=== PATIENT | female | born 1945 | race Caucasian/White ===

== ENCOUNTER 2024-09-30 09:40 | Inpatient (IN) | payer OTHER ==
--- OUTSIDE RECORDS SUMMARY | 2024-09-30 09:44 | XMS REPORT | Continuity of Care Document ---
Author Name Unknown Address [address] [place] [address] [facility] Address [address] [place] [address] Care Team Providers Care Auto Body Mechanic Name Role Phone NICOLLE PINTO Primary Care Physicia n Unavailable Castano, Na L Attending Clinician Unavailable Francis Harvey Attending Clinician Unavailable MICHAEL MENSAH Attending Clinician UnavailMICHAEL Edwards Attending Clinician Unavailnaeem centeno Doctor Unassigned, [place] Attending Clinician U Michael Ulrich MD Attending Clinician [phone] Felicity Marin Attending Clinician [phone] Unknown, Attending Attending Clinician UnavailFELICITY Payne Attending Clinician Unavailnaeem Bernal RN, Charmaine Griffin Attending Clinician [phone] WINSOME BOURGEOIS Attending Clinician Unavailable Hans SANTANA, Daniel Attending Clinician [phone] Winsome Bourgeois DO Attending Clinician [phone] AGAPITO MORALES Attending Clinician Unavailable Agapito Morales MD Attending Clinician [phone] Doctor Unassigned, [place] Attending Clinician U edward Ambar Noguera RD Attending Clinician [phone] Karla Quijano Attending Clinician [phone] JONAS HARDEN Attending Clinician Unavailable FREDI RICARDO Attending Clinician Unavail able Fredi Ricardo DO Attending Clinician [phone] Raju_P Attending Clinician Unavailable WINSOME BOURGEOIS Admitting Clinician Unavailable Winsome Bourgeois DO Admitting Clinician [phone] Raju_Lupe Admitting Clinician Unavailable Payers Payer Name Policy Type Policy Number Effective Date Expirati on Date Source [facility] AAR MCR Advantage (HMO-POS) [id number] 2021 00:00:00 [facility] HUMANA O [id number] 2019 00:00:00 Problems Condition Name Condition Details Condition Category Status Onset Date Resolution Date Last Treatment Date Treating Clinician Comments Source GALVEZ (dyspnea on exertion) GALVEZ (dyspnea on exertion) Disease Active 08-18 00:00: 00 [facility] Essential hypertensi on Essential hypertensi on Disease Active 08-18 00:00: 00 [facility] Type 2 diabetes mellitus without complicati on Type 2 diabetes mellitus without complicati on Disease Active 08-18 00:00: 00 [facility] Dyslipidem ia Dyslipidem ia Disease Active 08-18 00:00: 00 [facility] Bilateral carotid artery disease Bilateral carotid artery disease Disease Active 08-18 00:00: 00 [facility] Stage 4 chronic kidney disease Stage 4 chronic kidney disease Disease Active 08-18 00:00: 00 [facility] Chest pain, unspecifie d type Chest pain, unspecifie d type Disease Active 08-17 00:00: 00 [facility] Morbid obesity with body mass index of 50 or higher Morbid obesity with body mass index of 50 or higher Disease Active 02-04 00:00: 00 [facility] 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 Disease Active 02-04 00:00: 00 [facility] Morbid obesity with body mass index of 40.0-49.9 Morbid obesity with body mass index of 40.0-49.9 Disease Active 02-04 00:00: 00 [facility] [id number] Anemia in chronic illness Problem Active [facility] [id number] Acquired hypothyroi dism Problem Active [facility] [id number] Unsteady gait when walking Problem Active [facility] Chronic anemia Anemia in other chronic diseases classified elsewhere Problem Active [facility] Osteoarthr itis of knee Bilateral primary osteoarthr itis of knee Problem Active [facility] [id number] Primary osteoarthr itis of right knee Problem [facility] Chronic kidney disease stage 3B (disorder) Stage 3b chronic kidney disease Problem [facility] [id number] +5th digit eff 05/12/20*Ch ronic kidney disease, stage III (moderate) Problem Active [facility] [id number] Abnormal thyroid blood test Problem Active [facility] [id number] Dry eyes Problem Active [facility] 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 H/O stroke without residual deficits Problem Active [facility] Memory loss Memory loss Problem Active [facility] [id number] CPAP (continuou s positive airway pressure) dependence Problem Active [facility] Diabetic peripheral neuropathy associated with type 2 diabetes mellitus Type 2 diabetes mellitus with diabetic neuropathy , without long-term current use of insulin Problem Active [facility] [id number] Obstructiv e sleep apnea (adult) (pediatric ) Problem Active [facility] [id number] Diabetic retinopath y associated with controlled type 2 diabetes mellitus Problem Active [facility] Hyperlipid emia Hyperlipid emia Problem Active [facility] Bilateral arthritis of knees Osteoarthr itis of both knees Problem Active [facility] [id number] Presence of other vascular implants and grafts Problem Active [facility] [id number] Mixed stress and urge urinary incontinen ce Problem Active [facility] Allergies, Adverse Reactions, Alerts Allergy Name Allergy Type Status Severity Reaction(s) Onset Date Inactive Date Treating Clinician Comments Source NO KNOWN ALLERGIE S Drug Class Active [facility] Social History Social Habit Start Date Stop Date Quantity Comments Source History of Tobacco Use [facility] Sex Assigned At [facility] Social function 2024-09-24 00:00:00 2024-09-24 00:00:00 [facility] Alcoholic beverage intake 2024-09-24 00:00:00 2024-09-24 00:00:00 0 /d [facility] Tobacco use and exposure 2024-02-07 00:00:00 2024-02-07 00:00:00 Smokeless tobacco non-user [facility] Exposure to SARS-CoV-2 (event) 2022-07-14 00:00:00 2022-07-24 09:28:00 Not sure [facility] Alcohol intake 2021-05-31 00:00:00 2021-05-31 00:00:00 0 /d [facility] Smoking Status Start Date Stop Date Source Never smoked tobacco [facility] Medications Ordered Medication Name Filled Medication Name Start Date Stop Date Current Medication? Ordering Clinician Indication Dosage Frequency Signature (SIG) Comments Components Source furosemide 40 mg tablet 02-06 09:44: 38 Yes 40mg Take 1 tablet by mouth in the morning. [facility] fluticasone propionate 50 mcg/actuati on nasal spray 02-06 00:00: 00 Yes [id number] 1{spray } Use 1 Slinger in each nostril in the morning. [facility] methylPREDN ISolone (MEDROL, REYNA,) 4 mg tablets 02-06 00:00: 00 Yes [id number] Take by mouth SEE-INSTRU CTIONS. follow package directions [facility] fenofibrate 48 mg tablet 12-11 00:00: 00 Yes 48mg Take 1 tablet by mouth. [facility] carvediloL 6.25 mg tablet 10-02 00:00: 00 10-02 05:59 :00 No 6.25mg Take 1 tablet by mouth. [facility] pravastatin (PRAVACHOL) tablet 40 mg 08-19 03:00: 00 Yes 40mg 40 mg, Oral, QHS, First dose on 08/18/23 at 2100, Until Discontinu ed, Routine [facility] sulfur hexafluorid e microsphr (LUMASON) injection 5 mL 08-18 15:45: 00 08-18 15:45 :00 No [id number] 5mL 5 mL, Intravenou s, ONCE, 1 dose, On 08/18/23 at 0945, Routine
sociology faculty member approving Restricted medication : ETTA MCCARTNEY [facility] aspirin (ASPIRIN LOW DOSE) 81 mg EC tablet 08-18 15:32: 59 Yes 81mg Take 1 tablet by mouth in the morning. [facility] benazepril 20 mg tablet 08-18 15:32: 59 Yes 20mg Take 1 tablet by mouth in the morning. [facility] furosemide 40 mg tablet 08-18 15:32: 59 Yes 40mg Take 1 tablet by mouth in the morning. [facility] levothyroxi ne 25 mcg tablet 08-18 15:32: 59 Yes 25ug Take 1 tablet by mouth every morning. [facility] INSULIN REGULAR, HUMAN (NOVOLIN R INJECTION) 08-18 15:32: 59 Yes Inject as directed. [facility] metFORMIN 500 mg tablet 08-18 15:32: 59 Yes 500mg Take 1 tablet by mouth in the morning and 1 tablet in the evening. Take with meals. [facility] NIFEdipine XL (NIFEDICAL XL) 60 mg 24 hr tablet 08-18 15:32: 59 Yes 60mg Take 1 tablet by mouth in the morning. [facility] clopidogrel (PLAVIX) 75 mg tablet 08-18 15:32: 59 Yes 75mg Take 1 tablet by mouth in the morning. [facility] pravastatin 40 mg tablet 08-18 15:32: 59 Yes 40mg Take 1 tablet by mouth at bedtime. [facility] colesevelam (WELCHOL) 625 mg tablet 08-18 15:32: 59 Yes 3750mg Take 3,750 mg by mouth 2 (two) times daily with meals. [facility] SPIRONOLACT ONE ORAL 08-18 15:32: 59 Yes Take by mouth. [facility] clopidogrel (PLAVIX) 75 mg tablet 08-18 15:32: 59 Yes 75mg Take 1 tablet by mouth in the morning. [facility] pravastatin 40 mg tablet 08-18 15:32: 59 Yes 40mg Take 1 tablet by mouth at bedtime. [facility] NIFEdipine ER tablet 90 mg 08-18 15:00: 00 Yes 90mg 90 mg, Oral, DAILY, First dose on 08/18/23 at 0900, Until Discontinu ed
Facu lty member approving Non-formul erna medication : STERLING NORRIS
Reas on for non-formul erna use: SPECIFIC INDICATION FOR NONFORMULA RY PRODUCT [facility] clopidogreL (PLAVIX) 75 mg tablet 75 mg 08-18 15:00: 00 Yes 75mg 75 mg, Oral, DAILY, First dose on 08/18/23 at 0900, Until Discontinu ed, Routine [facility] aspirin EC tablet 81 mg 08-18 15:00: 00 Yes 81mg 81 mg, Oral, DAILY, First dose on 08/18/23 at 0900, Until Discontinu ed, Routine [facility] levothyroxi ne (SYNTHROID) tablet 25 mcg 08-18 12:00: 00 Yes 25ug 25 mcg, Oral, QAM-0600, First dose on 08/18/23 at 0600, Until Discontinu ed, Routine [facility] NaCl 0.9% (NS) IV infusion 250 mL 08-18 04:45: 00 Yes 250mL at 50 mL/hr, IV Infusion, CONTINUOUS , Starting on 08/17/23 at 2245, Until Discontinu ed, Routine [facility] benzonatate (TESSALON PERLES) capsule 100 mg 08-18 03:34: 49 Yes 100mg 100 mg, Oral, TIDPRN, Starting on 08/17/23 at 2134, Until Discontinu ed, Routine, Cough [facility] acetaminoph en-codeine (TYLENOL #3) 300-30 mg tablet 1 tablet 08-18 03:34: 43 Yes 1{tbl} 1 tablet, Oral, Q4HPRN, Starting on 08/17/23 at 2134, Until Discontinu ed, Routine, Pain (scale 4-6), Pain (scale 7-10) [facility] Sliding Scale Insulin - Lispro (HumaLOG) 08-17 23:00: 00 Yes Subcutaneo us, TID MEALS+HS, First dose on 08/17/23 at 1700, Until Discontinu ed, Routine [facility] heparin (porcine) injection 5,000 Units 08-17 20:00: 00 Yes 5000U 5,000 Units, Subcutaneo us, Q8H, First dose on 08/17/23 at 1400, Until Discontinu ed, Routine [facility] sodium zirconium cyclosilica te (LOKELMA) 10 gram packet 10 g 08-17 20:00: 00 08-19 19:59 :00 No 10g 10 g, Oral, TID, 6 doses, First dose on 08/17/23 at 1400, Last dose on Sat08/19/23 at 0800, FRANCISCO J [facility] insulin regular human (HUMULIN R) injection 10 Units 08-17 20:00: 00 08-17 20:06 :00 No 10U 10 Units, IV Push, ONCE, 1 dose, On 08/17/23 at 1400, Routine
Indicatio n for insulin: Hyperkalem ia- Please use the Insulin Protocol for Hyperkalem ia order set [facility] hydralAZINE (APRESOLINE ) injection 10 mg 08-17 19:45: 00 08-17 20:03 :00 No 10mg 10 mg, Slow IV Push, ONCE, 1 dose, On 08/17/23 at 1345, FRANCISCO J [facility] dextrose 50 % in water (D50W) injection 50 mL 08-17 19:30: 00 08-17 19:58 :00 No 50mL 50 mL, Intravenou s, ONCE, 1 dose, On 08/17/23 at 1330, STAT [facility] glucagon (GLUCAGEN DIAGNOSTIC KIT) injection 1 mg 08-17 19:29: 10 Yes 1mg 1 mg, Intramuscu lar, PRN, Starting on 08/17/23 at 1329, Until Discontinu ed, FRANCISCO J, Blood Glucose < or = 70 mg/dL and patient is NPO, unable to swallow or has mental changes. [facility] dextrose 50 % in water (D50W) injection 25 mL 08-17 19:29: 10 Yes 25mL 25 mL, Slow IV Push, PRN, Starting on 08/17/23 at 1329, Until Discontinu ed, FRANCISCO J, Blood Glucose < or = 70 mg/dL and patient is NPO, unable to swallow or has mental status changes. [facility] acetaminoph en (TYLENOL) tablet 650 mg 08-17 19:22: 05 Yes 650mg 650 mg, Oral, Q6HPRN, Starting on 08/17/23 at 1322, Until Discontinu ed, Routine, Pain (scale 1-3) [facility] albuterol (PROVENTIL) 2.5 mg /3 mL (0.083 %) nebulizer solution 10 mg 08-17 19:00: 00 08-17 19:33 :00 No 10mg 10 mg, Inhalation , ONCE, 1 dose, On 08/17/23 at 1300, STAT [facility] aspirin tablet 325 mg 08-17 15:15: 00 08-17 15:10 :00 No 325mg 325 mg, Oral, ONCE, 1 dose, On 08/17/23 at 0915, STAT [facility] aspirin (ASPIRIN LOW DOSE) 81 mg EC tablet 08-15 08:40: 01 Yes 81mg Take 1 tablet by mouth in the morning. [facility] benazepril 20 mg tablet 08-15 08:40: 01 Yes 20mg Take 1 tablet by mouth in the morning. [facility] furosemide 40 mg tablet 08-15 08:40: 01 Yes 40mg Take 1 tablet by mouth in the morning. [facility] levothyroxi ne 25 mcg tablet 08-15 08:40: 01 Yes 25ug Take 1 tablet by mouth every morning. [facility] INSULIN REGULAR, HUMAN (NOVOLIN R INJECTION) 08-15 08:40: 01 Yes Inject as directed. [facility] metFORMIN 500 mg tablet 08-15 08:40: 01 Yes 500mg Take 1 tablet by mouth in the morning and 1 tablet in the evening. Take with meals. [facility] NIFEdipine XL (NIFEDICAL XL) 60 mg 24 hr tablet 08-15 08:40: 01 Yes 60mg Take 1 tablet by mouth in the morning. [facility] clopidogrel (PLAVIX) 75 mg tablet 08-15 08:40: 01 Yes 75mg Take 1 tablet by mouth in the morning. [facility] pravastatin 40 mg tablet 08-15 08:40: 01 Yes 40mg Take 1 tablet by mouth at bedtime. [facility] Levothyroxi ne Sodium 88 MCG Levothyroxi ne Sodium 88 MCG 2-14 00:00: 00 No QD Levothyrox ine Sodium 88 MCG pravastatin 40 mg tablet 2020-08 11:16: 08 Yes 40mg Take 40 mg by mouth at bedtime. [facility] colesevelam (WELCHOL) 625 mg tablet 2020-08 11:16: 08 Yes 3750mg Take 3,750 mg by mouth 2 (two) times daily with meals. [facility] aspirin (ASPIRIN LOW DOSE) 81 mg EC tablet 2020-08 11:16: 08 Yes 81mg Take 81 mg by mouth daily. [facility] benazepril 20 mg tablet 2020-08 11:16: 08 Yes 20mg Take 20 mg by mouth daily. [facility] furosemide 40 mg tablet 2020-08 11:16: 08 Yes 40mg Take 40 mg by mouth daily. [facility] levothyroxi ne 25 mcg tablet 2020-08 11:16: 08 Yes 25ug Take 25 mcg by mouth every morning. [facility] INSULIN REGULAR, HUMAN (NOVOLIN R INJECTION) 2020-08 11:16: 08 Yes Inject as directed. [facility] metFORMIN 500 mg tablet 2020-08 11:16: 08 Yes 500mg Take 500 mg by mouth 2 (two) times daily with meals. [facility] NIFEdipine XL (NIFEDICAL XL) 60 mg 24 hr tablet 2020-08 11:16: 08 Yes 60mg Take 60 mg by mouth daily. [facility] clopidogrel (PLAVIX) 75 mg tablet 2020-08 11:16: 08 Yes 75mg Take 75 mg by mouth daily. [facility] benzonatate (TESSALON PERLES) 100 mg capsule 2020-08 00:00: 00 Yes [id number] 100mg Take 1 capsule by mouth 3 (three) times daily as needed for Cough. [facility] amoxicillin -clavulanat e (AUGMENTIN) 875-125 mg per tablet 2020-08 00:00: 00 06-11 04:59 :00 No [id number] 1{tbl} Take 1 tablet by mouth 2 (two) times daily for 10 days. [facility] Mupirocin 2 % Mupirocin 2 % 2020-08 00:00: 00 06-02 00:00 :00 No 1{appli cation_ to_affe cted_ar ea} TID Mupirocin 2 % valACYclovi r HCl 1 GM valACYclovi r HCl 1 GM 2020-08 0 00:00: 00 06-02 00:00 :00 No 1{table t} BID valACYclov ir HCl 1 GM Mupirocin 2 % Mupirocin 2 % 2020-08 015 00:00: 00 06-02 00:00 :00 No 1{appli cation_ to_affe cted_ar ea} TID Mupirocin 2 % valACYclovi r HCl 1 GM valACYclovi r HCl 1 GM 2020-08 0 00:00: 00 06-02 00:00 :00 No 1{table t} BID valACYclov ir HCl 1 GM aspirin (ASPIRIN LOW DOSE) 81 mg EC tablet 09-26 16:42: 53 Yes 81mg Take 81 mg by mouth daily. [facility] benazepril 20 mg tablet 09-26 16:42: 53 Yes 20mg Take 20 mg by mouth daily. [facility] furosemide 40 mg tablet 09-26 16:42: 53 Yes 40mg Take 40 mg by mouth daily. [facility] levothyroxi ne 25 mcg tablet 09-26 16:42: 53 Yes 25ug Take 25 mcg by mouth every morning. [facility] INSULIN REGULAR, HUMAN (NOVOLIN R INJECTION) 09-26 16:42: 53 Yes Inject as directed. [facility] metFORMIN 500 mg tablet 09-26 16:42: 53 Yes 500mg Take 500 mg by mouth 2 (two) times daily with meals. [facility] NIFEdipine XL (NIFEDICAL XL) 60 mg 24 hr tablet 09-26 16:42: 53 Yes 60mg Take 60 mg by mouth daily. [facility] clopidogrel (PLAVIX) 75 mg tablet 09-26 16:42: 53 Yes 75mg Take 75 mg by mouth daily. [facility] pravastatin 40 mg tablet 09-26 16:42: 53 Yes 40mg Take 40 mg by mouth at bedtime. [facility] colesevelam (WELCHOL) 625 mg tablet 2-15 16:42: 53 Yes 3750mg Take 3,750 mg by mouth 2 (two) times daily with meals. [facility] acetaminoph en-codeine (TYLENOL-CO DEINE #3) 300-30 mg tablet 02-06 00:00: 00 Yes 1{tbl} Take 1 tablet by mouth every 4 (four) hours as needed for Pain (scale 4-6) or Pain (scale 7-10). [facility] Myrbetriq Myrbetriq Yes Na Castano 1 tablet [facility] Levothyroxi ne Sodium Levothyroxi ne Sodium Yes Na Castano [facility] Pl[facility] Plavix Yes Na Castano 1 tablet [facility] Coreg Coreg Yes Na Castano 1 tablet with food [facility] MetFORMIN HCl ER MetFORMIN HCl ER Yes Na Castano 1 tablet with meal [facility] OneTouch Ultra 2 OneTouch Ultra 2 Yes Na Castano USE DIRECTED [facility] Nifedical XL Nifedical XL Yes Na Castano TAKE 1 TABLET BY MOUTH ONCE A DAY [facility] Lasix Lasix Yes Na Castano 1 tablet C [facility] OneTouch Ultra Test OneTouch Ultra Test Yes Na Castano 1 strip Commo [facility] Ditropan XL Ditropan XL Yes Na Castano 1 tablet [facility] Pravastatin Sodium Pravastatin Sodium Yes Na Castano TAKE 1 TABLET BY MOUTH ONCE A DAY [facility] NovoLIN 70/30 ReliOn NovoLIN 70/30 ReliOn Yes Na Castano 55 units AM, 30 units noon, 55 units PM [facility] Bydureon Bydureon Yes Na Castano not defined [facility] Restasis Restasis Yes Na Castano not defined [facility] Coreg 25 MG Coreg 25 MG No Co reg 25 MG Lasix 40 MG Lasix 40 MG No La six 40 MG Ditropan XL 10 MG Ditropan XL 10 MG No 1{table t} QD Ditropan XL 10 MG Restasis Restasis No Restasis Lotensin 20 MG Lotensin 20 MG No Lotensin 20 MG Nifedical XL 60 MG Nifedical XL 60 MG No Nifedical XL 60 MG metFORMIN HCl ER 750 MG metFORMIN HCl ER 750 MG No metFORMIN HCl ER 750 MG Myrbetriq 25 MG Myrbetriq 25 MG No 1{table t} QD Myrbetriq 25 MG NovoLIN 70/30 ReliOn (70-30) 100 UNIT/ML NovoLIN 70/30 ReliOn (70-30) 100 UNIT/ML No QD NovoLIN 70/30 ReliOn (70-30) 100 UNIT/ML OneTouch Ultra 2 w/Device OneTouch Ultra 2 w/Device No BID OneTouch Ultra 2 w/Device Levothyroxi ne Sodium 75 MCG Levothyroxi ne Sodium 75 MCG No Levothyrox ine Sodium 75 MCG Plavix 75 MG Plavix 75 MG No Plavix 75 MG Coreg 12.5 MG Coreg 12.5 MG No 1{table t_with_ food} BID Coreg 12.5 MG Levothyroxi ne Sodium 75 MCG Levothyroxi ne Sodium 75 MCG No Levothyrox ine Sodium 75 MCG metFORMIN HCl ER 750 MG metFORMIN HCl ER 750 MG No metFORMIN HCl ER 750 MG Coreg 25 MG Coreg 25 MG No Co reg 25 MG Nifedical XL 60 MG Nifedical XL 60 MG No Nifedical XL 60 MG NovoLIN 70/30 ReliOn (70-30) 100 UNIT/ML NovoLIN 70/30 ReliOn (70-30) 100 UNIT/ML No QD NovoLIN 70/30 ReliOn (70-30) 100 UNIT/ML Myrbetriq 25 MG Myrbetriq 25 MG No 1{table t} QD Myrbetriq 25 MG Restasis Restasis No Restasis Lasix 40 MG Lasix 40 MG No 1{table t} QD Lasix 40 MG Ditropan XL 10 MG Ditropan XL 10 MG No 1{table t} QD Ditropan XL 10 MG OneTouch Ultra 2 w/Device OneTouch Ultra 2 w/Device No BID OneTouch Ultra 2 w/Device Coreg 12.5 MG Coreg 12.5 MG No 1{table t_with_ food} BID Coreg 12.5 MG Plavix 75 MG Plavix 75 MG No 1{table t} QD Plavix 75 MG Lotensin 20 MG Lotensin 20 MG No Lotensin 20 MG Carvedilol 12.5 MG Carvedilol 12.5 MG No Carvedilol 12.5 MG OneTouch Ultra - OneTouch Ultra - No OneTouch Ultra - Restasis Restasis No Restasis Carvedilol 12.5 MG Carvedilol 12.5 MG No Carvedilol 12.5 MG NovoLIN 70/30 ReliOn (70-30) 100 UNIT/ML NovoLIN 70/30 ReliOn (70-30) 100 UNIT/ML No QD NovoLIN 70/30 ReliOn (70-30) 100 UNIT/ML OneTouch Ultra 2 w/Device OneTouch Ultra 2 w/Device No BID OneTouch Ultra 2 w/Device Spironolact one 25 MG Spironolact one 25 MG No Spironolac tone 25 MG OneTouch Ultra - OneTouch Ultra - No OneTouch Ultra - Coreg 12.5 MG Coreg 12.5 MG No 1{table t_with_ food} BID Coreg 12.5 MG Nifedical XL 60 MG Nifedical XL 60 MG No Nifedical XL 60 MG metFORMIN HCl ER 750 MG metFORMIN HCl ER 750 MG No metFORMIN HCl ER 750 MG Plavix 75 MG Plavix 75 MG No 1{table t} QD Plavix 75 MG Levothyroxi ne Sodium 88 MCG Levothyroxi ne Sodium 88 MCG No Levothyrox ine Sodium 88 MCG Coreg 25 MG Coreg 25 MG No Co reg 25 MG Lotensin 20 MG Lotensin 20 MG No Lotensin 20 MG Myrbetriq 25 MG Myrbetriq 25 MG No 1{table t} QD Myrbetriq 25 MG Benazepril HCl 10 MG Benazepril HCl 10 MG No Benazepril HCl 10 MG Immunizations Ordered Immunization Name Filled Immunization Name Date Status Comments Source SARS-COV-2 COVID-19 MODERNA 12+ YRS VACCINE 2020-10-14 00:00:00 Completed [facility] SARS-COV-2 COVID-19 MODERNA 12+ YRS VACCINE 2020-10-14 00:00:00 Completed [facility] SARS-COV-2 COVID-19 MODERNA 12+ YRS VACCINE 2020-10-14 00:00:00 Completed [facility] SARS-COV-2 COVID-19 MODERNA 12+ YRS VACCINE 2020-10-14 00:00:00 Completed [facility] SARS-COV-2 COVID-19 MODERNA 12+ YRS VACCINE 2020-10-14 00:00:00 Completed [facility] SARS-COV-2 COVID-19 MODERNA VACCINE 2020-10-14 00:00:00 Completed [facility] SARS-COV-2 COVID-19 MODERNA 12+ YRS VACCINE 2020-09-16 00:00:00 Completed [facility] SARS-COV-2 COVID-19 MODERNA 12+ YRS VACCINE 2020-09-16 00:00:00 Completed [facility] SARS-COV-2 COVID-19 MODERNA 12+ YRS VACCINE 2020-09-16 00:00:00 Completed [facility] SARS-COV-2 COVID-19 MODERNA 12+ YRS VACCINE 2020-09-16 00:00:00 Completed [facility] SARS-COV-2 COVID-19 MODERNA 12+ YRS VACCINE 2020-09-16 00:00:00 Completed [facility] SARS-COV-2 COVID-19 MODERNA VACCINE 2020-09-16 00:00:00 Completed [facility] SARS-COV-2 COVID-19 MODERNA 12+ YRS VACCINE Unknown Completed [facility] SARS-COV-2 COVID-19 MODERNA 12+ YRS VACCINE Unknown Completed [facility] SARS-COV-2 COVID-19 MODERNA 12+ YRS VACCINE Unknown Completed [facility] SARS-COV-2 COVID-19 MODERNA 12+ YRS VACCINE Unknown Completed [facility] SARS-COV-2 COVID-19 MODERNA 12+ YRS VACCINE Unknown Completed [facility] SARS-COV-2 COVID-19 MODERNA 12+ YRS VACCINE Unknown Completed [facility] Vital Signs Vital Name Observation Time Observation Value Comments S ource Systolic blood pressure 2024-09-24 15:12:00 117 mm[Hg] [facility] Diastolic blood pressure 2024-09-24 15:12:00 69 mm[Hg] [facility] Heart rate 2024-09-24 15:12:00 84 /min Unive [facility] Respiratory rate 2024-09-24 15:12:00 18 /min [facility] Body height 2024-09-24 15:12:00 165.1 cm [facility] Body weight 2024-09-24 15:12:00 107.502 kg [facility] BMI 2024-09-24 15:12:00 39.44 kg/m2 [facility] Oxygen saturation in Arterial blood by Pulse oximetry 2024-09-24 15:12:00 94 /min [facility] Systolic blood pressure 2024-02-07 14:46:00 139 mm[Hg] [facility] Diastolic blood pressure 2024-02-07 14:46:00 67 mm[Hg] [facility] Heart rate 2024-02-07 14:46:00 77 /min [facility] Body temperature 2024-02-07 14:46:00 36.67 Carissa [facility] Respiratory rate 2024-02-07 14:46:00 18 /min [facility] Body weight 2024-02-07 14:46:00 117.935 kg [facility] BMI 2024-02-07 14:46:00 43.27 kg/m2 [facility] Oxygen saturation in Arterial blood by Pulse oximetry 2024-02-07 14:46:00 95 /min [facility] Systolic blood pressure 2023-08-18 17:02:00 141 mm[Hg] [facility] Diastolic blood pressure 2023-08-18 17:02:00 59 mm[Hg] [facility] Heart rate 2023-08-18 17:02:00 74 /min [facility] Body temperature 2023-08-18 17:02:00 35.94 Carissa [facility] Respiratory rate 2023-08-18 17:02:00 17 /min [facility] Oxygen saturation in Arterial blood by Pulse oximetry 2023-08-18 17:02:00 94 /min [facility] Body weight 2023-08-18 09:01:00 114.488 kg [facility] BMI 2023-08-18 09:01:00 42.00 kg/m2 [facility] Body height 2023-08-17 21:10:00 165.1 cm [facility] Systolic blood pressure 2023-08-15 14:40:00 144 mm[Hg] [facility] Diastolic blood pressure 2023-08-15 14:40:00 58 mm[Hg] [facility] Heart rate 2023-08-15 14:40:00 85 /[facility] 2023-08-15 14:40:00 36.72 Carissa [facility] Respiratory rate 2023-08-15 14:40:00 18 /min [facility] Body height 2023-08-15 14:40:00 165.1 cm [facility] Body weight 2023-08-15 14:40:00 115.214 kg [facility] BMI 2023-08-15 14:40:00 42.27 kg/m2 [facility] Oxygen saturation in Arterial blood by Pulse oximetry 2023-08-15 14:40:00 97 /min [facility] height 2022-12-17 14:00:00 65 [in_i] Commo n [facility] weight 2022-12-17 14:00:00 251.9 [lb_av] Co mmon [facility] bmi 2022-12-17 14:00:00 41.91 kg/m2 Comm on [facility] blood pressure systolic 2022-12-17 14:00:00 129 mm[Hg] [facility] blood pressure diastolic 2022-12-17 14:00:00 78 mm[Hg] [facility] Body height 2022-07-24 21:10:00 165.1 cm [facility] Body weight 2022-07-24 21:10:00 110.224 kg [facility] BMI 2022-07-24 21:10:00 40.44 kg/m2 [facility] height 2021-09-25 08:40:00 65 [in_i] Commo n [facility] weight 2021-09-25 08:40:00 255.6 [lb_av] Co mmon [facility] temperature 2021-09-25 08:40:00 96.3 [degF] Com [facility] bmi 2021-09-25 08:40:00 42.53 kg/m2 Comm on [facility] oximetry 2021-09-25 08:40:00 99 % Commo n [facility] respiratory rate 2021-09-25 08:40:00 16 /min Common [facility] blood pressure systolic 2021-09-25 08:40:00 139 mm[Hg] [facility] blood pressure diastolic 2021-09-25 08:40:00 66 mm[Hg] [facility] height 2021-06-22 11:00:00 65 [in_i] Commo n [facility] weight 2021-06-22 11:00:00 255.0 [lb_av] Co mmon [facility] temperature 2021-06-22 11:00:00 97.3 [degF] Com [facility] bmi 2021-06-22 11:00:00 42.43 kg/m2 Comm on [facility] oximetry 2021-06-22 11:00:00 93 % Commo n [facility] respiratory rate 2021-06-22 11:00:00 16 /min [facility] blood pressure systolic 2021-06-22 11:00:00 150 mm[Hg] [facility] blood pressure diastolic 2021-06-22 11:00:00 72 mm[Hg] [facility] Systolic blood pressure 2021-05-31 16:19:00 182 mm[Hg] [facility] Diastolic blood pressure 2021-05-31 16:19:00 81 mm[Hg] [facility] Heart rate 2021-05-31 16:16:00 72 /min [facility] Body temperature 2021-05-31 16:16:00 36.11 Carissa [facility] Respiratory rate 2021-05-31 16:16:00 18 /min [facility] Body height 2021-05-31 16:16:00 165.1 cm [facility] Body weight 2021-05-31 16:16:00 113.399 kg [facility] BMI 2021-05-31 16:16:00 41.60 kg/m2 [facility] Oxygen saturation in Arterial blood by Pulse oximetry 2021-05-31 16:16:00 96 /min [place] [facility] height 2021-03-20 09:00:00 65 [in_i] Commo n [facility] weight 2021-03-20 09:00:00 255 [lb_av] Comm on [facility] temperature 2021-03-20 09:00:00 97.0 [degF] Com [facility] bmi 2021-03-20 09:00:00 42.43 kg/m2 Comm on [facility] oximetry 2021-03-20 09:00:00 97 % Commo n [facility] blood pressure systolic 2021-03-20 09:00:00 134 mm[Hg] [facility] blood pressure diastolic 2021-03-20 09:00:00 66 mm[Hg] [facility] height 2021-03-20 08:00:00 65 [in_i] Commo n [facility] weight 2021-03-20 08:00:00 255 [lb_av] Comm on [facility] temperature 2021-03-20 08:00:00 97.0 [degF] Com [facility] bmi 2021-03-20 08:00:00 42.43 kg/m2 Comm on [facility] oximetry 2021-03-20 08:00:00 97 % Commo n [facility] respiratory rate 2021-03-20 08:00:00 16 /min [facility] blood pressure systolic 2021-03-20 08:00:00 134 mm[Hg] [facility] blood pressure diastolic 2021-03-20 08:00:00 66 mm[Hg] [facility] Procedures Procedure Date / Time Performed Performing Clinician Source XR ANKLE 3+ VW LEFT 2024-09-24 15:26:36 Shruthi Mensah [facility] POCT GLUCOSE (AUTOMATED) 2023-08-18 17:47:00 Shahnaz Bourgeois [facility] TRANSTHORACIC ECHO (TTE) COMPLETE W/ CONTRAST 2023-08-18 14:57:00 Winsome Bourgeois [facility] POCT GLUCOSE (AUTOMATED) 2023-08-18 13:30:00 Shahnaz Bourgeois [facility] TROPONIN I 2023-08-18 10:40:00 Sterling Norris [facility] BASIC METABOLIC PANEL (NA, K, CL, CO2, GLUCOSE, BUN, CREATININE, CA) 2023-08-18 10:40:00 Sterling Norris [facility] LIPID PANEL (28963)(TOTAL CHOLESTEROL, TRIGLYCERIDES, HDL) 2023-08-18 10:40:00 Sterling Norris [facility] POCT GLUCOSE (AUTOMATED) 2023-08-18 05:58:00 Shahnaz Bourgeois [facility] TROPONIN I 2023-08-18 03:08:00 Winsome Bourgeois [facility] POCT GLUCOSE (AUTOMATED) 2023-08-18 02:44:00 Shahnaz Bourgeois [facility] POCT GLUCOSE (AUTOMATED) 2023-08-17 23:17:00 Shahnaz Bourgeois [facility] TROPONIN I 2023-08-17 21:29:00 Winsome Bourgeois [facility] POCT GLUCOSE(AGE >30DAYS) 2023-08-17 20:39:00 Winsome Bourgeois [facility] POCT GLUCOSE (AUTOMATED) 2023-08-17 20:38:00 Shahnaz Bourgeois [facility] POCT GLUCOSE (AUTOMATED) 2023-08-17 19:56:00 Shahnaz Bourgeois [facility] D-DIMER 2023-08-17 16:37:00 Daniel Maxwell [facility] XR CHEST 1 VW 2023-08-17 15:24:56 Daniel Maxwell [facility] TROPONIN I 2023-08-17 15:19:00 Daniel Maxwell [facility] COMP. METABOLIC PANEL (53217) 2023-08-17 15:19:00 Daniel Maxwell [facility] CBC WITH DIFF 2023-08-17 15:19:00 Daniel Maxwell [facility] GLYCOSYLATED HEMOGLOBIN (A1C) 2023-08-17 15:19:00 Winsome Bourgeois [facility] N-TERMINAL PRO-BNP 2023-08-17 15:19:00 Aarti Maxwell [facility] HB ECG ROUTINE & RHYTHM STRIP 2023-08-17 15:06:17 Daniel Maxwell [facility] CONSENT/REFUSAL FOR DIAGNOSIS AND TREATMENT 2023-08-17 14:56:10 Doctor Unassigned, [place] [facility] REFERRAL- REQUEST/RESPONSE 2023-07-31 06:01:00 Doctor Unassigned, [place] [facility] AUTHORIZATION FOR RELEASE OF PHI 2022-12-18 05:01:00 Doctor Unassigned, [place] [facility] ASSIGNMENT OF BENEFITS 2022-07-24 15:36:31 Docto r Unassigned, [place] [facility] REFERRAL- REQUEST/RESPONSE 2022-07-17 06:01:00 Doctor Unassigned, [place] [facility] KNEE, 2 VIEWS 2017-02-04 16:57:00 Michael Mensah Un [facility] HOSPITAL ADMISSION 2017-02-04 05:01:00 Doctor Un assigned, [place] [facility] Encounters Start Date/Time End Date/Time Encounter Type Admission Type Attending Clinicians Care Facility Care Department Encounter ID Source 2022-09-26 14:12:00 [facility] [id number] [facility] 2022-07-11 10:25:01 Outpatient Castano, Na STLMLC STLML[facility] [id number] [facility] 2021-09-25 08:40:01 Outpatient Castano, Na STLMLC STLMLC [id number] [facility] 2021-09-21 14:22:02 Outpatient Castano, Na STLMLC STLMLC [id number] [facility] 2021-09-06 14:10:54 Outpatient Castano, Na STLMLC STLMLC [id number] [facility] 2021-09-06 13:25:43 Outpatient Castano, Na STLMLC STLMLC [id number] [facility] 2021-09-06 12:44:40 Outpatient Castano, Na STLMLC STLMLC [id number] [facility] 2021-09-06 12:42:59 Outpatient Castano, Na STLMLC STLMLC [id number] [facility] 2021-09-06 12:35:56 Outpatient Castano, Na STLMLC STLMLC [id number] [facility] 2021-09-06 12:25:49 Outpatient Castano, Na STLMLC STLMLC [id number] [facility] 2021-09-06 12:16:38 Outpatient Castano, Na STLMLC STLMLC [id number] [facility] 2021-09-06 12:16:18 Outpatient Castano, Na STLMLC STLMLC [id number] [facility] 2021-09-06 11:55:50 Outpatient Castano, Na STLMLC STLMLC [id number] [facility] 2021-09-06 11:54:40 Outpatient Castano, Na STLMLC STLMLC [id number] [facility] 2021-09-06 11:52:40 Outpatient CastanoMarva perry STLMLC STLMLC [id number] [facility] 2021-09-06 11:50:23 Outpatient CastanoMarva perry STLMLC STLMLC [id number] [facility] 2021-09-06 11:49:35 Outpatient Castano, Marva STLMLC STLMLC [id number] [facility] 2021-09-06 11:49:06 Outpatient CastanoMarva perry STLMLC STLMLC [id number] [facility] 2021-09-06 11:33:51 Outpatient CastanoMarva perry STLMLC STLMLC [id number] [facility] 2021-09-06 11:24:20 Outpatient CastanoMarva perry STLMLC STLMLC [id number] [facility] 2021-09-06 11:21:08 Outpatient CastanoMarva perry STLMLC STLMLC [id number] [facility] 2021-09-06 11:12:25 Outpatient Marva Castano STLMLC STLMLC [id number] [facility] 2021-09-06 11:10:36 Outpatient Delia Harveyh STLMLC STLC [id number] [facility] 2017-02-04 00:00:00 2024-09-26 03:45:23 Orders Only Doctor Unassigned, [place] Doctor Unassigned, [place] [facility] 1.2.840.114 350.1.13.10 4.2.7.2.686 [id number] [facility] 2017-02-20 00:00:00 2024-09-26 03:44:03 Orders Only Doctor Unassigned, [place] Doctor Unassigned, [place] [facility] 1..114 350.1.13.10 4.2.7.2.686 [id number] [facility] 2017-09-26 00:00:00 2024-09-26 03:26:15 Orders Only Doctor Unassigned, [place] Doctor Unassigned, [place] [facility] 1.114 350.1.13.10 4.2.7.2.686 [id number] [facility] 2024-09-24 09:17:22 2024-09-24 23:59:00 Hospital Encounter Michael Mensah [facility] 1.114 350.1.13.10 4.2.7.2.686 [id number] [facility] 2024-09-24 09:00:00 2024-09-24 11:57:43 Outpatient R MICHAEL MENSAH CRAIG [facility] [id number] [facility] 2024-09-24 09:00:00 2024-09-24 11:57:43 Office Visit Michael Mensah [facility] 1.114 350.1.13.10 4.2.7.2.686 [id number] [facility] 2024-09-15 09:15:00 2024-09-15 09:15:00 Outpatient R MICHAEL MENSAH CRAIG [facility] [id number] [facility] 2024-02-07 09:40:00 2024-02-07 10:00:00 Urgent Care Elmai, Felicity Unknown, Attending [facility] 1.84.114 350.1.13.10 4.2.7.2.686 [id number] [facility] 2024-02-07 09:40:00 2024-02-07 09:40:00 Outpatient R FELICITY GUILLEN [facility] [id number] [facility] 2023-08-20 00:00:00 2023-08-20 00:00:00 Transition of Care BernalCharmaine 1..114 350.1.13.10 4.2.7.2.686 [id number] [facility] 2023-08-17 09:03:00 2023-08-18 15:32:00 Outpatient X WINSOME BOURGEOIS [facility] MELANIA [id number] [facility] 2023-08-17 09:03:00 2023-08-18 15:32:00 Hospital Encounter Daniel Maxwell [facility] 1..114 350.1.13.10 4.2.7.2.686 [id number] [facility] 2023-08-15 08:45:00 2023-08-15 08:57:37 Outpatient R AGAPITO MORALES [facility] [id number] [facility] 2023-08-15 08:45:00 2023-08-15 08:57:37 Office [facility] 1.114 350.1.13.10 4.2.7.2.686 [id number] [facility] 2023-08-07 00:00:00 2023-08-07 00:00:00 Patient Secure Msg Doctor Unassigned, [place] [facility] .114 350.1.13.10 4.2.7.2.686 [id number] [facility] 2023-07-31 00:00:00 2023-07-31 00:00:00 Orders Only Doctor Unassigned, [place] [facility] 1..114 350.1.13.10 4.2.7.2.686 [id number] [facility] 2022-12-18 00:00:00 2022-12-18 00:00:00 Orders Only Doctor Unassigned, [place] [facility] 1.2.840.114 350.1.13.10 4.2.7.2.686 [id number] [facility] 2022-12-17 00:00:00 2022-12-17 00:00:00 OFFICE VISIT NEW PT LEVEL 4 STLMLC STLMLC [id number] [facility] 2022-07-24 10:00:00 2022-07-24 12:22:49 Supplemental Nurse Visit Ambar Noguera [facility] 1.2840.114 350.1.13.10 4.2.7.2.686 [id number] [facility] 2022-07-24 10:00:00 2022-07-24 12:22:49 Outpatient R AMBAR NOGUERA [facility] [id number] [facility] 2022-07-24 00:00:00 2022-07-24 00:00:00 Orders Only Doctor Unassigned, [place] [facility] 1.2.840.114 350.1.13.10 4.2.7.2.686 [id number] [facility] 2022-07-17 00:00:00 2022-07-17 00:00:00 Orders Only Doctor Unassigned, [place] [facility] 1.2840.114 350.1.13.10 4.2.7.2.686 [id number] [facility] 2021-12-20 00:00:00 2021-12-20 00:00:00 (TEL) STLMLC STLMLC [id number] [facility] 2021-09-28 00:00:00 2021-09-28 00:00:00 (TEL) STLMLC STLMLC [id number] [facility] 2021-09-25 00:00:00 2021-09-25 00:00:00 OFFICE VISIT ESTAB PT LEVEL 4 STLMLC STLMLC [id number] [facility] 2021-08-01 00:00:00 2021-08-01 00:00:00 (TEL) STLMLC STLMLC [id number] [facility] 2021-06-22 00:00:00 2021-06-22 00:00:00 OFFICE VISIT ESTAB PT LEVEL 4 STLMLC STLMLC [id number] [facility] 2021-05-31 11:08:58 2021-05-31 11:34:07 Urgent Care [facility] Medical Office Building 1.2.840.114 350.1.13.10 4.2.7.2.686 [id number] [facility] 2021-05-31 11:20:00 2021-05-31 11:20:00 Outpatient R [facility] [id number] [facility] 2021-05-31 11:20:00 2021-05-31 11:20:00 Outpatient R [facility] [id number] [facility] 2021-05-26 00:00:00 2021-05-26 00:00:00 (TEL) STLMLC STLMLC [id number] [facility] 2021-05-25 00:00:00 2021-05-25 00:00:00 (TEL) STLMLC STLMLC [id number] [facility] 2021-03-20 00:00:00 2021-03-20 00:00:00 SUB ANNUAL [facility] VISIT STLMLC STLMLC [id number] [facility] 2021-03-20 00:00:00 2021-03-20 00:00:00 OFFICE VISIT EST PT LEVEL 3 STLMLC STLMLC [id number] [facility] 2021-01-13 00:00:00 2021-01-13 00:00:00 (TEL) STLMLC STLMLC [id number] [facility] 2021-01-13 00:00:00 2021-01-13 00:00:00 (TEL) STLMLC STLMLC [id number] [facility] 2021-01-13 00:00:00 2021-01-13 00:00:00 (TEL) STLMLC STLMLC [id number] [facility] 2020-11-08 00:00:00 2020-11-08 00:00:00 Outpatient STLMLC STLMLC [id number] [facility] 2020-10-14 16:00:00 2020-10-14 16:00:00 Outpatient JONAS VALDEZ [facility] [id number] [facility] 2020-10-14 16:00:00 2020-10-14 16:00:00 Outpatient JONAS VALDEZ [facility] [id number] [facility] 2020-09-16 09:00:00 2020-09-16 09:00:00 Outpatient FREDI RICARDO [facility] [id number] [facility] 2020-09-16 09:00:00 2020-09-16 09:00:00 Outpatient FREDI SCHNEIDER [facility] [id number] [facility] 2020-09-12 14:30:00 2020-09-12 14:30:00 Outpatient FREDI RICARDO [facility] [id number] [facility] 2020-09-12 14:30:00 2020-09-12 14:30:00 Outpatient FREDI SCHNEIDER [facility] [id number] [facility] 2020-09-09 00:00:00 2020-09-09 00:00:00 Outpatient STLMLC STLMLC [id number] [facility] 2020-09-04 00:00:00 2020-09-04 00:00:00 Patient Outreach Fredi Ricardo [facility] 1.2.840.114 350.1.13.10 4.2.7.2.686 [id number] [facility] 2020-08-03 00:00:00 2020-08-03 00:00:00 Outpatient STLMLC STLMLC [id number] [facility] 2020-08-02 00:00:00 2020-08-02 00:00:00 Outpatient STLMLC STLMLC [id number] [facility] 2020-06-20 00:00:00 2020-06-20 00:00:00 Outpatient STLMLC STLMLC [id number] [facility] 2020-05-26 00:00:00 2020-05-26 00:00:00 Outpatient STLMLC STLMLC [id number] [facility] 2020-05-16 00:00:00 2020-05-16 00:00:00 Outpatient STLMLC STLMLC [id number] [facility] 2020-05-10 00:00:00 2020-05-10 00:00:00 Outpatient STLMLC STLMLC [id number] [facility] 2020-03-31 08:00:00 2020-03-31 08:00:00 [facility] [id number] [facility] 2020-02-18 20:29:00 2020-02-18 20:29:00 Outpatient [facility] [id number] [facility] [place] [place] [facility] 2020-02-18 12:57:00 2020-02-18 12:57:00 [facility] Family [facility] [id number] [facility] 2020-02-10 16:26:00 2020-02-10 16:26:00 Out[facility] [id number] [facility] 2020-02-08 08:40:00 2020-02-08 08:40:00 [facility] [id number] [facility] [place] [place] [facility] 2020-02-05 10:47:00 2020-02-05 10:47:00 [facility] [id number] [facility] 2020-01-18 14:57:00 2020-01-18 14:57:00 [facility] [id number] [facility] 2020-01-11 09:15:00 2020-01-11 09:15:00 [facility] [id number] [facility] 2020-01-06 08:40:00 2020-01-06 08:40:00 [facility] [id number] [facility] 2019-12-30 15:35:00 2019-12-30 15:35:00 [facility] [id number] [facility] 2019-11-18 05:21:00 2019-11-18 05:21:00 Outpatient Raju_P [id number] [facility] 2019-10-28 09:08:00 2019-10-28 09:08:[address] [facility] [facility] [id number] [facility] 2019-10-13 15:35:00 2019-10-13 15:35:[address] [facility] [id number] [facility] 2019-10-12 10:03:00 2019-10-12 10:03:00 [facility] [id number] [facility] 2019-10-12 09:58:00 2019-10-12 09:58:00 [facility] [id number] [facility] 2019-10-06 14:00:00 2019-10-06 14:00:00 [facility] [id number] [facility] Results Test Description Test Time Test Comments Results Resul t Comments Source XR Ankle 3+ vw left 2024-09-12 3 15:31:17 EXAM: XR ANKLE 3+ VW LEFT HISTORY: fx RM 4 COMPARISON: None available FINDINGS: Imaging of the ankle demonstrates a sagittal oblique fracture extendingthrough the distal fibula with one cortex width lateral distraction of thedistal fragment. Surrounding fiberglass splint material is in placelimiting evaluation. The ankle mortise is anatomic. Anterior posteriortibial marginal osteophytes are partially profiled. [facility]23-[facility]18 17:48:58* Test Item Value Reference Range Interpretation Comme nts POCT GLU (test code = 0686648634) 309 mg/dL 70-110 H Lab Interpretation (test cod e = 31519-8) [facility] 13:32:41* Test Item Value Reference Range Interpretation Comme nts POCT GLU (test code = 8614315443) 192 mg/dL 70-110 H Lab Interpretation (test cod e = 15414-0) [facility]normal [facility]2023-08[facility]18 05:59:28* Test Item Value Reference Range Interpretation Comme nts POCT GLU (test code = 7557405269) 293 mg/dL 70-110 H Lab Interpretation (test cod e = 36193-3) [facility]2023-08-18 02:46:02* Test Item Value Reference Range Interpretation Comme nts POCT GLU (test code = 9694839225) 329 mg/dL 70-110 H Lab Interpretation (test cod e = 56735-5) [facility]23-08-17 23:17:54* Test Item Value Reference Range Interpretation Comme nts POCT GLU (test code = 0241739263) 164 mg/dL 70-110 H Lab Interpretation (test cod e = 74095-1) [facility]normal [facility]2023-08-17 20:40:29* Test Item Value Reference Range Interpretation Comme nts POCT GLU (test code = 3142301512) 231 mg/dL 70-110 H Notified Provide r Lab Interpretation (test code = 33097-3) Abnormal [facility] Glucose (Age >30 Days)2023-08-17 20:39:00 * Test Item Value Reference Range Interpretation Comme nts POCT Glu (age>30days) (test code = 3342) 231 mg/dL 70-110 A Lab Interpretation (test cod e = 48452-3) [facility]normal [facility] GLUCOSE (AUTOMATED)2023-08-17 19:58:29* Test Item Value Reference Range Interpretation Comme nts POCT GLU (test code = 9984122887) 154 mg/dL 70-110 H Lab Interpretation (test cod e = 36573-2) Abnormal [facility][id number] 17:16:22* Test Item Value Reference Range Interpretation Comments D-DIMER (test code = 7659544615) 0.56 See_Comment H [Automated message] The system which generated this result transmitted reference range: <0.41 ?g/mL (FEU). The reference range was not used to interpret this result as normal/abnormal. CRYSTAL (test code = CRYSTAL) This test may be used in conjunction with a clinical pretest probability (PTP) assessment model to exclude venous thromboembolism (VTE) in patients suspected of deep venous thrombosis (DVT) and pulmonary embolism (PE) A D-Dimer value less than 0.50 ?g/ml (FEU) has a negative predicative value of 96 to 100% (95% CI)and 97 to 100% (95% CI) as an aid in the diagnosis of deep vein thrombosis (DVT) and pulmonary embolism when there is low or moderate pretest probability of PE or DVT. D-Dimer values are expressed in initial fibrinogen equivalent units (FEU)" The assay results should be used with other information, including the clinical context, in forming a diagnosis. Lab Interpretation (test code = 31141-6) Abnormal [facility] CHEST 1 [id number] 16:50:42History: chest pain . Exam: XR CHEST 1 VW Date: 08/17/2023 9:15 AM Ordering provider: JUBRIL ADERIBIGBE Technical quality: Adequate Comparison: None available. Findings: Frontal view of the chest is obtained. The cardiac silhouette is mildly enlarged. Tubing material overlies theleft chest and right chest. Discontinuity of the right sided tubing isdifficult to exclude although this is not definitive . No evidence ofinfiltrate, pleural effusion, CHF, or pneumothorax.[facility]aleKN, 2 [id number] 17:09:00 *.*.*.*.*.*.*.*.*.*.*.*.*.*FINAL*.*.*.*.*.*.*.*.*.*.*.*.*.*.*HISTORY: Total left knee replacement. FINDINGS: ?AP and crosstable lateral views of left knee were obtained withportable technique at 11:57 p.m. Postoperative changes of total knee replacementnoted. The hardware is in good position. I do not see any acute intraoperativefracture. Soft tissue swelling along with air in the soft tissue from surgicaldissection noted. Skin sean and drainage catheter are in place. CONCLUSION: ?Postoperative changes of total left knee replacement. ?Personally interpreted by: EVER JIMENEZ MD /Signed/ EVER JIMENEZ MD [facility] History and Physical Notes Date/Time Note Provider Source 2023-08-17 23:17:57 [facility] Hospitalist Admission H&P Date of Service: 08/17/2023 CHIEF COMPLAINT: Patient presents with chest pain and shortness of breath HISTORY OF PRESENT ILLNESS Kandi Saleem is a 78 year old female who presents with chest pain and shortness of breath. Patient is morbidly obese with a BMI greater than 40. Patient has been feeling very poorly for the last couple days and she states she has been having worsening chest pain and developed significant shortness of breath which got her worried and he brought her into the emergency room. Patient denies any other complaints. Patient states that she has been following up with her director craft center. She has been told she has a GFR of. 16 or 17. Her GFR on arrival was 19. It appears patient with chronic kidney disease stage V. Patient with a history of hypertension and diabetes. Her A1c is slightly elevated at 7.7. Her blood pressure was significantly elevated at 200/60. Patient's troponins have been negative. Patient will be admitted to the hospital for further evaluation. PAST MEDICAL HISTORY Past Medical History: Diagnosis Date Diabetes mellitus Hypertension Thyroid disease PAST SURGICAL HISTORY Past Surgical History: Procedure Laterality Date APPENDECTOMY HYSTERECTOMY OTHER Brain tumor removed STENT PLACEMENT (SHX) Bilateral 2006, 2008 Carotid artery stents TOTAL KNEE ARTHROPLASTY Left 02/04/2017 Surgeon: Michael Mensah MD; Location: [facility] [place] ALLERGIES No Known Allergies MEDICATIONS Current home medication list reviewed: Current Discharge Medication List STOP taking these medications benzonatate (TESSALON PERLES) 100 mg capsule Comments: Reason for Stopping: acetaminophen-codeine (TYLENOL-CODEINE #3) 300-30 mg tablet Comments: Reason for Stopping: aspirin (ASPIRIN LOW DOSE) 81 mg EC tablet Comments: Reason for Stopping: benazepril 20 mg tablet Comments: Reason for Stopping: clopidogrel (PLAVIX) 75 mg tablet Comments: Reason for Stopping: colesevelam (WELCHOL) 625 mg tablet Comments: Reason for Stopping: furosemide 40 mg tablet Comments: Reason for Stopping: INSULIN REGULAR, HUMAN (NOVOLIN R INJECTION) Comments: Reason for Stopping: levothyroxine 25 mcg tablet Comments: Reason for Stopping: metFORMIN 500 mg tablet Comments: Reason for Stopping: NIFEdipine XL (NIFEDICAL XL) 60 mg 24 hr tablet Comments: Reason for Stopping: pravastatin 40 mg tablet Comments: Reason for Stopping: FAMILY HISTORY Family History Problem Relation Age of Onset Cancer Mother Hypertension Father Diabetes Father SOCIAL HISTORY Social History Socioeconomic History Marital status: Number of children: 3 Tobacco Use Smoking status: Never Smokeless tobacco: Never Substance and Sexual Activity Alcohol use: No Alcohol/week: 0.0 standard drinks of alcohol Drug use: No REVIEW OF SYSTEMS 10 systems negative except per HPI PHYSICAL EXAMINATION BP 132/65 | Pulse 82 | Temp 36.5 ?C (97.7 ?F) | Resp 18 | Ht 1.651 m (5' 5") | Wt 115 kg (253 lb 8 oz) | SpO2 96% | BMI 42.18 kg/m? General: No acute distress HEENT: Normal oral mucosa, anicteric sclerae, NCAT Cardiovascular: RRR Lungs: Symmetric expansion, clear bilaterally Abdomen: Soft, NTND Musculoskeletal: No synovitis, normal muscle mass; reproducible chest pain Genitourinary: Normal Skin: No rash, no skin lesions Extremities: No clubbing, no cyanosis, no lower extremity edema Neuro: AAOx3, no focal deficits Psych: Normal affect LABS - reviewed pertinent labs as below: CBC BMP PT/INR WBC (10*3/?L) Date Value 08/17/2023 9.97 NA (mmol/L) Date Value 08/17/2023 139 No results found for: "PT" RBC (10*6/?L) Date Value 08/17/2023 3.37 (L) K (mmol/L) Date Value 08/17/2023 5.8 (H) INR (no units) Date Value 01/30/2017 1.0 PLT (10*3/?L) Date Value 08/17/2023 317 CALCIUM (mg/dL) Date Value 08/17/2023 8.7 HGB (g/dL) Date Value 08/17/2023 10.0 (L) CL (mmol/L) Date Value 08/17/2023 105 aPTT HCT (%) Date Value 08/17/2023 31.5 (L) BUN (mg/dL) Date Value 08/17/2023 64 (H) APTT Patient (Seconds) Date Value 01/30/2017 29 CREATININE (mg/dL) Date Value 08/17/2023 2.51 (H) IMAGING - reviewed, pertinent results as below: Hospital Encounter on 08/17/23 XR CHEST 1 VW Narrative History: chest pain . Exam: XR CHEST 1 VW Date: 08/17/2023 9:15 AM Ordering provider: DANIEL MAXWELL Technical quality: Adequate Comparison: None available. Findings: Frontal view of the chest is obtained. The cardiac silhouette is mildly enlarged. Tubing material overlies the left chest and right chest. Discontinuity of the right sided tubing is difficult to exclude although this is not definitive. No evidence of infiltrate, pleural effusion, CHF, or pneumothorax. Impression Impression: Discontinuity of the right sided tubing is difficult to exclude although this is not definitive. If needed, this could be evaluated with PA and lateral views in the department. RL: [id number] AFC: [id number] SSMENT: 1. Chest pain rule out acute coronary syndrome 2. Shortness of breath 3. Morbid obesity 4. Obesity hypoventilation syndrome 5. History of diabetes 6. History of hypertension 7. Possibly acute on chronic kidney disease stage V with hyperkalemia 8. Hypothyroidism PLAN: 1. Chest pain rule out acute coronary syndrome;Plan to do serial troponins and EKG. Patient's chest pain may be related to coronary artery disease. Patient with numerous risk factors. Will get cardiology consultation. Continue with antiplatelet therapy and statin therapy. Strict blood pressure and blood sugar control at this time. Patient's hemoglobin A1c is 7.7. Will continue with home medications. Patient's blood pressure is elevated and will get better control of this as well. Also get echocardiogram. 2. Hyperkalemia in a patient with possibly acute on chronic kidney failure; patient states her baseline GFR is already low. We will have any records of this. The last few GFRs we have was in the 60s. Will get a renal ultrasound. Will discontinue DEYANIRA inhibitor and hold Lasix at this time. 3. History of hypertension and diabetes; strict blood pressure and blood sugar control 4. Hypothyroidism; continue with thyroid medications 5. Patient with obesity hypoventilation syndrome; continue with CPAP 6. GI DVT prophylaxis DVT prophylaxis: enoxaparin Stress ulcer prophylaxis: pantoprazole Code status: FULL Advanced Care Planning (Z71.89) Above assessment and plan discussed at length with patient, patient expressed full understanding. Questions and concerned addressed. Surrogate decision maker: NO Level of care expected after discharge: HOME Time spent: 3 minutes discussing the advanced care plan Smoking Cessation: (Z71.6) Tobacco user?: NO Patient will require inpatient stay of 2 midnights or more given high risk of morbidity and mortality. [place] [employer] was verified during stay Sterling Norris MD ARCH ATTORNEY IM-INTERNAL MEDICINE STAFF [facility] - Health Notes Date/Time Note Provider Source 2023-08-20 15:28:53 TRANSITIONAL CARE MANAGEMENT ASSESSMENT 08/20/2023 Kandi Kenyon Saleem [id number] Kandi Saleem is a 78 year old /White female was admitted on 08/17/23 to [facility], [facility] MED SURG. She was discharged on 08/18/23 with discharge disposition of HR- Routine Discharge. Admitting Physician: Winsome Bourgeois Discharge Diagnosis: Chest Pain Linked Episodes Type: Episode: Status: Noted: Resolved: Last update: Updated by: TRANSITION OF CARE TCM Active 08/18/2023 08/20/2023 10:21 AM Charmaine Bernal RN Comments:08/18/2023 TCM [id number] outreach documentation: Discharge Assessment Chart Assessed: 08/20/23 TCM Outreach Completed: 08/20/23 Do you have a few minutes to speak with me about how you are doing at home?: Yes (Patient stated she is doing well) Discharge Instructions Do you understand your at-home instructions?: Yes Medications Have you filled your prescriptions and do you have them in your home? : N/A (no new medications with this discharge) Supplies Did you receive applicable home medical supplies/equipment?: N/A Follow Up Appointment Has a follow up appointment been scheduled?: Yes Do you have any questions about your follow up appointments?: No Are you able to get to your appointment? Who will be taking you?: Yes () Home Health Assistance Has the home health nurse contacted you since you've been home?: N/A Survey - Recognition Do you have any other questions or concerns at this time?: No Future Appointments: [facility] Charmaine Bernal RN [facility] 2023-08-20 10:23:11 Care Transition CM made f/u call to pt post-discharge. No response and call went to voicemail. CM left a discreet message with purpose of call and CM's call back information. Charmaine Bernal RN, BSN Copy Preparer-JI TEAM [phone] [facility] 2023-08-18 14:40:47 Problem: Discharge Planning Goal: Adequate for discharge Outcome: Adequate for discharge Goal: Adequate to move to next level of care Outcome: Adequate for discharge Goal: Knowledge of medication management Outcome: Adequate for discharge Problem: Cardiac Output - Decreased Goal: Absence of signs and symptoms of decreased cardiac output Outcome: Adequate for discharge Problem: Falls, Risk of Goal: Absence of falls Outcome: Adequate for discharge Problem: Pain Goal: Control of pain at or below patient's documented comfort goal Outcome: Adequate for discharge Goal: Reduction in pain sensation Outcome: Adequate for discharge Problem: Skin integrity Impaired (Risk or Actual) Goal: Prevention of new skin breakdown Outcome: Adequate for discharge Problem: Tissue Perfusion, Cardiopulmonary - Altered Goal: Circulatory function within specified parameters Outcome: Adequate for discharge Problem: Venous Thromboembolism, (actual or risk of) Goal: Absence of venous thromboembolism (Risk) Outcome: Adequate for discharge Problem: Glucose control Goal: Glucose level within specified parameters Outcome: Adequate for discharge Problem: Bleeding, Risk of Goal: Absence of impaired coagulation signs and symptoms Outcome: Adequate for discharge Goal: Absence of active bleeding Outcome: Adequate for discharge Phelps RN [facility] 2023-08-17 23:39:18 Problem: Discharge Planning Goal: Adequate for discharge Outcome: Progressing as expected Goal: Adequate to move to next level of care Outcome: Progressing as expected Goal: Knowledge of medication management Outcome: Progressing as expected Problem: Cardiac Output - Decreased Goal: Absence of signs and symptoms of decreased cardiac output Outcome: Progressing as expected Problem: Falls, Risk of Goal: Absence of falls Outcome: Progressing as expected Problem: Pain Goal: Control of pain at or below patient's documented comfort goal Outcome: Progressing as expected Goal: Reduction in pain sensation Outcome: Progressing as expected Problem: Skin integrity Impaired (Risk or Actual) Goal: Prevention of new skin breakdown Outcome: Progressing as expected Problem: Tissue Perfusion, Cardiopulmonary - Altered Goal: Circulatory function within specified parameters Outcome: Progressing as expected Problem: Venous Thromboembolism, (actual or risk of) Goal: Absence of venous thromboembolism (Risk) Outcome: Progressing as expected Problem: Glucose control Goal: Glucose level within specified parameters Outcome: Progressing as expected Problem: Bleeding, Risk of Goal: Absence of impaired coagulation signs and symptoms Outcome: Progressing as expected Goal: Absence of active bleeding Outcome: Progressing as expected Zhang RN [facility] 2023-08-17 16:00:30 Problem: Discharge Planning Goal: Adequate for discharge Outcome: Progressing as expected Goal: Adequate to move to next level of care Outcome: Progressing as expected Goal: Knowledge of medication management Outcome: Progressing as expected Problem: Cardiac Output - Decreased Goal: Absence of signs and symptoms of decreased cardiac output Outcome: Progressing as expected Problem: Falls, Risk of Goal: Absence of falls Outcome: Progressing as expected Problem: Pain Goal: Control of pain at or below patient's documented comfort goal Outcome: Progressing as expected Goal: Reduction in pain sensation Outcome: Progressing as expected Problem: Skin integrity Impaired (Risk or Actual) Goal: Prevention of new skin breakdown Outcome: Progressing as expected Problem: Tissue Perfusion, Cardiopulmonary - Altered Goal: Circulatory function within specified parameters Outcome: Progressing as expected Problem: Venous Thromboembolism, (actual or risk of) Goal: Absence of venous thromboembolism (Risk) Outcome: Progressing as expected Problem: Glucose control Goal: Glucose level within specified parameters Outcome: Progressing as expected Problem: Bleeding, Risk of Goal: Absence of impaired coagulation signs and symptoms Outcome: Progressing as expected Goal: Absence of active bleeding Outcome: Progressing as expected ARCH ATTORNEY [facility] 2023-08-17 14:45:40 Patient admitted to Med Surg 2220 for diagnosis of chest pain, shortness of breath, acute renal failure, hyperkalemia. Patient agrees to admission, discussed plan of care with patient and family. Patient is awake, A&Ox4, RR even and unlabored on room air. Color appropriate for race. PIV intact x2. No adverse reaction to medications administered while in ED. Belongings with patient to unit. Landon RN [facility] 2023-08-17 14:43:59 Nurse Report Report given to ROYAL Olivo. Chief complaint, assessment findings, infusion verify and orders reviewed. Plan of care discussed care with both nurses. Patient/family members verbalized understanding. Oanh Landon RN ARCH ATTORNEY [facility] 2023-08-17 12:50:00 Report handed over to ROYAL Mccormack Richter RN [facility] 2023-08-17 09:00:00 Kandi Saleem is a 78 year old female c/o chest heaviness since 199 while laying down, ate sausage links for dinner, states has been having episodes off and on for several weeks, has not gone to PCP, states pain or heaviness gets better with moving around Cabrera RN [facility] 2023-08-17 08:55:00 Associated Order(s): EKG-12 Lead ROUTINE ONCE Pre-Procedure Diagnose(s): Chest pain, unspecified type Post-Procedure Diagnose(s): Chest pain, unspecified type [facility] Emergency Department Note Patient Name: Kandi Saleem Date of : 1945 78 year old female Treatment Room: MI3/MI3 Primary Care Physician: Khris Agrawal Patient Escorted by: Family [5] Mode of Arrival: Personal means [1] EMS Treatment Prior to ED Arrival: Travel and Exposure Screening: Symptoms Does patient have any of these symptoms?: (not recorded) Exposure Screening Has patient had contact with someone with a communicable disease in the last month?: (not recorded) Diseases exposed to:: (not recorded) Is Patient ?: (not recorded) Exposure Date: (not recorded) Chief Complaint: Chief Complaint Patient presents with Chest Pain History of Present Illness: Kandi Saleem is a 78 year old female who present to the ED with intermittent chest pain / heaviness with SOB earlier today. Denies any symptoms at this time, but made her come get checked out due to her history. She was found laying on the ED bd in the exam room. She appears chronically ill, but not toxic and does not seem to be in any apparent distress at this time. Patient denies any abdomen, back or neck pains, dizziness, headache, fever, chills, cough, sore throat, dysphagia, dysuria, hematuria, hemoptysis, nausea, vomiting or diarrhea. History provided by: Patient certified court interpreter used: No Past Medical History/Immunizations: Past Medical History: Diagnosis Date Diabetes mellitus Hypertension Thyroid disease Allergies: No Known Allergies Past Social History: Tobacco Use Never smoked or used smokeless tobacco. Alcohol Use No. Drug Use No. Past Surgical History: Past Surgical History: Procedure Laterality Date APPENDECTOMY HYSTERECTOMY OTHER Brain tumor removed STENT PLACEMENT (SHX) Bilateral 2006, 2008 Carotid artery stents TOTAL KNEE ARTHROPLASTY Left 02/04/2017 Surgeon: Michael Mensah MD; [place] [facility] [place] Review of Systems: Review of Systems Constitutional: Negative. HENT: Negative. Eyes: Negative. Respiratory: Positive for shortness of breath. Negative for apnea, cough, choking, chest tightness, wheezing and stridor. Cardiovascular: Positive for chest pain. Negative for palpitations and leg swelling. Gastrointestinal: Negative. Genitourinary: Negative. Musculoskeletal: Negative. Skin: Negative. Neurological: Negative. Psychiatric/Behavioral: Negative. Endocrine: Endocrine negative Physical Exam: ED Triage Vitals [08/17/23 0901] Weight 115.7 kg (255 lb) Actual or estimated Height 1.651 m (5' 5") BP (!) 161/62 Pulse 74 Resp 22 Temp 36.6 ?C (97.9 ?F) Temp source Oral SpO2 97 % Measured on Room air Physical Exam Vitals and nursing note reviewed. Constitutional: General: She is not in acute distress. Appearance: Normal appearance. She is obese. She is ill-appearing (Chronically). She is not toxic-appearing or diaphoretic. HENT: Head: Normocephalic. Right Ear: External ear normal. Left Ear: External ear normal. Nose: Nose normal. Mouth/Throat: Mouth: Mucous membranes are moist. Eyes: General: No scleral icterus. Right eye: No discharge. Left eye: No discharge. Conjunctiva/sclera: Conjunctivae normal. Cardiovascular: Rate and Rhythm: Normal rate. Pulses: Normal pulses. Heart sounds: Normal heart sounds. No murmur heard. No friction rub. No gallop. Pulmonary: Effort: Pulmonary effort is normal. No respiratory distress. Breath sounds: Normal breath sounds. No stridor. No wheezing, rhonchi or rales. Chest: Chest wall: No tenderness. Abdominal: General: Bowel sounds are normal. There is no distension. Palpations: Abdomen is soft. There is no mass. Tenderness: There is no abdominal tenderness. There is no guarding or rebound. Hernia: No hernia is present. Musculoskeletal: General: No swelling, tenderness, deformity or signs of injury. Normal range of motion. Cervical back: Normal range of motion. Right lower le+ Pitting Edema present. Left lower le+ Pitting Edema present. Skin: General: Skin is warm and dry. Capillary Refill: Capillary refill takes less than 2 seconds. Coloration: Skin is not jaundiced or pale. Findings: No bruising, erythema, lesion or rash. Neurological: General: No focal deficit present. Mental Status: She is alert and oriented to person, place, and time. Psychiatric: Mood and Affect: Mood normal. Behavior: Behavior normal. Radiology: No orders to display Lab Results: Lab Results - No data to display EKG: If EKG completed, see Procedure Note. Orders and Treatments: Orders Placed This Encounter Procedures XR CHEST 1 VW CBC WITH DIFF COMP. METABOLIC PANEL (57180) TROPONIN I N-TERMINAL PRO-BNP D-DIMER Orders Placed This Encounter Medications aspirin tablet 325 mg First Provider Eval: ED Events Date/Time Event User Comments 08/17/23 0900 Medical Screening Begins DANIEL MAXWELL NP O -- 08/17/23 0900 First Provider Evaluation DANIEL MAXWELL NP -- ED COURSE Labs, chest x-ray, ECG, Aspirin ED Course as of 08/17/23 1252 Sat Aug 17, 2023 1141 Impression: Discontinuity of the right sided tubing is difficult to exclude although this is not definitive. If needed, this could be evaluated with PA and lateral views in the department. [JA] 1139 K(!): 5.8 [JA] 1139 D DIMER(!): 0.56 [JA] ED Course User Index [JA] Daniel Maxwell NP Diagnosis/Impression as of 08/17/23 1252 Chest pain, unspecified type Shortness of breath Acute renal failure, unspecified acute renal failure type Hyperkalemia Procedures: EKG-12 Lead ROUTINE ONCE Date/Time: 08/17/2023 9:11 AM Performed by: Daniel Maxwell NP Authorized by: Daniel Maxwell NP ECG interpreted by ED Physician in the absence of a biodiesel production technician: yes Previous ECG: Previous ECG: Compared to current Similarity: No change Interpretation: Interpretation: normal Rate: ECG rate: 72 ECG rate assessment: normal Rhythm: Rhythm: sinus rhythm Ectopy: Ectopy: none QRS: QRS axis: Normal QRS intervals: Normal QRS conduction: normal ST segments: ST segments: Normal T waves: T waves: normal Q waves: Abnormal Q-waves: not present MDM: Kandi Saleem is a 78 year old female who present to the ED with intermittent chest pain / heaviness with SOB earlier today. Denies any symptoms at this time, but made her come get checked out due to her history. DDX: ACS CARDIAC ARRHYTHMIA ELECTROLYTE ABNORMALITY PNEUMONIA PE PULMONARY EDEMA PLEURISY COSTOCHONDRITIS Medical Decision Making Kandi Saleem is a 78 year old female who present to the ED with intermittent chest pain / heaviness with SOB earlier today. Denies any symptoms at this time, but made her come get checked out due to her history. Problems Addressed: Acute renal failure, unspecified acute renal failure type: acute illness or injury Chest pain, unspecified type: acute illness or injury Hyperkalemia: acute illness or injury Shortness of breath: acute illness or injury Amount and/or Complexity of Data Reviewed Labs: ordered. Decision-making details documented in ED Course. Radiology: ordered. Decision-making details documented in ED Course. ECG/medicine tests: ordered. Decision-making details documented in ED Course. Risk OTC drugs. Prescription drug management. Decision regarding hospitalization. Risk Details: Patient with hyperkalemia and renal insufficiency. There is a possibility of worsening symptoms or negative outcomes for patient without further care and evaluation beyond ED. Patient is going to benefit from hospital stay, plan discussed with patient and she verbalized understanding and agrees. Flowsheet Documentation: Scoring Tools: No data recorded Disposition/Condition: ED Disposition None Discharge Medications: Patient's Medications START taking these medications No medications on file CONTINUE taking these medications which have NOT CHANGED ACETAMINOPHEN-CODEINE (TYLENOL-CODEINE #3) 300-30 MG TABLET Take 1 tablet by mouth every 4 (four) hours as needed for Pain (scale 4-6) or Pain (scale 7-10). ASPIRIN (ASPIRIN LOW DOSE) 81 MG EC TABLET Take 1 tablet by mouth in the morning. BENAZEPRIL 20 MG TABLET Take 1 tablet by mouth in the morning. BENZONATATE (TESSALON PERLES) 100 MG CAPSULE Take 1 capsule by mouth 3 (three) times daily as needed for Cough. CLOPIDOGREL (PLAVIX) 75 MG TABLET Take 1 tablet by mouth in the morning. COLESEVELAM (WELCHOL) 625 MG TABLET Take 3,750 mg by mouth 2 (two) times daily with meals. FUROSEMIDE 40 MG TABLET Take 1 tablet by mouth in the morning. INSULIN REGULAR, HUMAN (NOVOLIN R INJECTION) Inject as directed. LEVOTHYROXINE 25 MCG TABLET Take 1 tablet by mouth every morning. METFORMIN 500 MG TABLET Take 1 tablet by mouth in the morning and 1 tablet in the evening. Take with meals. NIFEDIPINE XL (NIFEDICAL XL) 60 MG 24 HR TABLET Take 1 tablet by mouth in the morning. PRAVASTATIN 40 MG TABLET Take 1 tablet by mouth at bedtime. START taking Modified Medications as Prescribed No medications on file STOP taking these medications No medications on file Follow-up: Electronically signed by: Daniel Maxwell NP 08/17/231821 ARCH ATTORNEY Associated attestation - Patricia Juarez DO - 08/17/2023 6:34 PM RESEARCH ATTORNEY I was personally available for consultation in the Emergency Department during this encounter and patient evaluation by Daniel Maxwell. [facility] 2023-08-17 08:55:00 AdmissionCare Guideline: Renal Failure (Acute), Observation Based on the indications selected for the patient, the bed status of Admit to Observation was determined to be MET The following indications were selected as present at the time of evaluation of the patient: - Acute kidney injury (eg, rise in serum creatinine, reduction in estimated glomerular filtration rate from baseline) Clinical concern necessitating monitoring or treatment beyond emergency department care, as indicated by 1 or more of the following: - - Cardiac telemetry monitoring needed (eg, significant hyperkalemia) - Electrolyte or metabolic abnormality (eg, acidosis) necessitating treatment and reassessment AdmissionCare documentation entered by: Daniel Maxwell [facility], 27th edition, Copyright ? 2022 [facility] All Rights Reserved. [id number] [facility]
[2024-09-30 10:55] LABS: Absolute Basophils 0.2 K/uL (0-0.5); Absolute Eosinophils 0.1 K/uL (0-0.5); Absolute Lymphocytes (CBC) 1.6 K/uL (0.7-4.9); Absolute Monocytes 2.8 K/uL (0.1-1.3); Absolute Neutrophil 18.9 K/uL (1.8-8.0); Basophils % 0.9 % (0-1.3); Eosinophils % 0.3 % (0-4.4); Hematocrit 26.9 % (36.0-45.0); Hemoglobin 8.6 g/dL (12.0-15.0); Lymphocytes % 6.8 % (15.3-44.8); MCH 28.6 pg (27.0-35.0); MCHC 31.8 g/dL (32.0-36.0); MPV 9.5 fL (7.6-11.3); Nucleated Red Blood Cells % 0.2 % (0-0); Platelets 478 thou/uL (152-406); RBC Red Blood Cell Count 2.99 M/uL (3.86-4.86); Red Cell Distribution Width 16.1 % (12.1-15.2)
[2024-09-30 10:59] LABS: PT Prothrombin Time 14.5 SECONDS (9.4-12.5); PTT, Activated Partial Thromb 26.6 SECONDS (24.3-36.9); Protime INR 1.39
[2024-09-30 11:07] LABS: Albumin 1.8 g/dL (3.4-5.0); Albumin/Globulin Ratio 0.3 (1.1-1.8); Anion Gap 12.9 mEq/L (5.0-15.0); Bilirubin Total 0.6 mg/dL (0.2-1.0); Globulin 5.4 g/dL (2.3-3.5); Potassium 4.9 mEq/L (3.5-5.1); Protein, Total 7.2 g/dL (6.4-8.2)
--- NOTE | 2024-09-30 11:51 | RAD REPORT ---
EXAM: Chest Single View HISTORY: Cough;Dyspnea COMPARISON: None. FINDINGS: LUNGS/PLEURA: The lungs are clear. No pleural effusions or pneumothorax. No pulmonary edema. MEDIASTINUM: The mediastinal silhouette is within normal limits. CARDIAC: Mild cardiomegaly UPPER ABDOMEN: No significant abnormality. BONES: No acute abnormality. LINES/TUBES/OTHER: Shunt tubing noted overlying the right and left hemithorax. IMPRESSION: No evidence of acute cardiopulmonary disease.
--- NOTE | 2024-09-30 11:55 | RAD REPORT ---
Abdomen Exam Limited: 09/30/2024 11:09 AM CLINICAL HISTORY: fever, abnormal lfts STUDY: Limited right upper quadrant ultrasound of abdomen. COMPARISON: None. FINDINGS: Liver: Coarsened liver echotexture. Bile ducts: Common bile duct measures 7 mm which is within normal limits for age. Gallbladder: Gallbladder wall thickening with debris and pericholecystic fluid. Cholelithiasis is pre sent. No sonographic Nieves sign was reported. Gallbladder is distended. At least mild right-sided hydronephrosis is present. IMPRESSION: 1. Distended gallbladder with cholelithiasis and gallbladder wall thickening could represent acute ch olecystitis in the appropriate clinical setting. 2. Common bile duct measures 7 mm which is likely within normal limits for patient's age. 3. Right-sided hydronephrosis. A CT is pending.
[2024-09-30 12:16] LABS: Anisocytosis 1+; Blood Morphology Comment NOTED (NOT SEEN); Platelet Estimate INCR; Platelets, Giant FEW; White Blood Cell Scan OK (OK)
--- NOTE | 2024-09-30 12:18 | RAD REPORT ---
EXAM: CT CHEST, ABDOMEN AND PELVIS WITHOUT CONTRAST CLINICAL INDICATION: Female, 79 years old dyspnea, abnormal lfts, renal failure TECHNIQUE: CT chest, abdomen and pelvis was performed, without IV contrast, as per department protoco l. Axial, sagittal and coronal reconstructions were obtained. One or more of the following dose reduction techniques were used: Automated exposure control, adjustment of the mA and/or kV according to the patient size, and/or iterative reconstruction. Unless otherwise specified, incidental findings do not require dedicated imaging follow-up. [id number]. COMPARISON: Same-day ultrasound FINDINGS: The lack of intravenous contrast limits the sensitivity of this exam for evaluation of solid visceral organs, vascular structures, and retroperitoneum. Chest: LOWER NECK: Visualized thyroid gland and soft tissues are normal. LUNGS AND AIRWAYS: Dependent opacities which may reflect atelectasis, aspiration, or pneumonia.Motion artifact limits evaluation for pulmonary nodule detection. PLEURA: Small right pleural effusion. MEDIASTINUM AND LYMPH NODES: No mediastinal mass or fluid collection. Normal size mediastinal, hilar, and axillary lymph nodes. Mild distal esophageal thickening. THORACIC AORTA: No thoracic aortic aneurysm. Atherosclerotic changes are present. PULMONARY ARTERIES: Caliber is within normal limits. HEART: Mild cardiomegaly. Multivessel coronary artery diseaseNo significant pericardial effusion. Aor tic valve calcifications. Abdomen/Pelvis UPPER GI: No significant abnormality. LIVER: Hepatic steatosis. Heterogeneity at the inferior aspect of right hepatic lobe which may be due to underlying lesion or artifact from the patient's arms. GALLBLADDER/BILE DUCTS: Distended gallbladder with trace pericholecystic edema.? PANCREAS: Atrophy, but otherwise unremarkable. SPLEEN: Unremarkable. ADRENALS: Left adrenal nodules which have Hounsfield units consistent with adrenal adenomas. The larg est measures 17 mm. KIDNEYS AND URETERS: Bilateral hydroureteronephrosis is mild to moderate.Renal cortical thinning is p resent bilaterally. ABDOMINAL AORTA AND OTHER VESSELS: Moderate atherosclerotic changes without aortic aneurysm. PERITONEUM: No abnormal free fluid. No free air. LYMPH NODES: No pathologic lymphadenopathy. ABDOMINAL WALL: Bowel containing umbilical hernia. SMALL BOWEL/COLON: Fat-containing umbilical hernia without bowel obstruction. No appendicitis. No bow el obstruction. URINARY BLADDER: Significantly distended bladder. REPRODUCTIVE ORGANS: Uterus surgically absent. No adnexal abnormality. MUSCULOSKELETAL: Multilevel degenerative changes in the spine. No acute fracture. ADDITIONAL FINDINGS: None. IMPRESSION: 1. Moderate bilateral hydroureteronephrosis with significantly distended bladder may be secondary to urinary retention. 2. Distended gallbladder with trace pericholecystic edema. Correlate with prior ultrasound. Acute cho lecystitis not excluded. 3. Bowel containing umbilical hernia without bowel obstruction or complicating features. 4. Dependent airspace disease likely reflecting atelectasis but mild pneumonia or pneumonitis such as from aspiration not excluded. 5. Heterogeneity of the inferior aspect of the right hepatic lobe which may be artifact from the richa ent's arm. Consider nonemergent hepatic protocol CT or MRI to exclude underlying lesion.
[2024-09-30] MEDS ORDERED: ACETAMINOPHEN 325 MG TABLET ONE ×2 (13:07→16:10)
--- NOTE | 2024-09-30 13:07 | EDPHYS ---
Physician Documentation [facility] Name: Veena Haro Age: 79 yrs Sex: Female : 1945 Arrival Date: 09/30/2024 Time: 09:40 Bed 3 Private MD: ED Physician Dixon Andrew HPI: 09/30 11:45 This 79 yrs old Female presents to ER via EMS with complaints of Shortness Of Breath, rn Cough, Fever. 11:45 The patient has shortness of breath at rest, with light activity. Onset: The rn symptoms/episode began/occurred 1 week(s) ago. The patient's shortness of breath is aggravated by coughing, exertion, light activity. Severity of symptoms: At their worst the symptoms were moderate in the emergency department the symptoms are unchanged. The patient has not experienced similar symptoms in the past. EMS reports patient recently admitted for flu and pneumonia, was taken to senior living for rehabilitation, has been there for few days, reports worsening shortness of breath and persistent cough with generalized weakness.. Historical: - Allergies: 09:47 No Known Allergies; ld1 - PMHx: 09:47 Diabetes mellitus; Hypertensive disorder; CHF; ld1 - Immunization history:: Adult Immunizations up to date. - Infectious Disease History:: Denies. - Social history:: Smoking status: Patient denies any tobacco usage or history of. - Family history:: not pertinent. - Hospitalizations: : Patient was recently seen at. ROS: 11:45 Constitutional: Positive for fever Eyes: Negative for injury, pain, redness, and unit manager rn, Cardiovascular: Negative for chest pain, palpitations, and edema, Respiratory: Positive for cough and shortness of breath Abdomen/GI: Negative for abdominal pain or vomiting, does report anorexia Neuro: Positive for myalgias and generalized malaise Exam: 10:54 ECG was reviewed by the Attending Physician. rn 11:45 Constitutional: Overweight female, mild tachypnea Head/Face: Normocephalic, rn atraumatic. ENT: Dry mucous membranes, no stridor Cardiovascular: Tachycardic, regular Respiratory: Mild tachypnea, diminished at bases, no retractions, on oxygen Abdomen/GI: Soft, nontender Neuro: Awake and alert, GCS 15 Vital Signs: 09:45 BP 136 / 62; Pulse 106; Resp 18; Temp 101.5(O); Pulse Ox 96% on 8 lpm Non-rebreather ld1 mask; Height 5 ft. 2 in. ; Pain 0/10; 10:30 BP 151 / 54; Pulse 94; Resp 18; Pulse Ox 94% on 4 lpm NC; db 10:32 BP 151 / 54; Pulse 90; Resp 28; Pulse Ox 95% on 3 lpm NC; ld1 13:15 BP 148 / 58; Pulse 93; Resp 32; Pulse Ox 95% on 3 lpm NC; ld1 14:00 BP 118 / 42; Pulse 89; Resp 24; Pulse Ox 92% on 3 lpm NC; ld1 15:00 BP 103 / 71; Pulse 90; Resp 18; Pulse Ox 92% on 8 lpm Non-rebreather mask; ld1 09:45 Pain Scale: Adult ld1 MDM: 09:44 Medical Screening Exam initiated rn 13:04 Differential diagnosis: CHF exacerbation, pneumonia, Pneumothorax pulmonary edema, rn Cholecystitis, cholelithiasis, pancreatitis. 13:05 Data reviewed: vital signs, nurses notes, lab test result(s), radiologic studies, CT rn scan, ultrasound, and as a result, I will admit patient. Consideration of Admission/Observation Patient was admitted/placed on observation. Escalation of care including admission/observation considered. Counseling: I had a detailed discussion with the patient and/or guardian regarding the historical points, exam findings, and any diagnostic results supporting the discharge/admit diagnosis, lab results, radiology results, the need for further work-up and treatment in the hospital. ED course: Repeat examination reveals epigastric and right upper quadrant tenderness with guarding. is now in room and does not recall any previous issues with gallbladder nor did they mention gallbladder problems during her recent hospitalization. 15:40 Management of patient was discussed with the following: Veterans Contact Representative: Discussed case with rn Dr. Lion, agrees with plan and medical optimization, IV antibiotics and will consult and see patient in regard to possible cholecystitis. 09/30 09:45 Order name: Blood Culture Adult (2) rn 09/30 09:45 Order name: CBC with Diff; Complete Time: 12:40 rn 09/30 09:45 Order name: CMP; Complete Time: 11:08 rn 09/30 09:45 Order name: Lactate w/ 2H reflex if indic.; Complete Time: 11:08 rn 09/30 09:45 Order name: Protime (+inr); Complete Time: 11:08 rn 09/30 09:45 Order name: Ptt, Activated; Complete Time: 11:08 rn 09/30 09:45 Order name: BNP; Complete Time: 11:08 rn 09/30 12:16 Order name: CBC Smear Scan; Complete Time: 12:40 EDMS 09/30 14:03 Order name: Urinalysis w/ reflexes db 09/30 14:14 Order name: Magnesium EDMS 09/30 14:14 Order name: Phosphorus EDMS 09/30 14:14 Order name: Urinalysis w/ reflexes EDMS 09/30 14:14 Order name: Basic Metabolic Panel EDMS 09/30 14:14 Order name: Basic Metabolic Panel EDMS 09/30 14:14 Order name: CBC with Automated Diff EDMS 09/30 14:14 Order name: CBC with Automated Diff EDMS 09/30 14:14 Order name: Lipid Profile EDMS 09/30 14:14 Order name: Lipid Profile EDDC 09/30 09:45 Order name: Chest Single View XRAY; Complete Time: 12:40 rn 09/30 11:09 Order name: CT Chest Abdomen Pelvis W/O Contrast; Complete Time: 12:40 rn 09/30 11:09 Order name: US Abdomen Limited; Complete Time: 12:40 rn 09/30 09:45 Order name: EKG; Complete Time: 09:45 rn 09/30 09:45 Order name: Accucheck; Complete Time: 11:02 rn 09/30 09:45 Order name: Cardiac monitoring; Complete Time: 11: rn 09/30 09:45 Order name: EKG - Nurse/Tech; Complete Time: 11: rn 09/30 09:45 Order name: IV Saline Lock - Large Bore; Complete Time: 11: rn 09/30 09:45 Order name: Labs collected and sent; Complete Time: 11: rn 09/30 09:45 Order name: O2 Per Protocol; Complete Time: 11: rn 09/30 09:45 Order name: O2 Sat Monitoring; Complete Time: 11: rn 09/30 09:45 Order name: Vital Signs; Complete Time: 11: rn 09/30 13:07 Order name: Tan; Complete Time: 14:02 rn EC:54 Rate is 88 beats/min. Rhythm is regular. QRS [place] is Normal. [place] interval is normal. QRS rn interval is normal. QT interval is normal. No Q waves. T waves are Normal. No ST changes noted. Clinical impression: NSR w/ Non-specific ST/T Changes. Interpreted by me. Reviewed by me. Administered Medications: 13:03 Drug: Acetaminophen PO 650 mg PO once Route: PO; db 19:34 Follow up: Response: No adverse reaction bm8 13:10 Drug: Piperacillin-Tazobactam IVPB 3.375 grams IVPB once over 60 mins; (mix in NS 100 db mL) Route: IVPB; Infused Over: 60 mins; Site: left antecubital; 19:34 Follow up: Response: No adverse reaction; IV Status: Completed infusion; IV Intake: bm8 100ml Disposition Summary: 09/30/24 13:06 Hospitalization Ordered Notes: Hospitalization Status: Inpatient Admission rn Provider: Magan Cristina rn Condition: Stable rn Problem: new rn Symptoms: have improved rn Bed/Room Type: Standard rn Location: Telemetry/MedSurg (Inpatient)(09/30/24 17:22) Room Assignment: [facility](09/30/24 17:22) Diagnosis - Pneumonia, unspecified organism rn - Acute cholecystitis rn - Chronic kidney disease, unspecified rn Forms: - Medication Reconciliation Form rn - SBAR form rn - Leadership Thank You Letter rn Signatures: Dispatcher [employer] EDShelley Orozco Roman, MD MD rn Blanchard, Shelby, RN RN ss Vonnie Ge RN RN ld1 Kimberlee Don RN RN Surya Kelly RN bm8 Corrections: (The following items were deleted from the chart) 15:19 13:06 Telemetry/MedSurg (Inpatient) rn bd 15: 13:06 rn bd 17: 15:19 [facility] ER HOLD bd ss 17: 15:19 ERHOLD- bd ss
--- NOTE | 2024-09-30 13:07 | ER ---
Nurse's Notes [facility] Name: Veena Haro Age: 79 yrs Sex: Female : 1945 Arrival Date: 09/30/2024 Time: 09:40 Bed 3 Private MD: Diagnosis: Pneumonia, unspecified organism;Acute cholecystitis;Chronic kidney disease, unspecified Presentation: 09/30 09:45 Chief complaint: EMS states: toned out to [facility] for low SpO2 88% RA, lethargic, ld1 fever. Pt reports being at [facility] for rehab due to broken left ankle. Pt unable to participate in therapy due to being sick with flu - EMS reports low O2 sat and lethargy. Coronavirus screen: At this time, the client does not indicate any symptoms associated with coronavirus-19. Ebola Screen: No symptoms or risks identified at this time. Initial Sepsis Screen: Does the patient meet any 2 criteria? No. Patient's initial sepsis screen is negative. Does the patient have a suspected source of infection? No. Patient's initial sepsis screen is negative. Risk Assessment: Do you want to hurt yourself or someone else? Patient reports no desire to harm self or others. Onset of symptoms was September 30, 2024 at 09:46. 09:45 Method Of Arrival: EMS: [facility] ld1 09:45 Acuity: SHIRLEY 3 ld1 Triage Assessment: 09:47 General: Appears in no apparent distress. comfortable, Behavior is calm, cooperative, ld1 appropriate for age. Pain: Denies pain. EENT: No signs and/or symptoms were reported regarding the EENT system. Neuro: Level of Consciousness is awake, alert, obeys commands, Oriented to person, place, time, situation, Appropriate for age. Cardiovascular: Capillary refill < 3 seconds Patient's skin is warm and dry. Rhythm is sinus tachycardia. Respiratory: Reports shortness of breath at rest on exertion cough that is non-productive, Airway is patent Respiratory effort is even, unlabored, Onset: The symptoms/episode began/occurred gradually, the patient has moderate shortness of breath. GI: Abdomen is round. : No signs and/or symptoms were reported regarding the genitourinary system. Derm: No signs and/or symptoms reported regarding the dermatologic system. Musculoskeletal: No signs and/or symptoms reported regarding the musculoskeletal system. Historical: - Allergies: 09:47 No Known Allergies; ld1 - PMHx: 09:47 Diabetes mellitus; Hypertensive disorder; CHF; ld1 - Immunization history:: Adult Immunizations up to date. - Infectious Disease History:: Denies. - Social history:: Smoking status: Patient denies any tobacco usage or history of. - Family history:: not pertinent. - Hospitalizations: : Patient was recently seen at. Screenin:03 [facility] ED Fall Risk Assessment (Adult) History of falling in the last 3 months, db including since admission No falls in past 3 months (0 pts) Confusion or Disorientation No (0 pts) Intoxicated or Sedated No (0 pts) Impaired Gait Yes (1 pt) Mobility Assist Device Used Yes (1 pt) Altered Elimination No (0 pt) Score/Fall Risk Level 0 - 2 = Low Risk Oriented to surroundings, Maintained a safe environment. Abuse screen: Denies threats or abuse. Denies injuries from another. Nutritional screening: No deficits noted. Nutritional screening: No deficits noted. Tuberculosis screening: No symptoms or risk factors identified. Assessment: 10:51 Reassessment: Patient appears in no apparent distress at this time. Patient and/or db family updated on plan of care and expected duration. Pain level reassessed. Patient is alert, oriented x 3, equal unlabored respirations, skin warm/dry/pink. General: Appears in no apparent distress. comfortable, Behavior is calm, cooperative. Neuro: Level of Consciousness is awake, alert, obeys commands, Oriented to person, place, time, situation. Respiratory: Airway is patent Respiratory effort is even, unlabored, Respiratory pattern is regular, symmetrical, Breath sounds are coarse. 11:50 Reassessment: Patient appears in no apparent distress at this time. Patient and/or ld1 family updated on plan of care and expected duration. Pain level reassessed. 13:00 Reassessment: Patient and/or family updated on plan of care and expected duration. Pain ld1 level reassessed. Patient states symptoms have not improved. 14:06 Reassessment: Patient appears in no apparent distress at this time. No changes from ld1 previously documented assessment. Patient and/or family updated on plan of care and expected duration. Pain level reassessed. Inserted morgan at this time. Patient states symptoms have not improved. 14:07 Reassessment: Herbert - - [phone]. ld1 14:59 Reassessment: Placed patient on non rebreather due to SpO2 82% while sleeping. Pt mouth ld1 breathing while asleep. Vital Signs: 09:45 BP 136 / 62; Pulse 106; Resp 18; Temp 101.5(O); Pulse Ox 96% on 8 lpm Non-rebreather ld1 mask; Height 5 ft. 2 in. ; Pain 0/10; 10:30 BP 151 / 54; Pulse 94; Resp 18; Pulse Ox 94% on 4 lpm NC; db 10:32 BP 151 / 54; Pulse 90; Resp 28; Pulse Ox 95% on 3 lpm NC; ld1 13:15 BP 148 / 58; Pulse 93; Resp 32; Pulse Ox 95% on 3 lpm NC; ld1 14:00 BP 118 / 42; Pulse 89; Resp 24; Pulse Ox 92% on 3 lpm NC; ld1 15:00 BP 103 / 71; Pulse 90; Resp 18; Pulse Ox 92% on 8 lpm Non-rebreather mask; ld1 09:45 Pain Scale: Adult ld1 ED Course: 09:44 Patient arrived in ED. ld1 09:44 Dixon Andrew MD is Attending Physician. rn 09:47 Triage completed. ld1 09:47 Arm band placed on right wrist. ld1 09:52 Kimberlee Don, RN is Primary Nurse. db 10:34 Initial lab(s) drawn, by ca, sent to lab. Inserted saline lock: 22 gauge in left db forearm, using aseptic technique. 10:51 Patient has correct armband on for positive identification. Bed in low position. Call db light in reach. Side rails up X2. Client placed on continuous cardiac and pulse oximetry monitoring. NIBP monitoring applied. credit card control clerk on. Pulse ox on. NIBP on. Warm blanket given. 11:40 Chest Single View XRAY In Process Unspecified. EDMS 11:43 US Abdomen Limited In Process Unspecified. EDMS 11:52 CT Chest Abdomen Pelvis W/O Contrast In Process Unspecified. EDMS 13:06 Magan Cristina is Hospitalizing Provider. rn 14:00 Morgan cath inserted, using sterile technique, 16 Fr., by ED staff, balloon inflated, to ld1 gravity drainage, urine specimen collected. returned clear yellow urine. Patient tolerated well. 18:14 Primary Nurse role handed off by Kimberlee Don, RN ld1 18:14 Vonnie Ge, RN is Primary Nurse. ld1 19:33 Provided Education on: need for admission. bm8 19:33 No provider procedures requiring assistance completed. Patient admitted, IV remains in bm8 place. Administered Medications: 13:03 Drug: Acetaminophen PO 650 mg PO once Route: PO; db 19:34 Follow up: Response: No adverse reaction bm8 13:10 Drug: Piperacillin-Tazobactam IVPB 3.375 grams IVPB once over 60 mins; (mix in NS 100 db mL) Route: IVPB; Infused Over: 60 mins; Site: left antecubital; 19:34 Follow up: Response: No adverse reaction; IV Status: Completed infusion; IV Intake: bm8 100ml Medication: 11:03 VIS not applicable for this client. db Intake: 19:34 IV: 100ml; Total: 100ml. bm8 Output: 14:09 Urine: 1100ml (Morgan); Total: 1100ml. db Outcome: 13:06 Decision to Hospitalize by Provider. rn 19:33 Admitted to Med/surg accompanied by tech, via wheelchair, room 228, with chart, bm8 19:33 Condition: stable 19:33 Instructed on follow up and referral plans. the need for admit, Demonstrated understanding of instructions, follow-up care, medications, 19:35 Patient left the ED. bm8 Signatures: Dispatcher [employer] EDMS Dixon Andrew MD MD rn Sims, Lauren, RN RN ld1 Kimberlee Don RN RN Surya Kelly RN RN bm8
[2024-09-30] MEDS ORDERED: NA CHLORIDE 0.9% 100 ML ONE ×2 (13:08→16:10)
[2024-09-30] MEDS ORDERED: PIPERACIL/TAZO 3.375 GM VIAL IV ONE ×2 (13:09→16:11)
[2024-09-30 14:25] LABS: Specific Gravity 1.017 (1.005-1.030); Sqamous Epithelial None Seen /HPF (None Seen); Urine Bacteria None Seen /HPF (<20); Urine Bilirubin NEGATIVE (Negative); Urine Blood Negative (Negative); Urine Clarity Extremely Turbid (Clear); Urine Color Yellow (Yellow); Urine Crystals Unidentified Few /HPF (None Seen); Urine Culture Reflex Order NOT NEEDED; Urine Glucose NEGATIVE (Negative); Urine Ketones NEGATIVE (Negative); Urine Microscopic Reflex YN ORDER UMIC; Urine Nitrite NEGATIVE (Negative); Urine Protein 1+ (Negative); Urine RBC <5 /HPF (None Seen); Urine Urobilinogen Normal (Normal); Urine WBC Clump Rare /HPF (None Seen); Urine Yeast (Budding) Moderate /HPF (None Seen)
--- NOTE | 2024-09-30 14:36 | P.HP ---
Certification for Inpatient Patient admitted to: Inpatient With expected LOS: >2 Midnights Patient will require the following post-hospital care: None Practitioner: I am a practitioner with admitting privileges, knowledge of patient current condition, hospital course, and medical plan of care. Services: Services provided to patient in accordance with Admission requirements found in Title 42 Section 412.3 of the Code of Federal Regulations Patient History Date of Service: 09/30/24 Reason for admission: Lethargic, SOB, Weakness History of Present Illness: Patient is a 79-year-old female with a past medical history significant for hypertension, DM2, hyperlipidemia, CKD, gout who presents with complaint of shortness of breath, lethargy and generalized weakness. Patient is alert and oriented x 1 and unable to provide any accurate history. Patient's spouse reported that patient has been lethargic and weak for the past couple of days. Patient reported associated signs and symptoms of fatigue, cough, chest congestion, fever, poor appetite, nausea or vomiting. Patient denies any other signs and symptoms. Symptoms are aggravated or relieved by nothing. Patient was brought to the hospital for medical evaluation. Allergies No Known Drug Allergies Allergy (Verified 08/07/16 08:36) Unknown Home Medications: Benazepril HCl [Lotensin] 20 mg PO 08/07/16 Clopidogrel Bisulfate [Plavix] 75 mg PO DAILY 08/07/16 Colesevelam [Welchol] 625 mg PO TID 08/07/16 Insulin 70/30 NPH/Reg Human [Novolin 70/30*] 55 unit SQ TID 08/07/16 Metformin ER [Glucophage ER] 500 mg PO BID 08/07/16 NIFEdipine [Nifedipine ER] 60 mg PO DAILY 08/07/16 Pravastatin Sodium [Pravachol] 40 mg PO DAILY 08/07/16 allopurinoL [Zyloprim] 100 mg PO DAILY 08/07/16 carvediloL [Coreg*] 1 tab PO BID 08/07/16 - Past Medical/Surgical History -: DM 2 -: HLD -: HTN -: CAD -: Gout Past Surgical History: Reviewed- Non-Contributory - Social History Smoking Status: Never smoker Alcohol use: No CD- Drugs: No Caffeine use: Yes Place of Residence: Home Review of Systems is unable to be obtained Physical Examination - Physical Exam General: Alert, In no apparent distress, Oriented x1 HEENT: Atraumatic, PERRLA, Mucous membr. moist/pink, EOMI, Sclerae nonicteric Neck: Supple, 2+ carotid pulse no bruit, No LAD, Without JVD or thyroid abnormality Respiratory: Normal air movement, Diminished Cardiovascular: No edema, Regular rate/rhythm, Normal S1 S2 Capillary refill: <2 Seconds Gastrointestinal: Normal bowel sounds, Soft and benign, Non-distended, No tenderness Musculoskeletal: No clubbing, No swelling, No tenderness Integumentary: No rashes, No erythema Neurological: Normal speech, Normal tone, Normal affect Lymphatics: No axilla or inguinal lymphadenopathy - Studies Laboratory Data (last 24 hrs) 09/30/24 09/30/24 09/30/24 10:34 10:34 10:34 WBC 23.60 H Hgb 8.6 L Hct 26.9 L Plt Count 478 H PT 14.5 H INR 1.39 APTT 26.6 Sodium 128 L Potassium 4.9 BUN 79 H Creatinine 4.49 H Glucose 159 H Total Bilirubin 0.6 AST 554 H ALT 717 H Alkaline Phosphatase 268 H Assessment and Plan - Plan Pneumonia --CT imaging acute findings concerning for pneumonia. --Continue antibiotics and neb treatment with albuterol\Ativan. Acute cholecystitis Elevated LFTs --CT imaging indicated findings concerning for acute cholecystitis. --Patient placed on antibiotics. --Ultrasound indicates normal CBD --Surgeon consulted. Recommendations appreciated. Sepsis POA Leukocytosis --Blood cultures pending. --Continue antibiotics. Anemia of chronic disease --H&H stable. --Transfuse if hemoglobin less than 7.0 CKD 5. --Nephrology consulted. Recommendations appreciated --Will continue to monitor renal functions. UTI POA Candidiasis --Yeast noted in urine. --Continue antibiotics. --Patient placed on Diflucan. --Urine cultures pending. DM2 -- BS monitoring with sliding scale insulin and NPH insulin Hyperlipidemia. --Continue statin. Hypertension. --Stable. --Continue home medications. Nausea and Vomitting --Antiemetics on board. DVT prophylaxis with heparin subQ Discharge Plan: Home Plan to discharge in: Greater than 2 days - Advance Directives Does patient have a Living Will: Yes Does patient have a Durable POA for Healthcare: No - Code Status/Comfort Care Code Status Assessed: Yes Code Status: Full Code Physician Review: Patient Assessed, Agree with Above Assessment and Plan Critical Care: No
[2024-09-30] MEDS ORDERED: FLUCONAZOLE 100 MG TAB ONE (16:09)
[2024-09-30] MEDS ORDERED: AZITHROMYCIN 500 MG INJ IVPB ONE (16:10)
[2024-09-30] MEDS ORDERED: NA CHLORIDE 0.9% 250 ML ONE (16:10)
[2024-09-30] MEDS: FLUCONAZOLE 100 MG TAB PO SCH (16:17)
[2024-09-30] MEDS: ACETAMINOPHEN 325 MG TABLET PO PRN (16:17)
[2024-09-30] MEDS: PIPER TAZO 3.375 GM in NA CHLORIDE 0.9% 100 ML IV SCH (16:17)
[2024-09-30] MEDS: AZITHROMYCIN IV 500 MG in NA CHLORIDE 0.9% 250 ML IVPB SCH (17:14)
[2024-09-30 18:38] LABS: Magnesium 2.3 mg/dL (1.6-2.4); Phosphorus 4.6 mg/dL (2.5-4.9)
[2024-09-30] MEDS: HEPARIN 5000 UNIT/ML 1 ML VIAL SQ SCH (20:47)
[2024-09-30] MEDS: IPRATROPIUM BROM 0.5MG/2.5ML NEB SCH (21:00)
[2024-09-30] MEDS: ALBUTEROL 2.5 MG/3 ML NEB SOL NEB SCH (21:00)
[2024-09-30] MEDS: HYDROCODONE/APAP 5/325 MG TAB PO PRN (22:56)
[2024-10-01 04:41] LABS: Absolute Eosinophils 0.2 K/uL (0-0.5); Absolute Lymphocytes (CBC) 1.7 K/uL (0.7-4.9); Absolute Monocytes 2.2 K/uL (0.1-1.3); Absolute Neutrophil 15.4 K/uL (1.8-8.0); Basophils % 0.2 % (0-1.3); Hematocrit 26.2 % (36.0-45.0); Hemoglobin 8.5 g/dL (12.0-15.0); Lymphocytes % 8.7 % (15.3-44.8); MCH 29.3 pg (27.0-35.0); MCHC 32.4 g/dL (32.0-36.0); MCV 90.7 fL (80-100); MPV 9.3 fL (7.6-11.3); Monocytes % 11.3 % (3.3-12.3); Neutrophils % 78.8 % (41.7-73.7); Nucleated Red Blood Cells % 0.1 % (0-0); Platelets 413 thou/uL (152-406); RBC Red Blood Cell Count 2.89 M/uL (3.86-4.86); Red Cell Distribution Width 15.6 % (12.1-15.2)
[2024-10-01 04:52] LABS: Anion Gap 11.5 mEq/L (5.0-15.0); Potassium 4.5 mEq/L (3.5-5.1)
[2024-10-01] MEDS ORDERED: D50W 25 GM/50 ML SYRINGE IV PRN (04:55)
[2024-10-01] MEDS ORDERED: GLUCAGON 1 MG/VIAL IM PRN (04:55)
[2024-10-01] MEDS ORDERED: D10W 125 ML IV PRN (04:59)
[2024-10-01 07:25] LABS: Albumin 1.8 g/dL (3.4-5.0); Albumin/Globulin Ratio 0.3 (1.1-1.8); Anion Gap 12.5 mEq/L (5.0-15.0); Bilirubin Total 0.7 mg/dL (0.2-1.0); Globulin 5.2 g/dL (2.3-3.5); Potassium 4.5 mEq/L (3.5-5.1)
[2024-10-01] MEDS: carvediloL 12.5 MG TAB PO SCH (08:53)
[2024-10-01] MEDS: CLOPIDOGREL 75 MG TABLET PO SCH (08:57)
[2024-10-01] MEDS: NIFEDIPINE XL 60 MG TABLET PO SCH (08:58)
[2024-10-01] MEDS: allopurinoL 100 MG TAB PO SCH (09:00)
[2024-10-01] MEDS: COLESEVELAM 625 MG PO SCH (09:00)
--- NOTE | 2024-10-01 12:22 | P.CNS ---
Date of Consult: 10/01/24 Reason for Consult: ROLANDA/ CKD Requesting Physician: jose eduardo cristina Chief Complaint: Lethargic, SOB, Weakness History of Present Illness: Patient is a 79-year-old female with a past medical history significant for hyp ertension, DM2, hyperlipidemia, CKD, gout who presents with complaint of shortness of breath, lethargy and generalized weakness. Patient is alert and oriented x 1 and unable to provide any accurate history. Patient's spouse reported that patient has been lethargic and weak for the past couple of days. Patient reported associated signs and symptoms of fatigue, cough, chest congestion, fever, poor appetite, nausea or vomiting. Patient denies any other signs and symptoms. Symptoms are aggravated or relieved by nothing. Patient was brought to the hospital for medical evaluation. [id number] 11:45 This 79 yrs old Female presents to ER via EMS with complaints of Shortness Of Breath, rn Cough, Fever. 11:45 The patient has shortness of breath at rest, with light activity. Onset: The rn symptoms/episode began/occurred 1 week(s) ago. The patient's shortness of breath is aggravated by coughing, exertion, light activity. Severity of symptoms: At their worst the symptoms were moderate in the emergency department the symptoms are unchanged. The patient has not experienced similar symptoms in the past. EMS reports patient recently admitted for flu and pneumonia, was taken to jail for rehabilitation, has been there for few days, reports worsening shortness of breath and persistent cough with generalized weakness. The patient and her reports that she broke her ankle at the end of August. She then developed influenza and PNA. Allergies No Known Drug Allergies Allergy (Verified 08/07/16 08:36) Unknown Home medications list reviewed: Yes Home Medications: Benazepril HCl [Lotensin] 20 mg PO 08/07/16 Clopidogrel Bisulfate [Plavix] 75 mg PO DAILY 08/07/16 Colesevelam [Welchol] 625 mg PO TID 08/07/16 Insulin 70/30 NPH/Reg Human [Novolin 70/30*] 55 unit SQ TID 08/07/16 Metformin ER [Glucophage ER] 500 mg PO BID 08/07/16 NIFEdipine [Nifedipine ER] 60 mg PO DAILY 08/07/16 Pravastatin Sodium [Pravachol] 40 mg PO DAILY 08/07/16 allopurinoL [Zyloprim] 100 mg PO DAILY 08/07/16 carvediloL [Coreg*] 1 tab PO BID 08/07/16 - Past Medical/Surgical History -: DM 2 -: HLD -: HTN -: CAD -: Gout -: CKD IV (Dr. Jones/ Gopi) -: MARIXA on CPAP - Social History Alcohol use: No CD- Drugs: No Caffeine use: Yes Place of Residence: Home Review of Systems 10-point ROS is otherwise unremarkable General: Weakness, Malaise Respiratory: SOB with Excertion Gastrointestinal: Abdominal Pain Physical Examination Temp Pulse Resp BP Pulse Ox 97.9 F 81 14 140/65 91 10/01/24 12:00 10/01/24 12:00 10/01/24 12:00 10/01/24 12:10/01/24 12:00 General: Oriented x3, Cooperative HEENT: Atraumatic Neck: Supple Respiratory: Normal air movement Cardiovascular: Regular rate/rhythm, Edema (Hip) Gastrointestinal: Soft and benign, Non-distended, Tenderness Musculoskeletal: No clubbing, No contractures Integumentary: No rashes, No cyanosis, Tenderness/swelling (LUE infiltration) Neurological: Normal speech Blood work reviewed in the chart. Imagings Data: EXAM: CT CHEST, ABDOMEN AND PELVIS WITHOUT CONTRAST CLINICAL INDICATION: Female, 79 years old dyspnea, abnormal lfts, renal failure TECHNIQUE: CT chest, abdomen and pelvis was performed, without IV contrast, as per department protocol. Axial, sagittal and coronal reconstructions were obtained. One or more of the following dose reduction techniques were used: Automated exposure control, adjustment of the mA and/or kV according to the patient size, and/or iterative reconstruction. Unless otherwise specified, incidental findings do not require dedicated imaging follow-up. [id number]. COMPARISON: Same-day ultrasound FINDINGS: The lack of intravenous contrast limits the sensitivity of this exam for evaluation of solid visceral organs, vascular structures, and retroperitoneum. Chest: LOWER NECK: Visualized thyroid gland and soft tissues are normal. LUNGS AND AIRWAYS: Dependent opacities which may reflect atelectasis, aspiration, or pneumonia.Motion artifact limits evaluation for pulmonary nodule detection. PLEURA: Small right pleural effusion. MEDIASTINUM AND LYMPH NODES: No mediastinal mass or fluid collection. Normal size mediastinal, hilar, and axillary lymph nodes. Mild distal esophageal thickening. THORACIC AORTA: No thoracic aortic aneurysm. Atherosclerotic changes are present. PULMONARY ARTERIES: Caliber is within normal limits. HEART: Mild cardiomegaly. Multivessel coronary artery disease. No significant pericardial effusion. Aortic valve calcifications. Abdomen/Pelvis UPPER GI: No significant abnormality. LIVER: Hepatic steatosis. Heterogeneity at the inferior aspect of right hepatic lobe which may be due to underlying lesion or artifact from the patient's arms. GALLBLADDER/BILE DUCTS: Distended gallbladder with trace pericholecystic edema.? PANCREAS: Atrophy, but otherwise unremarkable. SPLEEN: Unremarkable. ADRENALS: Left adrenal nodules which have Hounsfield units consistent with adrenal adenomas. The largest measures 17 mm. KIDNEYS AND URETERS: Bilateral hydroureteronephrosis is mild to moderate.Renal cortical thinning is present bilaterally. ABDOMINAL AORTA AND OTHER VESSELS: Moderate atherosclerotic changes without aortic aneurysm. PERITONEUM: No abnormal free fluid. No free air. LYMPH NODES: No pathologic lymphadenopathy. ABDOMINAL WALL: Bowel containing umbilical hernia. SMALL BOWEL/COLON: Fat-containing umbilical hernia without bowel obstruction. No appendicitis. No bowel obstruction. URINARY BLADDER: Significantly distended bladder. REPRODUCTIVE ORGANS: Uterus surgically absent. No adnexal abnormality. MUSCULOSKELETAL: Multilevel degenerative changes in the spine. No acute fracture. ADDITIONAL FINDINGS: None. IMPRESSION: 1. Moderate bilateral hydroureteronephrosis with significantly distended bladder may be secondary to urinary retention. 2. Distended gallbladder with trace pericholecystic edema. Correlate with prior ultrasound. Acute cholecystitis not excluded. 3. Bowel containing umbilical hernia without bowel obstruction or complicating features. 4. Dependent airspace disease likely reflecting atelectasis but mild pneumonia or pneumonitis such as from aspiration not excluded. 5. Heterogeneity of the inferior aspect of the right hepatic lobe which may be artifact from the patient's arm. Consider nonemergent hepatic protocol CT or MRI to exclude underlying lesion. Abdomen Exam Limited: 09/30/2024 11:09 AM CLINICAL HISTORY: fever, abnormal lfts STUDY: Limited right upper quadrant ultrasound of abdomen. COMPARISON: None. FINDINGS: Liver: Coarsened liver echotexture. Bile ducts: Common bile duct measures 7 mm which is within normal limits for age. Gallbladder: Gallbladder wall thickening with debris and pericholecystic fluid. Cholelithiasis is present. No sonographic Nieves sign was reported. Gallbladder is distended. At least mild right-sided hydronephrosis is present. IMPRESSION: 1. Distended gallbladder with cholelithiasis and gallbladder wall thickening could represent acute cholecystitis in the appropriate clinical setting. 2. Common bile duct measures 7 mm which is likely within normal limits for patient's age. 3. Right-sided hydronephrosis. A CT is pending. EXAM: Chest Single View HISTORY: Cough;Dyspnea COMPARISON: None. FINDINGS: LUNGS/PLEURA: The lungs are clear. No pleural effusions or pneumothorax. No pulmonary edema. MEDIASTINUM: The mediastinal silhouette is within normal limits. CARDIAC: Mild cardiomegaly UPPER ABDOMEN: No significant abnormality. BONES: No acute abnormality. LINES/TUBES/OTHER: Shunt tubing noted overlying the right and left hemithorax. IMPRESSION: No evidence of acute cardiopulmonary disease. Conclusions/Impression: Stage I ROLANDA in the setting of urinary obstruction CKD IV with Proteinuria -No NSAIDs -Continue Tan Urinary Retention BL Hydroureteronephrosis -Continue Tan HTN with CKD/ CHF -Continue Nifedipine XL -Continue Coreg MARIXA -CPAP qhs Diastolic CHF, chronic Peripheral Edema -Low sodium diet -Lasix prn DM II with CKD & Polyneuropathy -Continue Insulin 70/30 Hypoalbuminemia -Give Albumin 25g IV X4 Anemia in chronic illness -Monitor H&H -PRBC prn CKD MBD Secondary HyperParathyroidism -Start Ergo Case reviewed with Dr. Cristina and Dr. Lion Thank you kindly for the consultation
--- NOTE | 2024-10-01 18:36 | P.PN ---
Subjective Date of Service: 10/01/24 Chief Complaint: Lethargic, SOB, Weakness Patient was using 100% nonrebreather which was changed to CPAP last night. She is currently tolerating oxygen by nasal cannula this morning. She feels her respiratory symptoms have improved. She reports right upper quadrant pain. Physical Examination - Vital Signs Temperature: 97.9 F Blood Pressure: 148/67 Pulse: 79 Respirations: 14 Pulse Ox (%): 94 - Studies Microbiology Data (last 24 hrs): 09/30/24 10:34 Blood - Blood Anaerobic Blood Culture - Final Assessment And Plan - Plan Physical examination General: Alert and oriented x3, NAD, HEENT: Conjunctiva not pale, anicteric sclera Neck: Supple, no elevated JVD Heart: Heart sounds 1 and 2 normal, regular rhythm, normal rate, no pedal edema Lungs: Clear to auscultation bilaterally, diminished breath sounds bilaterally, no rhonchi or crackles. Abdomen: Soft, nondistended, nontender, normal bowel sounds. Extremities: No tenderness, no deformity Skin: Normal skin turgor, no rash, no nodules or ulcers. Neuro: No focal motor deficit. Normal speech. Psychiatry: Normal mood, no agitation. Assessment and plan Acute cholecystitis Sepsis Elevated LFTs CT imaging indicated findings concerning for acute cholecystitis. Leukocytosis is improving IV Zosyn Ultrasound indicates normal CBD Surgeon Dr. Hu IV evaluating for lap cholecystectomy. However patient may need a day or 2 of IV antibiotics given her unstable respiratory status. Blood cultures shows no growth to date. Anemia of chronic disease Monitor H&H Transfuse if hemoglobin less than 7.0 Acute kidney injury Bilateral hydronephrosis It appears patient was retaining urine, about 1100 ml urine drained with Tan catheter insertion in the ED according to report. Nephrology input appreciated. Patient given IV albumin per nephrology. Maintain Tan catheter Continue to monitor renal function UTI POA Candidiasis Yeast noted in urine. Continue antibiotics. Continue Diflucan. Hyperlipidemia Continue Colesevalem and Pavastatin. DM2 BS monitoring with sliding scale insulin and NPH insulin Hypertension. Continue antihypertensives DVT prophylaxis with heparin subQ Discharge Plan: Home
[2024-10-01] MEDS: ALBUMIN HUMAN 25% 100 ML IV SCH (20:10)
[2024-10-01] MEDS: Mupirocin NASAL 2 APPL/1 GM TUBE NAS SCH (20:10)
[2024-10-01] MEDS: INSULIN 70/30 100 UNITS/ML SQ SCH (22:27)
[2024-10-01] MEDS: ATORVASTATIN 10 MG TAB PO SCH (22:28)
[2024-10-01] MEDS: PIPER TAZO 3.375 GM in NA CHLORIDE 0.9% 100 ML IV SCH (22:29)
[2024-10-02 06:43] LABS: Absolute Eosinophils 0.2 K/uL (0-0.5); Absolute Lymphocytes (CBC) 1.4 K/uL (0.7-4.9); Absolute Monocytes 1.8 K/uL (0.1-1.3); Absolute Neutrophil 11.7 K/uL (1.8-8.0); Basophils % 0.3 % (0-1.3); Eosinophils % 1.4 % (0-4.4); Hematocrit 25.6 % (36.0-45.0); Hemoglobin 8.2 g/dL (12.0-15.0); Lymphocytes % 9.4 % (15.3-44.8); MCH 29.5 pg (27.0-35.0); MCHC 32.1 g/dL (32.0-36.0); MCV 91.9 fL (80-100); MPV 8.7 fL (7.6-11.3); Neutrophils % 76.9 % (41.7-73.7); Nucleated Red Blood Cells % 0.1 % (0-0); Platelets 441 thou/uL (152-406); RBC Red Blood Cell Count 2.78 M/uL (3.86-4.86); Red Cell Distribution Width 15.3 % (12.1-15.2)
[2024-10-02 07:29] LABS: Albumin 1.9 g/dL (3.4-5.0); Albumin/Globulin Ratio 0.4 (1.1-1.8); Anion Gap 7.3 mEq/L (5.0-15.0); Bilirubin Total 0.6 mg/dL (0.2-1.0); Globulin 5.1 g/dL (2.3-3.5); Potassium 4.3 mEq/L (3.5-5.1); Uric Acid 8.8 mg/dL (2.6-6.0)
[2024-10-02 08:14] LABS: Hepatitis B Core Ab, Total Nonreactive (Nonreactive); Hepatitis B surface AG Interp. Nonreactive (Nonreactive); Hepatitis C Virus Ab Nonreactive (Nonreactive)
[2024-10-02 08:17] LABS: Hepatitis B Surface Ab - Quant < 3.10 mIU/mL (<8.0)
[2024-10-02 08:18] LABS: HBsAG Nonreactive Report Report
[2024-10-02] MEDS: ALBUMIN HUMAN 25% 100 ML IV SCH (08:52)
[2024-10-02] MEDS: NA CHLORIDE 0.9% 1,000 ML ONE (09:30)
[2024-10-02] MEDS: LIDOCAINE HCL/EPINEPHRINE 20 ML MDV ONE (10:27)
[2024-10-02] MEDS ORDERED: propofoL 200 MG/20 ML VIAL IV ONE (10:34)
[2024-10-02] MEDS ORDERED: ROCURONIUM 50 MG/5 ML VIAL IV ONE (10:35)
[2024-10-02] MEDS ORDERED: LIDOCAINE 2% MPF 5 ML VIAL ONE (10:35)
[2024-10-02] MEDS ORDERED: FENTANYL CITR 100 MCG/2 ML ONE ×2 (10:35→12:25)
[2024-10-02] MEDS ORDERED: ONDANSETRON 4 MG/2 ML VIAL ONE (10:37)
[2024-10-02] MEDS: Ringers Lactate 1,000 ML IV SCH (11:00)
[2024-10-02] MEDS ORDERED: EPHEDRINE SULF 50 MG/ML VIAL ONE (11:27)
[2024-10-02] MEDS ORDERED: SUCCINYLCHOLINE 20 MG/ML (10 ML) IV ONE (11:52)
--- NOTE | 2024-10-02 12:08 | P.PN ---
Pt OOR when attempted to visit, recurrent ROLANDA on underlying CKD IV, Cr level downward trending with bladder decompression, recorded BP low this AM, ordered IVF, f/u closely post surgery, use holding parameters on any BP meds including CCB
[2024-10-02] MEDS ORDERED: GLYCOPYRROLATE 0.2 MG/ML SYR ONE (12:34)
--- NOTE | 2024-10-02 12:50 | P.OP ---
Preoperative diagnosis: Acute Cholecystitis Postoperative diagnosis: Acute Gangrenous Cholecystitis Primary procedure: Laparoscopic Cholecystectomy with ICG Cholangiography Anesthesia: GETA + Local Estimated blood loss: <20cc Specimen: Gallbladder Findings: Gangrenous GB, bowel adhesions to abd wall, ventral hernia Complications: None Implants: Khalida Hemostatic Powder Transferred to: Recovery Room Condition: Good
[2024-10-02] MEDS: FENTANYL CITR 100 MCG/2 ML ONE (13:56)
[2024-10-02] MEDS: HYDROCODONE/APAP 7.5/325 MG TAB PO PRN (15:26)
--- NOTE | 2024-10-02 16:49 | P.PN ---
Subjective Date of Service: 10/02/24 Chief Complaint: Lethargic, SOB, Weakness Status post laparoscopic cholecystectomy today. She is stable on oxygen by nasal cannula Patient had a fever of 101.5 this morning. Physical Examination - Vital Signs Temperature: 98.6 F Blood Pressure: 139/47 Pulse: 67 Respirations: 16 Pulse Ox (%): 96 - Studies Microbiology Data (last 24 hrs): 09/30/24 10:34 Blood - Blood Anaerobic Blood Culture - Final Assessment And Plan - Plan Physical examination General: Alert and oriented x3, NAD, HEENT: Anicteric sclera Neck: Supple, no elevated JVD Heart: Heart sounds 1 and 2 normal, regular rhythm, normal rate, no pedal edema Lungs: Clear to auscultation bilaterally, diminished breath sounds bilaterally, no rhonchi or crackles. Abdomen: Soft, nondistended, dressed trocar wounds noted, normal bowel sounds. Extremities: No tenderness, no deformity Skin: Normal skin turgor, no rash, no nodules or ulcers. Neuro: No focal motor deficit. Normal speech. Psychiatry: No agitation. Assessment and plan Acute cholecystitis Sepsis Elevated LFTs CT imaging indicated findings concerning for acute cholecystitis. Leukocytosis is improving IV Zosyn Ultrasound indicates normal CBD Surgeon Dr. Hu IV evaluating for lap cholecystectomy. However patient may need a day or 2 of IV antibiotics given her unstable respiratory status. Blood cultures shows no growth to date. Anemia of chronic disease Monitor H&H Transfuse if hemoglobin less than 7.0 Acute kidney injury Bilateral hydronephrosis It appears patient was retaining urine, about 1100 ml urine drained with Tan catheter insertion in the ED according to report. Nephrology input appreciated. Patient given IV albumin per nephrology. Maintain Tan catheter Continue to monitor renal function UTI POA Candidiasis Yeast noted in urine. Continue antibiotics. Continue Diflucan. Hyperlipidemia Continue Colesevalem and Pavastatin. DM2 BS monitoring with sliding scale insulin and NPH insulin Hypertension. Continue antihypertensives 10/02 Status post lap cholecystectomy. Patient found to have gangrenous bladder. Blood cultures shows no growth to date. Continue IV Zosyn Monitor LFT Continue Diflucan for Nina in urine. Maintain Tan catheter for bilateral hydronephrosis. Renal function is improving. Patient is on IV Ringer's lactate and nephrology. Wean oxygen as tolerated. DVT prophylaxis with heparin subQ Discharge Plan: Home
--- NOTE | 2024-10-02 17:43 | P.PN ---
-Nephrology note (S) Pt seen in stable condition post surgery, some expected abd pain, no CP, dyspnea, nausea when seen (O) vitals reviewed in the EMR General: NAD, Cooperative HEENT: Atraumatic, sclera anicteric, LFNC Neck: Supple Respiratory: Normal air movement, non tachypnec, reduced BS at bases Cardiovascular: Regular rate/rhythm mostly, Gastrointestinal: Some distention, obese, abd binder, surgical dressing Musculoskeletal: Lt leg immobilizer Integumentary: No rashes, Neurological: Normal speech, awake, conversive, no tremors Blood work reviewed in the chart. Conclusions/Impression: Stage III ARF episode after recent ROLANDA earlier this mo at [facility] on underlying CKD IV -ARF in the setting of urinary retention, hydro with downward trending levels s/p bladder decompression. Monitor for any polyuria, ordered IVF earlier today x 1L given plans for surgery and lower BP recorded this AM Urinary Retention, unspecified -In the setting of recent pain meds, constipation, other, maintain morgan for now HTN with CKD/ CHF unspecified -Monitor closely, CCB dose lowered, no scheduled diuretics currently Leukocytosis, acute cholecystitis, abnormal results of LFTs -Management per surgery/IM, dose Abx for reduced CrCl
--- NOTE | 2024-10-02 17:58 | OP ---
Date of Procedure: 10/02/2024 Surgeon: Aditya Lion MD, Preoperative Diagnosis: Acute cholecystitis. Postoperative Diagnosis: Acute gangrenous cholecystitis. Procedure Performed: Laparoscopic cholecystectomy with indocyanine green cholangiography. Anesthesia: General endotracheal plus local 1% lidocaine. Estimated Blood Loss: Approximately 20 cc. Specimen: Gallbladder. Findings: 1. Gangrenous gallbladder. 2. Evidence of early cirrhosis with a nodular appearance to the liver. 3. Bowel adhesions to the anterior abdominal wall into the periumbilical region, where a ventral roya ia was appreciated. 4. Severe adhesions to the right upper quadrant with encasement of the gallbladder with omentum as we ll as close proximity of stomach and duodenum as well as right flexure/hepatic flexure to gallbladder . Complications: None immediate. Implant: Khalida hemostatic powder. Disposition: The patient transported to recovery room in good condition. Procedure In Detail: After informed consent was obtained, the patient was brought to the operating r oom, prepped and draped in the usual sterile fashion. After adequate anesthesia was achieved, anesth etized the area in the supraumbilical position away from the proposed insertion site where the hernia was appreciated in the umbilical position. I then placed a 5 mm 0 degree optical trocar and attempt ed to enter the abdomen at this point. However, I appreciated that there was bowel content after ent ering the peritoneal cavity, and as such, I abandoned this portion so as not to cause bowel injury. At this point, I made a right upper quadrant 5 mm incision and placed the optical trocar into the abd omen without incident or complication. Insufflation was obtained to 15 mmHg at this time. There was no injury to vital structure upon entering the abdomen. I inspected the previous attempt and there was no evidence of bowel injury at this area. There were thick adhesions between the small bowel and the anterior abdominal wall at this point with omental attachments as well. There was significant i ncarceration of the umbilical hernia with bowel and omental attachments in this region. At this poin t, I opted to place a paramedian 12 mm incision in the lower abdomen near the level of the umbilicus. This was a 12 mm trocar placed under direct visualization without incident or complication. Two ad ditional trocars were placed, one in the right upper quadrant, one in the right mid abdomen, both of these were similarly anesthetized and sharply incised. 5 mm trocar was placed without incident or co mplication. At this point, I irrigated the attempted supraumbilical incision and closed it with inte rrupted sean. I then placed the patient in head-up position. Right side rotation. Ratcheted gra sper was used to grasp the patient's gallbladder which was friable, distended, and with gangrenous ch anges. The gallbladder ultimately ruptured and required decompression with a suction hot roll laminator at th is point which suctioned out the effluent with minimal spillage of bile. At this point, gallbladder was grasped, elevated, placed towards the patient's right shoulder. Dissection continued on the Petty riggins pouch of the gallbladder removing all anterior adhesive material using combination of blunt diss ection as well as electrocautery from this area. There was encasement of the gallbladder within the omentum. There was oozing from the cut surface in this area, but no obvious arterial injuries were o ccurring. After I dissected out 2 structures, identified both cystic duct, cystic artery, these stru ctures were completely skeletonized. Critical view of safety was obtained. At this point, I perform ed indocyanine green cholangiography and noted that the cystic common duct confluence appeared to be far away from our proposed transection site. At this point, double titanium clips were placed doubly on the proximal side and singly on the distal side of both cystic duct and cystic artery. These str uctures ligated between Endo Stefania without incident or complication. At this point, I removed the g allbladder from the hepatic fossa using electrocautery. There was some oozing from the majority of t he hepatic fossa as the gangrenous gallbladder had a green hue to it throughout on the posterior aspe ct of the gallbladder. This was ultimately placed in EndoCatch bag, removed through the umbilical pa ramedian trocar and sent off for pathologic examination. The area was copiously irrigated. I perfor med extensive fulguration of the hepatic bed and at the end of the procedure, there was no bleeding. I performed indocyanine green cholangiography and saw no bleeding or bile leakage at the end of the procedure. Clips found to be in good anatomic position. I then irrigated once again, suctioned out completely dry. At this point, I sprayed Khalida hemostatic powder into the subhepatic space. I plac ed the patient back in neutral position, sucked out the remaining effluent and I closed the paramedia n 12 mm trocar site using Brad-Luis suture passer with 0 Vicryl in interrupted fashion. Good a pproximation of tissues. The abdomen was then desufflated under direct visualization without inciden t or complication. Remaining trocars removed. All skin incisions were then copiously irrigated, rachell sed with interrupted sean, and a sterile dressing placed over top. The patient tolerated the proc edure without incident or complication and transferred to PACU in good condition. All counts were co rrect at end of case. TK/MODL Voice ID: [id number] Report ID: [id number]
[2024-10-03 05:02] LABS: Absolute Eosinophils 0.1 K/uL (0-0.5); Absolute Lymphocytes (CBC) 0.9 K/uL (0.7-4.9); Absolute Monocytes 1.6 K/uL (0.1-1.3); Absolute Neutrophil 11.1 K/uL (1.8-8.0); Basophils % 0.2 % (0-1.3); Eosinophils % 0.9 % (0-4.4); Hematocrit 23.3 % (36.0-45.0); Hemoglobin 7.6 g/dL (12.0-15.0); Lymphocytes % 6.3 % (15.3-44.8); MCH 29.6 pg (27.0-35.0); MCHC 32.4 g/dL (32.0-36.0); MCV 91.3 fL (80-100); MPV 8.7 fL (7.6-11.3); Monocytes % 11.6 % (3.3-12.3); Nucleated Red Blood Cells % 0.1 % (0-0); Platelets 411 thou/uL (152-406); RBC Red Blood Cell Count 2.55 M/uL (3.86-4.86); Red Cell Distribution Width 15.7 % (12.1-15.2)
[2024-10-03 05:30] LABS: Albumin 2.5 g/dL (3.4-5.0); Albumin/Globulin Ratio 0.5 (1.1-1.8); Anion Gap 9.1 mEq/L (5.0-15.0); Globulin 4.7 g/dL (2.3-3.5); Potassium 4.1 mEq/L (3.5-5.1); Protein, Total 7.2 g/dL (6.4-8.2)
[2024-10-03] MEDS: NIFEDIPINE XL 60 MG TABLET PO SCH (10:12)
--- NOTE | 2024-10-03 12:28 | PN ---
Date of Progress Note: 10/03/2024 Subjective: The patient was seen and examined at bedside. She is sleepy and drowsy post surgery. Physical Examination: Vital Signs: Have been reviewed and are stable. General: She is a morbidly obese female, in no acute distress. HEENT: Atraumatic head. Lungs: Clear to auscultation with diminished breath sounds at the bases. Abdomen: Soft and nontender with sluggish bowel sounds. Extremities: Showed no evidence of edema. Laboratory Data: Showing sodium of 147, potassium of 4.1, chloride of 115, BUN of 55 and creatinine of 2.2. LFTs are elevated; however, overall downward trend from compared to admission. Albumin is a t 1.9. CBC showing hemoglobin of 7.6, hematocrit 23.3, WBC count showing improvement as well. Current Medications: Have been reviewed. Impression: 1. Acute on chronic renal insufficiency secondary to acute tubular necrosis, currently with improving renal function. 2. Mild hyponatremia. The patient will be started on D5 water to improve her hyponatremia. 3. Gangrenous cholecystitis, status post cholecystectomy. 4. Candidiasis. Nina infection noted in the urine. Remains on Diflucan. 5. Anemia secondary to chronic disease with also some blood loss. The patient will probably need tra nsfusion for hemoglobin less than 7. Plan: Overall, the patient is doing better. Continue antibiotics. Follow up closely on labs and tr ansfuse as needed, and we will start the patient on D5 water for improvement in her hyponatremia. VV/MODL Voice ID: [id number] Report ID: [id number]
[2024-10-03] MEDS: D5W 1,000 ML IV SCH (13:11)
--- NOTE | 2024-10-03 13:19 | P.PN ---
Subjective Date of Service: 10/03/24 Chief Complaint: Lethargic, SOB, Weakness Status post laparoscopic cholecystectomy yesterday. Patient states she is doing much better. She is tolerating diet. Patient is tolerating room air. No fever since yesterday Physical Examination - Vital Signs Temperature: 97.4 F Blood Pressure: 133/61 Pulse: 76 Respirations: 14 Pulse Ox (%): 91 Assessment And Plan - Plan Physical examination General: Alert and oriented x3, NAD, HEENT: Anicteric sclera Neck: No elevated JVD Heart: Heart sounds 1 and 2 normal, regular rhythm, normal rate, no pedal edema Lungs: Clear to auscultation bilaterally, diminished breath sounds bilaterally, no rhonchi or crackles. Abdomen: Soft, nondistended, trocar wounds with clean dressing, normal bowel sounds. Extremities: No tenderness, no deformity Skin: Normal skin turgor, no rash, no nodules or ulcers. Neuro: No focal motor deficit. Normal speech. Psychiatry: No agitation. Diagnosis Acute gangrenous cholecystitis Sepsis Elevated LFTs Anemia of chronic disease Acute kidney injury Bilateral hydronephrosis UTI POA Candidiasis Hyperlipidemia DM2 Hypertension. Hypernatremia Assessment and plan Acute cholecystitis Sepsis Elevated LFTs CT imaging indicated findings concerning for acute cholecystitis. Leukocytosis is improving IV Zosyn Ultrasound indicates normal CBD Surgeon Dr. Hu IV evaluating for lap cholecystectomy. However patient may need a day or 2 of IV antibiotics given her unstable respiratory status. Blood cultures shows no growth to date. Anemia of chronic disease Monitor H&H Transfuse if hemoglobin less than 7.0 Acute kidney injury Bilateral hydronephrosis It appears patient was retaining urine, about 1100 ml urine drained with Tan catheter insertion in the ED according to report. Nephrology input appreciated. Patient given IV albumin per nephrology. Maintain Tan catheter Continue to monitor renal function UTI POA Candidiasis Yeast noted in urine. Continue antibiotics. Continue Diflucan. Hyperlipidemia Continue Colesevalem and Pavastatin. DM2 BS monitoring with sliding scale insulin and NPH insulin Hypertension. Continue antihypertensives 10/02 Status post lap cholecystectomy. Patient found to have gangrenous bladder. Blood cultures shows no growth to date. Continue IV Zosyn Monitor LFT Continue Diflucan for Nina in urine. Maintain Tan catheter for bilateral hydronephrosis. Renal function is improving. Patient is on IV Ringer's lactate and nephrology. Wean oxygen as tolerated. 10/03 Patient is doing much better No fever over the past 24 hours. AST and ALT trended up. Total bilirubin is normal. Continue IV Zosyn Continue to monitor LFT General Surgery Dr. Lion service following Diet advancement per Dr. Lion Serum creatinine is improving Maintain Tan catheter. Nephrology is following for ROLANDA and hypernatremia IV fluids changed to D5 water. Monitor renal function. PT consult. DVT prophylaxis: heparin subQ Discharge Plan: SNF
[2024-10-04 05:59] LABS: Albumin 2.1 g/dL (3.4-5.0); Albumin/Globulin Ratio 0.4 (1.1-1.8); Anion Gap 11.3 mEq/L (5.0-15.0); Bilirubin Total 0.6 mg/dL (0.2-1.0); Globulin 4.9 g/dL (2.3-3.5); Potassium 4.3 mEq/L (3.5-5.1)
[2024-10-04 10:25] LABS: Absolute Lymphocytes (CBC) 1.3 K/uL (0.7-4.9); Absolute Monocytes 1.2 K/uL (0.1-1.3); Absolute Neutrophil 15.9 K/uL (1.8-8.0); Basophils % 0.2 % (0-1.3); Eosinophils % 0.2 % (0-4.4); Hematocrit 25.6 % (36.0-45.0); Hemoglobin 8.1 g/dL (12.0-15.0); Lymphocytes % 7.1 % (15.3-44.8); MCHC 31.5 g/dL (32.0-36.0); MCV 92.1 fL (80-100); MPV 8.9 fL (7.6-11.3); Monocytes % 6.5 % (3.3-12.3); Nucleated Red Blood Cells % 0.1 % (0-0); Platelets 449 thou/uL (152-406); RBC Red Blood Cell Count 2.78 M/uL (3.86-4.86); Red Cell Distribution Width 16.1 % (12.1-15.2)
[2024-10-04 10:51] LABS: Blood Gas Oxyhemoglobin 90.1 % (94-97); Blood Gas THB 9.5 g/dl (12-18); Blood O2 Saturation 91.9 % (92-98.5)
--- NOTE | 2024-10-04 10:57 | RAD REPORT ---
Procedure: Chest Single View HISTORY: Cough COMPARISON: September 30, 2024 FINDINGS: Right lower lobe opacity without significant change. Left lower lobe opacity appears mostly resolved. Upper lobes clear. Bilateral shunt tube overlies the chest. No significant pleural effusion noted. The heart is mildly enlarged. IMPRESSION: Right lower lobe opacity without significant change probably pneumonia
[2024-10-04 11:19] LABS: Blood Morphology Comment NOT SEEN (NOT SEEN); Platelet Estimate ADEQ; White Blood Cell Scan OK (OK)
--- NOTE | 2024-10-04 12:11 | P.PN ---
Subjective Date of Service: 10/04/24 Chief Complaint: Lethargic, SOB, Weakness Patient had to be on BiPAP all night for hypoxia. No recorded fever. Patient has poor oral intake, sometimes not taking oral medication. Physical Examination - Vital Signs Temperature: 99.7 F Blood Pressure: 141/63 Pulse: 78 Respirations: 20 Pulse Ox (%): 90 Assessment And Plan - Plan Physical examination General: Alert and oriented x2, NAD, Neck: No elevated JVD Heart: Heart sounds 1 and 2 normal, regular rhythm, normal rate, no pedal edema Lungs: Clear to auscultation bilaterally, diminished breath sounds bilaterally, no rhonchi or crackles. Abdomen: Soft, nondistended, trocar wounds with clean dressing, normal bowel sounds. Extremities: No tenderness, no deformity Skin: Normal skin turgor, no rash. Neuro: No focal motor deficit. Normal speech. Psychiatry: No agitation. Diagnosis Acute gangrenous cholecystitis Sepsis Elevated LFTs Anemia of chronic disease Acute kidney injury Bilateral hydronephrosis UTI POA Candidiasis Hyperlipidemia DM2 Hypertension. Hypernatremia Assessment and plan Acute cholecystitis Sepsis Elevated LFTs CT imaging indicated findings concerning for acute cholecystitis. Leukocytosis is improving IV Zosyn Ultrasound indicates normal CBD Surgeon Dr. Mayte GUTIERREZ evaluating for lap cholecystectomy. However patient may need a day or 2 of IV antibiotics given her unstable respiratory status. Blood cultures shows no growth to date. Anemia of chronic disease Monitor H&H Transfuse if hemoglobin less than 7.0 Acute kidney injury Bilateral hydronephrosis It appears patient was retaining urine, about 1100 ml urine drained with Tan catheter insertion in the ED according to report. Nephrology input appreciated. Patient given IV albumin per nephrology. Maintain Tan catheter Continue to monitor renal function UTI POA Candidiasis Yeast noted in urine. Continue antibiotics. Continue Diflucan. Hyperlipidemia Continue Colesevalem and Pavastatin. DM2 BS monitoring with sliding scale insulin and NPH insulin Hypertension. Continue antihypertensives 10/02 Status post lap cholecystectomy. Patient found to have gangrenous bladder. Blood cultures shows no growth to date. Continue IV Zosyn Monitor LFT Continue Diflucan for Nina in urine. Maintain Tan catheter for bilateral hydronephrosis. Renal function is improving. Patient is on IV Ringer's lactate and nephrology. Wean oxygen as tolerated. 10/03 Patient is doing much better No fever over the past 24 hours. AST and ALT trended up. Total bilirubin is normal. Continue IV Zosyn Continue to monitor LFT General Surgery Dr. Lion service following Diet advancement per Dr. Lion Serum creatinine is improving Maintain Tan catheter. Nephrology is following for ROLANDA and hypernatremia IV fluids changed to D5 water. Monitor renal function. PT consult. 10/04 Patient has hypoxic suspected to be related to obesity hypoventilation. Of note she uses CPAP at home. Arterial blood gas reviewed and noted no significant CO2 retention however patient taking low tidal volumes on the BiPAP. Continue BiPAP Supplemental oxygen. Serum creatinine level precludes CT angiogram to rule out PE. Will start heparin drip and get VQ scan tomorrow to rule out PE. Check venous Doppler of lower extremities for DVT. LFTs trended up. Surgery Dr. Lion reports he noted liver cirrhosis intra-op. Worsening leukocytosis probably secondary hemoconcentration from dehydration from decreased oral intake. Renal function is worse compared to yesterday Nephrology is following and titrating IV fluid. Blood cultures no growth. Continue IV Zosyn DVT prophylaxis: heparin Discharge Plan: SNF
[2024-10-04] MEDS ORDERED: HEPARIN 5000 UNIT/ML 1 ML VIAL IV ONE (12:30)
--- NOTE | 2024-10-04 12:57 | P.PN ---
Subjective Date of Service: 10/04/24 Chief Complaint: Lethargic, SOB, Weakness Subjective: New changes (Patient has no new findings with respect to abdominal findings, however respiratory status is compensated somewhat and now she requires BiPAP therefore she is unable to give me complete sentences. But she communicates nonverbally.) Physical Examination - Vital Signs Temperature: 99.7 F Blood Pressure: 141/63 Pulse: 78 Respirations: 20 Pulse Ox (%): 90 - Physical Exam General: Alert, Cooperative, Mild distress (Respiratory) Respiratory: Diminished Cardiovascular: Regular rate/rhythm Gastrointestinal: Other (Soft mild appropriate tenderness to palpation, no rebound or guarding no focal peritonitis, incisions are clean and dry. Ventral hernias noted without changes.) Assessment And Plan - Plan Patient is a 79-year-old woman status post laparoscopic cholecystectomy for gangrenous cholecystitis, since early cirrhosis noted on intraoperative investigation with nodularity of liver and discoloration. -Continue medical management - Uncertain of what degree liver dysfunction is contributing to her elevation of transaminases at this time. -Respiratory status seems to be significantly worse with bilateral atelectasis/effusions apparent on chest x-ray, no free air noted on chest x-ray. -If concern remains present for worsening infection/decompensation consider CT chest abdomen pelvis. -Serial osmar exams. -Continue trending laboratories. -Continue antibiotic coverage. -Continue IV fluid hydration. Physician Review: Patient Assessed, Agree with Above Assessment and Plan
--- NOTE | 2024-10-04 14:44 | RAD REPORT ---
EXAMINATION: US bilateral LOWER EXTREMITY VENOUS DOPPLER CLINICAL INDICATION: Leg pain TECHNIQUE: Sonographic evaluation of the veins of the lower extremity bilaterally formed.Grayscale, c olor and spectral analysis performed on all vessels COMPARISON: No prior exam. FINDINGS: Echogenic material consistent with acute thrombus is present within the left common femoral vein. The vein is partially compressible. The right common femoral, superficial femoral, greater saphenous, popliteal and posterior tibial vein s bilaterally are compressible and demonstrate augmentation. Doppler demonstrates good flow. IMPRESSION: Acute thrombus left common femoral vein
[2024-10-04 15:55] LABS: Absolute Basophils 0.1 K/uL (0-0.5); Absolute Lymphocytes (CBC) 1.5 K/uL (0.7-4.9); Absolute Monocytes 1.8 K/uL (0.1-1.3); Absolute Neutrophil 18.5 K/uL (1.8-8.0); Basophils % 0.2 % (0-1.3); Eosinophils % 0.2 % (0-4.4); Hematocrit 25.5 % (36.0-45.0); Hemoglobin 8.1 g/dL (12.0-15.0); MCH 29.2 pg (27.0-35.0); MCHC 31.9 g/dL (32.0-36.0); MCV 91.7 fL (80-100); MPV 9.4 fL (7.6-11.3); Monocytes % 8.4 % (3.3-12.3); Neutrophils % 84.2 % (41.7-73.7); Nucleated Red Blood Cells % 0.1 % (0-0); Platelets 461 thou/uL (152-406); RBC Red Blood Cell Count 2.78 M/uL (3.86-4.86); Red Cell Distribution Width 16.3 % (12.1-15.2)
[2024-10-04 16:11] LABS: PT Prothrombin Time 15.8 SECONDS (10.0-13.0); PTT, Activated Partial Thromb 27.3 SECONDS (24.3-36.9); Protime INR 1.41
[2024-10-04] MEDS: HEPARIN 5000 UNIT/ML 1 ML VIAL IV SCH (16:24)
[2024-10-04] MEDS: HEPARIN/D5W 25,000 UNIT/500 ML BAG IV PRN (16:26)
[2024-10-04] MEDS: MORPHINE 2 MG/ML SYR ONE (16:56)
[2024-10-04] MEDS: MORPHINE 2 MG/ML SYR IV ONE (17:07)
[2024-10-04 17:50] LABS: Blood Morphology Comment NOT SEEN (NOT SEEN); Platelet Estimate ADEQ; White Blood Cell Scan OK (OK)
--- NOTE | 2024-10-04 18:53 | RAD REPORT ---
EXAMINATION: CT ABDOMEN AND PELVIS WITHOUT CONTRAST CLINICAL INDICATION: Abdominal pain TECHNIQUE: CT abdomen and pelvis was performed, as per department protocol. IV contrast and oral was not administered.Axial, sagittal and coronal reconstructions were obtained. One or more of the following dose reduction techniques were used: Automated exposure control, adjustment of the mA and/o r kV according to the patient size, and/or iterative reconstruction. Unless otherwise specified, incidental findings do not require dedicated imaging follow-up. [id number]. COMPARISON: September 30, 2019 FINDINGS: The lack of intravenous and oral contrast limits evaluation of solid organs, vessels and bowel. Right middle and right lower lobe opacities. Cholecystectomy. 5 x 3 cm fluid collection within the gallbladder fossa containing increased density. 6.6 cm heterogeneous low density area right lobe liver. Spleen right adrenal and kidneys grossly normal. Small left adrenal nodule. Moderate umbilical hernia contains a portion of transverse colon. Normal appendix. Surgical drain tip in the lower pelvis. Tan catheter within the bladder. No evidence of diverticulitis IMPRESSION: 5 x 3 cm fluid collection with increased density within the gallbladder fossa likely blood. 6.6 cm heterogeneous low density area right lobe of the liver could represent abscess or benign or ma lignant neoplasm. It probably does not represent a hematoma as it likely was present on the prior exam. Right middle and right lower lobe opacities probably representing a combination of atelectasis.
[2024-10-04] MEDS: Meropenem 1,000 MG in NA CHLORIDE 0.9% 100 ML IV SCH (21:16)
[2024-10-04] MEDS: HEPARIN 5000 UNIT/ML 1 ML VIAL IV PRN (22:17)
[2024-10-05] MEDS: HYDRALAZINE HCL 20 MG/ML VIAL IV PRN (01:07)
[2024-10-05 06:11] LABS: MPV 9.4 fL (7.6-11.3); Platelets 416 thou/uL (152-406)
[2024-10-05 06:23] LABS: Albumin 1.8 g/dL (3.4-5.0); Albumin/Globulin Ratio 0.4 (1.1-1.8); Anion Gap 11.7 mEq/L (5.0-15.0); Bilirubin Total 0.6 mg/dL (0.2-1.0); Globulin 4.8 g/dL (2.3-3.5); Potassium 3.7 mEq/L (3.5-5.1); Protein, Total 6.6 g/dL (6.4-8.2)
[2024-10-05] MEDS: KCL 20 MEQ/100 mL IVPB 20 MEQ/100 ML BAG IV SCH (09:24)
[2024-10-05] MEDS: NIFEDIPINE XL 30 MG TABLET PO SCH (09:26)
--- NOTE | 2024-10-05 10:11 | P.PN ---
Date of Service: 10/05/24 Vital Signs Temp Pulse Resp BP Pulse Ox 97 F 73 26 H 162/51 H 99 10/05/24 04:00 10/05/24 09:26 10/05/24 06:00 10/05/24 09:26 10/05/24 06:00 Medications Acetaminophen (Acetaminophen 325 Mg Tablet) 650 mg PO Q6H PRN PRN Reason: TEMP > 100' F Last Admin: 09/30/24 16:17 Dose: 650 mg Hydrocodone Bitart/Acetaminophen (Hydrocodone/Apap 7.5/325 Mg Tab) 2 tab PO Q6H PRN PRN Reason: Pain scale 5-7 (Moderate) Last Admin: 10/03/24 04:09 Dose: 2 tab Albuterol Sulfate (Albuterol 2.5 Mg/3 Ml Neb Julia) 2.5 mg NEB [id number] [facility] Last Admin: 10/05/24 08:25 Dose: 2.5 mg Atorvastatin Calcium (Atorvastatin 10 Mg Tab) 10 mg PO DAILY [facility] Last Admin: 10/05/24 09:26 Dose: 10 mg Carvedilol (Carvedilol 12.5 Mg Tab) 12.5 mg PO BIDWM [facility] Last Admin: 10/05/24 09:26 Dose: 12.5 mg Clopidogrel Bisulfate (Clopidogrel 75 Mg Tablet) 75 mg PO DAILY [facility] Last Admin: 10/05/24 09:26 Dose: 75 mg Fluconazole (Fluconazole 100 Mg Tab) 100 mg PO DAILY [facility]; Protocol Stop: 10/05/24 17:30 Last Admin: 10/05/24 09:26 Dose: 100 mg Glucagon (Glucagon 1 Mg/Vial) 1 mg IM 1X PRN; Protocol PRN Reason: HYPOGLYCEMIA Heparin Sodium (Porcine) (Heparin 5000 Unit/Ml 1 Ml Vial) 0 unit IV PRN PRN PRN Reason: RE-BOLUS PER HEPARIN PROTOCOL Last Admin: 10/04/24 22:17 Dose: 5,000 unit Hydralazine HCl (Hydralazine Hcl 20 Mg/Ml Vial) 10 mg IV 1X PRN PRN Reason: sbp >170 Last Admin: 10/05/24 01:07 Dose: 10 mg Dextrose (Dextrose 10% Water Iv Soln.) 125 mls @ 0 mls/hr IV PRN PRN; Protocol PRN Reason: HYPOGLYCEMIA Dextrose/Water (Dextrose In Water (1-Liter)) 1,000 mls @ 50 mls/hr IV .Q20H [facility] Last Admin: 10/04/24 17:08 Dose: 1,000 mls Heparin Sodium/Dextrose (Heparin Drip 25,000 Units/5oo Ml Premix) 25,000 unit in 500 mls @ 0 mls/hr IV UD PRN; Protocol PRN Reason: Heparin Protocol Last Admin: 10/05/24 09:27 Dose: 500 mls Meropenem 1,000 mg/ Sodium (Chloride) 100 mls @ 200 mls/hr IV Q12HR [facility] Last Admin: 10/05/24 09:24 Dose: 100 mls Dextrose/Sodium Chloride (Dextrose 5% 0.45% Saline) 1,000 mls @ 75 mls/hr IV .[id number] [facility] Insulin Human Isoph/Insulin Regular (Insulin 70/30 100 Units/Ml) 55 unit SQ TIDWM [facility] Last Admin: 10/05/24 09:25 Dose: 55 unit Ipratropium Wilmont (Ipratropium Brom 0.5mg/2.5ml) 0.5 mg NEB [id number] [facility] Last Admin: 10/05/24 08:25 Dose: 0.5 mg Mupirocin (Mupirocin Nasal 2 Appl/1 Gm Tube) 1 appl DOROTEO BID [facility] Stop: 10/06/24 09:01 Last Admin: 10/05/24 09:25 Dose: 1 appl Nifedipine (Nifedipine Xl 30 Mg Tablet) 30 mg PO DAILY [facility] Last Admin: 10/05/24 09:26 Dose: 30 mg Ondansetron HCl (Ondansetron 4 Mg/2 Ml Vial) 4 mg IV Q6HP PRN PRN Reason: NAUSEA / VOMITING Microbiology Results 09/30/24 10:34 Blood - Blood Aerobic Blood Culture - Preliminary No growth in 24 hours. 09/30/24 10:34 Blood - Blood Anaerobic Blood Culture - Final 09/30/24 10:25 Blood - Blood Aerobic Blood Culture - Preliminary No growth in 24 hours. 09/30/24 10:25 Blood - Blood Anaerobic Blood Culture - Preliminary No growth in 24 hours. Assessment/ Plan: Nephrology Progress Note No Dyspnea No Chest Pain Weakness, fatigue and malaise No Acute Events Overnight Vital Signs, Medications, Blood Work, and Imaging reviewed in the chart General: Oriented x3, Cooperative HEENT: Atraumatic Neck: Supple Respiratory: Normal air movement Cardiovascular: Regular rate/rhythm, Edema (Hip) Gastrointestinal: Soft and benign, Non-distended, Tenderness Musculoskeletal: No clubbing, No contractures Integumentary: No rashes, No cyanosis, Neurological: Normal speech Tan Blood work reviewed in the chart. Imagings Data: EXAM: CT CHEST, ABDOMEN AND PELVIS WITHOUT CONTRAST CLINICAL INDICATION: Female, 79 years old dyspnea, abnormal lfts, renal failure TECHNIQUE: CT chest, abdomen and pelvis was performed, without IV contrast, as per department protocol. Axial, sagittal and coronal reconstructions were obtain ed. One or more of the following dose reduction techniques were used: Automated exposure control, adjustment of the mA and/or kV according to the patient size, and/or iterative reconstruction. Unless otherwise specified, incidental findings do not require dedicated imaging follow-up. [id number]. COMPARISON: Same-day ultrasound FINDINGS: The lack of intravenous contrast limits the sensitivity of this exam for evaluation of solid visceral organs, vascular structures, and retroperitoneum. Chest: LOWER NECK: Visualized thyroid gland and soft tissues are normal. LUNGS AND AIRWAYS: Dependent opacities which may reflect atelectasis, aspiration, or pneumonia.Motion artifact limits evaluation for pulmonary nodule detection. PLEURA: Small right pleural effusion. MEDIASTINUM AND LYMPH NODES: No mediastinal mass or fluid collection. Normal size mediastinal, hilar, and axillary lymph nodes. Mild distal esophageal thickening. THORACIC AORTA: No thoracic aortic aneurysm. Atherosclerotic changes are present. PULMONARY ARTERIES: Caliber is within normal limits. HEART: Mild cardiomegaly. Multivessel coronary artery disease. No significant pericardial effusion. Aortic valve calcifications. Abdomen/Pelvis UPPER GI: No significant abnormality. LIVER: Hepatic steatosis. Heterogeneity at the inferior aspect of right hepatic lobe which may be due to underlying lesion or artifact from the patient's arms. GALLBLADDER/BILE DUCTS: Distended gallbladder with trace pericholecystic edema.? PANCREAS: Atrophy, but otherwise unremarkable. SPLEEN: Unremarkable. ADRENALS: Left adrenal nodules which have Hounsfield units consistent with adrenal adenomas. The largest measures 17 mm. KIDNEYS AND URETERS: Bilateral hydroureteronephrosis is mild to moderate.Renal cortical thinning is present bilaterally. ABDOMINAL AORTA AND OTHER VESSELS: Moderate atherosclerotic changes without aortic aneurysm. PERITONEUM: No abnormal free fluid. No free air. LYMPH NODES: No pathologic lymphadenopathy. ABDOMINAL WALL: Bowel containing umbilical hernia. SMALL BOWEL/COLON: Fat-containing umbilical hernia without bowel obstruction. No appendicitis. No bowel obstruction. URINARY BLADDER: Significantly distended bladder. REPRODUCTIVE ORGANS: Uterus surgically absent. No adnexal abnormality. MUSCULOSKELETAL: Multilevel degenerative changes in the spine. No acute fracture. ADDITIONAL FINDINGS: None. IMPRESSION: 1. Moderate bilateral hydroureteronephrosis with significantly distended bladder may be secondary to urinary retention. 2. Distended gallbladder with trace pericholecystic edema. Correlate with prior ultrasound. Acute cholecystitis not excluded. 3. Bowel containing umbilical hernia without bowel obstruction or complicating features. 4. Dependent airspace disease likely reflecting atelectasis but mild pneumonia or pneumonitis such as from aspiration not excluded. 5. Heterogeneity of the inferior aspect of the right hepatic lobe which may be artifact from the patient's arm. Consider nonemergent hepatic protocol CT or MRI to exclude underlying lesion. Abdomen Exam Limited: 09/30/2024 11:09 AM CLINICAL HISTORY: fever, abnormal lfts STUDY: Limited right upper quadrant ultrasound of abdomen. COMPARISON: None. FINDINGS: Liver: Coarsened liver echotexture. Bile ducts: Common bile duct measures 7 mm which is within normal limits for age. Gallbladder: Gallbladder wall thickening with debris and pericholecystic fluid. Cholelithiasis is present. No sonographic Nieves sign was reported. Gallbladder is distended. At least mild right-sided hydronephrosis is present. IMPRESSION: 1. Distended gallbladder with cholelithiasis and gallbladder wall thickening could represent acute cholecystitis in the appropriate clinical setting. 2. Common bile duct measures 7 mm which is likely within normal limits for patient's age. 3. Right-sided hydronephrosis. A CT is pending. EXAM: Chest Single View HISTORY: Cough;Dyspnea COMPARISON: None. FINDINGS: LUNGS/PLEURA: The lungs are clear. No pleural effusions or pneumothorax. No pulmonary edema. MEDIASTINUM: The mediastinal silhouette is within normal limits. CARDIAC: Mild cardiomegaly UPPER ABDOMEN: No significant abnormality. BONES: No acute abnormality. LINES/TUBES/OTHER: Shunt tubing noted overlying the right and left hemithorax. IMPRESSION: No evidence of acute cardiopulmonary disease. Conclusions/Impression: Stage I ROLANDA in the setting of urinary obstruction CKD IV with Proteinuria -No NSAIDs -Continue Tan Urinary Retention BL Hydroureteronephrosis -Continue Tan HTN with CKD/ CHF -Continue Nifedipine XL -Continue Coreg MARIXA -CPAP qhs Diastolic CHF, A/C Peripheral Edema Acute Hypoxic Respiratory Failure -Low sodium diet -Lasix prn -Oxygen prn DM II with CKD & Polyneuropathy -Continue Insulin 70/30 Hypoalbuminemia -Albumin IV X3 today -Protein supplementation as tolerated Anemia in chronic illness -Monitor H&H -PRBC prn CKD MBD Secondary HyperParathyroidism -Renvela prn Acute gangrenous cholecystitis sp cholecystectomy Transaminitis -Continue Abx -Follow up with surgery Hospitalist and Surgery notes reviewed Patient care 35min
--- NOTE | 2024-10-05 11:50 | P.CNS ---
Date of Consult: 10/05/24 Reason for Consult: Respiratory failure patient is on a BiPAP Chief Complaint: Lethargic, SOB, Weakness History of Present Illness: Patient is 79 years of age with a history of metabolic syndrome chronic renal disease presented with shortness of breath weakness and mental status has a history of a stroke currently on BiPAP unresponsive the ICU with renal insufficiency Allergies No Known Drug Allergies Allergy (Verified 08/07/16 08:36) Unknown Home Medications: Clopidogrel Bisulfate [Plavix] 75 mg PO DAILY 08/07/16 Insulin 70/30 NPH/Reg Human [Novolin 70/30*] 55 unit SQ TID 08/07/16 Metformin ER [Glucophage ER] 500 mg PO BID 08/07/16 NIFEdipine [Nifedipine ER] 60 mg PO DAILY 08/07/16 Pravastatin Sodium [Pravachol] 40 mg PO DAILY 08/07/16 carvediloL [Coreg*] 1 tab PO BID 08/07/16 - Past Medical/Surgical History -: DM 2 -: HLD -: HTN -: CAD -: Gout -: CKD IV (Dr. Jones/ Gopi) -: MARIXA on CPAP - Social History Alcohol use: No CD- Drugs: No Caffeine use: Yes Place of Residence: Home Review of Systems is unable to be obtained Physical Examination Temp Pulse Resp BP Pulse Ox 97.3 F 72 27 H 140/38 L 99 10/05/24 07:00 10/05/24 11:33 10/05/24 11:33 10/05/24 11:33 10/05/24 11:33 General: Unresponsive Respiratory: Clear to auscultation bilaterally Cardiovascular: No edema, Normal pulses, Regular rate/rhythm, Normal S1 S2, Other (Patient has lower extremity ulcer) Gastrointestinal: Normal bowel sounds, Soft and benign - Problems (1) Respiratory failure Current Visit: Yes Status: Acute Plan: Patient 79-year-old admitted with altered mental status respiratory failure bilateral pulmonary infiltrate difficult hypoxemia chronic renal failure now has worsening liver function tests patient has significant hypoxemia elevated white count so far blood cultures are negative was started on meropenem patient was on pip-tazo patient is s/p cholecystectomy right now add vancomycin CT of the abdomen 5 x 3 cm fluid collection with increased density within the gallbladder fossa likely blood. 6.6 cm heterogeneous low density area right lobe of the liver could represent abscess or benign or malignant neoplasm. It probably does not represent a hematoma as it likely was present on the change O2 nasal cannula oxygen Elevated liver function test may be side effect of Diflucan which has been stopped Qualifiers: Chronicity: unspecified (2) DVT (deep venous thrombosis) Current Visit: Yes Status: Acute Plan: Patient is on heparin Qualifiers: DVT location: lower extremity Chronicity: acute Laterality: left
[2024-10-05] MEDS ORDERED: VANCOMYCIN 2 GM in NA CHLORIDE 0.9% 500 ML IVPB SCH (12:15)
[2024-10-05 12:22] LABS: Hematocrit 23.2 % (36.0-45.0); Hemoglobin 7.3 g/dL (12.0-15.0)
--- NOTE | 2024-10-05 12:23 | EKG ---
Test Date: 2024-09-30 Test Time: 09:58:55 [employer] Ad[employer] Consultant: BLAKE MEASUREMENT RESULTS: Intervals: Rate: 88 OR: 162 QRSD: 98 QT: 362 QTc: 438 Shade: P: -2 OR: 162 QRS: 9 T: 59 INTERPRETIVE STATEMENTS: Sinus rhythm with marked sinus arrhythmia Otherwise normal ECG No previous ECG available for comparison Electronically Signed On 10-05-24 12:15:56 ASSURANCE SOURCING MANAGER by Faizan Patiño
[2024-10-05] MEDS: D5 0.45 NS 1,000 ML IV SCH (12:31)
[2024-10-05] MEDS: ALBUMIN HUMAN 25% 100 ML IV SCH (12:36)
[2024-10-05] MEDS: VANCOMYCIN 2.25 GM in NA CHLORIDE 0.9% 500 ML IVPB SCH (12:36)
--- NOTE | 2024-10-05 13:41 | P.PN ---
Subjective Date of Service: 10/05/24 Chief Complaint: Lethargic, SOB, Weakness Patient has no new complaints state, states she is feels better currently on nasal cannula. Physical Examination - Vital Signs Temperature: 97.3 F Blood Pressure: 134/61 Pulse: 77 Respirations: 26 Pulse Ox (%): 98 - Physical Exam General: Alert, In no apparent distress, Oriented x3, Cooperative Gastrointestinal: Other (Soft, mild appropriate tenderness to palpation no rebound or guarding no focal peritonitis hernia remained stable, incisions clean and dry without evidence of infection.) - Studies Microbiology Data (last 24 hrs): 09/30/24 10:34 Blood - Blood Aerobic Blood Culture - Final No growth in 5 days. 09/30/24 10:34 Blood - Blood Anaerobic Blood Culture - Final 09/30/24 10:25 Blood - Blood Aerobic Blood Culture - Final No growth in 5 days. 09/30/24 10:25 Blood - Blood Anaerobic Blood Culture - Final No growth in 5 days. Assessment And Plan - Plan Patient is a 79-year-old woman status post laparoscopic cholecystectomy for gangrenous cholecystitis, since early cirrhosis noted on intraoperative investigation with nodularity of liver and discoloration. -Continue medical management - Uncertain of what degree liver dysfunction is contributing to her elevation of transaminases at this time. -Respiratory status seems to be significantly worse with bilateral atelectasis/effusions apparent on chest x-ray, no free air noted on chest x-ray. -CT abdomen shows collection right hepatic space this is likely due to Khalida and fluid accumulation, hemoglobin has remained stable since surgery therefore I do not suspect active bleeding situation, no additional concerning abdominal findings other than the liver findings which are concerning for possible malignancy which can be worked up after she is stabilized. -Serial abdominal exams. -Continue trending laboratories. -Continue antibiotic coverage. -Continue IV fluid hydration. Physician Review: Patient Assessed, Agree with Above Assessment and Plan
--- NOTE | 2024-10-05 14:14 | P.PN ---
Subjective Date of Service: 10/05/24 Chief Complaint: Lethargic, SOB, Weakness Patient wore BiPAP overnight and transition to oxygen by nasal cannula this morning. No recorded fever. WBC trended up, LFT trended up. Patient has poor oral intake. Serum creatinine trended up slightly. Physical Examination - Vital Signs Temperature: 97.3 F Blood Pressure: 134/61 Pulse: 77 Respirations: 26 Pulse Ox (%): 98 - Studies Microbiology Data (last 24 hrs): 09/30/24 10:34 Blood - Blood Aerobic Blood Culture - Final No growth in 5 days. 09/30/24 10:34 Blood - Blood Anaerobic Blood Culture - Final 09/30/24 10:25 Blood - Blood Aerobic Blood Culture - Final No growth in 5 days. 09/30/24 10:25 Blood - Blood Anaerobic Blood Culture - Final No growth in 5 days. Assessment And Plan - Plan Physical examination General: Alert and oriented x2, NAD, Neck: No elevated JVD Heart: Heart sounds 1 and 2 normal, regular rhythm, normal rate, no pedal edema Lungs: Clear to auscultation bilaterally, diminished breath sounds bilaterally, no rhonchi or crackles. Abdomen: Soft, nondistended, trocar wounds with clean dressing, normal bowel sounds. Right upper quadrant tenderness. Extremities: No tenderness, no deformity Skin: Normal skin turgor, no rash. Neuro: No focal motor deficit. Normal speech. Psychiatry: No agitation. Diagnosis Acute gangrenous cholecystitis Sepsis Elevated LFTs Anemia of chronic disease Acute kidney injury Bilateral hydronephrosis UTI POA Candidiasis Hyperlipidemia DM2 Hypertension. Hypernatremia Assessment and plan Acute cholecystitis Sepsis Elevated LFTs CT imaging indicated findings concerning for acute cholecystitis. Leukocytosis is improving IV Zosyn Ultrasound indicates normal CBD Surgeon Dr. Hu IV performed lap cholecystectomy. However patient may need a day or 2 of IV antibiotics given her unstable respiratory status. Blood cultures shows no growth to date. Anemia of chronic disease Monitor H&H Transfuse if hemoglobin less than 7.0 Acute kidney injury Bilateral hydronephrosis It appears patient was retaining urine, about 1100 ml urine drained with Tan catheter insertion in the ED according to report. Nephrology input appreciated. Patient given IV albumin per nephrology. Maintain Tan catheter Continue to monitor renal function UTI POA Candidiasis Yeast noted in urine. Continue antibiotics. Continue Diflucan. Hyperlipidemia Continue Colesevalem and Pavastatin. DM2 BS monitoring with sliding scale insulin and NPH insulin Hypertension. Continue antihypertensives 10/02 Status post lap cholecystectomy. Patient found to have gangrenous bladder. Blood cultures shows no growth to date. Continue IV Zosyn Monitor LFT Continue Diflucan for Nina in urine. Maintain Tan catheter for bilateral hydronephrosis. Renal function is improving. Patient is on IV Ringer's lactate and nephrology. Wean oxygen as tolerated. 10/03 Patient is doing much better No fever over the past 24 hours. AST and ALT trended up. Total bilirubin is normal. Continue IV Zosyn Continue to monitor LFT General Surgery Dr. Lion service following Diet advancement per Dr. Lion Serum creatinine is improving Maintain Tan catheter. Nephrology is following for ROLANDA and hypernatremia IV fluids changed to D5 water. Monitor renal function. PT consult. 10/04 Patient has hypoxic suspected to be related to obesity hypoventilation. Of note she uses CPAP at home. Arterial blood gas reviewed and noted no significant CO2 retention however patient taking low tidal volumes on the BiPAP. Continue BiPAP Supplemental oxygen. Serum creatinine level precludes CT angiogram to rule out PE. Will start heparin drip and get VQ scan tomorrow to rule out PE. Check venous Doppler of lower extremities for DVT. LFTs trended up. Surgery Dr. Lion reports he noted liver cirrhosis intra-op. Worsening leukocytosis probably secondary hemoconcentration from dehydration from decreased oral intake. Renal function is worse compared to yesterday Nephrology is following and titrating IV fluid. Blood cultures no growth. Continue IV Zosyn 10/05 Venous Doppler of lower extremities report acute DVT in the left common femoral vein. Patient started on heparin drip yesterday. Obtain ventilation/perfusion scan to assess for PE Repeat CT abdomen pelvis shows a collection in the gallbladder fossa suggestive of hematoma. Surgery Dr. Hu have suspect this is related to Khalida and fluid collection and recommend to continue heparin. Check H&H every 6 hours. Will stop heparin if hemoglobin drops. Antibiotics changed to IV meropenem given worsening leukocytosis. Blood cultures have yielded no growth. I suspect atelectasis and hypoventilation contributing much today hypoxia. Continue BiPAP. Monitor renal function to follow ROLANDA Hypernatremia corrected. Titrate IV fluid. D5 water changed to D5 half NS. Nephrology is following. Continue to monitor CBC and BMP. DVT prophylaxis: heparin Discharge Plan: SNF
[2024-10-05 19:08] LABS: Hematocrit 22.4 % (36.0-45.0); Hemoglobin 7.1 g/dL (12.0-15.0)
[2024-10-06 06:19] LABS: MPV 9.6 fL (7.6-11.3); Platelets 361 thou/uL (152-406)
[2024-10-06 06:22] LABS: Platelet Estimate ADEQ
[2024-10-06 06:50] LABS: Albumin 2.3 g/dL (3.4-5.0); Albumin/Globulin Ratio 0.6 (1.1-1.8); Anion Gap 12.3 mEq/L (5.0-15.0); Bilirubin Total 0.7 mg/dL (0.2-1.0); Globulin 3.8 g/dL (2.3-3.5); Potassium 3.3 mEq/L (3.5-5.1); Protein, Total 6.1 g/dL (6.4-8.2)
[2024-10-06 07:49] LABS: Hematocrit 22.4 % (36.0-45.0); MCH 27.9 pg (27.0-35.0); MCHC 30.7 g/dL (32.0-36.0); MCV 90.8 fL (80-100); RBC Red Blood Cell Count 2.47 M/uL (3.86-4.86)
--- NOTE | 2024-10-06 08:29 | P.PN ---
Date of Service: 10/06/24 Subjective: overall feeling better today no flatus or BM since surgery abdominal soreness worsened with cough wore BiPAP for few hours overnight more awake/interactive today per family . afebrile ROS: 10 point ROS as noted above, otherwise negative Physical Exam: GEN: Alert, oriented, NAD CV: Regular rate and rhythm, trace b/l pedal edema Pulm: Nonlabored respirations on 6L NC, diminished at bases bilaterally ABD: soft, RUQ tenderness, clean dressing in place Integumentary: erythema, bruising to sacrum Neuro: Normal speech, normal affect Tan placed 09/30 Problem List: Sepsis secondary to Acute gangrenous cholecystitis, s/p lap marzena (10/02) Elevated LFTs Acute hypoxic respiratory failure Acute DVT (left common femoral) Anemia of chronic disease ROLANDA on CKD4 Bilateral hydronephrosis Liver mass; incidental finding Stage 1 sacral decubitus pressure ulcer UTI POA Candidiasis IDDM2 Hypertension Hyperlipidemia Hypernatremia Sepsis secondary to Acute gangrenous cholecystitis, s/p lap marzena (10/02) Elevated LFTs Acute hypoxic respiratory failure CT abdomen (09/30): Distended gallbladder with trace pericholecystic edema. Dependent airspace disease likely reflecting atelectasis but mild pneumonia or pneumonitis. Heterogeneity of the inferior aspect of the right hepatic lobe. abdominal u/s (09/30): Distended gallbladder with cholelithiasis and gallbladder wall thickening. normal CBD Dr. Lion, general surgeon is following s/p lap marzena 10/02; found to have Gangrenous GB, bowel adhesions to abd wall, ventral hernia. LFTs trended up - now improving. Dr. Lion reports he noted liver cirrhosis intra-op. continue IV merrem / vanc (10/04-) abx switched from zosyn given worsening leukocytosis. afebrile, leukocytosis improving Blood cx (09/30): NGTD Patient transferred to ICU 10/04 for hypoxia, requiring continuious BiPAP. CXR (10/04): RLL opacity without signifcant change. Atelectasis vs Pneumonia. Repeat CXR (10/06): similar consolidative airspace disease in RLL Perfusion scan (10/06): no PE. suspect atelectasis and hypoventilation contributing towards hypoxia Dr. Ingram, Pulm consulted BiPAP as tolerable. Naif Acute DVT (left common femoral) Anemia of chronic disease CT abd/pelvis (10/04): collection in the gallbladder fossa suggestive of hematoma. Dr. Lion suspects this is related to Khalida and fluid collection and recommend to continue heparin. venous u/s (10/04): acute thrombus left common femoral vein Started on a heparin drip 10/04 for acute DVT; continue for now Daily labs. trend H&H. On heparin drip, plavix. if hgb remains stable, will discuss with Dr. Lion, on transitioning to oral anticoagulation ROLANDA on CKD4 Bilateral hydronephrosis CT abdomen (09/30): Moderate bilateral hydroureteronephrosis with significantly distended bladder ~1100 ml urine drained with Tan catheter insertion in the ED (09/30) Tan in place 10/04 CT - no comment on hydro Nephrology consulted s/p IV albumin (10/05) continue IV fluids Continue to monitor renal function Liver mass; incidental finding CT abd/pelvis (09/30): Heterogeneity of the inferior aspect of the right hepatic lobe which may be artifact from the patient's arm. repeat CT (10/04): 6.6 cm heterogeneous low density area right lobe of the liver could represent abscess or benign or malignant neoplasm. It probably does not represent a hematoma as it likely was present on the prior exam. Consider further work up once more stable. Stage 1 sacral decubitus pressure ulcer wound photos in EMR 10/04 Pressure offloading. Frequent turning. UTI POA Candidiasis UA with moderate yeast s/p oral diflucan x5 days (09/30-10/05) IDDM2 accu-cheks, SSI continue novolin 70/30 55u TID Hypertension Hyperlipidemia Continue home meds VTE: heparin drip Code: Full continue ICU level of care, downgrade in next 24-48hrs Time Spent Managing Pts Care (In Minutes): 55
--- NOTE | 2024-10-06 08:35 | RAD REPORT ---
EXAM: Chest Single View HISTORY: 79 years Female POST VQ SCAN COMPARISON: 10/04/2024 FINDINGS: LUNGS/PLEURA: Similar right lower lobe consolidative airspace disease. The left lung is clear. CARDIAC/MEDIASTINUM: Stable enlargement. UPPER ABDOMEN: No significant abnormality. BONES: No acute abnormality. LINES/TUBES/OTHER: EHR TRAINER shunt tubing. IMPRESSION: Similar consolidative airspace disease in the right lower lobe.
[2024-10-06] MEDS: POTASSIUM CL SA 10 MEQ TAB PO ONE (08:59)
--- NOTE | 2024-10-06 09:33 | RAD REPORT ---
EXAMINATION: NUCLEAR MEDICINE VENTILATION PERFUSION SCAN [place] CLINICAL INDICATION: Female, 79 years old. Assess for PE TECHNIQUE: Perfusion images were obtained in multiple projections after intravenous injection of Tc-9 9m MAA. [id number]. RADIOPHARMACEUTICALS: 7.1 mCi intravenous Tc-99m MAA. COMPARISON: No prior exams. FINDINGS: PERFUSION: No wedge-shaped peripheral perfusion defects. IMPRESSION: Perfusion only scan. No evidence of pulmonary embolism.
--- NOTE | 2024-10-06 12:09 | P.PN ---
Subjective Date of Service: 10/06/24 Chief Complaint: Sepsis DVT Subjective: Improving (Patient is improving doing better today more alert and responsive) Review of Systems General: Weakness Respiratory: Shortness of Breath Physical Examination - Vital Signs Temperature: 97.6 F Blood Pressure: 143/45 Pulse: 72 Respirations: 27 Pulse Ox (%): 98 - Physical Exam General: Alert, Oriented x3 Respiratory: Clear to auscultation bilaterally Cardiovascular: Regular rate/rhythm, Normal S1 S2, Edema - Studies Microbiology Data (last 24 hrs): 09/30/24 10:34 Blood - Blood Aerobic Blood Culture - Final No growth in 5 days. 09/30/24 10:34 Blood - Blood Anaerobic Blood Culture - Final 09/30/24 10:25 Blood - Blood Aerobic Blood Culture - Final No growth in 5 days. 09/30/24 10:25 Blood - Blood Anaerobic Blood Culture - Final No growth in 5 days. Assessment And Plan - Current Problems (Diagnosis) (1) Respiratory failure Current Visit: Yes Status: Acute Plan: Patient admitted with respiratory failure is doing better today more alert and responsive white count is declined blood cultures have been negative so far patient is on vancomycin and meropenem also anemic liver function test are improving may be side effect of fluconazole vital signs stable oxygenation satisfactory no change in chest x-ray is possible that she has a pleural effusion on the right side stable for transfer to the floor Qualifiers: Chronicity: unspecified (2) DVT (deep venous thrombosis) Current Visit: Yes Status: Acute Plan: Patient is on heparin no change Qualifiers: DVT location: lower extremity Chronicity: acute Laterality: left Physician Review: Patient Assessed, Agree with Above Assessment and Plan
[2024-10-06 13:21] LABS: Absolute Eosinophils 0.1 K/uL (0-0.5); Absolute Lymphocytes (CBC) 1.7 K/uL (0.7-4.9); Absolute Monocytes 1.7 K/uL (0.1-1.3); Absolute Neutrophil 14.9 K/uL (1.8-8.0); Basophils % 0.1 % (0-1.3); Eosinophils % 0.6 % (0-4.4); Hematocrit 21.5 % (36.0-45.0); Hemoglobin 6.9 g/dL (12.0-15.0); Lymphocytes % 9.3 % (15.3-44.8); MCH 29.3 pg (27.0-35.0); MCHC 32.3 g/dL (32.0-36.0); MCV 90.6 fL (80-100); MPV 9.3 fL (7.6-11.3); Nucleated Red Blood Cells % 0.1 % (0-0); Platelets 369 thou/uL (152-406); RBC Red Blood Cell Count 2.37 M/uL (3.86-4.86); Red Cell Distribution Width 15.9 % (12.1-15.2)
--- NOTE | 2024-10-06 19:37 | P.PN ---
Date of Service: 10/06/24 Vital Signs Temp Pulse Resp BP Pulse Ox 98.1 F 73 26 H 148/48 H 96 10/06/24 16:00 10/06/24 19:00 10/06/24 19:00 10/06/24 19:00 10/06/24 19:00 Medications Acetaminophen (Acetaminophen 325 Mg Tablet) 650 mg PO Q6H PRN PRN Reason: TEMP > 100' F Last Admin: 09/30/24 16:17 Dose: 650 mg Hydrocodone Bitart/Acetaminophen (Hydrocodone/Apap 7.5/325 Mg Tab) 2 tab PO Q6H PRN PRN Reason: Pain scale 5-7 (Moderate) Last Admin: 10/03/24 04:09 Dose: 2 tab Albuterol Sulfate (Albuterol 2.5 Mg/3 Ml Neb Julia) 2.5 mg NEB [id number] [facility] Last Admin: 10/06/24 13:30 Dose: 2.5 mg Atorvastatin Calcium (Atorvastatin 10 Mg Tab) 10 mg PO DAILY [facility] Last Admin: 10/06/24 08:59 Dose: 10 mg Carvedilol (Carvedilol 12.5 Mg Tab) 12.5 mg PO BIDWM [facility] Last Admin: 10/06/24 16:23 Dose: 12.5 mg Clopidogrel Bisulfate (Clopidogrel 75 Mg Tablet) 75 mg PO DAILY [facility] Last Admin: 10/06/24 08:59 Dose: 75 mg Glucagon (Glucagon 1 Mg/Vial) 1 mg IM 1X PRN; Protocol PRN Reason: HYPOGLYCEMIA Heparin Sodium (Porcine) (Heparin 1,000 Unit/Ml Vial) 0 unit IV PRN PRN PRN Reason: RE-BOLUS PER HEPARIN PROTOCOL Last Admin: 10/06/24 08:58 Dose: 3,000 unit Hydralazine HCl (Hydralazine Hcl 20 Mg/Ml Vial) 10 mg IV 1X PRN PRN Reason: sbp >170 Last Admin: 10/05/24 01:07 Dose: 10 mg Dextrose (Dextrose 10% Water Iv Soln.) 125 mls @ 0 mls/hr IV PRN PRN; Protocol PRN Reason: HYPOGLYCEMIA Heparin Sodium/Dextrose (Heparin Drip 25,000 Units/5oo Ml Premix) 25,000 unit in 500 mls @ 0 mls/hr IV UD PRN; Protocol PRN Reason: Heparin Protocol Last Admin: 10/06/24 09:47 Dose: 500 mls Meropenem 1,000 mg/ Sodium (Chloride) 100 mls @ 200 mls/hr IV Q12HR [facility] Last Admin: 10/06/24 08:58 Dose: 100 mls Dextrose/Sodium Chloride (Dextrose 5% 0.45% Saline) 1,000 mls @ 75 mls/hr IV .[id number] [facility] Last Admin: 10/06/24 11:44 Dose: 1,000 mls Vancomycin HCl 1 gm/ Sodium (Chloride) 250 mls @ 250 mls/hr IVPB Q48H [facility]; Protocol Insulin Human Isoph/Insulin Regular (Insulin 70/30 100 Units/Ml) 55 unit SQ TIDWM [facility] Last Admin: 10/06/24 16:23 Dose: 55 unit Ipratropium Vivian (Ipratropium Brom 0.5mg/2.5ml) 0.5 mg NEB [id number] [facility] Last Admin: 10/06/24 13:30 Dose: 0.5 mg Nifedipine (Nifedipine Xl 30 Mg Tablet) 30 mg PO DAILY [facility] Last Admin: 10/06/24 08:58 Dose: 30 mg Ondansetron HCl (Ondansetron 4 Mg/2 Ml Vial) 4 mg IV Q6HP PRN PRN Reason: NAUSEA / VOMITING Protein (Ensure Max Protein 330 Ml Liquid) 330 ml PO BID [facility] Microbiology Results 09/30/24 10:34 Blood - Blood Aerobic Blood Culture - Final No growth in 5 days. 09/30/24 10:34 Blood - Blood Anaerobic Blood Culture - Final 09/30/24 10:25 Blood - Blood Aerobic Blood Culture - Final No growth in 5 days. 09/30/24 10:25 Blood - Blood Anaerobic Blood Culture - Final No growth in 5 days. Assessment/ Plan: Nephrology Progress Note No Dyspnea No Chest Pain Weakness, fatigue but feeling better today No Acute Events Overnight Vital Signs, Medications, Blood Work, and Imaging reviewed in the chart General: Oriented x3, Cooperative HEENT: Atraumatic Neck: Supple Respiratory: Normal air movement/ CTA anteriorly Cardiovascular: Regular rate/rhythm, Edema (Hip) Gastrointestinal: Soft and benign, Non-distended, Tenderness Musculoskeletal: No clubbing, No contractures Integumentary: No rashes, No cyanosis, Neurological: Normal speech Tan Blood work reviewed in the chart. Imagings Data: EXAM: CT CHEST, ABDOMEN AND PELVIS WITHOUT CONTRAST CLINICAL INDICATION: Female, 79 years old dyspnea, abnormal lfts, renal failure TECHNIQUE: CT chest, abdomen and pelvis was performed, without IV contrast, as per department protocol. Axial, sagittal and coronal reconstructions were ob tained. One or more of the following dose reduction techniques were used: Automated exposure control, adjustment of the mA and/or kV according to the patient size, and/or iterative reconstruction. Unless otherwise specified, incidental findings do not require dedicated imaging follow-up. [id number]. COMPARISON: Same-day ultrasound FINDINGS: The lack of intravenous contrast limits the sensitivity of this exam for evaluation of solid visceral organs, vascular structures, and retroperitoneum. Chest: LOWER NECK: Visualized thyroid gland and soft tissues are normal. LUNGS AND AIRWAYS: Dependent opacities which may reflect atelectasis, aspiration, or pneumonia.Motion artifact limits evaluation for pulmonary nodule detection. PLEURA: Small right pleural effusion. MEDIASTINUM AND LYMPH NODES: No mediastinal mass or fluid collection. Normal size mediastinal, hilar, and axillary lymph nodes. Mild distal esophageal thickening. THORACIC AORTA: No thoracic aortic aneurysm. Atherosclerotic changes are present. PULMONARY ARTERIES: Caliber is within normal limits. HEART: Mild cardiomegaly. Multivessel coronary artery disease. No significant pericardial effusion. Aortic valve calcifications. Abdomen/Pelvis UPPER GI: No significant abnormality. LIVER: Hepatic steatosis. Heterogeneity at the inferior aspect of right hepatic lobe which may be due to underlying lesion or artifact from the patient's arms. GALLBLADDER/BILE DUCTS: Distended gallbladder with trace pericholecystic edema.? PANCREAS: Atrophy, but otherwise unremarkable. SPLEEN: Unremarkable. ADRENALS: Left adrenal nodules which have Hounsfield units consistent with adrenal adenomas. The largest measures 17 mm. KIDNEYS AND URETERS: Bilateral hydroureteronephrosis is mild to moderate.Renal cortical thinning is present bilaterally. ABDOMINAL AORTA AND OTHER VESSELS: Moderate atherosclerotic changes without aortic aneurysm. PERITONEUM: No abnormal free fluid. No free air. LYMPH NODES: No pathologic lymphadenopathy. ABDOMINAL WALL: Bowel containing umbilical hernia. SMALL BOWEL/COLON: Fat-containing umbilical hernia without bowel obstruction. No appendicitis. No bowel obstruction. URINARY BLADDER: Significantly distended bladder. REPRODUCTIVE ORGANS: Uterus surgically absent. No adnexal abnormality. MUSCULOSKELETAL: Multilevel degenerative changes in the spine. No acute fracture. ADDITIONAL FINDINGS: None. IMPRESSION: 1. Moderate bilateral hydroureteronephrosis with significantly distended bladder may be secondary to urinary retention. 2. Distended gallbladder with trace pericholecystic edema. Correlate with prior ultrasound. Acute cholecystitis not excluded. 3. Bowel containing umbilical hernia without bowel obstruction or complicating features. 4. Dependent airspace disease likely reflecting atelectasis but mild pneumonia or pneumonitis such as from aspiration not excluded. 5. Heterogeneity of the inferior aspect of the right hepatic lobe which may be artifact from the patient's arm. Consider nonemergent hepatic protocol CT or MRI to exclude underlying lesion. Abdomen Exam Limited: 09/30/2024 11:09 AM CLINICAL HISTORY: fever, abnormal lfts STUDY: Limited right upper quadrant ultrasound of abdomen. COMPARISON: None. FINDINGS: Liver: Coarsened liver echotexture. Bile ducts: Common bile duct measures 7 mm which is within normal limits for age. Gallbladder: Gallbladder wall thickening with debris and pericholecystic fluid. Cholelithiasis is present. No sonographic Nieves sign was reported. Gallbladder is distended. At least mild right-sided hydronephrosis is present. IMPRESSION: 1. Distended gallbladder with cholelithiasis and gallbladder wall thickening could represent acute cholecystitis in the appropriate clinical setting. 2. Common bile duct measures 7 mm which is likely within normal limits for patient's age. 3. Right-sided hydronephrosis. A CT is pending. EXAM: Chest Single View HISTORY: Cough;Dyspnea COMPARISON: None. FINDINGS: LUNGS/PLEURA: The lungs are clear. No pleural effusions or pneumothorax. No pulmonary edema. MEDIASTINUM: The mediastinal silhouette is within normal limits. CARDIAC: Mild cardiomegaly UPPER ABDOMEN: No significant abnormality. BONES: No acute abnormality. LINES/TUBES/OTHER: Shunt tubing noted overlying the right and left hemithorax. IMPRESSION: No evidence of acute cardiopulmonary disease. Conclusions/Impression: Stage I ROLANDA in the setting of urinary obstruction CKD IV with Proteinuria -No NSAIDs -Continue Tan Urinary Retention BL Hydroureteronephrosis -Continue Tan Hypokalemia -Replete potassium as ordered HTN with CKD/ CHF -Continue Nifedipine XL -Continue Coreg MARIXA -CPAP qhs Diastolic CHF, A/C Peripheral Edema Acute Hypoxic Respiratory Failure -Low sodium diet -Lasix prn -Oxygen prn DM II with CKD & Polyneuropathy -Continue Insulin 70/30 Hypoalbuminemia -Albumin IV prn -Protein supplementation as tolerated Anemia in chronic illness -Monitor H&H -PRBC prn -Retacrit X1 CKD MBD Secondary HyperParathyroidism -Renvela prn Sepsis Acute gangrenous cholecystitis sp cholecystectomy Transaminitis -Continue Abx -Follow up with surgery Hospitalist and Surgery notes reviewed Patient care 35min
[2024-10-06] MEDS: EPOETIN ALFA-EPBX 10,000 UNIT/ML VIAL SQ ONE (20:11)
[2024-10-06] MEDS: ENSURE MAX PROTEIN 330 ML LIQUID PO SCH (20:13)
[2024-10-07 05:49] LABS: Absolute Basophils 0.1 K/uL (0-0.5); Absolute Eosinophils 0.4 K/uL (0-0.5); Absolute Lymphocytes (CBC) 2.3 K/uL (0.7-4.9); Absolute Monocytes 1.9 K/uL (0.1-1.3); Absolute Neutrophil 12.8 K/uL (1.8-8.0); Basophils % 0.4 % (0-1.3); Eosinophils % 2.1 % (0-4.4); Hematocrit 22.4 % (36.0-45.0); Hemoglobin 7.1 g/dL (12.0-15.0); Lymphocytes % 13.1 % (15.3-44.8); MCHC 31.8 g/dL (32.0-36.0); MCV 91.2 fL (80-100); MPV 9.4 fL (7.6-11.3); Monocytes % 11.1 % (3.3-12.3); Neutrophils % 73.3 % (41.7-73.7); Nucleated Red Blood Cells % 0.1 % (0-0); Platelets 385 thou/uL (152-406); RBC Red Blood Cell Count 2.46 M/uL (3.86-4.86); Red Cell Distribution Width 15.4 % (12.1-15.2)
[2024-10-07 06:01] LABS: Albumin 1.9 g/dL (3.4-5.0); Albumin/Globulin Ratio 0.5 (1.1-1.8); Anion Gap 11.2 mEq/L (5.0-15.0); Bilirubin Total 0.6 mg/dL (0.2-1.0); Globulin 4.1 g/dL (2.3-3.5); Magnesium 1.7 mg/dL (1.6-2.4); Potassium 3.2 mEq/L (3.5-5.1)
[2024-10-07 07:15] LABS: Percent Reticulocyte Count 2.35 % (0.4-2.05); RBC Red Blood Cell Count 2.49 M/uL (3.86-4.86)
[2024-10-07 07:26] LABS: Band Neutrophils 8 % (0-1); Differential Total Cells Count 100; Eosinophils 2 % (0-3); Lymphocytes 17 % (15-42); Monocytes 6 % (0-10); Platelet Estimate INCR; Platelets Clumped NOTED; Segmented Neutrophils 67 % (40-80)
[2024-10-07 07:27] LABS: Anisocytosis 1+; Blood Morphology Comment NOTED (NOT SEEN); Hypochromasia 2+; Polychromasia 2+; Rouleau NOTED
[2024-10-07] MEDS ORDERED: ALBUTEROL 2.5 MG/3 ML NEB SOL NEB PRN (07:37)
[2024-10-07] MEDS: APIXABAN 5 MG TABLET PO SCH (07:58)
--- NOTE | 2024-10-07 08:21 | P.PN ---
Date of Service: 10/07/24 Subjective: Feeling slightly better overall. Tolerated ~4-6L NC throughout the night. remains tachypneic, worsened with light activity/movement. +intermittent cough feeling constipated. no BM in ~1 week but now with flatus afebrile ROS: 10 point ROS as noted above, otherwise negative Physical Exam: GEN: Alert, oriented, NAD CV: Regular rate and rhythm, trace b/l pedal edema Pulm: Nonlabored respirations on 6L NC, diminished at bases bilaterally ABD: mild distention but soft, no peritonitis signs, mild RUQ tenderness, clean dressing in place Neuro: Normal speech, normal affect Tan placed 09/30 Problem List: Sepsis secondary to Acute gangrenous cholecystitis, s/p lap marzena (10/02) Elevated LFTs Acute hypoxic respiratory failure Acute DVT (left common femoral) Iron deficiency anemia ROLANDA on CKD4 Bilateral hydronephrosis Liver mass; incidental finding Stage 1 sacral decubitus pressure ulcer UTI POA Candidiasis IDDM2 Hypertension Hyperlipidemia Hypernatremia Sepsis secondary to Acute gangrenous cholecystitis, s/p lap marzena (10/02) Elevated LFTs Acute hypoxic respiratory failure CT abdomen (09/30): Distended gallbladder with trace pericholecystic edema. Dependent airspace disease likely reflecting atelectasis but mild pneumonia or pneumonitis. Heterogeneity of the inferior aspect of the right hepatic lobe. abdominal u/s (09/30): Distended gallbladder with cholelithiasis and gallbladder wall thickening. normal CBD Dr. Lion, general surgeon is following s/p lap marzena 10/02; found to have Gangrenous GB, bowel adhesions to abd wall, ventral hernia. LFTs trended up - now improving. Dr. Lion reports he noted liver cirrhosis intra-op. IV merrem / vanc (10/04-10/06) deescalated to oral doxy (10/07-) afebrile, leukocytosis improving Blood cx (09/30): NGTD Patient transferred to ICU 10/04 for hypoxia, requiring continuious BiPAP. CXR (10/04): RLL opacity without signifcant change. Atelectasis vs Pneumonia. Repeat CXR (10/06): similar consolidative airspace disease in RLL Perfusion scan (10/06): no PE. suspect atelectasis and hypoventilation contributing towards hypoxia constipation as well Dr. Ingram, Pulm consulted BiPAP as tolerable. Duonebs Acute DVT (left common femoral) Iron deficiency anemia CT abd/pelvis (10/04): collection in the gallbladder fossa suggestive of hematoma. Dr. Lion suspects this is related to Khalida and fluid collection and recommend to continue heparin. venous u/s (10/04): acute thrombus left common femoral vein s/p heparin drip for acute DVT (10/04-10/06) Heparin drip transitioned to oral eliquis 10/07 plavix dc'd 10/07 trend H&H. Hgb relatively stable. iron studies (10/07): iron 14, tsat% 11.8 ROLANDA on CKD4 Bilateral hydronephrosis CT abdomen (09/30): Moderate bilateral hydroureteronephrosis with significantly distended bladder ~1100 ml urine drained with Tan catheter insertion in the ED (09/30) Tan in place 10/04 CT - no comment on hydro Nephrology consulted s/p IV albumin (10/05) dc IVF 10/07 Continue to monitor renal function Liver mass; incidental finding CT abd/pelvis (09/30): Heterogeneity of the inferior aspect of the right hepatic lobe which may be artifact from the patient's arm. repeat CT (10/04): 6.6 cm heterogeneous low density area right lobe of the liver could represent abscess or benign or malignant neoplasm. It probably does not represent a hematoma as it likely was present on the prior exam. Consider further work up once more stable. Stage 1 sacral decubitus pressure ulcer wound photos in EMR 10/04 Pressure offloading. Frequent turning. Constipation reports feeling constipated. Has urge to go. No BM in ~1 week per patient/family but she reports some flatus. start stool softener / miralax may need dul UTI POA Candidiasis UA with moderate yeast s/p oral diflucan x5 days (09/30-10/05) IDDM2 accu-cheks, SSI continue novolin 70/30 55u TID Hypertension Hyperlipidemia Continue home meds VTE: Heparin drip transitioned to oral eliquis today Code: Full Downgrade to the floor today Time Spent Managing Pts Care (In Minutes): 55
--- NOTE | 2024-10-07 08:29 | P.PN ---
Subjective Date of Service: 10/07/24 Chief Complaint: Sepsis DVT Subjective: Improving (Doign much better c/o GERD) Review of Systems General: Weakness Respiratory: Shortness of Breath Physical Examination - Vital Signs Temperature: 97.8 F Blood Pressure: 139/44 Pulse: 70 Respirations: 24 Pulse Ox (%): 98 - Physical Exam General: Alert, In no apparent distress, Oriented x3 Respiratory: Clear to auscultation bilaterally Cardiovascular: Normal S1 S2, Edema Assessment And Plan - Current Problems (Diagnosis) (1) Respiratory failure Current Visit: Yes Status: Acute Plan: Much better / WBC declinining/Anemic/VS stable .LFT improvng Qualifiers: Chronicity: unspecified (2) DVT (deep venous thrombosis) Current Visit: Yes Status: Acute Plan: DC heaprin and change to PO Eliquis and DC Plavix Qualifiers: DVT location: lower extremity Chronicity: acute Laterality: left Physician Review: Patient Assessed, Agree with Above Assessment and Plan
[2024-10-07] MEDS ORDERED: APIXABAN 2.5 MG TABLET PO SCH (09:00)
[2024-10-07] MEDS: DOXYCYCLINE 100 MG CAP PO SCH (09:19)
[2024-10-07] MEDS: DOCUSATE NA 100 MG CAP PO SCH (09:19)
[2024-10-07] MEDS: POLYETHYL GLY 3350 17 GM/DOSE PO PRN (09:19)
[2024-10-07] MEDS: BISACODYL 10 MG RECTAL SUPP PR ONE (10:05)
[2024-10-07] MEDS ORDERED: VANCOMYCIN 1 GM in NA CHLORIDE 0.9% 250 ML IVPB SCH (12:00)
--- NOTE | 2024-10-07 12:37 | RAD REPORT ---
EXAM: XR of the abdomen HISTORY: Abdominal pain eval constipation/ileus/obstruction, +n/v COMPARISON: 10/04/2024 FINDINGS: XR of the abdomen shows a nonspecific, nonobstructive bowel gas pattern. Right upper quadra nt surgical clips. No suspicious calcifications are seen. Left-sided tubing is present. Moderate atelectasis is present in the right lung base. The bones are unremarkable. IMPRESSION: No evidence of significant ileus or obstruction. Moderate atelectasis in the lung bases, greater on the right.
--- NOTE | 2024-10-07 21:33 | P.PN ---
Date of Service: 10/07/24 Vital Signs Temp Pulse Resp BP Pulse Ox 97.8 F 66 33 H 132/49 L 97 10/07/24 20:00 10/07/24 20:00 10/07/24 20:00 10/07/24 20:00 10/07/24 20:00 Medications Acetaminophen (Acetaminophen 325 Mg Tablet) 650 mg PO Q6H PRN PRN Reason: TEMP > 100' F Last Admin: 09/30/24 16:17 Dose: 650 mg Hydrocodone Bitart/Acetaminophen (Hydrocodone/Apap 7.5/325 Mg Tab) 2 tab PO Q6H PRN PRN Reason: Pain scale 5-7 (Moderate) Last Admin: 10/03/24 04:09 Dose: 2 tab Albuterol Sulfate (Albuterol 2.5 Mg/3 Ml Neb Julia) 2.5 mg NEB [id number] PRN PRN Reason: SHORTNESS OF BREATH Apixaban (Apixaban 5 Mg Tablet) 5 mg PO BID [facility] Last Admin: 10/07/24 20:16 Dose: 5 mg Atorvastatin Calcium (Atorvastatin 10 Mg Tab) 10 mg PO DAILY [facility] Last Admin: 10/07/24 07:58 Dose: 10 mg Carvedilol (Carvedilol 12.5 Mg Tab) 12.5 mg PO BIDWM [facility] Last Admin: 10/07/24 17:28 Dose: 12.5 mg Docusate Sodium (Docusate Na 100 Mg Cap) 100 mg PO BID [facility] Last Admin: 10/07/24 20:16 Dose: 100 mg Doxycycline Monohydrate (Doxycycline 100 Mg Cap) 100 mg PO BID [facility]; Protocol Last Admin: 10/07/24 20:17 Dose: 100 mg Glucagon (Glucagon 1 Mg/Vial) 1 mg IM 1X PRN; Protocol PRN Reason: HYPOGLYCEMIA Heparin Sodium (Porcine) (Heparin 1,000 Unit/Ml Vial) 0 unit IV PRN PRN PRN Reason: RE-BOLUS PER HEPARIN PROTOCOL Last Admin: 10/06/24 08:58 Dose: 3,000 unit Hydralazine HCl (Hydralazine Hcl 20 Mg/Ml Vial) 10 mg IV 1X PRN PRN Reason: sbp >170 Last Admin: 10/05/24 01:07 Dose: 10 mg Dextrose (Dextrose 10% Water Iv Soln.) 125 mls @ 0 mls/hr IV PRN PRN; Protocol PRN Reason: HYPOGLYCEMIA Meropenem 1,000 mg/ Sodium (Chloride) 100 mls @ 200 mls/hr IV Q12HR [facility] Last Admin: 10/07/24 20:17 Dose: 100 mls Insulin Human Isoph/Insulin Regular (Insulin 70/30 100 Units/Ml) 55 unit SQ TIDWM [facility] Last Admin: 10/07/24 17:27 Dose: 55 unit Nifedipine (Nifedipine Xl 30 Mg Tablet) 30 mg PO DAILY [facility] Last Admin: 10/07/24 07:58 Dose: 30 mg Ondansetron HCl (Ondansetron 4 Mg/2 Ml Vial) 4 mg IV Q6HP PRN PRN Reason: NAUSEA / VOMITING Polyethylene Glycol (Polyethyl Gly 3350 17 Gm/Dose) 17 gm PO DAILY PRN PRN Reason: CONSTIPATION Last Admin: 10/07/24 09:19 Dose: 17 gm Protein (Ensure Max Protein 330 Ml Liquid) 330 ml PO BID [facility] Last Admin: 10/07/24 20:17 Dose: 330 ml Microbiology Results 09/30/24 10:34 Blood - Blood Aerobic Blood Culture - Final No growth in 5 days. 09/30/24 10:34 Blood - Blood Anaerobic Blood Culture - Final 09/30/24 10:25 Blood - Blood Aerobic Blood Culture - Final No growth in 5 days. 09/30/24 10:25 Blood - Blood Anaerobic Blood Culture - Final No growth in 5 days. Assessment/ Plan: Nephrology Progress Note No Dyspnea No Chest Pain Weakness, fatigue but feeling better today No Acute Events Overnight Vital Signs, Medications, Blood Work, and Imaging reviewed in the chart General: Oriented x3, Cooperative HEENT: Atraumatic Neck: Supple Respiratory: Normal air movement/ CTA anteriorly Cardiovascular: Regular rate/rhythm, Edema (Hip) Gastrointestinal: Soft and benign, Non-distended, Tenderness Musculoskeletal: No clubbing, No contractures Integumentary: No rashes, No cyanosis, Neurological: Normal speech Tan med Blood work reviewed in the chart. Imagings Data: EXAM: CT CHEST, ABDOMEN AND PELVIS WITHOUT CONTRAST CLINICAL INDICATION: Female, 79 years old dyspnea, abnormal lfts, renal failure TECHNIQUE: CT chest, abdomen and pelvis was performed, without IV contrast, as per department protocol. Axial, sagittal and coronal reconstructions were obtained. One or more of the following dose reduction techniques were used: Automated exposure control, adjustment of the mA and/or kV according to the patient size, and/or iterative reconstruction. Unless otherwise specified, incidental findings do not require dedicated imaging follow-up. [id number]. COMPARISON: Same-day ultrasound FINDINGS: The lack of intravenous contrast limits the sensitivity of this exam for evaluation of solid visceral organs, vascular structures, and retroperitoneum. Chest: LOWER NECK: Visualized thyroid gland and soft tissues are normal. LUNGS AND AIRWAYS: Dependent opacities which may reflect atelectasis, aspiration, or pneumonia.Motion artifact limits evaluation for pulmonary nodule detection. PLEURA: Small right pleural effusion. MEDIASTINUM AND LYMPH NODES: No mediastinal mass or fluid collection. Normal size mediastinal, hilar, and axillary lymph nodes. Mild distal esophageal thickening. THORACIC AORTA: No thoracic aortic aneurysm. Atherosclerotic changes are present. PULMONARY ARTERIES: Caliber is within normal limits. HEART: Mild cardiomegaly. Multivessel coronary artery disease. No significant pericardial effusion. Aortic valve calcifications. Abdomen/Pelvis UPPER GI: No significant abnormality. LIVER: Hepatic steatosis. Heterogeneity at the inferior aspect of right hepatic lobe which may be due to underlying lesion or artifact from the patient's arms. GALLBLADDER/BILE DUCTS: Distended gallbladder with trace pericholecystic edema.? PANCREAS: Atrophy, but otherwise unremarkable. SPLEEN: Unremarkable. ADRENALS: Left adrenal nodules which have Hounsfield units consistent with adrenal adenomas. The largest measures 17 mm. KIDNEYS AND URETERS: Bilateral hydroureteronephrosis is mild to moderate.Renal cortical thinning is present bilaterally. ABDOMINAL AORTA AND OTHER VESSELS: Moderate atherosclerotic changes without aortic aneurysm. PERITONEUM: No abnormal free fluid. No free air. LYMPH NODES: No pathologic lymphadenopathy. ABDOMINAL WALL: Bowel containing umbilical hernia. SMALL BOWEL/COLON: Fat-containing umbilical hernia without bowel obstruction. No appendicitis. No bowel obstruction. URINARY BLADDER: Significantly distended bladder. REPRODUCTIVE ORGANS: Uterus surgically absent. No adnexal abnormality. MUSCULOSKELETAL: Multilevel degenerative changes in the spine. No acute fracture. ADDITIONAL FINDINGS: None. IMPRESSION: 1. Moderate bilateral hydroureteronephrosis with significantly distended bladder may be secondary to urinary retention. 2. Distended gallbladder with trace pericholecystic edema. Correlate with prior ultrasound. Acute cholecystitis not excluded. 3. Bowel containing umbilical hernia without bowel obstruction or complicating features. 4. Dependent airspace disease likely reflecting atelectasis but mild pneumonia or pneumonitis such as from aspiration not excluded. 5. Heterogeneity of the inferior aspect of the right hepatic lobe which may be artifact from the patient's arm. Consider nonemergent hepatic protocol CT or MRI to exclude underlying lesion. Abdomen Exam Limited: 09/30/2024 11:09 AM CLINICAL HISTORY: fever, abnormal lfts STUDY: Limited right upper quadrant ultrasound of abdomen. COMPARISON: None. FINDINGS: Liver: Coarsened liver echotexture. Bile ducts: Common bile duct measures 7 mm which is within normal limits for age. Gallbladder: Gallbladder wall thickening with debris and pericholecystic fluid. Cholelithiasis is present. No sonographic Nieves sign was reported. Gallbladder is distended. At least mild right-sided hydronephrosis is present. IMPRESSION: 1. Distended gallbladder with cholelithiasis and gallbladder wall thickening could represent acute cholecystitis in the appropriate clinical setting. 2. Common bile duct measures 7 mm which is likely within normal limits for patient's age. 3. Right-sided hydronephrosis. A CT is pending. EXAM: Chest Single View HISTORY: Cough;Dyspnea COMPARISON: None. FINDINGS: LUNGS/PLEURA: The lungs are clear. No pleural effusions or pneumothorax. No pulmonary edema. MEDIASTINUM: The mediastinal silhouette is within normal limits. CARDIAC: Mild cardiomegaly UPPER ABDOMEN: No significant abnormality. BONES: No acute abnormality. LINES/TUBES/OTHER: Shunt tubing noted overlying the right and left hemithorax. IMPRESSION: No evidence of acute cardiopulmonary disease. Conclusions/Impression: Stage I ROLANDA in the setting of urinary obstruction CKD IV with Proteinuria -No NSAIDs -Continue Tan Urinary Retention BL Hydroureteronephrosis -Continue Tan Hypokalemia -Replete potassium as ordered HTN with CKD/ CHF -Continue Nifedipine XL -Continue Coreg MARIXA -CPAP qhs Diastolic CHF, A/C Peripheral Edema Acute Hypoxic Respiratory Failure -Low sodium diet -Lasix prn -Oxygen prn DM II with CKD & Polyneuropathy -Continue Insulin 70/30 Hypoalbuminemia -Albumin IV prn -Protein supplementation as tolerated Anemia in chronic illness Iron Deficiency 12% -Monitor H&H -PRBC prn -Retacrit prn -Consider IV iron CKD MBD Secondary HyperParathyroidism -Renvela prn Sepsis Acute gangrenous cholecystitis sp cholecystectomy Transaminitis -Continue Abx -Follow up with surgery Acute DVT (left common femoral) -Continue Heparin Hospitalist and Surgery notes reviewed Patient care 35min
[2024-10-08 05:40] LABS: MPV 9.5 fL (7.6-11.3); Platelets 439 thou/uL (152-406)
[2024-10-08] MEDS ORDERED: D50W 25 GM/50 ML SYRINGE IV ONE (06:15)
[2024-10-08] MEDS: D10W 250 ML IV ONE (06:30)
[2024-10-08 06:41] LABS: Absolute Eosinophils 0.3 K/uL (0-0.5); Absolute Lymphocytes (CBC) 1.8 K/uL (0.7-4.9); Absolute Monocytes 2.2 K/uL (0.1-1.3); Absolute Neutrophil 15.5 K/uL (1.8-8.0); Basophils % 0.1 % (0-1.3); Eosinophils % 1.7 % (0-4.4); Hematocrit 23.5 % (36.0-45.0); Hemoglobin 7.5 g/dL (12.0-15.0); Lymphocytes % 9.1 % (15.3-44.8); MCH 28.7 pg (27.0-35.0); MCHC 32.1 g/dL (32.0-36.0); MCV 89.6 fL (80-100); MPV 9.5 fL (7.6-11.3); Monocytes % 11.3 % (3.3-12.3); Neutrophils % 77.8 % (41.7-73.7); Platelets 443 thou/uL (152-406); RBC Red Blood Cell Count 2.62 M/uL (3.86-4.86); Red Cell Distribution Width 15.4 % (12.1-15.2)
[2024-10-08] MEDS: D5 0.45 NS 1,000 ML IV ONE (06:45)
[2024-10-08 06:50] LABS: Blood Morphology Comment NOT SEEN (NOT SEEN); Platelet Estimate INCR; White Blood Cell Scan OK (OK)
[2024-10-08] MEDS: D5 0.45 NS 1,000 ML IV SCH ×2 (06:55→10:28)
[2024-10-08] MEDS: D50W 25 GM/50 ML SYRINGE IV ONE (07:03)
[2024-10-08 07:15] LABS: Albumin 1.9 g/dL (3.4-5.0); Albumin/Globulin Ratio 0.4 (1.1-1.8); Anion Gap 9.4 mEq/L (5.0-15.0); Bilirubin Total 0.5 mg/dL (0.2-1.0); Globulin 4.4 g/dL (2.3-3.5); Magnesium 1.9 mg/dL (1.6-2.4); Phosphorus 3.9 mg/dL (2.5-4.9); Potassium 3.4 mEq/L (3.5-5.1); Protein, Total 6.3 g/dL (6.4-8.2)
[2024-10-08] MEDS ORDERED: D10W 125 ML IV PRN (10:27)
--- NOTE | 2024-10-08 10:29 | P.PN ---
Date of Service: 10/08/24 Vital Signs Temp Pulse Resp BP Pulse Ox 97 F 87 22 H 134/45 L 98 10/08/24 08:00 10/08/24 08:00 10/08/24 08:00 10/08/24 08:00 10/08/24 08:00 Medications Acetaminophen (Acetaminophen 325 Mg Tablet) 650 mg PO Q6H PRN PRN Reason: TEMP > 100' F Last Admin: 09/30/24 16:17 Dose: 650 mg Hydrocodone Bitart/Acetaminophen (Hydrocodone/Apap 7.5/325 Mg Tab) 2 tab PO Q6H PRN PRN Reason: Pain scale 5-7 (Moderate) Last Admin: 10/03/24 04:09 Dose: 2 tab Albuterol Sulfate (Albuterol 2.5 Mg/3 Ml Neb Julia) 2.5 mg NEB [id number] PRN PRN Reason: SHORTNESS OF BREATH Apixaban (Apixaban 5 Mg Tablet) 5 mg PO BID [facility] Last Admin: 10/07/24 20:16 Dose: 5 mg Atorvastatin Calcium (Atorvastatin 10 Mg Tab) 10 mg PO DAILY [facility] Last Admin: 10/07/24 07:58 Dose: 10 mg Carvedilol (Carvedilol 12.5 Mg Tab) 12.5 mg PO BIDWM [facility] Last Admin: 10/08/24 08:00 Dose: Not Given Docusate Sodium (Docusate Na 100 Mg Cap) 100 mg PO BID [facility] Last Admin: 10/07/24 20:16 Dose: 100 mg Doxycycline Monohydrate (Doxycycline 100 Mg Cap) 100 mg PO BID [facility]; Protocol Last Admin: 10/07/24 20:17 Dose: 100 mg Glucagon (Glucagon 1 Mg/Vial) 1 mg IM 1X PRN; Protocol PRN Reason: HYPOGLYCEMIA Heparin Sodium (Porcine) (Heparin 1,000 Unit/Ml Vial) 0 unit IV PRN PRN PRN Reason: RE-BOLUS PER HEPARIN PROTOCOL Last Admin: 10/06/24 08:58 Dose: 3,000 unit Hydralazine HCl (Hydralazine Hcl 20 Mg/Ml Vial) 10 mg IV 1X PRN PRN Reason: sbp >170 Last Admin: 10/05/24 01:07 Dose: 10 mg Dextrose (Dextrose 10% Water Iv Soln.) 125 mls @ 0 mls/hr IV PRN PRN; Protocol PRN Reason: HYPOGLYCEMIA Meropenem 1,000 mg/ Sodium (Chloride) 100 mls @ 200 mls/hr IV Q12HR [facility] Last Admin: 10/08/24 08:22 Dose: 100 mls Dextrose/Sodium Chloride (Dextrose 5% 0.45% Saline) 1,000 mls @ 75 mls/hr IV .[id number] [facility] Last Admin: 10/08/24 06:55 Dose: 1,000 mls Insulin Human Isoph/Insulin Regular (Insulin 70/30 100 Units/Ml) 25 unit SQ TIDWM [facility] Nifedipine (Nifedipine Xl 30 Mg Tablet) 30 mg PO DAILY [facility] Last Admin: 10/07/24 07:58 Dose: 30 mg Ondansetron HCl (Ondansetron 4 Mg/2 Ml Vial) 4 mg IV Q6HP PRN PRN Reason: NAUSEA / VOMITING Polyethylene Glycol (Polyethyl Gly 3350 17 Gm/Dose) 17 gm PO DAILY PRN PRN Reason: CONSTIPATION Last Admin: 10/07/24 09:19 Dose: 17 gm Protein (Ensure Max Protein 330 Ml Liquid) 330 ml PO BID [facility] Last Admin: 10/08/24 09:00 Dose: Not Given Microbiology Results 09/30/24 10:34 Blood - Blood Aerobic Blood Culture - Final No growth in 5 days. 09/30/24 10:34 Blood - Blood Anaerobic Blood Culture - Final 09/30/24 10:25 Blood - Blood Aerobic Blood Culture - Final No growth in 5 days. 09/30/24 10:25 Blood - Blood Anaerobic Blood Culture - Final No growth in 5 days. Assessment/ Plan: Nephrology Progress Note Hypoglycemia overnight with persistent AMS Limited IH/ ROS dueto AMS Vital Signs, Medications, Blood Work, and Imaging reviewed in the chart General: Oriented x3, Cooperative HEENT: Atraumatic Neck: Supple Respiratory: Normal air movement/ CTA anteriorly Cardiovascular: Regular rate/rhythm, Edema (Hip) Gastrointestinal: Soft and benign, Non-distended, Tenderness Musculoskeletal: No clubbing, No contractures Integumentary: No rashes, No cyanosis, Neurological: Normal speech Tan med Blood work reviewed in the chart. Imagings Data: EXAM: CT CHEST, ABDOMEN AND PELVIS WITHOUT CONTRAST CLINICAL INDICATION: Female, 79 years old dyspnea, abnormal lfts, renal failure TECHNIQUE: CT chest, abdomen and pelvis was performed, without IV contrast, as per department protocol. Axial, sagittal and coronal reconstructions were obtained. One or more of the following dose reduction techniques were used: Automated exposure control, adjustment of the mA and/or kV according to the patient size, and/or iterative reconstruction. Unless otherwise specified, incidental findings do not require dedicated imaging follow-up. [id number]. COMPARISON: Same-day ultrasound FINDINGS: The lack of intravenous contrast limits the sensitivity of this exam for evaluation of solid visceral organs, vascular structures, and retroperitoneum. Chest: LOWER NECK: Visualized thyroid gland and soft tissues are normal. LUNGS AND AIRWAYS: Dependent opacities which may reflect atelectasis, aspiration, or pneumonia.Motion artifact limits evaluation for pulmonary nodule detection. PLEURA: Small right pleural effusion. MEDIASTINUM AND LYMPH NODES: No mediastinal mass or fluid collection. Normal size mediastinal, hilar, and axillary lymph nodes. Mild distal esophageal thickening. THORACIC AORTA: No thoracic aortic aneurysm. Atherosclerotic changes are present. PULMONARY ARTERIES: Caliber is within normal limits. HEART: Mild cardiomegaly. Multivessel coronary artery disease. No significant pericardial effusion. Aortic valve calcifications. Abdomen/Pelvis UPPER GI: No significant abnormality. LIVER: Hepatic steatosis. Heterogeneity at the inferior aspect of right hepatic lobe which may be due to underlying lesion or artifact from the patient's arms. GALLBLADDER/BILE DUCTS: Distended gallbladder with trace pericholecystic edema.? PANCREAS: Atrophy, but otherwise unremarkable. SPLEEN: Unremarkable. ADRENALS: Left adrenal nodules which have Hounsfield units consistent with adrenal adenomas. The largest measures 17 mm. KIDNEYS AND URETERS: Bilateral hydroureteronephrosis is mild to moderate.Renal cortical thinning is present bilaterally. ABDOMINAL AORTA AND OTHER VESSELS: Moderate atherosclerotic changes without aortic aneurysm. PERITONEUM: No abnormal free fluid. No free air. LYMPH NODES: No pathologic lymphadenopathy. ABDOMINAL WALL: Bowel containing umbilical hernia. SMALL BOWEL/COLON: Fat-containing umbilical hernia without bowel obstruction. No appendicitis. No bowel obstruction. URINARY BLADDER: Significantly distended bladder. REPRODUCTIVE ORGANS: Uterus surgically absent. No adnexal abnormality. MUSCULOSKELETAL: Multilevel degenerative changes in the spine. No acute fracture. ADDITIONAL FINDINGS: None. IMPRESSION: 1. Moderate bilateral hydroureteronephrosis with significantly distended bladder may be secondary to urinary retention. 2. Distended gallbladder with trace pericholecystic edema. Correlate with prior ultrasound. Acute cholecystitis not excluded. 3. Bowel containing umbilical hernia without bowel obstruction or complicating features. 4. Dependent airspace disease likely reflecting atelectasis but mild pneumonia or pneumonitis such as from aspiration not excluded. 5. Heterogeneity of the inferior aspect of the right hepatic lobe which may be artifact from the patient's arm. Consider nonemergent hepatic protocol CT or MRI to exclude underlying lesion. Abdomen Exam Limited: 09/30/2024 11:09 AM CLINICAL HISTORY: fever, abnormal lfts STUDY: Limited right upper quadrant ultrasound of abdomen. COMPARISON: None. FINDINGS: Liver: Coarsened liver echotexture. Bile ducts: Common bile duct measures 7 mm which is within normal limits for age. Gallbladder: Gallbladder wall thickening with debris and pericholecystic fluid. Cholelithiasis is present. No sonographic Nieves sign was reported. Gallbladder is distended. At least mild right-sided hydronephrosis is present. IMPRESSION: 1. Distended gallbladder with cholelithiasis and gallbladder wall thickening could represent acute cholecystitis in the appropriate clinical setting. 2. Common bile duct measures 7 mm which is likely within normal limits for patient's age. 3. Right-sided hydronephrosis. A CT is pending. EXAM: Chest Single View HISTORY: Cough;Dyspnea COMPARISON: None. FINDINGS: LUNGS/PLEURA: The lungs are clear. No pleural effusions or pneumothorax. No pulmonary edema. MEDIASTINUM: The mediastinal silhouette is within normal limits. CARDIAC: Mild cardiomegaly UPPER ABDOMEN: No significant abnormality. BONES: No acute abnormality. LINES/TUBES/OTHER: Shunt tubing noted overlying the right and left hemithorax. IMPRESSION: No evidence of acute cardiopulmonary disease. Conclusions/Impression: Stage I ROLANDA in the setting of urinary obstruction CKD IV with Proteinuria -No NSAIDs -Continue Tan Urinary Retention BL Hydroureteronephrosis -Continue Tan Hypokalemia -Replete potassium as ordered HTN with CKD/ CHF -Continue Nifedipine XL -Continue Coreg MARIXA -CPAP qhs Diastolic CHF, A/C Peripheral Edema Acute Hypoxic Respiratory Failure -Low sodium diet -Lasix prn -Oxygen prn -Bipap restarted due to AMS DM II with CKD & Polyneuropathy -Reduce Insulin 70/30 -RISS Hypoalbuminemia -Albumin IV prn -Protein supplementation as tolerated Anemia in chronic illness Iron Deficiency 12% -Monitor H&H -PRBC prn -Retacrit prn -Consider IV iron CKD MBD Secondary HyperParathyroidism -Renvela prn Sepsis Acute gangrenous cholecystitis sp cholecystectomy Transaminitis -Continue Abx -Follow up with surgery Acute DVT (left common femoral) -Continue Heparin Toxic Metabolic Encephalopathy in the setting of hypoglycemia -Agree with reducing insulin -IVF started Hospitalist and Surgery notes reviewed Case reviewed with Dr. Andrew Patient care 35min
[2024-10-08] MEDS: INSULIN REGULAR (HUMAN) 100 UNIT/ML SQ SCH (11:20)
[2024-10-08] MEDS ORDERED: INSULIN 70/30 100 UNITS/ML SQ SCH (12:00)
--- NOTE | 2024-10-08 14:27 | P.PN ---
Date of Service: 10/08/24 Subjective: glc low this morning arousable received insulin scheduled, dextrose fluids were dc'd yesterday ROS: unable to be fully obtained Physical Exam: GEN: arousable, somnolent CV: Regular rate and rhythm, trace b/l pedal edema Pulm: Nonlabored respirations on 6L NC, diminished at bases bilaterally ABD: soft, mild tenderness Neuro: somnolent, opens eyes to voice, not following commands Tan placed 09/30 Problem List: Sepsis secondary to Acute gangrenous cholecystitis, s/p lap marzena (10/02) Elevated LFTs Acute hypoxic respiratory failure Acute DVT (left common femoral) Iron deficiency anemia ROLANDA on CKD4 Bilateral hydronephrosis Liver mass; incidental finding Stage 1 sacral decubitus pressure ulcer UTI POA Candidiasis IDDM2 Hypertension Hyperlipidemia Hypernatremia Sepsis secondary to Acute gangrenous cholecystitis, s/p lap marzena (10/02) Elevated LFTs Acute hypoxic respiratory failure CT abdomen (09/30): Distended gallbladder with trace pericholecystic edema. Dependent airspace disease likely reflecting atelectasis but mild pneumonia or pneumonitis. Heterogeneity of the inferior aspect of the right hepatic lobe. abdominal u/s (09/30): Distended gallbladder with cholelithiasis and gallbladder wall thickening. normal CBD Dr. Lion, general surgeon is following s/p lap marzena 10/02; found to have Gangrenous GB, bowel adhesions to abd wall, ventral hernia. LFTs trended up - now improving. Dr. Lion reports he noted liver cirrhosis intra-op. IV merrem / vanc (10/04-10/06) deescalated to oral doxy (10/07-) afebrile, leukocytosis improving Blood cx (09/30): NGTD Patient transferred to ICU 10/04 for hypoxia, requiring continuious BiPAP. CXR (10/04): RLL opacity without signifcant change. Atelectasis vs Pneumonia. Repeat CXR (10/06): similar consolidative airspace disease in RLL Perfusion scan (10/06): no PE. suspect atelectasis and hypoventilation contributing towards hypoxia constipation as well Dr. Ingram, Pulm consulted BiPAP as tolerable. Duonebs Acute DVT (left common femoral) Iron deficiency anemia CT abd/pelvis (10/04): collection in the gallbladder fossa suggestive of hematoma. Dr. Lion suspects this is related to Khalida and fluid collection and recommend to continue heparin. venous u/s (10/04): acute thrombus left common femoral vein s/p heparin drip for acute DVT (10/04-10/06) Heparin drip transitioned to oral eliquis 10/07 ; was continued on home plavix plavix dc'd per Dr. Ingram 10/07 trend H&H. Hgb relatively stable. iron studies (10/07): iron 14, tsat% 11.8 ROLANDA on CKD4 Bilateral hydronephrosis CT abdomen (09/30): Moderate bilateral hydroureteronephrosis with significantly distended bladder ~1100 ml urine drained with Tan catheter insertion in the ED (09/30) Tan in place 10/04 CT - no comment on hydro Nephrology consulted s/p IV albumin (10/05) dc IVF 10/07 Continue to monitor renal function Liver mass; incidental finding CT abd/pelvis (09/30): Heterogeneity of the inferior aspect of the right hepatic lobe which may be artifact from the patient's arm. repeat CT (10/04): 6.6 cm heterogeneous low density area right lobe of the liver could represent abscess or benign or malignant neoplasm. It probably does not represent a hematoma as it likely was present on the prior exam. Consider further work up once more stable. Stage 1 sacral decubitus pressure ulcer wound photos in EMR 10/04 Pressure offloading. Frequent turning. Constipation reports feeling constipated. Has urge to go. No BM in ~1 week per patient/family but she reports some flatus. start stool softener / miralax may need dul UTI POA Candidiasis UA with moderate yeast s/p oral diflucan x5 days (09/30-10/05) IDDM2 hypoglycemia accu-cheks, SSI hypoglycemic 10/08, multifactorial from dextrose containing fluids stopping, having nausea / decreased PO intake, and insulin states 10/08 - she takes ~30-40units insulin BID not the TID listed as home med Hypertension Hyperlipidemia Continue home meds VTE: Heparin drip transitioned to oral eliquis 10/07 Code: Full continue ICU level of care Time Spent Managing Pts Care (In Minutes): 55
[2024-10-08] MEDS: HYDROMORPHONE HCL 1 MG/ML INJ IV ONE (20:56)
--- NOTE | 2024-10-09 08:16 | P.PN ---
Date of Service: 10/09/24 Subjective: had BM overnight, abdomen not as sore feels some slight improvement each day tolerated liquids without issues yesterday afebrile ROS: unable to be fully obtained Physical Exam: GEN: more awake/interactive, oriented CV: Regular rate and rhythm, trace b/l pedal edema Pulm: Nonlabored respirations on 1L NC, diminished at bases bilaterally ABD: soft, mild tenderness Neuro: awake/alert Tan placed 09/30 Problem List: Sepsis secondary to Acute gangrenous cholecystitis, s/p lap marzena (10/02) Elevated LFTs Acute hypoxic respiratory failure Acute DVT (left common femoral) Iron deficiency anemia ROLANDA on CKD4 Bilateral hydronephrosis Liver mass; incidental finding Stage 1 sacral decubitus pressure ulcer UTI POA Candidiasis IDDM2 Hypertension Hyperlipidemia Hypernatremia Sepsis secondary to Acute gangrenous cholecystitis, s/p lap marzena (10/02) Elevated LFTs Acute hypoxic respiratory failure s/p lap marzena 10/[address] Lion; found to have Gangrenous GB, bowel adhesions to abd wall, ventral hernia. LFTs trended up - now improving. Dr. Lion reports he noted liver cirrhosis intra-op. continue IV merrem (10/04-) and oral doxy (10/07-) Blood cx (09/30): NGTD Patient transferred to ICU 10/04 for hypoxia, requiring continuous BiPAP. CXR (10/04): RLL opacity without signifcant change. Atelectasis vs Pneumonia. Repeat CXR (10/06): similar consolidative airspace disease in RLL Perfusion scan (10/06): no PE. suspect atelectasis and hypoventilation contributing towards hypoxia constipation as well Dr. Ingram, Pulm consulted BiPAP as tolerable. Duonebs Acute DVT (left common femoral) Iron deficiency anemia CT abd/pelvis (10/04): collection in the gallbladder fossa suggestive of hematoma. Dr. Lion suspects this is related to Khalida and fluid collection and recommend to continue heparin. venous u/s (10/04): acute thrombus left common femoral vein s/p heparin drip for acute DVT (10/04-10/06) Heparin drip transitioned to oral eliquis 10/07; was continued on home plavix plavix dc'd per Dr. Ingram 10/07 trend H&H. Hgb relatively stable. iron studies (10/07): iron 14, tsat% 11.8 labs pending, will start IV iron if repeat hgb stable today ROLANDA on CKD4 Bilateral hydronephrosis CT abdomen (09/30): Moderate bilateral hydroureteronephrosis with significantly distended bladder ~1100 ml urine drained with Tan catheter insertion in the ED (09/30) Tan in place 10/04 CT - no comment on hydro Nephrology consulted s/p IV albumin (10/05) dc IVF 10/07 Continue to monitor renal function Liver mass; incidental finding CT abd/pelvis (09/30): Heterogeneity of the inferior aspect of the right hepatic lobe which may be artifact from the patient's arm. repeat CT (10/04): 6.6 cm heterogeneous low density area right lobe of the liver could represent abscess or benign or malignant neoplasm. It probably does not represent a hematoma as it likely was present on the prior exam. Consider further work up once more stable. Stage 1 sacral decubitus pressure ulcer wound photos in EMR 10/04 Pressure offloading. Frequent turning. Constipation had BM overnight, feels abdomen isn't as sore PRN glycolax colace BID UTI POA Candidiasis UA with moderate yeast s/p oral diflucan x5 days (09/30-10/05) IDDM2 hypoglycemia accu-cheks, SSI hypoglycemic 10/08, multifactorial from dextrose containing fluids stopping, having nausea / decreased PO intake, and insulin states 10/08 - she takes ~30-40units insulin BID not the TID listed as home med switch novolin 70/30 to 25u BID 10/09 Hypertension Hyperlipidemia Continue home meds VTE: Eliquis; started 10/07 Code: Full Dispo: [facility] - [facility]; anticipate Saturday transfer to floor Time Spent Managing Pts Care (In Minutes): 55
[2024-10-09 08:23] LABS: Absolute Basophils 0.1 K/uL (0-0.5); Absolute Eosinophils 0.3 K/uL (0-0.5); Absolute Lymphocytes (CBC) 2.1 K/uL (0.7-4.9); Absolute Monocytes 1.6 K/uL (0.1-1.3); Absolute Neutrophil 13.8 K/uL (1.8-8.0); Basophils % 0.3 % (0-1.3); Eosinophils % 1.6 % (0-4.4); Hematocrit 23.1 % (36.0-45.0); Hemoglobin 7.3 g/dL (12.0-15.0); Lymphocytes % 11.5 % (15.3-44.8); MCH 28.6 pg (27.0-35.0); MCHC 31.5 g/dL (32.0-36.0); MCV 90.8 fL (80-100); MPV 9.2 fL (7.6-11.3); Neutrophils % 77.6 % (41.7-73.7); Nucleated Red Blood Cells % 0.1 % (0-0); Platelets 468 thou/uL (152-406); RBC Red Blood Cell Count 2.55 M/uL (3.86-4.86); Red Cell Distribution Width 15.4 % (12.1-15.2)
[2024-10-09 08:38] LABS: Albumin 1.9 g/dL (3.4-5.0); Albumin/Globulin Ratio 0.5 (1.1-1.8); Anion Gap 9.6 mEq/L (5.0-15.0); Bilirubin Total 0.4 mg/dL (0.2-1.0); Globulin 4.2 g/dL (2.3-3.5); Magnesium 1.8 mg/dL (1.6-2.4); Phosphorus 3.6 mg/dL (2.5-4.9); Potassium 3.6 mEq/L (3.5-5.1); Protein, Total 6.1 g/dL (6.4-8.2)
[2024-10-09] MEDS: INSULIN 70/30 100 UNITS/ML SQ SCH (09:01)
[2024-10-09] MEDS: MAGNESIUM SULFATE 1 gm IVPB 1 GM/100 ML BAG IV ONE (10:39)
[2024-10-09] MEDS: POTASSIUM CL SA 10 MEQ TAB PO ONE (10:39)
[2024-10-09] MEDS: ONDANSETRON 4 MG/2 ML VIAL IV PRN (12:30)
[2024-10-09] MEDS: SOD FERRIC GLUC COMPLX/SUCROSE 125 MG in NA CHLORIDE 0.9% 100 ML IV SCH (17:37)
--- NOTE | 2024-10-09 21:23 | P.PN ---
Date of Service: 10/09/24 Vital Signs Temp Pulse Resp BP Pulse Ox 97.6 F 76 18 143/49 H 95 10/09/24 16:00 10/09/24 16:56 10/09/24 16:00 10/09/24 16:56 10/09/24 16:00 Medications Acetaminophen (Acetaminophen 325 Mg Tablet) 650 mg PO Q6H PRN PRN Reason: TEMP > 100' F Last Admin: 09/30/24 16:17 Dose: 650 mg Albuterol Sulfate (Albuterol 2.5 Mg/3 Ml Neb Julia) 2.5 mg NEB [id number] PRN PRN Reason: SHORTNESS OF BREATH Apixaban (Apixaban 5 Mg Tablet) 5 mg PO BID [facility] Last Admin: 10/09/24 20:08 Dose: 5 mg Atorvastatin Calcium (Atorvastatin 10 Mg Tab) 10 mg PO DAILY [facility] Last Admin: 10/09/24 09:03 Dose: 10 mg Carvedilol (Carvedilol 12.5 Mg Tab) 12.5 mg PO BIDWM [facility] Last Admin: 10/09/24 16:56 Dose: 12.5 mg Docusate Sodium (Docusate Na 100 Mg Cap) 100 mg PO BID [facility] Last Admin: 10/09/24 20:08 Dose: 100 mg Doxycycline Monohydrate (Doxycycline 100 Mg Cap) 100 mg PO BID [facility]; Protocol Last Admin: 10/09/24 20:08 Dose: 100 mg Glucagon (Glucagon 1 Mg/Vial) 1 mg IM 1X PRN; Protocol PRN Reason: HYPOGLYCEMIA Heparin Sodium (Porcine) (Heparin 1,000 Unit/Ml Vial) 0 unit IV PRN PRN PRN Reason: RE-BOLUS PER HEPARIN PROTOCOL Last Admin: 10/06/24 08:58 Dose: 3,000 unit Hydralazine HCl (Hydralazine Hcl 20 Mg/Ml Vial) 10 mg IV 1X PRN PRN Reason: sbp >170 Last Admin: 10/05/24 01:07 Dose: 10 mg Dextrose (Dextrose 10% Water Iv Soln.) 125 mls @ 0 mls/hr IV PRN PRN; Protocol PRN Reason: HYPOGLYCEMIA Meropenem 1,000 mg/ Sodium (Chloride) 100 mls @ 200 mls/hr IV Q12HR [facility] Last Admin: 10/09/24 20:08 Dose: 100 mls Dextrose/Sodium Chloride (Dextrose 5% 0.45% Saline) 1,000 mls @ 50 mls/hr IV .Q20H SHANA Last Admin: 10/09/24 16:56 Dose: 1,000 mls Ferric Sodium Gluconate Complex 125 mg/ Sodium Chloride 110 mls @ 100 mls/hr IV DAILY [facility] Stop: 10/12/24 10:05 Last Admin: 10/09/24 17:37 Dose: 110 mls Insulin Human Isoph/Insulin Regular (Insulin 70/30 100 Units/Ml) 25 unit SQ BIDAC [facility] Last Admin: 10/09/24 16:56 Dose: 25 units Insulin Human Regular (Insulin Regular (Human) 100 Unit/Ml) 0 unit SQ ACHS [facility]; Protocol Last Admin: 10/09/24 20:08 Dose: 3 unit Nifedipine (Nifedipine Xl 30 Mg Tablet) 30 mg PO DAILY [facility] Last Admin: 10/09/24 09:02 Dose: 30 mg Ondansetron HCl (Ondansetron 4 Mg/2 Ml Vial) 4 mg IV Q6HP PRN PRN Reason: NAUSEA / VOMITING Last Admin: 10/09/24 18:23 Dose: 4 mg Polyethylene Glycol (Polyethyl Gly 3350 17 Gm/Dose) 17 gm PO DAILY PRN PRN Reason: CONSTIPATION Last Admin: 10/07/24 09:19 Dose: 17 gm Protein (Ensure Max Protein 330 Ml Liquid) 330 ml PO BID SHANA Last Admin: 10/09/24 20:11 Dose: 330 ml Microbiology Results 09/30/24 10:34 Blood - Blood Aerobic Blood Culture - Final No growth in 5 days. 09/30/24 10:34 Blood - Blood Anaerobic Blood Culture - Final 09/30/24 10:25 Blood - Blood Aerobic Blood Culture - Final No growth in 5 days. 09/30/24 10:25 Blood - Blood Anaerobic Blood Culture - Final No growth in 5 days. Assessment/ Plan: Nephrology Progress Note Improving dyspnea and mental status No chest pain Weakness and fatigue No acute events overnight Vital Signs, Medications, Blood Work, and Imaging reviewed in the chart General: Oriented x3, Cooperative HEENT: Atraumatic Neck: Supple Respiratory: Normal air movement/ CTA anteriorly Cardiovascular: Regular rate/rhythm, Edema (Hip) Gastrointestinal: Soft and benign, Non-distended, Tenderness Musculoskeletal: No clubbing, No contractures Integumentary: No rashes, No cyanosis, Neurological: Normal speech Tan med Blood work reviewed in the chart. Imagings Data: EXAM: CT CHEST, ABDOMEN AND PELVIS WITHOUT CONTRAST CLINICAL INDICATION: Female, 79 years old dyspnea, abnormal lfts, renal failure TECHNIQUE: CT chest, abdomen and pelvis was performed, without IV contrast, as per department protocol. Axial, sagittal and coronal reconstructions were obtained. One or more of the following dose reduction techniques were used: Automated exposure control, adjustment of the mA and/or kV according to the patient size, and/or iterative reconstruction. Unless otherwise specified, incidental findings do not require dedicated imaging follow-up. [id number]. COMPARISON: Same-day ultrasound FINDINGS: The lack of intravenous contrast limits the sensitivity of this exam for evaluation of solid visceral organs, vascular structures, and retroperitoneum. Chest: LOWER NECK: Visualized thyroid gland and soft tissues are normal. LUNGS AND AIRWAYS: Dependent opacities which may reflect atelectasis, aspirati on, or pneumonia.Motion artifact limits evaluation for pulmonary nodule detection. PLEURA: Small right pleural effusion. MEDIASTINUM AND LYMPH NODES: No mediastinal mass or fluid collection. Normal size mediastinal, hilar, and axillary lymph nodes. Mild distal esophageal thickening. THORACIC AORTA: No thoracic aortic aneurysm. Atherosclerotic changes are present. PULMONARY ARTERIES: Caliber is within normal limits. HEART: Mild cardiomegaly. Multivessel coronary artery disease. No significant pericardial effusion. Aortic valve calcifications. Abdomen/Pelvis UPPER GI: No significant abnormality. LIVER: Hepatic steatosis. Heterogeneity at the inferior aspect of right hepatic lobe which may be due to underlying lesion or artifact from the patient's arms. GALLBLADDER/BILE DUCTS: Distended gallbladder with trace pericholecystic edema.? PANCREAS: Atrophy, but otherwise unremarkable. SPLEEN: Unremarkable. ADRENALS: Left adrenal nodules which have Hounsfield units consistent with adrenal adenomas. The largest measures 17 mm. KIDNEYS AND URETERS: Bilateral hydroureteronephrosis is mild to moderate.Renal cortical thinning is present bilaterally. ABDOMINAL AORTA AND OTHER VESSELS: Moderate atherosclerotic changes without aortic aneurysm. PERITONEUM: No abnormal free fluid. No free air. LYMPH NODES: No pathologic lymphadenopathy. ABDOMINAL WALL: Bowel containing umbilical hernia. SMALL BOWEL/COLON: Fat-containing umbilical hernia without bowel obstruction. No appendicitis. No bowel obstruction. URINARY BLADDER: Significantly distended bladder. REPRODUCTIVE ORGANS: Uterus surgically absent. No adnexal abnormality. MUSCULOSKELETAL: Multilevel degenerative changes in the spine. No acute fracture. ADDITIONAL FINDINGS: None. IMPRESSION: 1. Moderate bilateral hydroureteronephrosis with significantly distended bladder may be secondary to urinary retention. 2. Distended gallbladder with trace pericholecystic edema. Correlate with prior ultrasound. Acute cholecystitis not excluded. 3. Bowel containing umbilical hernia without bowel obstruction or complicating features. 4. Dependent airspace disease likely reflecting atelectasis but mild pneumonia or pneumonitis such as from aspiration not excluded. 5. Heterogeneity of the inferior aspect of the right hepatic lobe which may be artifact from the patient's arm. Consider nonemergent hepatic protocol CT or MRI to exclude underlying lesion. Abdomen Exam Limited: 09/30/2024 11:09 AM CLINICAL HISTORY: fever, abnormal lfts STUDY: Limited right upper quadrant ultrasound of abdomen. COMPARISON: None. FINDINGS: Liver: Coarsened liver echotexture. Bile ducts: Common bile duct measures 7 mm which is within normal limits for age. Gallbladder: Gallbladder wall thickening with debris and pericholecystic fluid. Cholelithiasis is present. No sonographic Nieves sign was reported. Gallbladder is distended. At least mild right-sided hydronephrosis is present. IMPRESSION: 1. Distended gallbladder with cholelithiasis and gallbladder wall thickening could represent acute cholecystitis in the appropriate clinical setting. 2. Common bile duct measures 7 mm which is likely within normal limits for patient's age. 3. Right-sided hydronephrosis. A CT is pending. EXAM: Chest Single View HISTORY: Cough;Dyspnea COMPARISON: None. FINDINGS: LUNGS/PLEURA: The lungs are clear. No pleural effusions or pneumothorax. No pulmonary edema. MEDIASTINUM: The mediastinal silhouette is within normal limits. CARDIAC: Mild cardiomegaly UPPER ABDOMEN: No significant abnormality. BONES: No acute abnormality. LINES/TUBES/OTHER: Shunt tubing noted overlying the right and left hemithorax. IMPRESSION: No evidence of acute cardiopulmonary disease. Conclusions/Impression: Stage I ROLANDA in the setting of urinary obstruction CKD IV with Proteinuria -No NSAIDs -Continue Tan Urinary Retention BL Hydroureteronephrosis -Continue Tan Hypokalemia -Replete potassium as ordered HTN with CKD/ CHF -Continue Nifedipine XL -Continue Coreg MARIXA -CPAP qhs Diastolic CHF, A/C Peripheral Edema Acute Hypoxic Respiratory Failure -Low sodium diet -Lasix prn -Oxygen prn -Bipap prn DM II with CKD & Polyneuropathy -Continue Insulin 70/30 -RISS Hypoalbuminemia -Albumin IV prn -Protein supplementation as tolerated Anemia in chronic illness Iron Deficiency 12% -Monitor H&H -PRBC prn -Retacrit prn -Continue IV iron CKD MBD Secondary HyperParathyroidism -Renvela prn Sepsis Acute gangrenous cholecystitis sp cholecystectomy Transaminitis -Continue Abx -Follow up with surgery Acute DVT (left common femoral) -Continue Heparin Toxic Metabolic Encephalopathy in the setting of hypoglycemia -Continue supportive care Hospitalist and Surgery notes reviewed Case reviewed with Dr. Andrew Patient care 35min
[2024-10-10 05:46] LABS: Absolute Eosinophils 0.3 K/uL (0-0.5); Absolute Lymphocytes (CBC) 2.2 K/uL (0.7-4.9); Absolute Monocytes 1.8 K/uL (0.1-1.3); Absolute Neutrophil 12.8 K/uL (1.8-8.0); Basophils % 0.2 % (0-1.3); Eosinophils % 1.7 % (0-4.4); Hematocrit 22.2 % (36.0-45.0); Hemoglobin 7.1 g/dL (12.0-15.0); Lymphocytes % 13.1 % (15.3-44.8); MCH 28.6 pg (27.0-35.0); MCHC 31.8 g/dL (32.0-36.0); MPV 9.4 fL (7.6-11.3); Monocytes % 10.7 % (3.3-12.3); Neutrophils % 74.3 % (41.7-73.7); Nucleated Red Blood Cells % 0.1 % (0-0); Platelets 477 thou/uL (152-406); RBC Red Blood Cell Count 2.47 M/uL (3.86-4.86); Red Cell Distribution Width 15.5 % (12.1-15.2)
[2024-10-10 05:52] LABS: Albumin 1.7 g/dL (3.4-5.0); Albumin/Globulin Ratio 0.4 (1.1-1.8); Anion Gap 7.7 mEq/L (5.0-15.0); Bilirubin Total 0.4 mg/dL (0.2-1.0); Globulin 4.1 g/dL (2.3-3.5); Potassium 3.7 mEq/L (3.5-5.1); Protein, Total 5.8 g/dL (6.4-8.2)
[2024-10-10] MEDS ORDERED: SODIUM CHLORIDE 0.9% 10ML INJ IV PRN (07:42)
--- NOTE | 2024-10-10 07:55 | P.PN ---
Date of Service: 10/10/24 Subjective: threw up after eating solid foods for lunch and dinner yesterday family updated at bedside off oxygen, breathing okay on room air afebrile feeling better persistent leukocytosis ROS: unable to be fully obtained Physical Exam: GEN: more awake/interactive, tearful at times CV: Regular rate and rhythm, trace b/l pedal edema Pulm: Nonlabored respirations on room air, diminished at bases bilaterally ABD: soft, mild tenderness RUQ Neuro: awake/alert Tan placed 09/30 Problem List: Sepsis secondary to Acute gangrenous cholecystitis, s/p lap marzena (10/02) Elevated LFTs Acute hypoxic respiratory failure Acute DVT (left common femoral) Iron deficiency anemia ROLANDA on CKD4 Bilateral hydronephrosis Liver mass; incidental finding Stage 1 sacral decubitus pressure ulcer Constipation, resolved UTI POA Candidiasis IDDM2 Hypertension Hyperlipidemia Hypernatremia Sepsis secondary to Acute gangrenous cholecystitis, s/p lap marzena (10/02) Elevated LFTs Acute hypoxic respiratory failure s/p lap marzena 10/[address] Lion; found to have Gangrenous GB, bowel adhesions to abd wall, ventral hernia. LFTs improving. Dr. Lion reports he noted liver cirrhosis intra-op. continue IV merrem (10/04-) and oral doxy (10/07-) Blood cx (09/30): No growth Patient transferred to ICU 10/04 for hypoxia, requiring continuous BiPAP. CXR (10/04): RLL opacity without signifcant change. Atelectasis vs Pneumonia. Repeat CXR (10/06): similar consolidative airspace disease in RLL Perfusion scan (10/06): no PE. suspect atelectasis, hypoventilation, constipation contributing towards hypoxia off oxygen since this morning. Family reports using CPAP at night at home. continue CPAP at night. Dr. Ingram, Pulm consulted some nausea/vomiting after lunch/dinner yesterday. downgraded back to full liquid diet 10/10 Start Protonix for GI prophylaxis persistent leukocytosis - will check CT abd/pelvis 10/10 Acute DVT (left common femoral) Iron deficiency anemia CT abd/pelvis (10/04): collection in the gallbladder fossa suggestive of hematoma. Dr. Lion suspects this is related to Khalida and fluid collection and recommend to continue heparin. venous u/s (10/04): acute thrombus left common femoral vein s/p heparin drip for acute DVT (10/04-10/06) Heparin drip transitioned to oral eliquis 10/07; was continued on home plavix plavix dc'd per Dr. Ingram 10/07 iron studies (10/07): iron 14, tsat% 11.8 continue IV iron (125mg); started 10/09 Trend H&H. ROLANDA on CKD4 Bilateral hydronephrosis CT abdomen (09/30): Moderate bilateral hydroureteronephrosis with significantly distended bladder ~1100 ml urine drained with Tan catheter insertion in the ED (09/30) Tan in place 10/04 CT - no comment on hydro Nephrology consulted Continue to monitor renal function. Renal function stable. Liver mass; incidental finding CT abd/pelvis (09/30): Heterogeneity of the inferior aspect of the right hepatic lobe which may be artifact from the patient's arm. repeat CT (10/04): 6.6 cm heterogeneous low density area right lobe of the liver could represent abscess or benign or malignant neoplasm. It probably does not represent a hematoma as it likely was present on the prior exam. Consider further work up once more stable. Stage 1 sacral decubitus pressure ulcer wound photos in EMR 10/04 Pressure offloading. Frequent turning. Constipation, resolved resolved PRN glycolax colace BID UTI POA Candidiasis UA with moderate yeast s/p oral diflucan x5 days (09/30-10/05) IDDM2 hypoglycemia accu-cheks, SSI hypoglycemic 10/08, multifactorial from dextrose containing fluids stopping, having nausea / decreased PO intake, and insulin states 10/08 - she takes ~30-40units insulin BID not the TID listed as home med switch novolin 70/30 to 25u BID 10/09 Hypertension Hyperlipidemia Continue home meds VTE: Eliquis; started 10/07 Code: Full Dispo: [facility] - [facility]; anticipate Sat-Saturday downgraded 10/09 persistent leukocytosis, pending CT Time Spent Managing Pts Care (In Minutes): 55
[2024-10-10] MEDS: POTASSIUM CL SA 10 MEQ TAB PO ONE (08:50)
[2024-10-10] MEDS: PANTOPRAZOLE 40 MG INJ IVP SCH (08:52)
--- NOTE | 2024-10-10 16:40 | RAD REPORT ---
EXAMINATION: CT ABDOMEN AND PELVIS WITH CONTRAST CLINICAL INDICATION: Female, 79 years old.persistent leukocytosis, f/u GB fluid / liver TECHNIQUE: CT abdomen and pelvis was performed, after the administration of IV contrast, as per [facility] protocol. Axial, sagittal and coronal reconstructions were obtained. One or more of the following dose reduction techniques were used: Automated exposure control, adjustment of the mA and/o r kV according to patient size, and/or iterative reconstruction. Unless otherwise specified, incidental findings do not require dedicated imaging follow-up. [id number]. COMPARISON: 10/04/2024, 09/30/2024 FINDINGS: LOWER CHEST: Bilateral pleural effusions and associated atelectasis, possibly pneumonia.No significan t pericardial effusion. Multivessel coronary artery calcifications.Small hiatal hernia with circumferential thickening of the esophagus which could reflect esophagitis. Mild cardiomegaly. Aorti c valve calcifications. UPPER GI: No significant abnormality. LIVER: Heterogeneity in the inferior aspect of right hepatic lobe with areas of intermixed fluid atte nuation present. There is a fluid collection at the gallbladder fossa measuring 4.2 x 8.8 x 4.8 cm. GALLBLADDER/BILE DUCTS: Cholecystomy.?No biliary ductal dilatation. PANCREAS: Atrophy, but otherwise unremarkable. SPLEEN: Unremarkable. ADRENALS: Unchanged left adrenal nodule measuring 16 mm. KIDNEYS AND URETERS: No hydronephrosis.No suspicious renal mass.No renal calculi.Bilateral renal scar ring and atrophy. ABDOMINAL AORTA AND OTHER VESSELS: Moderate atherosclerotic changes without aortic aneurysm. PERITONEUM: [employer] shunts are present. LYMPH NODES: No pathologic lymphadenopathy. ABDOMINAL WALL: Narrow neck bowel containing umbilical hernia which is similar. No bowel obstruction. SMALL BOWEL/COLON: Small bowel has normal course and caliber. No colonic wall thickening or pericolon ic inflammatory changes.Normal appendix. URINARY BLADDER: Decompressed, not well assessed. REPRODUCTIVE ORGANS: Uterus surgically absent. No adnexal abnormality. MUSCULOSKELETAL: Multilevel degenerative changes in the spine. No acute fracture. ADDITIONAL FINDINGS: None. IMPRESSION: Cholecystectomy with postoperative enhancing fluid collection along the lower margin of the right hep atic lobe near the subhepatic recess. In the setting of persistently elevated leukocytosis, this could represent an abscess. A postoperative seroma or biloma is also within the differential. Heterogeneity in the inferior right hepatic lobe, portions of which have fluid attenuation. This coul d reflect either early abscess formation or mass. Follow-up imaging with hepatic protocol MRI could be obtained when the patient's condition improves. Small bilateral pleural effusions with underlying atelectasis versus pneumonia/pneumonitis.
--- NOTE | 2024-10-10 18:42 | P.PN ---
Date of Service: 10/10/24 Vital Signs Temp Pulse Resp BP Pulse Ox 97.2 F 70 28 H 154/63 H 97 10/10/24 16:00 10/10/24 17:01 10/10/24 16:00 10/10/24 17:01 10/10/24 16:00 Medications Acetaminophen (Acetaminophen 325 Mg Tablet) 650 mg PO Q6H PRN PRN Reason: TEMP > 100' F Last Admin: 09/30/24 16:17 Dose: 650 mg Albuterol Sulfate (Albuterol 2.5 Mg/3 Ml Neb Julia) 2.5 mg NEB [id number] PRN PRN Reason: SHORTNESS OF BREATH Apixaban (Apixaban 5 Mg Tablet) 5 mg PO BID [facility] Last Admin: 10/10/24 08:51 Dose: 5 mg Atorvastatin Calcium (Atorvastatin 10 Mg Tab) 10 mg PO DAILY [facility] Last Admin: 10/10/24 08:50 Dose: 10 mg Carvedilol (Carvedilol 12.5 Mg Tab) 12.5 mg PO BIDWM [facility] Last Admin: 10/10/24 17:01 Dose: 12.5 mg Docusate Sodium (Docusate Na 100 Mg Cap) 100 mg PO BID [facility] Last Admin: 10/10/24 08:51 Dose: 100 mg Doxycycline Monohydrate (Doxycycline 100 Mg Cap) 100 mg PO BID [facility]; Protocol Last Admin: 10/10/24 08:51 Dose: 100 mg Glucagon (Glucagon 1 Mg/Vial) 1 mg IM 1X PRN; Protocol PRN Reason: HYPOGLYCEMIA Heparin Sodium (Porcine) (Heparin 1,000 Unit/Ml Vial) 0 unit IV PRN PRN PRN Reason: RE-BOLUS PER HEPARIN PROTOCOL Last Admin: 10/06/24 08:58 Dose: 3,000 unit Dextrose (Dextrose 10% Water Iv Soln.) 125 mls @ 0 mls/hr IV PRN PRN; Protocol PRN Reason: HYPOGLYCEMIA Meropenem 1,000 mg/ Sodium (Chloride) 100 mls @ 200 mls/hr IV Q12HR [facility] Last Admin: 10/10/24 08:51 Dose: 100 mls Dextrose/Sodium Chloride (Dextrose 5% 0.45% Saline) 1,000 mls @ 50 mls/hr IV .Q20H [facility] Last Admin: 10/09/24 16:56 Dose: 1,000 mls Ferric Sodium Gluconate Complex 125 mg/ Sodium Chloride 110 mls @ 100 mls/hr IV DAILY [facility] Stop: 10/12/24 10:05 Last Admin: 10/10/24 09:34 Dose: 110 mls Insulin Human Regular (Insulin Regular (Human) 100 Unit/Ml) 0 unit SQ ACHS [facility]; Protocol Last Admin: 10/10/24 16:30 Dose: Not Given Nifedipine (Nifedipine Xl 30 Mg Tablet) 30 mg PO DAILY [facility] Last Admin: 10/10/24 08:52 Dose: 30 mg Ondansetron HCl (Ondansetron 4 Mg/2 Ml Vial) 4 mg IV Q6HP PRN PRN Reason: NAUSEA / VOMITING Last Admin: 10/09/24 18:23 Dose: 4 mg Pantoprazole Sodium (Pantoprazole 40 Mg Inj) 40 mg IVP Q12HR [facility]; Protocol Last Admin: 10/10/24 08:52 Dose: 40 mg Polyethylene Glycol (Polyethyl Gly 3350 17 Gm/Dose) 17 gm PO DAILY PRN PRN Reason: CONSTIPATION Last Admin: 10/07/24 09:19 Dose: 17 gm Protein (Ensure Max Protein 330 Ml Liquid) 330 ml PO BID [facility] Last Admin: 10/10/24 08:51 Dose: 330 ml Sodium Chloride (Sodium Chloride 0.9% 10ml Inj) 10 ml IV UD PRN PRN Reason: Diluant Microbiology Results 09/30/24 10:34 Blood - Blood Aerobic Blood Culture - Final No growth in 5 days. 09/30/24 10:34 Blood - Blood Anaerobic Blood Culture - Final 09/30/24 10:25 Blood - Blood Aerobic Blood Culture - Final No growth in 5 days. 09/30/24 10:25 Blood - Blood Anaerobic Blood Culture - Final No growth in 5 days. Assessment/ Plan: Nephrology Progress Note Improving dyspnea and mental status No chest pain Weakness and fatigue No acute events overnight Vital Signs, Medications, Blood Work, and Imaging reviewed in the chart General: Oriented x3, Cooperative HEENT: Atraumatic. Obese. Neck: Supple Respiratory: Normal air movement/ CTA anteriorly Cardiovascular: Regular rate/rhythm, Edema (Hip) Gastrointestinal: Soft and benign, Non-distended, Tenderness Musculoskeletal: No clubbing, No contractures Integumentary: No rashes, No cyanosis, Neurological: Normal speech Tan light Blood work reviewed in the chart. Imagings Data: EXAM: CT CHEST, ABDOMEN AND PELVIS WITHOUT CONTRAST CLINICAL INDICATION: Female, 79 years old dyspnea, abnormal lfts, renal failure TECHNIQUE: CT chest, abdomen and pelvis was performed, without IV contrast, as per department protocol. Axial, sagittal and coronal reconstructions were obtained. One or more of the following dose reduction techniques were used: Automated exposure control, adjustment of the mA and/or kV according to the patient size, and/or iterative reconstruction. Unless otherwise specified, incidental findings do not require dedicated imaging follow-up. [id number]. COMPARISON: Same-day ultrasound FINDINGS: The lack of intravenous contrast limits the sensitivity of this exam for evaluation of solid visceral organs, vascular structures, and retroperitoneum. Chest: LOWER NECK: Visualized thyroid gland and soft tissues are normal. LUNGS AND AIRWAYS: Dependent opacities which may reflect atelectasis, aspiration, or pneumonia.Motion artifact limits evaluation for pulmonary nodule detection. PLEURA: Small right pleural effusion. MEDIASTINUM AND LYMPH NODES: No mediastinal mass or fluid collection. Normal size mediastinal, hilar, and axillary lymph nodes. Mild distal esophageal thickening. THORACIC AORTA: No thoracic aortic aneurysm. Atherosclerotic changes are present. PULMONARY ARTERIES: Caliber is within normal limits. HEART: Mild cardiomegaly. Multivessel coronary artery disease. No significant pericardial effusion. Aortic valve calcifications. Abdomen/Pelvis UPPER GI: No significant abnormality. LIVER: Hepatic steatosis. Heterogeneity at the inferior aspect of right hepatic lobe which may be due to underlying lesion or artifact from the patient's arms. GALLBLADDER/BILE DUCTS: Distended gallbladder with trace pericholecystic edema.? PANCREAS: Atrophy, but otherwise unremarkable. SPLEEN: Unremarkable. ADRENALS: Left adrenal nodules which have Hounsfield units consistent with adrenal adenomas. The largest measures 17 mm. KIDNEYS AND URETERS: Bilateral hydroureteronephrosis is mild to moderate.Renal cortical thinning is present bilaterally. ABDOMINAL AORTA AND OTHER VESSELS: Moderate atherosclerotic changes without aortic aneurysm. PERITONEUM: No abnormal free fluid. No free air. LYMPH NODES: No pathologic lymphadenopathy. ABDOMINAL WALL: Bowel containing umbilical hernia. SMALL BOWEL/COLON: Fat-containing umbilical hernia without bowel obstruction. No appendicitis. No bowel obstruction. URINARY BLADDER: Significantly distended bladder. REPRODUCTIVE ORGANS: Uterus surgically absent. No adnexal abnormality. MUSCULOSKELETAL: Multilevel degenerative changes in the spine. No acute fracture. ADDITIONAL FINDINGS: None. IMPRESSION: 1. Moderate bilateral hydroureteronephrosis with significantly distended bladder may be secondary to urinary retention. 2. Distended gallbladder with trace pericholecystic edema. Correlate with prior ultrasound. Acute cholecystitis not excluded. 3. Bowel containing umbilical hernia without bowel obstruction or complicating features. 4. Dependent airspace disease likely reflecting atelectasis but mild pneumonia or pneumonitis such as from aspiration not excluded. 5. Heterogeneity of the inferior aspect of the right hepatic lobe which may be artifact from the patient's arm. Consider nonemergent hepatic protocol CT or MRI to exclude underlying lesion. Abdomen Exam Limited: 09/30/2024 11:09 AM CLINICAL HISTORY: fever, abnormal lfts STUDY: Limited right upper quadrant ultrasound of abdomen. COMPARISON: None. FINDINGS: Liver: Coarsened liver echotexture. Bile ducts: Common bile duct measures 7 mm which is within normal limits for age. Gallbladder: Gallbladder wall thickening with debris and pericholecystic fluid. Cholelithiasis is present. No sonographic Nieves sign was reported. Gallbladder is distended. At least mild right-sided hydronephrosis is present. IMPRESSION: 1. Distended gallbladder with cholelithiasis and gallbladder wall thickening could represent acute cholecystitis in the appropriate clinical setting. 2. Common bile duct measures 7 mm which is likely within normal limits for patient's age. 3. Right-sided hydronephrosis. A CT is pending. EXAM: Chest Single View HISTORY: Cough;Dyspnea COMPARISON: None. FINDINGS: LUNGS/PLEURA: The lungs are clear. No pleural effusions or pneumothorax. No pulmonary edema. MEDIASTINUM: The mediastinal silhouette is within normal limits. CARDIAC: Mild cardiomegaly UPPER ABDOMEN: No significant abnormality. BONES: No acute abnormality. LINES/TUBES/OTHER: Shunt tubing noted overlying the right and left hemithorax. IMPRESSION: No evidence of acute cardiopulmonary disease. Conclusions/Impression: Stage I ROLANDA in the setting of urinary obstruction CKD IV with Proteinuria -No NSAIDs -Continue Tan Urinary Retention BL Hydroureteronephrosis -Continue Tan Hypokalemia -Replete prn HTN with CKD/ CHF -Continue Nifedipine XL -Continue Coreg MARIXA -CPAP qhs Diastolic CHF, A/C Peripheral Edema Acute Hypoxic Respiratory Failure -Low sodium diet -Lasix prn -Oxygen prn -Bipap prn DM II with CKD & Polyneuropathy -Discontinue Insulin 70/30 -RISS Hypoalbuminemia -Albumin IV prn -Protein supplementation as tolerated Anemia in chronic illness Iron Deficiency 12% -Monitor H&H -PRBC prn -Retacrit prn -Continue IV iron CKD MBD Secondary HyperParathyroidism -Renvela prn Sepsis Acute gangrenous cholecystitis sp cholecystectomy Transaminitis -Continue Abx -Follow up with surgery Acute DVT (left common femoral) -Continue Heparin Toxic Metabolic Encephalopathy in the setting of hypoglycemia -Continue supportive care Hospitalist and Surgery notes reviewed Case reviewed with Dr. Andrew Patient care 35min
[2024-10-10] MEDS: ACETAMINOPHEN 325 MG TABLET PO PRN (19:36)
[2024-10-11 05:11] VITALS: BMI 44.9
--- NOTE | 2024-10-11 06:44 | P.PN ---
Date of Service: 10/11/24 Subjective: tolerated liquids without issues yesterday. No nausea/vomiting after eating. family updated at bedside. feels patients is more confused/delirious at night over these last few nights but does better during the day no significant pain afebrile Physical Exam: GEN: tired, alert/oriented x 2 CV: Regular rate and rhythm, trace b/l pedal edema Pulm: Nonlabored respirations on 4L NC, diminished at bases bilaterally ABD: soft, mild tenderness RUQ Neuro: moving all extremities Tan placed 09/30 Problem List: Sepsis secondary to Acute gangrenous cholecystitis, s/p lap marzena (10/02) Elevated LFTs secondary to cholecystitis Acute hypoxic respiratory failure Acute DVT (left common femoral) Iron deficiency anemia ROLANDA on CKD4 Bilateral hydronephrosis, resolved Liver mass; incidental finding Stage 1 sacral decubitus pressure ulcer Constipation, resolved UTI POA Candidiasis IDDM2 Hypertension Hyperlipidemia Hypernatremia Sepsis secondary to Acute gangrenous cholecystitis, s/p lap marzena (10/02) Elevated LFTs Acute hypoxic respiratory failure s/p lap marzena 10/[address] Lion; found to have Gangrenous GB, bowel adhesions to abd wall, ventral hernia. LFTs improving. Dr. Lion reports he noted liver cirrhosis intra-op. continue IV merrem (10/04-) and oral doxy (10/07-) Blood cx (09/30): No growth Patient transferred to ICU 10/04 for hypoxia, requiring continuous BiPAP. suspect atelectasis, hypoventilation, constipation contributing towards hypoxia; improved Dr. Ingram, Pulm is following CT abd/pelvis (10/04): 5x3 cm collection in the gallbladder fossa suggestive of hematoma. Dr. Lion suspects this is related to Khalida and fluid collection CT abd/pelvis (10/10): Postoperative enhancing fluid collection along the lower margin of the right hepatic lobe near the subhepatic recess measuring 4.2 x 8.8 x 4.8 cm. Possible Abscess. A postoperative seroma or biloma is also within the differential. Small bilateral pleural effusions with underlying atelectasis versus pneumonia/pneumonitis Heterogeneity in the inferior right hepatic lobe, portions of which have fluid attenuation. Possible abscess formation or mass. Circumferential thickening of the esophagus downgraded back to full liquid diet 10/10 due to nausea and an episode of emesis continue Protonix; started 10/10 Dr. Lion is following Fluid collection seen on CT 10/10 similar in size compared to prior CT 10/04. hgb down to 6.8 (10/11); 1[facility] ordered for 10/[address] Lion Acute DVT (left common femoral) Iron deficiency anemia venous u/s (10/04): acute thrombus left common femoral vein s/p heparin drip for acute DVT (10/04-10/06) Started on oral eliquis, and plavix dc'd on (10/07) iron studies (10/07): iron 14, tsat% 11.8 continue IV iron (125mg); started (10/09) Trend H&H. hgb down to 6.8 (10/11) 1 uPRBC Ordered Hold eliquis for now will transition to Lovenox in the event she may need a procedure will discuss further with surgery regarding further recs. ROLANDA on CKD4 Bilateral hydronephrosis CT abdomen (09/30): Moderate bilateral hydroureteronephrosis with significantly distended bladder ~1100 ml urine drained with Tan catheter insertion in the ED (09/30) Tan in place 10/04 CT - no comment on hydro Nephrology consulted Continue to monitor renal function. Renal function stable. Liver mass; incidental finding CT abd/pelvis (09/30): Heterogeneity of the inferior aspect of the right hepatic lobe which may be artifact from the patient's arm. repeat CT (10/04): 6.6 cm heterogeneous low density area right lobe of the liver could represent abscess or benign or malignant neoplasm. It probably does not represent a hematoma as it likely was present on the prior exam. Consider further work up once more stable. Stage 1 sacral decubitus pressure ulcer wound photos in EMR 10/04 Pressure offloading. Frequent turning. Constipation, resolved resolved PRN glycolax colace BID UTI POA Candidiasis UA with moderate yeast s/p oral diflucan x5 days (09/30-10/05) IDDM2 hypoglycemia accu-cheks, SSI hypoglycemic 10/08, multifactorial from dextrose containing fluids stopping, having nausea / decreased PO intake, and insulin states 10/08 - she takes ~30-40units insulin BID not the TID listed as home med novolin 70/30 dc'd 3 Hypertension Hyperlipidemia Continue home meds VTE: hold eliquis for now Code: Full Dispo: [facility] - [facility]; likely 3-4 days pending leukocytosis improves, hemoglobin stable, and MRI ordered tomorrow Time Spent Managing Pts Care (In Minutes): 55
[2024-10-11 07:46] LABS: Absolute Eosinophils 0.2 K/uL (0-0.5); Absolute Lymphocytes (CBC) 2.2 K/uL (0.7-4.9); Absolute Monocytes 1.8 K/uL (0.1-1.3); Absolute Neutrophil 11.8 K/uL (1.8-8.0); Basophils % 0.2 % (0-1.3); Eosinophils % 1.2 % (0-4.4); Hematocrit 21.4 % (36.0-45.0); Hemoglobin 6.8 g/dL (12.0-15.0); MCH 28.9 pg (27.0-35.0); MCHC 31.6 g/dL (32.0-36.0); MCV 91.5 fL (80-100); MPV 8.9 fL (7.6-11.3); Monocytes % 11.3 % (3.3-12.3); Neutrophils % 73.3 % (41.7-73.7); Nucleated Red Blood Cells % 0.1 % (0-0); Platelets 537 thou/uL (152-406); RBC Red Blood Cell Count 2.34 M/uL (3.86-4.86); Red Cell Distribution Width 16.2 % (12.1-15.2)
[2024-10-11 08:10] LABS: Albumin 1.9 g/dL (3.4-5.0); Albumin/Globulin Ratio 0.5 (1.1-1.8); Anion Gap 8.9 mEq/L (5.0-15.0); Bilirubin Total 0.5 mg/dL (0.2-1.0); Globulin 4.1 g/dL (2.3-3.5); Magnesium 1.8 mg/dL (1.6-2.4); Phosphorus 3.2 mg/dL (2.5-4.9); Potassium 3.9 mEq/L (3.5-5.1)
[2024-10-11] MEDS: NA CHLORIDE 0.9% 0 ML ONE (08:28)
[2024-10-11] MEDS: POTASSIUM 25 MEQ EFFERV TAB PO ONE (08:52)
[2024-10-11] MEDS: MAGNESIUM SULFATE 1 gm IVPB 1 GM/100 ML BAG IV ONE (08:52)
[2024-10-11] MEDS ORDERED: NA CHLORIDE 0.9% 250 ML IV SCH (09:00)
[2024-10-11 09:27] LABS: Blood Morphology Comment NOT SEEN (NOT SEEN); Platelet Estimate ADEQ; Platelets Clumped FEW; White Blood Cell Scan OK (OK)
[2024-10-11] MEDS: NA CHLORIDE 0.9% 250 ML ONE (10:42)
--- NOTE | 2024-10-11 11:52 | P.PN ---
Subjective Date of Service: 10/11/24 Chief Complaint: Sepsis DVT Patient has no new complaints state, states she is feels better currently off nasal cannula. tolerating small diet, normal bowel function Physical Examination - Vital Signs Temperature: 97.4 F Blood Pressure: 135/60 Pulse: 67 Respirations: 25 Pulse Ox (%): 98 - Physical Exam General: Alert, In no apparent distress, Oriented x3, Cooperative Respiratory: Diminished Cardiovascular: Regular rate/rhythm Gastrointestinal: Other (soft, mild appropriate TTP, ND, no guarding, no rebound, no peritonitis, incisions clean and dry) Neurological: Normal speech Assessment And Plan - Plan Patient is a 79-year-old woman status post laparoscopic cholecystectomy for gangrenous cholecystitis, since early cirrhosis noted on intraoperative investigation with nodularity of liver and discoloration. -Continue medical management - Uncertain of what degree liver dysfunction is contributing to her elevation of transaminases at this time. -Respiratory status seems to be significantly worse with bilateral atelectasis/effusions apparent on chest x-ray, no free air noted on chest x-ray. -CT abdomen shows collection right hepatic space this is likely due to Khalida and fluid accumulation, hemoglobin has remained stable since surgery therefore I do not suspect active bleeding situation, no additional concerning abdominal findings other than the liver findings which are concerning for possible malignancy which can be worked up after she is stabilized. -Patient continues to have some leukocytosis intermittently, repeat CT scan showed similar size fluid collection in the perihepatic/hepatic space therefore I have discussed the case with Dr. John Allison who has recommended MRI liver to better evaluate this area to see if a true collection of concern exists. If so a needle can be placed into this collection for culture and drainage. I have discussed with Dr. Kelly that the patient's previous knee replacement is safe for the MRI. He agrees that it is safe for MRI. -If MRI nondiagnostic, and concern for bile leak exists will consider HIDA scan at that time. -Serial abdominal exams. -Continue trending laboratories. -Continue antibiotic coverage. -Continue IV fluid hydration. Physician Review: Patient Assessed, Agree with Above Assessment and Plan
[2024-10-11] MEDS: Enoxaparin 120 MG/0.8 ML SYR SQ SCH (13:52)
[2024-10-11 16:00] LABS: Hematocrit 23.4 % (36.0-45.0); Hemoglobin 7.6 g/dL (12.0-15.0)
[2024-10-12 06:24] LABS: Absolute Basophils 0.2 K/uL (0-0.5); Absolute Eosinophils 0.2 K/uL (0-0.5); Absolute Lymphocytes (CBC) 2.2 K/uL (0.7-4.9); Absolute Monocytes 1.5 K/uL (0.1-1.3); Absolute Neutrophil 10.7 K/uL (1.8-8.0); Basophils % 1.3 % (0-1.3); Eosinophils % 1.1 % (0-4.4); Hematocrit 24.5 % (36.0-45.0); Hemoglobin 7.9 g/dL (12.0-15.0); MCH 28.8 pg (27.0-35.0); MCHC 32.1 g/dL (32.0-36.0); MCV 89.7 fL (80-100); MPV 8.9 fL (7.6-11.3); Monocytes % 10.4 % (3.3-12.3); Neutrophils % 72.2 % (41.7-73.7); Platelets 523 thou/uL (152-406); RBC Red Blood Cell Count 2.73 M/uL (3.86-4.86); Red Cell Distribution Width 16.8 % (12.1-15.2)
[2024-10-12 06:39] LABS: Albumin/Globulin Ratio 0.5 (1.1-1.8); Anion Gap 9.5 mEq/L (5.0-15.0); Bilirubin Total 0.6 mg/dL (0.2-1.0); Globulin 4.2 g/dL (2.3-3.5); Magnesium 1.9 mg/dL (1.6-2.4); Phosphorus 3.1 mg/dL (2.5-4.9); Potassium 4.5 mEq/L (3.5-5.1); Protein, Total 6.2 g/dL (6.4-8.2)
--- NOTE | 2024-10-12 10:50 | P.PN ---
Date of Service: 10/12/24 Vital Signs Temp Pulse Resp BP Pulse Ox 99.5 F 67 16 164/47 H 91 10/12/24 08:00 10/12/24 09:13 10/12/24 08:00 10/12/24 09:13 10/12/24 08:00 Medications Acetaminophen (Acetaminophen 325 Mg Tablet) 650 mg PO Q6H PRN PRN Reason: TEMP > 100' F Last Admin: 09/30/24 16:17 Dose: 650 mg Acetaminophen (Acetaminophen 325 Mg Tablet) 650 mg PO Q6H PRN PRN Reason: Pain scale 2-4 (Mild) Last Admin: 10/10/24 19:36 Dose: 650 mg Albuterol Sulfate (Albuterol 2.5 Mg/3 Ml Neb Julia) 2.5 mg NEB [id number] PRN PRN Reason: SHORTNESS OF BREATH Atorvastatin Calcium (Atorvastatin 10 Mg Tab) 10 mg PO DAILY [facility] Last Admin: 10/12/24 09:14 Dose: 10 mg Carvedilol (Carvedilol 12.5 Mg Tab) 12.5 mg PO BIDWM [facility] Last Admin: 10/12/24 09:13 Dose: 12.5 mg Docusate Sodium (Docusate Na 100 Mg Cap) 100 mg PO BID [facility] Last Admin: 10/12/24 09:14 Dose: 100 mg Doxycycline Monohydrate (Doxycycline 100 Mg Cap) 100 mg PO BID [facility]; Protocol Last Admin: 10/12/24 09:14 Dose: 100 mg Enoxaparin Sodium (Enoxaparin 120 Mg/0.8 Ml Syr) 110 mg SQ DAILY [facility] Last Admin: 10/12/24 09:14 Dose: 110 mg Glucagon (Glucagon 1 Mg/Vial) 1 mg IM 1X PRN; Protocol PRN Reason: HYPOGLYCEMIA Heparin Sodium (Porcine) (Heparin 1,000 Unit/Ml Vial) 0 unit IV PRN PRN PRN Reason: RE-BOLUS PER HEPARIN PROTOCOL Last Admin: 10/06/24 08:58 Dose: 3,000 unit Dextrose (Dextrose 10% Water Iv Soln.) 125 mls @ 0 mls/hr IV PRN PRN; Protocol PRN Reason: HYPOGLYCEMIA Meropenem 1,000 mg/ Sodium (Chloride) 100 mls @ 200 mls/hr IV Q12HR [facility] Last Admin: 10/12/24 09:14 Dose: 100 mls Sodium Chloride (Sodium Chloride) 250 mls @ 0 mls/hr IV .Q0M [facility] Insulin Human Regular (Insulin Regular (Human) 100 Unit/Ml) 0 unit SQ ACHS [facility]; Protocol Last Admin: 10/12/24 07:30 Dose: Not Given Metoclopramide HCl (Metoclopramide 10 Mg/2ml Inj) 5 mg IV Q6H [facility] Stop: 10/12/24 17:01 Nifedipine (Nifedipine Xl 30 Mg Tablet) 30 mg PO DAILY [facility] Last Admin: 10/12/24 09:13 Dose: 30 mg Ondansetron HCl (Ondansetron 4 Mg/2 Ml Vial) 4 mg IV Q6HP PRN PRN Reason: NAUSEA / VOMITING Last Admin: 10/09/24 18:23 Dose: 4 mg Pantoprazole Sodium (Pantoprazole 40 Mg Inj) 40 mg IVP Q12HR [facility]; Protocol Last Admin: 10/12/24 09:14 Dose: 40 mg Polyethylene Glycol (Polyethyl Gly 3350 17 Gm/Dose) 17 gm PO DAILY PRN PRN Reason: CONSTIPATION Last Admin: 10/07/24 09:19 Dose: 17 gm Protein (Ensure Max Protein 330 Ml Liquid) 330 ml PO BID [facility] Last Admin: 10/12/24 09:00 Dose: 330 ml Sodium Chloride (Sodium Chloride 0.9% 10ml Inj) 10 ml IV UD PRN PRN Reason: Diluant Microbiology Results 09/30/24 10:34 Blood - Blood Aerobic Blood Culture - Final No growth in 5 days. 09/30/24 10:34 Blood - Blood Anaerobic Blood Culture - Final 09/30/24 10:25 Blood - Blood Aerobic Blood Culture - Final No growth in 5 days. 09/30/24 10:25 Blood - Blood Anaerobic Blood Culture - Final No growth in 5 days. Assessment/ Plan: Nephrology Progress Note No dyspnea No chest pain Weakness and fatigue. Poor appetite No acute events overnight Vital Signs, Medications, Blood Work, and Imaging reviewed in the chart General: Oriented x3, Cooperative HEENT: Atraumatic. Obese. Neck: Supple Respiratory: Normal air movement/ CTA anteriorly Cardiovascular: Regular rate/rhythm, Edema (Hip) Gastrointestinal: Soft and benign, Non-distended, Tenderness Musculoskeletal: No clubbing, No contractures Integumentary: No rashes, No cyanosis, Neurological: Normal speech Tan light Blood work reviewed in the chart. Imagings Data: EXAM: CT CHEST, ABDOMEN AND PELVIS WITHOUT CONTRAST CLINICAL INDICATION: Female, 79 years old dyspnea, abnormal lfts, renal failure TECHNIQUE: CT chest, abdomen and pelvis was performed, without IV contrast, as per department protocol. Axial, sagittal and coronal reconstructions were obtained. One or more of the following dose reduction techniques were used: Automated exposure control, adjustment of the mA and/or kV according to the patient size, and/or iterative reconstruction. Unless otherwise specified, incidental findings do not require dedicated imaging follow-up. [id number]. COMPARISON: Same-day ultrasound FINDINGS: The lack of intravenous contrast limits the sensitivity of this exam for evaluation of solid visceral organs, vascular structures, and retroperitoneum. Chest: LOWER NECK: Visualized thyroid gland and soft tissues are normal. LUNGS AND AIRWAYS: Dependent opacities which may reflect atelectasis, aspiration, or pneumonia.Motion artifact limits evaluation for pulmonary nodule detection. PLEURA: Small right pleural effusion. MEDIASTINUM AND LYMPH NODES: No mediastinal mass or fluid collection. Normal size mediastinal, hilar, and axillary lymph nodes. Mild distal esophageal thickening. THORACIC AORTA: No thoracic aortic aneurysm. Atherosclerotic changes are present. PULMONARY ARTERIES: Caliber is within normal limits. HEART: Mild cardiomegaly. Multivessel coronary artery disease. No significant pericardial effusion. Aortic valve calcifications. Abdomen/Pelvis UPPER GI: No significant abnormality. LIVER: Hepatic steatosis. Heterogeneity at the inferior aspect of right hepatic lobe which may be due to underlying lesion or artifact from the patient's arms. GALLBLADDER/BILE DUCTS: Distended gallbladder with trace pericholecystic edema.? PANCREAS: Atrophy, but otherwise unremarkable. SPLEEN: Unremarkable. ADRENALS: Left adrenal nodules which have Hounsfield units consistent with adrenal adenomas. The largest measures 17 mm. KIDNEYS AND URETERS: Bilateral hydroureteronephrosis is mild to moderate.Renal cortical thinning is present bilaterally. ABDOMINAL AORTA AND OTHER VESSELS: Moderate atherosclerotic changes without aortic aneurysm. PERITONEUM: No abnormal free fluid. No free air. LYMPH NODES: No pathologic lymphadenopathy. ABDOMINAL WALL: Bowel containing umbilical hernia. SMALL BOWEL/COLON: Fat-containing umbilical hernia without bowel obstruction. No appendicitis. No bowel obstruction. URINARY BLADDER: Significantly distended bladder. REPRODUCTIVE ORGANS: Uterus surgically absent. No adnexal abnormality. MUSCULOSKELETAL: Multilevel degenerative changes in the spine. No acute fracture. ADDITIONAL FINDINGS: None. IMPRESSION: 1. Moderate bilateral hydroureteronephrosis with significantly distended bladder may be secondary to urinary retention. 2. Distended gallbladder with trace pericholecystic edema. Correlate with prior ultrasound. Acute cholecystitis not excluded. 3. Bowel containing umbilical hernia without bowel obstruction or complicating features. 4. Dependent airspace disease likely reflecting atelectasis but mild pneumonia or pneumonitis such as from aspiration not excluded. 5. Heterogeneity of the inferior aspect of the right hepatic lobe which may be artifact from the patient's arm. Consider nonemergent hepatic protocol CT or MRI to exclude underlying lesion. Abdomen Exam Limited: 09/30/2024 11:09 AM CLINICAL HISTORY: fever, abnormal lfts STUDY: Limited right upper quadrant ultrasound of abdomen. COMPARISON: None. FINDINGS: Liver: Coarsened liver echotexture. Bile ducts: Common bile duct measures 7 mm which is within normal limits for age. Gallbladder: Gallbladder wall thickening with debris and pericholecystic fluid. Cholelithiasis is present. No sonographic Nieves sign was reported. Gallbladder is distended. At least mild right-sided hydronephrosis is present. IMPRESSION: 1. Distended gallbladder with cholelithiasis and gallbladder wall thickening could represent acute cholecystitis in the appropriate clinical setting. 2. Common bile duct measures 7 mm which is likely within normal limits for patient's age. 3. Right-sided hydronephrosis. A CT is pending. EXAM: Chest Single View HISTORY: Cough;Dyspnea COMPARISON: None. FINDINGS: LUNGS/PLEURA: The lungs are clear. No pleural effusions or pneumothorax. No pulmonary edema. MEDIASTINUM: The mediastinal silhouette is within normal limits. CARDIAC: Mild cardiomegaly UPPER ABDOMEN: No significant abnormality. BONES: No acute abnormality. LINES/TUBES/OTHER: Shunt tubing noted overlying the right and left hemithorax. IMPRESSION: No evidence of acute cardiopulmonary disease. Conclusions/Impression: Stage I ROLANDA in the setting of urinary obstruction CKD IV with Proteinuria -No NSAIDs -Continue Tan Urinary Retention BL Hydroureteronephrosis -Continue Tan Hypernatremia -Encourage more water intake Hypokalemia -Replete prn HTN with CKD/ CHF -Continue Nifedipine XL -Continue Coreg MARIXA -CPAP qhs Diastolic CHF, A/C Peripheral Edema Acute Hypoxic Respiratory Failure -Low sodium diet -Lasix prn -Oxygen prn -Bipap prn DM II with CKD & Polyneuropathy -RISS Hypoalbuminemia -Albumin IV prn -Protein supplementation as tolerated Anemia in chronic illness Iron Deficiency 12% -Monitor H&H -PRBC prn -Retacrit prn -Continue IV iron CKD MBD Secondary HyperParathyroidism -Renvela prn Sepsis Acute gangrenous cholecystitis sp cholecystectomy Transaminitis Anorexia -Continue Abx -Follow up with surgery -Reglan X2 Acute DVT (left common femoral) -Continue Heparin Toxic Metabolic Encephalopathy in the setting of hypoglycemia -Continue supportive care Hospitalist and Surgery notes reviewed Case reviewed with Dr. Andrew
--- NOTE | 2024-10-12 11:43 | P.PN ---
Date of Service: 10/12/24 Subjective: doing ok, no significant change moved to floor bed reports continued improvement, slowly tmax 100.5 earlier this morning/overnight pt denies any new/worsening symptoms Physical Exam: GEN: tired, alert/oriented x 2 CV: Regular rate and rhythm, trace b/l pedal edema Pulm: Nonlabored respirations on 3L NC, diminished at bases bilaterally ABD: soft, mild tenderness RUQ Neuro: moving all extremities Tan (placed 09/30) Problem List: Sepsis secondary to Acute gangrenous cholecystitis, s/p lap marzena (10/02) Elevated LFTs secondary to cholecystitis Acute hypoxic respiratory failure Acute DVT (left common femoral) Iron deficiency anemia ROLANDA on CKD4 Bilateral hydronephrosis, resolved Liver mass; incidental finding Stage 1 sacral decubitus pressure ulcer Constipation, resolved UTI POA Candidiasis IDDM2 Hypertension Hyperlipidemia Hypernatremia Sepsis secondary to Acute gangrenous cholecystitis, s/p lap marzena (10/02) Elevated LFTs Acute hypoxic respiratory failure s/p lap marzena 10/[address] Lion; found to have Gangrenous GB, bowel adhesions to abd wall, ventral hernia. LFTs improving. Dr. Lion reports he noted liver cirrhosis intra-op. continue IV merrem (10/04-) and oral doxy (10/07-) Blood cx (09/30): No growth CT abd/pelvis (10/04): 5x3 cm collection in the gallbladder fossa suggestive of hematoma. Dr. Lion suspects this is related to Khalida and fluid collection CT abd/pelvis (10/10): Postoperative enhancing fluid collection along the lower margin of the right hepatic lobe near the subhepatic recess measuring 4.2 x 8.8 x 4.8 cm. Possible Abscess. A postoperative seroma or biloma is also within the differential. Small bilateral pleural effusions with underlying atelectasis versus pneumonia/pneumonitis Heterogeneity in the inferior right hepatic lobe, portions of which have fluid attenuation. Possible abscess formation or mass. Circumferential thickening of the esophagus downgraded back to full liquid diet 10/10 due to nausea and an episode of emesis continue Protonix; started 10/10 for nausea/vomiting, and suspected stress gastritis - seems to be helping Dr. Lion is following Fluid collection seen on CT 10/10 similar in size compared to prior CT 10/04. MRI abdomen ordered (10/12) after discussion with Dr. Lion to further eval / rule out abscess 10/12 - pt unable to hold breath for 25sec for MRI. Discussed with Dr. Lion, will need to discuss with radiology for next best imaging modality to eval abscess or not continue to monitor for fever, H/H Acute DVT (left common femoral) Iron deficiency anemia venous u/s (10/04): acute thrombus left common femoral vein s/p heparin drip for acute DVT (10/04-10/06) Started on oral eliquis, and plavix dc'd on (10/07) iron studies (10/07): iron 14, tsat% 11.8 continue IV iron (125mg); started (10/09) Trend H&H. hgb down to 6.8 (10/11) s/p 1 uPRBC (10/11), repeat hgb up to 7.6 Eliquis transitioned to Lovenox in the event she may need a procedure (10/11) ROLANDA on CKD4 Bilateral hydronephrosis CT abdomen (09/30): Moderate bilateral hydroureteronephrosis with significantly distended bladder ~1100 ml urine drained with Tan catheter insertion in the ED (09/30) Tan in place 10/04 CT - no comment on hydro Nephrology consulted Continue to monitor renal function. Renal function stable. Liver mass; incidental finding CT abd/pelvis (09/30): Heterogeneity of the inferior aspect of the right hepatic lobe which may be artifact from the patient's arm. repeat CT (10/04): 6.6 cm heterogeneous low density area right lobe of the liver could represent abscess or benign or malignant neoplasm. It probably does not represent a hematoma as it likely was present on the prior exam. Stage 1 sacral decubitus pressure ulcer wound photos in EMR 10/04 Pressure offloading. Frequent turning. Constipation, resolved resolved PRN glycolax colace BID UTI POA Candidiasis UA with moderate yeast s/p oral diflucan x5 days (09/30-10/05) IDDM2 hypoglycemia accu-cheks, SSI hypoglycemic 10/08, multifactorial from dextrose containing fluids stopping, having nausea / decreased PO intake, and insulin states 10/08 - she takes ~30-40units insulin BID not the TID listed as home med novolin 70/30 dc'd 10/10 Hypertension Hyperlipidemia Continue home meds VTE: Eliquis transitioned to Lovenox 10/11 Code: Full Dispo: [facility] - [facility]; likely 4 days pending leukocytosis improves, hemoglobin stable, and MRI Time Spent Managing Pts Care (In Minutes): 55
[2024-10-12] MEDS: METOCLOPRAMIDE 10 MG/2mL INJ IV SCH (11:51)
--- NOTE | 2024-10-12 18:49 | RAD REPORT ---
EXAMINATION: MRI ABDOMEN WITHOUT AND WITH CONTRAST CLINICAL INDICATION: Female, 79 years old. Evaluate Hepatic Collection TECHNIQUE: Multiplanar, multi sequence imaging of the abdomen was performed before and after administ ration of gadolinium-based IV contrast. Unless otherwise specified, incidental findings do not require dedicated imaging follow-up. Unless otherwise specified, incidental findings do not require d edicated imaging follow-up. [id number]. COMPARISON: CT 10/10/2024 FINDINGS: Examination significantly limited due to motion. LOWER CHEST: Small bilateral pleural effusions. LIVER: Complex heterogeneous collection in the right hepatic lobe measuring 5.9 x 5.4 cm is concernin g for hepatic abscess. There is a second fluid collection along the inferior margin of the liver at may be subcapsular along the subhepatic space measures 5.4 x 4.8 cm. A third area in the right hepati c lobe at the tip does have some intermixed areas of T2 hyperintensity and may be contiguous with the 5.9 cm collection as noted above. The post contrast sequences are limited by motion but these col lections do have peripheral enhancement. There are smaller areas of peripheral enhancement along the subcapsular surface of the more anterior right hepatic lobe. GALLBLADDER: Surgically absent.. BILE DUCTS: No biliary ductal dilatation. PANCREAS: Normal T1 hyperintense signal. No mass, ductal dilation, or dorothy-pancreatic fluid. SPLEEN: Normal size. No focal lesion. ADRENALS: Normal; no mass. KIDNEYS AND URETERS: Motion limited. There is a renal cortical thinning. No hydronephrosis. VISUALIZED GASTROINTESTINAL TRACT: Normal course and caliber. LYMPH NODES: No lymphadenopathy. ABDOMINAL AORTA AND OTHER VESSELS: Normal caliber aorta. IVC patent. MUSCULOSKELETAL: No marrow signal abnormality. ADDITIONAL FINDINGS: None. IMPRESSION: Limited exam as patient was unable to follow breathing instructions. Nearly all of the sequences have some level of degradation. Several fluid collections identified which are concerning for at least one subcapsular and multiple i ntrahepatic abscesses at the caudal aspect of the right hepatic lobe. The two more dominant collections would be amenable to ultrasound-guided drainage, however would suggest preprocedural live r ultrasound to assess for fluid component for targeting. There are other areas that have more of an appearance of either non drainable phlegmon or are too small for drainage.
[2024-10-13 04:39] LABS: Absolute Basophils 0.1 K/uL (0-0.5); Absolute Eosinophils 0.2 K/uL (0-0.5); Absolute Lymphocytes (CBC) 2.2 K/uL (0.7-4.9); Absolute Monocytes 1.5 K/uL (0.1-1.3); Absolute Neutrophil 9.1 K/uL (1.8-8.0); Basophils % 0.6 % (0-1.3); Eosinophils % 1.4 % (0-4.4); Hematocrit 22.6 % (36.0-45.0); Hemoglobin 7.4 g/dL (12.0-15.0); Lymphocytes % 17.1 % (15.3-44.8); MCH 29.5 pg (27.0-35.0); MCHC 32.7 g/dL (32.0-36.0); MCV 90.1 fL (80-100); MPV 8.6 fL (7.6-11.3); Monocytes % 11.3 % (3.3-12.3); Neutrophils % 69.6 % (41.7-73.7); Nucleated Red Blood Cells % 0.1 % (0-0); Platelets 516 thou/uL (152-406); RBC Red Blood Cell Count 2.51 M/uL (3.86-4.86); Red Cell Distribution Width 16.7 % (12.1-15.2)
[2024-10-13 04:54] LABS: Albumin 1.9 g/dL (3.4-5.0); Albumin/Globulin Ratio 0.5 (1.1-1.8); Bilirubin Total 0.5 mg/dL (0.2-1.0); Globulin 4.2 g/dL (2.3-3.5); Magnesium 1.9 mg/dL (1.6-2.4); Phosphorus 2.9 mg/dL (2.5-4.9); Protein, Total 6.1 g/dL (6.4-8.2)
--- NOTE | 2024-10-13 09:48 | RAD REPORT ---
EXAMINATION: Ultrasound of the liver CLINICAL HISTORY: Gall bladder fossa abscess COMPARISON: None. FINDINGS: Liver: Visualized portions of the liver demonstrate 2 complex fluid collections, largest measuring 6. 2 x 3.2 cm. Somewhat deeper positioned right-sided collection measures 4.8 x 4.4 cm Full assessment is limited by positioning. Bile ducts: No intrahepatic or extrahepatic biliary dilatation. Common bile duct measures mm. Fluid: No ascites. Spleen: Nonvisualized IMPRESSION: Complex appearing hepatic fluid collections may be abscesses.
[2024-10-13] MEDS: HYDRALAZINE HCL 20 MG/ML VIAL IV PRN (12:07)
[2024-10-13 12:29] LABS: PTT, Activated Partial Thromb 39.3 SECONDS (24.3-36.9); Protime INR 1.62
[2024-10-13] MEDS: FLUMAZENIL 0.1 MG/ML (5 mL VIAL) IV ONE (14:05)
[2024-10-13] MEDS: MIDAZOLAM HCL 2 MG/2 ML INJ ONE (14:05)
[2024-10-13] MEDS: NALOXONE HCL 2 MG/2 ML VIAL ONE (14:06)
[2024-10-13] MEDS: FENTANYL CITR 100 MCG/2 ML ONE (14:06)
[2024-10-13] MEDS: NA CHLORIDE 0.9% 500 ML ONE (14:10)
--- NOTE | 2024-10-13 15:12 | P.PN ---
Subjective Date of Service: 10/13/24 Chief Complaint: Sepsis DVT Patient is awake and interactive. She denies any pain. No recorded fever. Physical Examination - Vital Signs Temperature: 97.8 F Blood Pressure: 173/84 Pulse: 65 Respirations: 18 Pulse Ox (%): 93 Assessment And Plan - Plan Physical examination General: Alert and oriented x 2, NAD. Neck: No elevated JVD Heart: Heart sounds 1 and 2 normal, regular rhythm, normal rate. Lungs: Clear to auscultation bilaterally, diminished breath sounds bilaterally, no rhonchi or crackles. Abdomen: Soft, nondistended, clean healing trocar wounds. normal bowel sounds. No tenderness. Extremities: No tenderness, no deformity Skin: Normal skin turgor, no rash. Neuro: No focal motor deficit. Normal speech. Psychiatry: No agitation. Tan catheter. Problem List: Sepsis secondary to Acute gangrenous cholecystitis, s/p lap marzena (10/02) Elevated LFTs secondary to cholecystitis Acute hypoxic respiratory failure Acute DVT (left common femoral) Iron deficiency anemia ROLANDA on CKD4 Bilateral hydronephrosis, resolved Liver mass; incidental finding Stage 1 sacral decubitus pressure ulcer Constipation, resolved UTI POA Candidiasis IDDM2 Hypertension Hyperlipidemia Hypernatremia Sepsis secondary to Acute gangrenous cholecystitis, s/p lap marzena (10/02) Elevated LFTs Acute hypoxic respiratory failure s/p lap marzena 10/[address] Lion; found to have Gangrenous GB, bowel adhesions to abd wall, ventral hernia. LFTs improving. Dr. Lion reports he noted liver cirrhosis intra-op. continue IV merrem (10/04-) and oral doxy (10/07-) Blood cx (09/30): No growth CT abd/pelvis (10/04): 5x3 cm collection in the gallbladder fossa suggestive of hematoma. Dr. Lion suspects this is related to Khalida and fluid collection CT abd/pelvis (10/10): Postoperative enhancing fluid collection along the lower margin of the right hepatic lobe near the subhepatic recess measuring 4.2 x 8.8 x 4.8 cm. Possible Abscess. A postoperative seroma or biloma is also within the differential. Abdominal ultrasound today demonstrated complex fluid collection in the same location suspicious for abscess. US guided IR drainage of fluid collection ordered. Lovenox on hold for aspiration procedure. Continue full liquid diet. continue Protonix. Dr. Loin is following Acute DVT (left common femoral) Iron deficiency anemia venous u/s (10/04): acute thrombus left common femoral vein s/p heparin drip for acute DVT (10/04-10/06) Started on oral eliquis, and plavix dc'd on (10/07) iron studies (10/07): iron 14, tsat% 11.8 continue IV iron (125mg); started (10/09) Status post 1 unit PRBC transfusion for anemia Eliquis transitioned to Lovenox in the event she may need a procedure (10/11). Lovenox held today for IR procedure. ROLANDA on CKD4 Bilateral hydronephrosis Acute urinary retention CT abdomen (09/30): Moderate bilateral hydroureteronephrosis with significantly distended bladder ~1100 ml urine drained with Tan catheter insertion in the ED (09/30) Tan in place Nephrology is following. Serum creatinine is stable Continue to monitor renal function. Follow-up with neurologist as outpatient. Liver mass; incidental finding CT abd/pelvis (09/30): Heterogeneity of the inferior aspect of the right hepatic lobe which may be artifact from the patient's arm. repeat CT (10/04): 6.6 cm heterogeneous low density area right lobe of the liver could represent abscess or benign or malignant neoplasm. It probably does not represent a hematoma as it likely was present on the prior exam. Stage 1 sacral decubitus pressure ulcer wound photos in EMR 10/04 Pressure offloading. Frequent turning. Constipation, resolved resolved PRN glycolax colace BID UTI POA Candidiasis UA with moderate yeast s/p oral diflucan x5 days (09/30-10/05) IDDM2 hypoglycemia accu-cheks, SSI states 10/08 - she takes ~30-40units insulin BID not the TID listed as home med Long-acting insulin is on hold Hypertension Fluctuating BP, high BP over the past 24 hours. Continue current antihypertensives. Hydralazine as needed for BP spikes. Hyperlipidemia Continue home medication. VTE: Lovenox Code: Full Dispo: [facility] [place].
[2024-10-13 19:28] LABS: Appearance VERY TURBID (CLEAR); Body Fluid Source OTHER; Color of fluid Red (COLORLESS); Tube # SINGLE
[2024-10-13 19:29] LABS: Body Fluid Lymphocytes 6 %; Body Fluid WBC 5676 /mm^3; Fluid Total Cells Count 100
--- NOTE | 2024-10-13 19:39 | P.PN ---
Date of Service: 10/13/24 Vital Signs Temp Pulse Resp BP Pulse Ox 99.3 F 72 18 173/55 H 94 10/13/24 16:00 10/13/24 16:24 10/13/24 16:00 10/13/24 16:24 10/13/24 16:00 Medications Acetaminophen (Acetaminophen 325 Mg Tablet) 650 mg PO Q6H PRN PRN Reason: TEMP > 100' F Last Admin: 09/30/24 16:17 Dose: 650 mg Acetaminophen (Acetaminophen 325 Mg Tablet) 650 mg PO Q6H PRN PRN Reason: Pain scale 2-4 (Mild) Last Admin: 10/10/24 19:36 Dose: 650 mg Albuterol Sulfate (Albuterol 2.5 Mg/3 Ml Neb Julia) 2.5 mg NEB [id number] PRN PRN Reason: SHORTNESS OF BREATH Atorvastatin Calcium (Atorvastatin 10 Mg Tab) 10 mg PO DAILY [facility] Last Admin: 10/13/24 09:01 Dose: 10 mg Carvedilol (Carvedilol 12.5 Mg Tab) 12.5 mg PO BIDWM SHANA Last Admin: 10/13/24 16:24 Dose: 12.5 mg Docusate Sodium (Docusate Na 100 Mg Cap) 100 mg PO BID SHANA Last Admin: 10/13/24 09:01 Dose: 100 mg Doxycycline Monohydrate (Doxycycline 100 Mg Cap) 100 mg PO BID SHANA; Protocol Last Admin: 10/13/24 09:01 Dose: 100 mg Enoxaparin Sodium (Enoxaparin 120 Mg/0.8 Ml Syr) 110 mg SQ DAILY [facility] Last Admin: 10/12/24 09:14 Dose: 110 mg Glucagon (Glucagon 1 Mg/Vial) 1 mg IM 1X PRN; Protocol PRN Reason: HYPOGLYCEMIA Hydralazine HCl (Hydralazine Hcl 20 Mg/Ml Vial) 10 mg IV Q6HP PRN PRN Reason: Goal to achieve SBP in comment Last Admin: 10/13/24 12:07 Dose: 10 mg Dextrose (Dextrose 10% Water Iv Soln.) 125 mls @ 0 mls/hr IV PRN PRN; Protocol PRN Reason: HYPOGLYCEMIA Meropenem 1,000 mg/ Sodium (Chloride) 100 mls @ 200 mls/hr IV Q12HR [facility] Last Admin: 10/13/24 09:00 Dose: 100 mls Sodium Chloride (Sodium Chloride) 250 mls @ 0 mls/hr IV .Q0M [facility] Insulin Human Regular (Insulin Regular (Human) 100 Unit/Ml) 0 unit SQ ACHS [facility]; Protocol Last Admin: 10/13/24 16:20 Dose: Not Given Nifedipine (Nifedipine Xl 30 Mg Tablet) 30 mg PO DAILY [facility] Last Admin: 10/13/24 09:00 Dose: 30 mg Ondansetron HCl (Ondansetron 4 Mg/2 Ml Vial) 4 mg IV Q6HP PRN PRN Reason: NAUSEA / VOMITING Last Admin: 10/09/24 18:23 Dose: 4 mg Pantoprazole Sodium (Pantoprazole 40 Mg Inj) 40 mg IVP Q12HR [facility]; Protocol Last Admin: 10/13/24 09:00 Dose: 40 mg Polyethylene Glycol (Polyethyl Gly 3350 17 Gm/Dose) 17 gm PO DAILY PRN PRN Reason: CONSTIPATION Last Admin: 10/07/24 09:19 Dose: 17 gm Protein (Ensure Max Protein 330 Ml Liquid) 330 ml PO BID [facility] Last Admin: 10/13/24 09:00 Dose: 330 ml Sodium Chloride (Sodium Chloride 0.9% 10ml Inj) 10 ml IV UD PRN PRN Reason: Diluant Microbiology Results 09/30/24 10:34 Blood - Blood Aerobic Blood Culture - Final No growth in 5 days. 09/30/24 10:34 Blood - Blood Anaerobic Blood Culture - Final 09/30/24 10:25 Blood - Blood Aerobic Blood Culture - Final No growth in 5 days. 09/30/24 10:25 Blood - Blood Anaerobic Blood Culture - Final No growth in 5 days. Assessment/ Plan: Nephrology Progress Note No dyspnea No chest pain Weakness and fatigue. Slowly improving appetite No acute events overnight Vital Signs, Medications, Blood Work, and Imaging reviewed in the chart General: Oriented x3, Cooperative HEENT: Atraumatic. Obese. Neck: Supple Respiratory: Normal air movement/ CTA anteriorly Cardiovascular: Regular rate/rhythm, Edema (Hip) Gastrointestinal: Soft and benign, Non-distended, Tenderness Musculoskeletal: No clubbing, No contractures Integumentary: No rashes, No cyanosis, Neurological: Normal speech Tan light Blood work reviewed in the chart. Imagings Data: EXAM: CT CHEST, ABDOMEN AND PELVIS WITHOUT CONTRAST CLINICAL INDICATION: Female, 79 years old dyspnea, abnormal lfts, renal failure TECHNIQUE: CT chest, abdomen and pelvis was performed, without IV contrast, as per department protocol. Axial, sagittal and coronal reconstructions were obtained. One or more of the following dose reduction techniques were used: Automated exposure control, adjustment of the mA and/or kV according to the patient size, and/or iterative reconstruction. Unless otherwise specified, incidental findings do not require dedicated imaging follow-up. [id number]. COMPARISON: Same-day ultrasound FINDINGS: The lack of intravenous contrast limits the sensitivity of this exam for evaluation of solid visceral organs, vascular structures, and retroperitoneum. Chest: LOWER NECK: Visualized thyroid gland and soft tissues are normal. LUNGS AND AIRWAYS: Dependent opacities which may reflect atelectasis, aspiration, or pneumonia.Motion artifact limits evaluation for pulmonary nodule detection. PLEURA: Small right pleural effusion. MEDIASTINUM AND LYMPH NODES: No mediastinal mass or fluid collection. Normal size mediastinal, hilar, and axillary lymph nodes. Mild distal esophageal thickening. THORACIC AORTA: No thoracic aortic aneurysm. Atherosclerotic changes are present. PULMONARY ARTERIES: Caliber is within normal limits. HEART: Mild cardiomegaly. Multivessel coronary artery disease. No significant pericardial effusion. Aortic valve calcifications. Abdomen/Pelvis UPPER GI: No significant abnormality. LIVER: Hepatic steatosis. Heterogeneity at the inferior aspect of right hepatic lobe which may be due to underlying lesion or artifact from the patient's arms. GALLBLADDER/BILE DUCTS: Distended gallbladder with trace pericholecystic edema.? PANCREAS: Atrophy, but otherwise unremarkable. SPLEEN: Unremarkable. ADRENALS: Left adrenal nodules which have Hounsfield units consistent with adrenal adenomas. The largest measures 17 mm. KIDNEYS AND URETERS: Bilateral hydroureteronephrosis is mild to moderate.Renal cortical thinning is present bilaterally. ABDOMINAL AORTA AND OTHER VESSELS: Moderate atherosclerotic changes without aortic aneurysm. PERITONEUM: No abnormal free fluid. No free air. LYMPH NODES: No pathologic lymphadenopathy. ABDOMINAL WALL: Bowel containing umbilical hernia. SMALL BOWEL/COLON: Fat-containing umbilical hernia without bowel obstruction. No appendicitis. No bowel obstruction. URINARY BLADDER: Significantly distended bladder. REPRODUCTIVE ORGANS: Uterus surgically absent. No adnexal abnormality. MUSCULOSKELETAL: Multilevel degenerative changes in the spine. No acute fracture. ADDITIONAL FINDINGS: None. IMPRESSION: 1. Moderate bilateral hydroureteronephrosis with significantly distended bladder may be secondary to urinary retention. 2. Distended gallbladder with trace pericholecystic edema. Correlate with prior ultrasound. Acute cholecystitis not excluded. 3. Bowel containing umbilical hernia without bowel obstruction or complicating features. 4. Dependent airspace disease likely reflecting atelectasis but mild pneumonia or pneumonitis such as from aspiration not excluded. 5. Heterogeneity of the inferior aspect of the right hepatic lobe which may be artifact from the patient's arm. Consider nonemergent hepatic protocol CT or MRI to exclude underlying lesion. Abdomen Exam Limited: 09/30/2024 11:09 AM CLINICAL HISTORY: fever, abnormal lfts STUDY: Limited right upper quadrant ultrasound of abdomen. COMPARISON: None. FINDINGS: Liver: Coarsened liver echotexture. Bile ducts: Common bile duct measures 7 mm which is within normal limits for age. Gallbladder: Gallbladder wall thickening with debris and pericholecystic fluid. Cholelithiasis is present. No sonographic Nieves sign was reported. Gallbladder is distended. At least mild right-sided hydronephrosis is present. IMPRESSION: 1. Distended gallbladder with cholelithiasis and gallbladder wall thickening could represent acute cholecystitis in the appropriate clinical setting. 2. Common bile duct measures 7 mm which is likely within normal limits for patient's age. 3. Right-sided hydronephrosis. A CT is pending. EXAM: Chest Single View HISTORY: Cough;Dyspnea COMPARISON: None. FINDINGS: LUNGS/PLEURA: The lungs are clear. No pleural effusions or pneumothorax. No pulmonary edema. MEDIASTINUM: The mediastinal silhouette is within normal limits. CARDIAC: Mild cardiomegaly UPPER ABDOMEN: No significant abnormality. BONES: No acute abnormality. LINES/TUBES/OTHER: Shunt tubing noted overlying the right and left hemithorax. IMPRESSION: No evidence of acute cardiopulmonary disease. Conclusions/Impression: Stage I ROLANDA in the setting of urinary obstruction CKD IV with Proteinuria -No NSAIDs -Continue Tan Urinary Retention BL Hydroureteronephrosis -Continue Tan Hypernatremia -Encourage more water intake Hypokalemia -Replete prn HTN with CKD/ CHF -Continue Nifedipine XL -Continue Coreg MARIXA -CPAP qhs Diastolic CHF, A/C Peripheral Edema Acute Hypoxic Respiratory Failure -Low sodium diet -Lasix prn -Oxygen prn -Bipap prn DM II with CKD & Polyneuropathy -RISS Hypoalbuminemia -Albumin IV prn -Protein supplementation as tolerated Anemia in chronic illness Iron Deficiency 12% -Monitor H&H -PRBC prn -Retacrit prn -Continue IV iron CKD MBD Secondary HyperParathyroidism -Renvela prn Sepsis Acute gangrenous cholecystitis sp cholecystectomy Transaminitis Anorexia -Continue Abx -Follow up with surgery -Reglan X2 Acute DVT (left common femoral) -Continue Heparin Toxic Metabolic Encephalopathy in the setting of hypoglycemia -Continue supportive care Hospitalist and Surgery notes reviewed
[2024-10-14 04:53] LABS: Absolute Basophils 0.1 K/uL (0-0.5); Absolute Eosinophils 0.1 K/uL (0-0.5); Absolute Lymphocytes (CBC) 1.6 K/uL (0.7-4.9); Absolute Monocytes 1.2 K/uL (0.1-1.3); Absolute Neutrophil 7.2 K/uL (1.8-8.0); Basophils % 0.6 % (0-1.3); Eosinophils % 1.4 % (0-4.4); Hematocrit 23.7 % (36.0-45.0); Hemoglobin 7.9 g/dL (12.0-15.0); Lymphocytes % 15.8 % (15.3-44.8); MCH 29.6 pg (27.0-35.0); MCHC 33.2 g/dL (32.0-36.0); Monocytes % 11.5 % (3.3-12.3); Neutrophils % 70.7 % (41.7-73.7); Nucleated Red Blood Cells % 0.1 % (0-0); Platelets 511 thou/uL (152-406); RBC Red Blood Cell Count 2.66 M/uL (3.86-4.86); Red Cell Distribution Width 16.7 % (12.1-15.2)
[2024-10-14 05:12] LABS: Anion Gap 10.9 mEq/L (5.0-15.0); Potassium 3.9 mEq/L (3.5-5.1)
--- NOTE | 2024-10-14 15:30 | CON ---
Date of Consultation: 10/02/2024 Brief Hpi: The patient is a 79-year-old female with past medical history significant for h ypertension, diabetes, hyperlipidemia, CKD, gout, known to me from previous interactions, who complai ns of shortness of breath on her presentation to the emergency room, lethargy and generalized weaknes s. She is alert and oriented, and her accompanies her during my examination. The patient you s been more lethargic over the past several days and has been getting progressively weak and as such, she came to the emergency room with complaints of the above stated issues in addition to fatigue, co ugh, chest congestion, fever, poor appetite, nausea, vomiting. She has not had similar episodes befo re in the past. No sick contacts. No recent travel. No new food exposures. Past Medical History: Significant for diabetes, hyperlipidemia, hypertension, coronary artery diseas e, gout. Home Medications: Include benazepril, Plavix, Welchol, Novolin, Glucophage, nifedipine, Pravachol, a llopurinol, Coreg. Allergies: NO KNOWN DRUG ALLERGIES. Social History: She denies smoking, alcohol, recreational drug use. Review of Systems: 10-point review of systems, she complains of epigastric and right upper quadrant abdominal pain in ad dition, other than that 10 point review of systems negative. Physical Examination: General: She is awake, alert, oriented. Psychiatric: She is appropriate, conversive. HEENT: She is normocephalic. Sclerae anicteric. Mucous membranes are moist. Oropharynx clear. Neck: Supple without JVD. Chest: Normal expansion and excursion. Cardiovascular: Regular rate and rhythm. Pulmonary: Clear to auscultation bilaterally. Abdomen: Soft with positive epigastric and right upper quadrant tenderness to palpation. No guardin g. No focal peritonitis. Negative Nieves sign at this time. Musculoskeletal: No clubbing, cyanosis, edema. She is generally obese. Skin: Warm and dry. Laboratory Exam: White blood cell count of 15.2, hemoglobin is 8.2, hematocrit 25.9, platelet count is 441, neutrophils are 76%. Sodium 141, potassium 4.3, chloride 110, carbon dioxide 28, BUN 63, cre atinine 2.6, glucose is 86. Uric acid 8.8, total bilirubin 0.6, AST 142, ALT 313, alkaline phosphata se 261. Her hepatitis panel was negative. Her LFTs on admission were 282 AST, ALT 499, and her jennifer line phosphatase is 245. She had imaging performed, this included a CT of the abdomen and pelvis whi ch was officially read as moderate bilateral hydroureteronephrosis, with significantly distended blad calli, likely secondary to urinary retention, distended gallbladder with trace pericholecystic edema, c orrelate with prior ultrasound, acute cholecystitis not excluded, bowel containing umbilical hernia w ith bowel obstruction or complete complicating features, dependent airspace disease likely reflecting atelectasis, mild pneumonia, pneumonitis such as from aspiration not excluded, heterogeneity in the inferior aspect of the right hepatic lobe may be artifact from the patient's arm, in addition. The p rodrigo had abdominal ultrasound on 09/30. She read as distended gallbladder with cholelithiasis, gal lbladder wall thickening, could represent acute cholecystitis in the appropriate clinical setting. C ommon bile duct measures 7 mm, which is within normal limits for the patient's age, right-sided hydro nephrosis. A CT scan is pending. Assessment And Plan: This is a 79-year-old woman who comes in with signs and symptoms of sepsis of u ncertain etiology. Possible etiologies include possible cholecystitis, and as such, I have explained the risks, benefits, alternatives to laparoscopic, possible open cholecystectomy with indocyanine gr een cholangiography including but not limited to bleeding, infection, damage to surrounding tissues, need for further operating procedures, injury to bile ducts, intestines, other unforeseen complicatio ns in the perioperative period, including but not limited to blood clots, heart attack, stroke, other unforeseen complications related to anesthesia, non- anesthesia related issues. The patient and her displayed understanding of above-stated plan and agreed to proceed as indicated. ADELFO/AMBERLY Voice ID: [id number] Report ID: [id number]
--- NOTE | 2024-10-14 17:35 | P.PN ---
Subjective Date of Service: 10/14/24 Chief Complaint: Sepsis DVT Patient is awake, and responds appropriately. Oral intake is improving She denies any pain. No recorded fever. Physical Examination - Vital Signs Temperature: 98.6 F Blood Pressure: 194/80 Pulse: 69 Respirations: 17 Pulse Ox (%): 96 Assessment And Plan - Plan Physical examination General: Alert and oriented x 2, NAD. Neck: No elevated JVD Heart: Heart sounds 1 and 2 normal, regular rhythm, normal rate. Lungs: Clear to auscultation bilaterally, diminished breath sounds bilaterally, no rhonchi or crackles. Abdomen: Soft, nondistended, clean healing trocar wounds. normal bowel sounds. No tenderness. Right upper quadrant CATARINO drain with sanguinous fluid Extremities: No tenderness, no deformity Skin: Normal skin turgor, no rash. Neuro: No focal motor deficit. Normal speech. Psychiatry: No agitation. Tan catheter. Problem List: Sepsis secondary to Acute gangrenous cholecystitis, s/p lap marzena (10/02) Elevated LFTs secondary to cholecystitis Acute hypoxic respiratory failure Acute DVT (left common femoral) Iron deficiency anemia ROLANDA on CKD4 Bilateral hydronephrosis, resolved Liver mass; incidental finding Stage 1 sacral decubitus pressure ulcer Constipation, resolved UTI POA Candidiasis IDDM2 Uncontrolled hypertension Hyperlipidemia Hypernatremia Sepsis secondary to Acute gangrenous cholecystitis, s/p lap marzena (10/02) Elevated LFTs Acute hypoxic respiratory failure s/p lap marzena 10/[address] Lion; found to have Gangrenous GB, bowel adhesions to abd wall, ventral hernia. LFTs improving. Dr. Lion reports he noted liver cirrhosis intra-op. continue IV merrem (10/04-) and oral doxy (10/07-) Blood cx (09/30): No growth CT abd/pelvis (10/04): 5x3 cm collection in the gallbladder fossa suggestive of hematoma. Dr. Lion suspects this is related to Khalida and fluid collection CT abd/pelvis (10/10): Postoperative enhancing fluid collection along the lower margin of the right hepatic lobe near the subhepatic recess measuring 4.2 x 8.8 x 4.8 cm. Possible Abscess. A postoperative seroma or biloma is also within the differential. Abdominal ultrasound today demonstrated complex fluid collection in the same location suspicious for abscess. US guided IR drainage of fluid collection ordered. Lovenox on hold for aspiration procedure. Continue full liquid diet. continue Protonix. Dr. Lion is following Acute DVT (left common femoral) Iron deficiency anemia venous u/s (10/04): acute thrombus left common femoral vein s/p heparin drip for acute DVT (10/04-10/06) Started on oral eliquis, and plavix dc'd on (10/07) iron studies (10/07): iron 14, tsat% 11.8 continue IV iron (125mg); started (10/09) Status post 1 unit PRBC transfusion for anemia Eliquis transitioned to Lovenox in the event she may need a procedure (10/11). Lovenox held today for IR procedure. ROLANDA on CKD4 Bilateral hydronephrosis Acute urinary retention CT abdomen (09/30): Moderate bilateral hydroureteronephrosis with significantly distended bladder ~1100 ml urine drained with Tan catheter insertion in the ED (09/30) Tan in place Nephrology is following. Serum creatinine is stable Continue to monitor renal function. Follow-up with neurologist as outpatient. Liver mass; incidental finding CT abd/pelvis (09/30): Heterogeneity of the inferior aspect of the right hepatic lobe which may be artifact from the patient's arm. repeat CT (10/04): 6.6 cm heterogeneous low density area right lobe of the liver could represent abscess or benign or malignant neoplasm. It probably does not represent a hematoma as it likely was present on the prior exam. Stage 1 sacral decubitus pressure ulcer wound photos in EMR 10/04 Pressure offloading. Frequent turning. Constipation, resolved resolved PRN glycolax colace BID UTI POA Candidiasis UA with moderate yeast s/p oral diflucan x5 days (09/30-10/05) IDDM2 hypoglycemia accu-cheks, SSI states 10/08 - she takes ~30-40units insulin BID not the TID listed as home med Long-acting insulin is on hold Hypertension Fluctuating BP, high BP over the past 24 hours. Continue current antihypertensives. Hydralazine as needed for BP spikes. Hyperlipidemia Continue home medication. 12/12 Status post IR aspiration of gallbladder fossa yesterday. Aspirated fluid shows no growth. CATARINO Drain in place, draining sanguinous fluid, no cloudiness. Patient has been afebrile, leukocytosis resolved. General surgery Dr. Lion is following and suspect fluid collection in the gallbladder fossa is not an abscess, and likely related to Khalida. Continue antibiotics for now Awaiting 48-hour fluid culture. Increase feeding as tolerated. Nutritional supplementation Continue PT. Titrate nifedipine for severe hypertension. VTE: Lovenox Code: Full Dispo: [facility].
--- NOTE | 2024-10-14 22:09 | P.PN ---
Date of Service: 10/14/24 Vital Signs Temp Pulse Resp BP Pulse Ox 97.8 F 67 18 140/54 L 97 10/14/24 20:00 10/14/24 20:00 10/14/24 20:00 10/14/24 20:00 10/14/24 20:00 Medications Acetaminophen (Acetaminophen 325 Mg Tablet) 650 mg PO Q6H PRN PRN Reason: TEMP > 100' F Last Admin: 09/30/24 16:17 Dose: 650 mg Acetaminophen (Acetaminophen 325 Mg Tablet) 650 mg PO Q6H PRN PRN Reason: Pain scale 2-4 (Mild) Last Admin: 10/10/24 19:36 Dose: 650 mg Albuterol Sulfate (Albuterol 2.5 Mg/3 Ml Neb Julia) 2.5 mg NEB [id number] PRN PRN Reason: SHORTNESS OF BREATH Atorvastatin Calcium (Atorvastatin 10 Mg Tab) 10 mg PO DAILY [facility] Last Admin: 10/14/24 08:59 Dose: 10 mg Carvedilol (Carvedilol 12.5 Mg Tab) 12.5 mg PO BIDWM [facility] Last Admin: 10/14/24 16:01 Dose: 12.5 mg Docusate Sodium (Docusate Na 100 Mg Cap) 100 mg PO BID [facility] Last Admin: 10/14/24 20:27 Dose: 100 mg Doxycycline Monohydrate (Doxycycline 100 Mg Cap) 100 mg PO BID [facility]; Protocol Last Admin: 10/14/24 20:27 Dose: 100 mg Enoxaparin Sodium (Enoxaparin 120 Mg/0.8 Ml Syr) 110 mg SQ DAILY [facility] Last Admin: 10/12/24 09:14 Dose: 110 mg Glucagon (Glucagon 1 Mg/Vial) 1 mg IM 1X PRN; Protocol PRN Reason: HYPOGLYCEMIA Hydralazine HCl (Hydralazine Hcl 20 Mg/Ml Vial) 10 mg IV Q6HP PRN PRN Reason: FOR SBP>160 OR DBP>100 MMHG Last Admin: 10/13/24 12:07 Dose: 10 mg Dextrose (Dextrose 10% Water Iv Soln.) 125 mls @ 0 mls/hr IV PRN PRN; Protocol PRN Reason: HYPOGLYCEMIA Meropenem 1,000 mg/ Sodium (Chloride) 100 mls @ 200 mls/hr IV Q12HR [facility] Last Admin: 10/14/24 20:27 Dose: 100 mls Sodium Chloride (Sodium Chloride) 250 mls @ 0 mls/hr IV .Q0M SHANA Insulin Human Regular (Insulin Regular (Human) 100 Unit/Ml) 0 unit SQ ACHS [facility]; Protocol Last Admin: 10/14/24 20:30 Dose: Not Given Nifedipine (Nifedipine Xl 60 Mg Tablet) 60 mg PO DAILY [facility] Ondansetron HCl (Ondansetron 4 Mg/2 Ml Vial) 4 mg IV Q6HP PRN PRN Reason: NAUSEA / VOMITING Last Admin: 10/09/24 18:23 Dose: 4 mg Pantoprazole Sodium (Pantoprazole 40 Mg Inj) 40 mg IVP Q12HR [facility]; Protocol Last Admin: 10/14/24 21:02 Dose: 40 mg Polyethylene Glycol (Polyethyl Gly 3350 17 Gm/Dose) 17 gm PO DAILY PRN PRN Reason: CONSTIPATION Last Admin: 10/07/24 09:19 Dose: 17 gm Protein (Ensure Max Protein 330 Ml Liquid) 330 ml PO BID [facility] Last Admin: 10/14/24 20:30 Dose: 330 ml Sodium Chloride (Sodium Chloride 0.9% 10ml Inj) 10 ml IV UD PRN PRN Reason: Diluant Microbiology Results 09/30/24 10:34 Blood - Blood Aerobic Blood Culture - Final No growth in 5 days. 09/30/24 10:34 Blood - Blood Anaerobic Blood Culture - Final 09/30/24 10:25 Blood - Blood Aerobic Blood Culture - Final No growth in 5 days. 09/30/24 10:25 Blood - Blood Anaerobic Blood Culture - Final No growth in 5 days. Assessment/ Plan: Nephrology Progress Note No dyspnea No chest pain Weakness and fatigue No acute events overnight Vital Signs, Medications, Blood Work, and Imaging reviewed in the chart General: Oriented x3, Cooperative HEENT: Atraumatic. Obese. Neck: Supple Respiratory: Normal air movement/ CTA anteriorly Cardiovascular: Regular rate/rhythm, Edema (Hip) Gastrointestinal: Soft and benign, Non-distended, Tenderness Musculoskeletal: No clubbing, No contractures Integumentary: No rashes, No cyanosis, Neurological: Normal speech Tan light Blood work reviewed in the chart. Imagings Data: EXAM: CT CHEST, ABDOMEN AND PELVIS WITHOUT CONTRAST CLINICAL INDICATION: Female, 79 years old dyspnea, abnormal lfts, renal failure TECHNIQUE: CT chest, abdomen and pelvis was performed, without IV contrast, as per department protocol. Axial, sagittal and coronal reconstructions were obtained. One or more of the following dose reduction techniques were used: Automated exposure control, adjustment of the mA and/or kV according to the patient size, and/or iterative reconstruction. Unless otherwise specified, incidental findings do not require dedicated imaging follow-up. [id number]. COMPARISON: Same-day ultrasound FINDINGS: The lack of intravenous contrast limits the sensitivity of this exam for evaluation of solid visceral organs, vascular structures, and retroperitoneum. Chest: LOWER NECK: Visualized thyroid gland and soft tissues are normal. LUNGS AND AIRWAYS: Dependent opacities which may reflect atelectasis, aspiration, or pneumonia.Motion artifact limits evaluation for pulmonary nodule detection. PLEURA: Small right pleural effusion. MEDIASTINUM AND LYMPH NODES: No mediastinal mass or fluid collection. Normal size mediastinal, hilar, and axillary lymph nodes. Mild distal esophageal thickening. THORACIC AORTA: No thoracic aortic aneurysm. Atherosclerotic changes are present. PULMONARY ARTERIES: Caliber is within normal limits. HEART: Mild cardiomegaly. Multivessel coronary artery disease. No significant pericardial effusion. Aortic valve calcifications. Abdomen/Pelvis UPPER GI: No significant abnormality. LIVER: Hepatic steatosis. Heterogeneity at the inferior aspect of right hepatic lobe which may be due to underlying lesion or artifact from the patient's arms. GALLBLADDER/BILE DUCTS: Distended gallbladder with trace pericholecystic edema.? PANCREAS: Atrophy, but otherwise unremarkable. SPLEEN: Unremarkable. ADRENALS: Left adrenal nodules which have Hounsfield units consistent with adrenal adenomas. The largest measures 17 mm. KIDNEYS AND URETERS: Bilateral hydroureteronephrosis is mild to moderate.Renal cortical thinning is present bilaterally. ABDOMINAL AORTA AND OTHER VESSELS: Moderate atherosclerotic changes without aortic aneurysm. PERITONEUM: No abnormal free fluid. No free air. LYMPH NODES: No pathologic lymphadenopathy. ABDOMINAL WALL: Bowel containing umbilical hernia. SMALL BOWEL/COLON: Fat-containing umbilical hernia without bowel obstruction. No appendicitis. No bowel obstruction. URINARY BLADDER: Significantly distended bladder. REPRODUCTIVE ORGANS: Uterus surgically absent. No adnexal abnormality. MUSCULOSKELETAL: Multilevel degenerative changes in the spine. No acute fracture. ADDITIONAL FINDINGS: None. IMPRESSION: 1. Moderate bilateral hydroureteronephrosis with significantly distended bladder may be secondary to urinary retention. 2. Distended gallbladder with trace pericholecystic edema. Correlate with prior ultrasound. Acute cholecystitis not excluded. 3. Bowel containing umbilical hernia without bowel obstruction or complicating features. 4. Dependent airspace disease likely reflecting atelectasis but mild pneumonia or pneumonitis such as from aspiration not excluded. 5. Heterogeneity of the inferior aspect of the right hepatic lobe which may be artifact from the patient's arm. Consider nonemergent hepatic protocol CT or MRI to exclude underlying lesion. Abdomen Exam Limited: 09/30/2024 11:09 AM CLINICAL HISTORY: fever, abnormal lfts STUDY: Limited right upper quadrant ultrasound of abdomen. COMPARISON: None. FINDINGS: Liver: Coarsened liver echotexture. Bile ducts: Common bile duct measures 7 mm which is within normal limits for age. Gallbladder: Gallbladder wall thickening with debris and pericholecystic fluid. Cholelithiasis is present. No sonographic Nieves sign was reported. Gallbladder is distended. At least mild right-sided hydronephrosis is present. IMPRESSION: 1. Distended gallbladder with cholelithiasis and gallbladder wall thickening could represent acute cholecystitis in the appropriate clinical setting. 2. Common bile duct measures 7 mm which is likely within normal limits for patient's age. 3. Right-sided hydronephrosis. A CT is pending. EXAM: Chest Single View HISTORY: Cough;Dyspnea COMPARISON: None. FINDINGS: LUNGS/PLEURA: The lungs are clear. No pleural effusions or pneumothorax. No pulmonary edema. MEDIASTINUM: The mediastinal silhouette is within normal limits. CARDIAC: Mild cardiomegaly UPPER ABDOMEN: No significant abnormality. BONES: No acute abnormality. LINES/TUBES/OTHER: Shunt tubing noted overlying the right and left hemithorax. IMPRESSION: No evidence of acute cardiopulmonary disease. Conclusions/Impression: Stage I ROLANDA in the setting of urinary obstruction CKD IV with Proteinuria -No NSAIDs -Continue Tan Urinary Retention BL Hydroureteronephrosis -Continue Tan Hypernatremia -Encourage more water intake Hypokalemia -Replete prn HTN with CKD/ CHF -Continue Nifedipine XL -Continue Coreg MARIXA -CPAP qhs Diastolic CHF, A/C Peripheral Edema Acute Hypoxic Respiratory Failure -Low sodium diet -Lasix prn -Oxygen prn -Bipap prn DM II with CKD & Polyneuropathy -RISS Hypoalbuminemia -Albumin IV prn -Protein supplementation as tolerated Anemia in chronic illness Iron Deficiency 12% -Monitor H&H -PRBC prn -Retacrit prn -Continue IV iron CKD MBD Secondary HyperParathyroidism -Renvela prn Sepsis Acute gangrenous cholecystitis sp cholecystectomy Transaminitis Anorexia -Continue Abx -Follow up with surgery Acute DVT (left common femoral) Hospitalist and Surgery notes reviewed
[2024-10-15 05:30] LABS: Albumin 1.9 g/dL (3.4-5.0); Albumin/Globulin Ratio 0.5 (1.1-1.8); Anion Gap 9.7 mEq/L (5.0-15.0); Bilirubin Total 0.4 mg/dL (0.2-1.0); Globulin 4.2 g/dL (2.3-3.5); Potassium 3.7 mEq/L (3.5-5.1); Protein, Total 6.1 g/dL (6.4-8.2)
[2024-10-15 06:40] LABS: Absolute Basophils 0.1 K/uL (0-0.5); Absolute Eosinophils 0.2 K/uL (0-0.5); Absolute Lymphocytes (CBC) 1.7 K/uL (0.7-4.9); Absolute Monocytes 1.1 K/uL (0.1-1.3); Absolute Neutrophil 6.9 K/uL (1.8-8.0); Basophils % 0.5 % (0-1.3); Eosinophils % 1.5 % (0-4.4); Hemoglobin 7.8 g/dL (12.0-15.0); Lymphocytes % 17.6 % (15.3-44.8); MCH 29.2 pg (27.0-35.0); MCHC 32.3 g/dL (32.0-36.0); MCV 90.5 fL (80-100); MPV 9.3 fL (7.6-11.3); Monocytes % 10.9 % (3.3-12.3); Neutrophils % 69.5 % (41.7-73.7); Platelets 452 thou/uL (152-406); RBC Red Blood Cell Count 2.65 M/uL (3.86-4.86); Red Cell Distribution Width 16.6 % (12.1-15.2)
[2024-10-15] MEDS: NIFEDIPINE XL 60 MG TABLET PO SCH (09:13)
[2024-10-15] MEDS: PANTOPRAZOLE 40MG TABLET PO SCH (10:00)
--- NOTE | 2024-10-15 16:41 | P.PN ---
Subjective Date of Service: 10/15/24 Chief Complaint: Sepsis DVT Patient is appears to be clinically improving gradually. states patient ate more this morning, she is more communicative. No issues overnight. She denies any pain. Physical Examination - Vital Signs Temperature: 97.8 F Blood Pressure: 180/72 Pulse: 71 Respirations: 20 Pulse Ox (%): 94 Assessment And Plan - Plan Physical examination General: Alert and oriented x 2, NAD. Neck: No elevated JVD Heart: Heart sounds 1 and 2 normal, regular rhythm, normal rate. Lungs: Clear to auscultation bilaterally, diminished breath sounds bilaterally, no rhonchi or crackles. Abdomen: Soft, nondistended, clean healing trocar wounds. normal bowel sounds. No tenderness. Right upper quadrant CATARINO drain with sanguinous fluid Extremities: No tenderness, no deformity Skin: Normal skin turgor, no rash. Neuro: No focal motor deficit. Normal speech. Psychiatry: No agitation. Tan catheter. Problem List: Sepsis secondary to Acute gangrenous cholecystitis, s/p lap marzena (10/02) Elevated LFTs secondary to cholecystitis Acute hypoxic respiratory failure Acute DVT (left common femoral) Iron deficiency anemia ROLANDA on CKD4 Bilateral hydronephrosis, resolved Liver mass; incidental finding Stage 1 sacral decubitus pressure ulcer Constipation, resolved UTI POA Candidiasis IDDM2 Uncontrolled hypertension Hyperlipidemia Hypernatremia Sepsis secondary to Acute gangrenous cholecystitis, s/p lap marzena (10/02) Elevated LFTs Acute hypoxic respiratory failure s/p lap marzena 10/[address] Lion; found to have Gangrenous GB, bowel adhesions to abd wall, ventral hernia. LFTs improving. Dr. Lion reports he noted liver cirrhosis intra-op. continue IV merrem (10/04-) and oral doxy (10/07-) Blood cx (09/30): No growth CT abd/pelvis (10/04): 5x3 cm collection in the gallbladder fossa suggestive of hematoma. Dr. Lion suspects this is related to Khalida and fluid collection CT abd/pelvis (10/10): Postoperative enhancing fluid collection along the lower margin of the right hepatic lobe near the subhepatic recess measuring 4.2 x 8.8 x 4.8 cm. Possible Abscess. A postoperative seroma or biloma is also within the differential. Abdominal ultrasound today demonstrated complex fluid collection in the same location suspicious for abscess. US guided IR drainage of fluid collection ordered. Lovenox on hold for aspiration procedure. Continue full liquid diet. continue Protonix. Dr. Lion is following Acute DVT (left common femoral) Iron deficiency anemia venous u/s (10/04): acute thrombus left common femoral vein s/p heparin drip for acute DVT (10/04-10/06) Started on oral eliquis, and plavix dc'd on (10/07) iron studies (10/07): iron 14, tsat% 11.8 continue IV iron (125mg); started (10/09) Status post 1 unit PRBC transfusion for anemia Eliquis transitioned to Lovenox in the event she may need a procedure (10/11). Lovenox held today for IR procedure. ROLANDA on CKD4 Bilateral hydronephrosis Acute urinary retention CT abdomen (09/30): Moderate bilateral hydroureteronephrosis with significantly distended bladder ~1100 ml urine drained with Tan catheter insertion in the ED (09/30) Tan in place Nephrology is following. Serum creatinine is stable Continue to monitor renal function. Follow-up with neurologist as outpatient. Liver mass; incidental finding CT abd/pelvis (09/30): Heterogeneity of the inferior aspect of the right hepatic lobe which may be artifact from the patient's arm. repeat CT (10/04): 6.6 cm heterogeneous low density area right lobe of the liver could represent abscess or benign or malignant neoplasm. It probably does not represent a hematoma as it likely was present on the prior exam. Stage 2 sacral decubitus pressure ulcer wound photos in EMR 10/04 Pressure offloading. Frequent turning. Constipation, resolved resolved PRN glycolax colace BID UTI POA Candidiasis UA with moderate yeast s/p oral diflucan x5 days (09/30-10/05) IDDM2 hypoglycemia accu-cheks, SSI states 10/08 - she takes ~30-40units insulin BID not the TID listed as home med Long-acting insulin is on hold Hypertension Fluctuating BP, high BP over the past 24 hours. Continue current antihypertensives. Hydralazine as needed for BP spikes. Hyperlipidemia Continue home medication. 10/14 Status post IR aspiration of gallbladder fossa yesterday. Aspirated fluid shows no growth. CATARINO Drain in place, draining sanguinous fluid, no cloudiness. Patient has been afebrile, leukocytosis resolved. General surgery Dr. Lion is following and suspect fluid collection in the gallbladder fossa is not an abscess, and likely related to Khalida. Continue antibiotics for now Awaiting 48-hour fluid culture. Increase feeding as tolerated. Nutritional supplementation Continue PT. Titrate nifedipine for severe hypertension. 10/15 Patient is eating more and more interactive. Leukocytosis resolved and stable. Infectious diseases following and managing antibiotics. Meropenem duration per Dr. Oliveros. Continue PT Continue current antihypertensives. Local wound care-frequent turning and offloading for worsening sacral decubitus ulcer. Nutritional supplementation. Disposition to [facility] pending insurance authorization. VTE: Lovenox Code: Full Dispo: [facility] - [facility].
[2024-10-15] MEDS: APIXABAN 5 MG TABLET PO SCH (20:49)
--- NOTE | 2024-10-15 20:59 | P.PN ---
Date of Service: 10/15/24 Vital Signs Temp Pulse Resp BP Pulse Ox 98.1 F 66 18 147/60 H 93 10/15/24 20:00 10/15/24 20:00 10/15/24 20:00 10/15/24 20:00 10/15/24 20:00 Medications Acetaminophen (Acetaminophen 325 Mg Tablet) 650 mg PO Q6H PRN PRN Reason: TEMP > 100' F Last Admin: 09/30/24 16:17 Dose: 650 mg Acetaminophen (Acetaminophen 325 Mg Tablet) 650 mg PO Q6H PRN PRN Reason: Pain scale 2-4 (Mild) Last Admin: 10/10/24 19:36 Dose: 650 mg Albuterol Sulfate (Albuterol 2.5 Mg/3 Ml Neb Julia) 2.5 mg NEB [id number] PRN PRN Reason: SHORTNESS OF BREATH Apixaban (Apixaban 5 Mg Tablet) 5 mg PO BID [facility] Last Admin: 10/15/24 20:49 Dose: 5 mg Atorvastatin Calcium (Atorvastatin 10 Mg Tab) 10 mg PO DAILY [facility] Last Admin: 10/15/24 09:13 Dose: 10 mg Carvedilol (Carvedilol 12.5 Mg Tab) 12.5 mg PO BIDWM [facility] Last Admin: 10/15/24 16:49 Dose: 12.5 mg Docusate Sodium (Docusate Na 100 Mg Cap) 100 mg PO BID [facility] Last Admin: 10/15/24 20:49 Dose: 100 mg Doxycycline Monohydrate (Doxycycline 100 Mg Cap) 100 mg PO BID [facility]; Protocol Last Admin: 10/15/24 20:49 Dose: 100 mg Glucagon (Glucagon 1 Mg/Vial) 1 mg IM 1X PRN; Protocol PRN Reason: HYPOGLYCEMIA Hydralazine HCl (Hydralazine Hcl 20 Mg/Ml Vial) 10 mg IV Q6HP PRN PRN Reason: FOR SBP>160 OR DBP>100 MMHG Last Admin: 10/13/24 12:07 Dose: 10 mg Dextrose (Dextrose 10% Water Iv Soln.) 125 mls @ 0 mls/hr IV PRN PRN; Protocol PRN Reason: HYPOGLYCEMIA Meropenem 1,000 mg/ Sodium (Chloride) 100 mls @ 200 mls/hr IV Q12HR [facility] Last Admin: 10/15/24 20:49 Dose: 100 mls Sodium Chloride (Sodium Chloride) 250 mls @ 0 mls/hr IV .Q0M [facility] Insulin Human Regular (Insulin Regular (Human) 100 Unit/Ml) 0 unit SQ ACHS [facility]; Protocol Last Admin: 10/15/24 20:20 Dose: Not Given Nifedipine (Nifedipine Xl 60 Mg Tablet) 60 mg PO DAILY [facility] Last Admin: 10/15/24 09:13 Dose: 60 mg Ondansetron HCl (Ondansetron 4 Mg/2 Ml Vial) 4 mg IV Q6HP PRN PRN Reason: NAUSEA / VOMITING Last Admin: 10/09/24 18:23 Dose: 4 mg Pantoprazole Sodium (Pantoprazole 40mg Tablet) 40 mg PO BIDAC [facility] Last Admin: 10/15/24 16:49 Dose: 40 mg Polyethylene Glycol (Polyethyl Gly 3350 17 Gm/Dose) 17 gm PO DAILY PRN PRN Reason: CONSTIPATION Last Admin: 10/07/24 09:19 Dose: 17 gm Protein (Ensure Max Protein 330 Ml Liquid) 330 ml PO BID [facility] Last Admin: 10/15/24 20:49 Dose: 330 ml Microbiology Results 09/30/24 10:34 Blood - Blood Aerobic Blood Culture - Final No growth in 5 days. 09/30/24 10:34 Blood - Blood Anaerobic Blood Culture - Final 09/30/24 10:25 Blood - Blood Aerobic Blood Culture - Final No growth in 5 days. 09/30/24 10:25 Blood - Blood Anaerobic Blood Culture - Final No growth in 5 days. Assessment/ Plan: Nephrology Progress Note No dyspnea No chest pain Weakness and fatigue No acute events overnight Vital Signs, Medications, Blood Work, and Imaging reviewed in the chart General: Oriented x3, Cooperative HEENT: Atraumatic. Obese. Neck: Supple Respiratory: Normal air movement/ CTA anteriorly Cardiovascular: Regular rate/rhythm, Edema (Hip) Gastrointestinal: Soft and benign, Non-distended, Tenderness Musculoskeletal: No clubbing, No contractures Integumentary: No rashes, No cyanosis, Neurological: Normal speech Tan light Blood work reviewed in the chart. Imagings Data: EXAM: CT CHEST, ABDOMEN AND PELVIS WITHOUT CONTRAST CLINICAL INDICATION: Female, 79 years old dyspnea, abnormal lfts, renal failure TECHNIQUE: CT chest, abdomen and pelvis was performed, without IV contrast, as per department protocol. Axial, sagittal and coronal reconstructions were obtained. One or more of the following dose reduction techniques were used: Automated exposure control, adjustment of the mA and/or kV according to the patient size, and/or iterative reconstruction. Unless otherwise specified, incidental findings do not require dedicated imaging follow-up. [id number]. COMPARISON: Same-day ultrasound FINDINGS: The lack of intravenous contrast limits the sensitivity of this exam for evaluation of solid visceral organs, vascular structures, and retroperitoneum. Chest: LOWER NECK: Visualized thyroid gland and soft tissues are normal. LUNGS AND AIRWAYS: Dependent opacities which may reflect atelectasis, aspiration, or pneumonia.Motion artifact limits evaluation for pulmonary nodule detection. PLEURA: Small right pleural effusion. MEDIASTINUM AND LYMPH NODES: No mediastinal mass or fluid collection. Normal size mediastinal, hilar, and axillary lymph nodes. Mild distal esophageal thickening. THORACIC AORTA: No thoracic aortic aneurysm. Atherosclerotic changes are present. PULMONARY ARTERIES: Caliber is within normal limits. HEART: Mild cardiomegaly. Multivessel coronary artery disease. No significant pericardial effusion. Aortic valve calcifications. Abdomen/Pelvis UPPER GI: No significant abnormality. LIVER: Hepatic steatosis. Heterogeneity at the inferior aspect of right hepatic lobe which may be due to underlying lesion or artifact from the patient's arms. GALLBLADDER/BILE DUCTS: Distended gallbladder with trace pericholecystic edema.? PANCREAS: Atrophy, but otherwise unremarkable. SPLEEN: Unremarkable. ADRENALS: Left adrenal nodules which have Hounsfield units consistent with adrenal adenomas. The largest measures 17 mm. KIDNEYS AND URETERS: Bilateral hydroureteronephrosis is mild to moderate.Renal cortical thinning is present bilaterally. ABDOMINAL AORTA AND OTHER VESSELS: Moderate atherosclerotic changes without aortic aneurysm. PERITONEUM: No abnormal free fluid. No free air. LYMPH NODES: No pathologic lymphadenopathy. ABDOMINAL WALL: Bowel containing umbilical hernia. SMALL BOWEL/COLON: Fat-containing umbilical hernia without bowel obstruction. No appendicitis. No bowel obstruction. URINARY BLADDER: Significantly distended bladder. REPRODUCTIVE ORGANS: Uterus surgically absent. No adnexal abnormality. MUSCULOSKELETAL: Multilevel degenerative changes in the spine. No acute fracture. ADDITIONAL FINDINGS: None. IMPRESSION: 1. Moderate bilateral hydroureteronephrosis with significantly distended bladder may be secondary to urinary retention. 2. Distended gallbladder with trace pericholecystic edema. Correlate with prior ultrasound. Acute cholecystitis not excluded. 3. Bowel containing umbilical hernia without bowel obstruction or complicating features. 4. Dependent airspace disease likely reflecting atelectasis but mild pneumonia or pneumonitis such as from aspiration not excluded. 5. Heterogeneity of the inferior aspect of the right hepatic lobe which may be artifact from the patient's arm. Consider nonemergent hepatic protocol CT or MRI to exclude underlying lesion. Abdomen Exam Limited: 09/30/2024 11:09 AM CLINICAL HISTORY: fever, abnormal lfts STUDY: Limited right upper quadrant ultrasound of abdomen. COMPARISON: None. FINDINGS: Liver: Coarsened liver echotexture. Bile ducts: Common bile duct measures 7 mm which is within normal limits for age. Gallbladder: Gallbladder wall thickening with debris and pericholecystic fluid. Cholelithiasis is present. No sonographic Nieves sign was reported. Gallbladder is distended. At least mild right-sided hydronephrosis is present. IMPRESSION: 1. Distended gallbladder with cholelithiasis and gallbladder wall thickening co uld represent acute cholecystitis in the appropriate clinical setting. 2. Common bile duct measures 7 mm which is likely within normal limits for patient's age. 3. Right-sided hydronephrosis. A CT is pending. EXAM: Chest Single View HISTORY: Cough;Dyspnea COMPARISON: None. FINDINGS: LUNGS/PLEURA: The lungs are clear. No pleural effusions or pneumothorax. No pulmonary edema. MEDIASTINUM: The mediastinal silhouette is within normal limits. CARDIAC: Mild cardiomegaly UPPER ABDOMEN: No significant abnormality. BONES: No acute abnormality. LINES/TUBES/OTHER: Shunt tubing noted overlying the right and left hemithorax. IMPRESSION: No evidence of acute cardiopulmonary disease. Conclusions/Impression: Stage I ROLANDA in the setting of urinary obstruction CKD IV with Proteinuria -No NSAIDs -Continue Tan Urinary Retention BL Hydroureteronephrosis -Continue Tan Hypernatremia -Encourage more water intake Hypokalemia -Replete prn HTN with CKD/ CHF -Continue Nifedipine XL -Continue Coreg MARIXA -CPAP qhs Diastolic CHF, A/C Peripheral Edema Acute Hypoxic Respiratory Failure -Low sodium diet -Lasix prn -Oxygen prn -Bipap prn DM II with CKD & Polyneuropathy -RISS Hypoalbuminemia -Albumin IV prn -Protein supplementation as tolerated Anemia in chronic illness Iron Deficiency 12% -Monitor H&H -PRBC prn -Retacrit prn -Continue IV iron CKD MBD Secondary HyperParathyroidism -Renvela prn Sepsis Acute gangrenous cholecystitis sp cholecystectomy Transaminitis Anorexia -Continue Abx -Follow up with surgery Acute DVT (left common femoral) -Continue [facility] Hospitalist and Surgery notes reviewed
[2024-10-16 06:27] LABS: Absolute Basophils 0.1 K/uL (0-0.5); Absolute Eosinophils 0.3 K/uL (0-0.5); Absolute Lymphocytes (CBC) 1.5 K/uL (0.7-4.9); Absolute Monocytes 1.1 K/uL (0.1-1.3); Absolute Neutrophil 8.5 K/uL (1.8-8.0); Basophils % 0.7 % (0-1.3); Eosinophils % 2.3 % (0-4.4); Hematocrit 24.9 % (36.0-45.0); Hemoglobin 8.1 g/dL (12.0-15.0); Lymphocytes % 13.4 % (15.3-44.8); MCH 29.2 pg (27.0-35.0); MCHC 32.4 g/dL (32.0-36.0); MCV 89.9 fL (80-100); MPV 9.2 fL (7.6-11.3); Monocytes % 9.9 % (3.3-12.3); Neutrophils % 73.7 % (41.7-73.7); Platelets 458 thou/uL (152-406); RBC Red Blood Cell Count 2.77 M/uL (3.86-4.86); Red Cell Distribution Width 17.1 % (12.1-15.2)
[2024-10-16 06:41] LABS: Anion Gap 10.7 mEq/L (5.0-15.0); Potassium 3.7 mEq/L (3.5-5.1)
[2024-10-16] MEDS: POTASSIUM 25 MEQ EFFERV TAB PO ONE (08:41)
--- NOTE | 2024-10-16 11:36 | P.PN ---
-Nephrology note (S) Pt denies abd pain, N/V/D, renal function tests improved since last seen, morgan remains in place, draining well, BP labile, elevated freq (O) vitals reviewed in the EMR General: NAD, Cooperative HEENT: Atraumatic, sclera anicteric, off LFNC Neck: Supple Respiratory: Normal air movement, non tachypnec, Cardiovascular: Regular rate/rhythm mostly, Gastrointestinal: Some distention, obese, NT, no guarding, surgical incisions, RUQ drain Musculoskeletal: Lt leg immobilizer removed, prior peripheral edema improved Integumentary: No rashes, Neurological: Normal speech, awake, conversive, no tremors Blood work reviewed in the chart. Conclusions/Impression: Stage III ARF episode last mo after prior ROLANDA episode preceding on underlying CKD NOS -ARF in the setting of urinary retention, hydro with Cr levels downward trending to levels better than prior baseline s/p bladder decompression. Na level > 145, encouraged increased water intake Urinary Retention, unspecified -In the setting of recent pain meds, constipation, other, maintain morgan for now HTN with CKD/ CHF unspecified -BP mod elevated at times, raise CCB dose back to 60 mg q12h with holding parameters, no scheduled diuretics needed currently Leukocytosis, acute cholecystitis, abnormal results of LFTs POA -Complicated course, management per surgery/IM
--- NOTE | 2024-10-16 12:22 | RAD REPORT ---
PROCEDURE: ULTRASOUND GUIDED DRAIN PLACEMENT Pre-procedure diagnosis: Gallbladder fossa collection Post-procedure diagnosis: Same as above. CLINICAL INDICATION: Leukocytosis and fluid collection. Female, 79 years old. GB FOSSA ABCSESS Additional clinical history: None. COMPLICATIONS: No immediate complications. IMPRESSION: Ultrasound guided placement of 8 Turkish pigtail indwelling drainage catheter, yielding mL of 10 mL fl uid. Additional procedure(s): Abscessogram was not performed. PLAN: Specimen sent for evaluation. Drain to bulb suction. PROCEDURE DETAILS: Consent: Informed consent for the procedure including risks, benefits and alternatives was obtained a nd time-out was performed prior to the procedure. Preparation: The site was prepared and draped using all elements of maximal sterile barrier technique including sterile gloves, sterile gown, cap, mask, large sterile sheet, sterile ultrasound probe cover as needed, hand hygiene and cutaneous antisepsis with 2% chlorhexidine. Sedation: No sedation required Procedure: The patient was positioned supine and initial imaging was performed. Local anesthesia was administered. The fluid collection was accessed using a trocar needle. The drainage catheter was placed, secured with non-absorbable suture and an adhesive anchoring device and a sterile dressing wa s applied. Position of the drainage catheter within the fluid collection was confirmed. [id number]. Specimen: Aspirated fluid was sent for analysis. Contrast used: None. Estimated blood loss: Less than 10 mL.
--- NOTE | 2024-10-16 13:35 | P.PN ---
Subjective Date of Service: 10/15/24 Chief Complaint: Sepsis DVT Patient has no new complaints state, states she is feels better currently off nasal cannula. tolerating diet, normal bowel function Physical Examination - Vital Signs Temperature: 182 F Blood Pressure: 178/55 Pulse: 72 Respirations: 18 Pulse Ox (%): 95 - Physical Exam General: Alert, In no apparent distress, Oriented x3, Cooperative Gastrointestinal: Soft and benign Assessment And Plan - Plan Patient is a 79-year-old woman status post laparoscopic cholecystectomy for gangrenous cholecystitis, since early cirrhosis noted on intraoperative investigation with nodularity of liver and discoloration. -Patient has percutaneous drain in place placed by interventional radiology. Management per radiologist. -Patient is tolerating diet has no evidence of any complications related to surgery and as such I will sign off for now at this point please call back with any acute issues. Physician Review: Patient Assessed, Agree with Above Assessment and Plan
--- NOTE | 2024-10-16 16:50 | P.PN ---
Subjective Date of Service: 10/16/24 Chief Complaint: Sepsis DVT Patient has no new complaint. Oral intake is improving, no recorded fever. Patient denies any pain. Physical Examination - Vital Signs Temperature: 182 F Blood Pressure: 178/55 Pulse: 72 Respirations: 18 Pulse Ox (%): 95 Assessment And Plan - Plan Physical examination General: Alert and oriented x 2, NAD. Neck: No elevated JVD Heart: Heart sounds 1 and 2 normal, regular rhythm, normal rate. Lungs: Clear to auscultation bilaterally, diminished breath sounds bilaterally, no rhonchi or crackles. Abdomen: Soft, nondistended, clean healing trocar wounds. normal bowel sounds. No tenderness. Right upper quadrant CATARINO drain with sanguinous fluid Extremities: No tenderness, no deformity Skin: Normal skin turgor, no rash. Neuro: No focal motor deficit. Normal speech. Psychiatry: No agitation. Tan catheter. Problem List: Sepsis secondary to Acute gangrenous cholecystitis, s/p lap marzena (10/02) Elevated LFTs secondary to cholecystitis Acute hypoxic respiratory failure Acute DVT (left common femoral) Iron deficiency anemia ROLANDA on CKD4 Bilateral hydronephrosis, resolved Liver mass; incidental finding Stage 1 sacral decubitus pressure ulcer Constipation, resolved UTI POA Candidiasis IDDM2 Uncontrolled hypertension Hyperlipidemia Hypernatremia Sepsis secondary to Acute gangrenous cholecystitis, s/p lap marzena (10/02) Elevated LFTs Acute hypoxic respiratory failure s/p lap marzena 10/[address] Lion; found to have Gangrenous GB, bowel adhesions to abd wall, ventral hernia. LFTs improving. Dr. Lion reports he noted liver cirrhosis intra-op. continue IV merrem (10/04-) and oral doxy (10/07-) Blood cx (09/30): No growth CT abd/pelvis (10/04): 5x3 cm collection in the gallbladder fossa suggestive of hematoma. Dr. Lion suspects this is related to Khalida and fluid collection CT abd/pelvis (10/10): Postoperative enhancing fluid collection along the lower margin of the right hepatic lobe near the subhepatic recess measuring 4.2 x 8.8 x 4.8 cm. Possible Abscess. A postoperative seroma or biloma is also within the differential. Abdominal ultrasound today demonstrated complex fluid collection in the same location suspicious for abscess. US guided IR drainage of fluid collection ordered. Lovenox on hold for aspiration procedure. Continue full liquid diet. continue Protonix. Dr. Lion is following Acute DVT (left common femoral) Iron deficiency anemia venous u/s (10/04): acute thrombus left common femoral vein s/p heparin drip for acute DVT (10/04-10/06) Started on oral eliquis, and plavix dc'd on (10/07) iron studies (10/07): iron 14, tsat% 11.8 continue IV iron (125mg); started (10/09) Status post 1 unit PRBC transfusion for anemia Eliquis transitioned to Lovenox in the event she may need a procedure (10/11). Lovenox held today for IR procedure. ROLANDA on CKD4 Bilateral hydronephrosis Acute urinary retention CT abdomen (09/30): Moderate bilateral hydroureteronephrosis with significantly distended bladder ~1100 ml urine drained with Tan catheter insertion in the ED (09/30) Tan in place Nephrology is following. Serum creatinine is stable Continue to monitor renal function. Follow-up with neurologist as outpatient. Liver mass; incidental finding CT abd/pelvis (09/30): Heterogeneity of the inferior aspect of the right hepatic lobe which may be artifact from the patient's arm. repeat CT (10/04): 6.6 cm heterogeneous low density area right lobe of the liver could represent abscess or benign or malignant neoplasm. It probably does not represent a hematoma as it likely was present on the prior exam. Stage 2 sacral decubitus pressure ulcer wound photos in EMR 10/04 Pressure offloading. Frequent turning. Constipation, resolved resolved PRN glycolax colace BID UTI POA Candidiasis UA with moderate yeast s/p oral diflucan x5 days (09/30-10/05) IDDM2 hypoglycemia accu-cheks, SSI states 10/08 - she takes ~30-40units insulin BID not the TID listed as home med Long-acting insulin is on hold Hypertension Fluctuating BP, high BP over the past 24 hours. Continue current antihypertensives. Hydralazine as needed for BP spikes. Hyperlipidemia Continue home medication. 10/14 Status post IR aspiration of gallbladder fossa yesterday. Aspirated fluid shows no growth. CATARINO Drain in place, draining sanguinous fluid, no cloudiness. Patient has been afebrile, leukocytosis resolved. General surgery Dr. Lion is following and suspect fluid collection in the gallbladder fossa is not an abscess, and likely related to Khalida. Continue antibiotics for now Awaiting 48-hour fluid culture. Increase feeding as tolerated. Nutritional supplementation Continue PT. Titrate nifedipine for severe hypertension. 10/15 Patient is eating more and more interactive. Leukocytosis resolved and stable. Infectious diseases following and managing antibiotics. Meropenem duration per Dr. Oliveros. Continue PT Continue current antihypertensives. Local wound care-frequent turning and offloading for worsening sacral decubitus ulcer. Nutritional supplementation. Disposition to [facility] pending insurance authorization. 10/16 Patient is more active today. She was able to sit at the edge of the bed with therapy yesterday. reports her oral intake is improving. Patient denies any pain. Right upper quadrant CATARINO drain with small amount of sanguinous fluid drainage. Gallbladder fossa fluid culture showed no growth. Discontinue antibiotics and monitor. Nutritional supplementation Frequent turning, decubitus ulcer precautions. Add hydralazine for blood pressure control. [id number] review for SNF done awaiting approval. VTE: Lovenox Code: Full Dispo: [facility] - [facility].
[2024-10-16] MEDS: HYDRALAZINE HCL 25 MG TABLET PO SCH (20:50)
[2024-10-16] MEDS: NIFEDIPINE XL 60 MG TABLET PO SCH (20:50)
[2024-10-17 06:45] LABS: Absolute Basophils 0.1 K/uL (0-0.5); Absolute Eosinophils 0.3 K/uL (0-0.5); Absolute Neutrophil 6.2 K/uL (1.8-8.0); Basophils % 0.5 % (0-1.3); Eosinophils % 3.1 % (0-4.4); Hematocrit 23.1 % (36.0-45.0); Hemoglobin 7.6 g/dL (12.0-15.0); MCH 29.7 pg (27.0-35.0); MCHC 32.7 g/dL (32.0-36.0); MCV 90.9 fL (80-100); MPV 9.2 fL (7.6-11.3); Monocytes % 10.3 % (3.3-12.3); Neutrophils % 65.1 % (41.7-73.7); Platelets 428 thou/uL (152-406); RBC Red Blood Cell Count 2.54 M/uL (3.86-4.86); Red Cell Distribution Width 17.2 % (12.1-15.2)
[2024-10-17 06:57] LABS: Anion Gap 9.8 mEq/L (5.0-15.0); Potassium 3.8 mEq/L (3.5-5.1)
--- NOTE | 2024-10-17 17:19 | P.PN ---
Subjective Date of Service: 10/17/24 Chief Complaint: Sepsis DVT Patient has no new complaint. Patient's clinical condition continue to improve states she is eating more. Patient denies any pain. Physical Examination - Vital Signs Temperature: 97.8 F Blood Pressure: 148/52 Pulse: 68 Respirations: 18 Pulse Ox (%): 94 Assessment And Plan - Plan Physical examination General: Alert and oriented x 2, NAD. Neck: No elevated JVD Heart: Heart sounds 1 and 2 normal, regular rhythm, normal rate. Lungs: Clear to auscultation bilaterally, diminished breath sounds bilaterally, no rhonchi or crackles. Abdomen: Soft, nondistended, clean healing trocar wounds. normal bowel sounds. No tenderness. Right upper quadrant CATARINO drain with sanguinous fluid Extremities: No tenderness, no deformity Skin: Normal skin turgor, no rash. Neuro: No focal motor deficit. Normal speech. Psychiatry: No agitation. Tan catheter. Problem List: Sepsis secondary to Acute gangrenous cholecystitis, s/p lap marzena (10/02) Elevated LFTs secondary to cholecystitis Acute hypoxic respiratory failure Acute DVT (left common femoral) Iron deficiency anemia ROLANDA on CKD4 Bilateral hydronephrosis, resolved Liver mass; incidental finding Stage 1 sacral decubitus pressure ulcer Constipation, resolved UTI POA Candidiasis IDDM2 Uncontrolled hypertension Hyperlipidemia Hypernatremia Sepsis secondary to Acute gangrenous cholecystitis, s/p lap marzena (10/02) Elevated LFTs Acute hypoxic respiratory failure s/p lap marzena 10/[address] Lion; found to have Gangrenous GB, bowel adhesions to abd wall, ventral hernia. LFTs improving. Dr. Lion reports he noted liver cirrhosis intra-op. continue IV merrem (10/04-) and oral doxy (10/07-) Blood cx (09/30): No growth CT abd/pelvis (10/04): 5x3 cm collection in the gallbladder fossa suggestive of hematoma. Dr. Lion suspects this is related to Khalida and fluid collection CT abd/pelvis (10/10): Postoperative enhancing fluid collection along the lower margin of the right hepatic lobe near the subhepatic recess measuring 4.2 x 8.8 x 4.8 cm. Possible Abscess. A postoperative seroma or biloma is also within the differential. Abdominal ultrasound today demonstrated complex fluid collection in the same location suspicious for abscess. US guided IR drainage of fluid collection ordered. Lovenox on hold for aspiration procedure. Continue full liquid diet. continue Protonix. Dr. Lion is following Acute DVT (left common femoral) Iron deficiency anemia venous u/s (10/04): acute thrombus left common femoral vein s/p heparin drip for acute DVT (10/04-10/06) Started on oral eliquis, and plavix dc'd on (10/07) iron studies (10/07): iron 14, tsat% 11.8 continue IV iron (125mg); started (10/09) Status post 1 unit PRBC transfusion for anemia Eliquis transitioned to Lovenox in the event she may need a procedure (10/11). Lovenox held today for IR procedure. ROLANDA on CKD4 Bilateral hydronephrosis Acute urinary retention CT abdomen (09/30): Moderate bilateral hydroureteronephrosis with significantly distended bladder ~1100 ml urine drained with Tan catheter insertion in the ED (09/30) Tan in place Nephrology is following. Serum creatinine is stable Continue to monitor renal function. Follow-up with neurologist as outpatient. Liver mass; incidental finding CT abd/pelvis (09/30): Heterogeneity of the inferior aspect of the right hepatic lobe which may be artifact from the patient's arm. repeat CT (10/04): 6.6 cm heterogeneous low density area right lobe of the liver could represent abscess or benign or malignant neoplasm. It probably does not represent a hematoma as it likely was present on the prior exam. Stage 2 sacral decubitus pressure ulcer wound photos in EMR 10/04 Pressure offloading. Frequent turning. Constipation, resolved resolved PRN glycolax colace BID UTI POA Candidiasis UA with moderate yeast s/p oral diflucan x5 days (09/30-10/05) IDDM2 hypoglycemia accu-cheks, SSI states 10/08 - she takes ~30-40units insulin BID not the TID listed as home med Long-acting insulin is on hold Hypertension Fluctuating BP, high BP over the past 24 hours. Continue current antihypertensives. Hydralazine as needed for BP spikes. Hyperlipidemia Continue home medication. 10/14 Status post IR aspiration of gallbladder fossa yesterday. Aspirated fluid shows no growth. CATARINO Drain in place, draining sanguinous fluid, no cloudiness. Patient has been afebrile, leukocytosis resolved. General surgery Dr. Lion is following and suspect fluid collection in the gallbladder fossa is not an abscess, and likely related to Khalida. Continue antibiotics for now Awaiting 48-hour fluid culture. Increase feeding as tolerated. Nutritional supplementation Continue PT. Titrate nifedipine for severe hypertension. 10/15 Patient is eating more and more interactive. Leukocytosis resolved and stable. Infectious diseases following and managing antibiotics. Meropenem duration per Dr. Oliveros. Continue PT Continue current antihypertensives. Local wound care-frequent turning and offloading for worsening sacral decubitus ulcer. Nutritional supplementation. Disposition to [facility] pending insurance authorization. 10/16 Patient is more active today. She was able to sit at the edge of the bed with therapy yesterday. reports her oral intake is improving. Patient denies any pain. Right upper quadrant CATARINO drain with small amount of sanguinous fluid drainage. Gallbladder fossa fluid culture showed no growth. Discontinue antibiotics and monitor. Nutritional supplementation Frequent turning, decubitus ulcer precautions. Add hydralazine for blood pressure control. [id number] review for SNF done awaiting approval. 10/17 Patient continues to improve clinically. She is eating more. She denies any pain Blood pressure improved with addition of hydralazine, vitals are stable. Right upper quadrant CATARINO drain continues to drain small amount of sanguinous fluid. Continue antibiotics as long as the CATARINO drain is simply. IR to remove CATARINO drain on Saturday. Continue PT. Decubitus ulcer precautions discussed with nursing staff. VTE: Lovenox Code: Full Dispo: [facility] - [facility].
[2024-10-18 06:42] LABS: Absolute Basophils 0.1 K/uL (0-0.5); Absolute Eosinophils 0.3 K/uL (0-0.5); Absolute Lymphocytes (CBC) 1.8 K/uL (0.7-4.9); Absolute Monocytes 0.9 K/uL (0.1-1.3); Absolute Neutrophil 6.4 K/uL (1.8-8.0); Basophils % 0.6 % (0-1.3); Eosinophils % 3.1 % (0-4.4); Hematocrit 24.9 % (36.0-45.0); MCH 29.2 pg (27.0-35.0); MCV 91.2 fL (80-100); MPV 9.3 fL (7.6-11.3); Monocytes % 9.5 % (3.3-12.3); Neutrophils % 67.8 % (41.7-73.7); Platelets 454 thou/uL (152-406); RBC Red Blood Cell Count 2.73 M/uL (3.86-4.86); Red Cell Distribution Width 17.1 % (12.1-15.2)
[2024-10-18 06:49] LABS: Anion Gap 9.8 mEq/L (5.0-15.0); Potassium 3.8 mEq/L (3.5-5.1)
[2024-10-18 06:56] LABS: Nucleated Red Blood Cells % 0.1 % (0-0)
[2024-10-18] MEDS: POTASSIUM CL SA 10 MEQ TAB PO ONE (09:20)
--- NOTE | 2024-10-18 17:30 | P.PN ---
Subjective Date of Service: 10/18/24 Chief Complaint: Sepsis DVT Patient has no new complaint. Patient oral intake continue to improve No issues overnight. Patient denies any pain. Physical Examination - Vital Signs Temperature: 97.5 F Blood Pressure: 146/43 Pulse: 58 Respirations: 18 Pulse Ox (%): 96 Assessment And Plan - Plan Physical examination General: Alert and oriented x 2, NAD. Heart: Heart sounds 1 and 2 normal, regular rhythm, normal rate. No pedal edema. Lungs: Clear to auscultation bilaterally, diminished breath sounds bilaterally, no rhonchi or crackles. Abdomen: Soft, nondistended, clean healing trocar wounds. normal bowel sounds. No tenderness. Right upper quadrant CATARINO drain in place Extremities: No tenderness. Skin: Normal skin turgor, Stage III sacral decubitus ulcer Neuro: No focal motor deficit. Normal speech. Psychiatry: No agitation. Tan catheter. Problem List: Sepsis secondary to Acute gangrenous cholecystitis, s/p lap marzena (10/02) Elevated LFTs secondary to cholecystitis Acute hypoxic respiratory failure Acute DVT (left common femoral) Iron deficiency anemia ROLANDA on CKD4 Bilateral hydronephrosis, resolved Liver mass; incidental finding Stage 3 sacral decubitus pressure ulcer Constipation, resolved UTI POA Candidiasis IDDM2 Uncontrolled hypertension Hyperlipidemia Hypernatremia Sepsis secondary to Acute gangrenous cholecystitis, s/p lap marzena (10/02) Elevated LFTs Acute hypoxic respiratory failure s/p lap marzena 10/[address] Lion; found to have Gangrenous GB, bowel adhesions to abd wall, ventral hernia. LFTs improving. Dr. Lion reports he noted liver cirrhosis intra-op. continue IV merrem (10/04-) and oral doxy (10/07-) Blood cx (09/30): No growth CT abd/pelvis (10/04): 5x3 cm collection in the gallbladder fossa suggestive of hematoma. Dr. Lion suspects this is related to Khalida and fluid collection CT abd/pelvis (10/10): Postoperative enhancing fluid collection along the lower margin of the right hepatic lobe near the subhepatic recess measuring 4.2 x 8.8 x 4.8 cm. Possible Abscess. A postoperative seroma or biloma is also within the differential. Abdominal ultrasound today demonstrated complex fluid collection in the same location suspicious for abscess. US guided IR drainage of fluid collection ordered. Lovenox on hold for aspiration procedure. Continue full liquid diet. continue Protonix. Dr. Lion is following Acute DVT (left common femoral) Iron deficiency anemia venous u/s (10/04): acute thrombus left common femoral vein s/p heparin drip for acute DVT (10/04-10/06) Started on oral eliquis, and plavix dc'd on (10/07) iron studies (10/07): iron 14, tsat% 11.8 continue IV iron (125mg); started (10/09) Status post 1 unit PRBC transfusion for anemia Eliquis transitioned to Lovenox in the event she may need a procedure (10/11). Lovenox held today for IR procedure. ROLANDA on CKD4 Bilateral hydronephrosis Acute urinary retention CT abdomen (09/30): Moderate bilateral hydroureteronephrosis with significantly distended bladder ~1100 ml urine drained with Tan catheter insertion in the ED (09/30) Tan in place Nephrology is following. Serum creatinine is stable Continue to monitor renal function. Follow-up with neurologist as outpatient. Liver mass; incidental finding CT abd/pelvis (09/30): Heterogeneity of the inferior aspect of the right hepatic lobe which may be artifact from the patient's arm. repeat CT (10/04): 6.6 cm heterogeneous low density area right lobe of the liver could represent abscess or benign or malignant neoplasm. It probably does not represent a hematoma as it likely was present on the prior exam. Stage 2 sacral decubitus pressure ulcer wound photos in EMR 10/04 Pressure offloading. Frequent turning. Constipation, resolved resolved PRN glycolax colace BID UTI POA Candidiasis UA with moderate yeast s/p oral diflucan x5 days (09/30-10/05) IDDM2 hypoglycemia accu-cheks, SSI states 10/08 - she takes ~30-40units insulin BID not the TID listed as home med Long-acting insulin is on hold Hypertension Fluctuating BP, high BP over the past 24 hours. Continue current antihypertensives. Hydralazine as needed for BP spikes. Hyperlipidemia Continue home medication. 10/14 Status post IR aspiration of gallbladder fossa yesterday. Aspirated fluid shows no growth. CATARINO Drain in place, draining sanguinous fluid, no cloudiness. Patient has been afebrile, leukocytosis resolved. General surgery Dr. Lion is following and suspect fluid collection in the gallbladder fossa is not an abscess, and likely related to Khalida. Continue antibiotics for now Awaiting 48-hour fluid culture. Increase feeding as tolerated. Nutritional supplementation Continue PT. Titrate nifedipine for severe hypertension. 10/15 Patient is eating more and more interactive. Leukocytosis resolved and stable. Infectious diseases following and managing antibiotics. Meropenem duration per Dr. Oliveros. Continue PT Continue current antihypertensives. Local wound care-frequent turning and offloading for worsening sacral decubitus ulcer. Nutritional supplementation. Disposition to SNF pending insurance authorization. 10/16 Patient is more active today. She was able to sit at the edge of the bed with therapy yesterday. reports her oral intake is improving. Patient denies any pain. Right upper quadrant CATARINO drain with small amount of sanguinous fluid drainage. Gallbladder fossa fluid culture showed no growth. Discontinue antibiotics and monitor. Nutritional supplementation Frequent turning, decubitus ulcer precautions. Add hydralazine for blood pressure control. [id number] review for SNF done awaiting approval. 10/17 Patient continues to improve clinically. She is eating more. She denies any pain Blood pressure improved with addition of hydralazine, vitals are stable. Right upper quadrant CATARINO drain continues to drain small amount of sanguinous fluid. Continue antibiotics as long as the CATARINO drain is simply. IR to remove CATARINO drain on Saturday. Continue PT. Decubitus ulcer precautions discussed with nursing staff. 10/18 Patient continues to clinically improve and she is eating more. Blood pressure readings have improved Decubitus ulcer precautions Continue PT Awaiting insurance authorization for SNF placement. [id number] reviewed done. IR to remove CATARINO drain tomorrow. VTE: Eliquis Code: Full Dispo: SNF - [facility].
[2024-10-19 09:11] LABS: Absolute Basophils 0.1 K/uL (0-0.5); Absolute Eosinophils 0.5 K/uL (0-0.5); Absolute Lymphocytes (CBC) 1.4 K/uL (0.7-4.9); Absolute Monocytes 0.7 K/uL (0.1-1.3); Absolute Neutrophil 5.2 K/uL (1.8-8.0); Basophils % 1.1 % (0-1.3); Eosinophils % 5.8 % (0-4.4); Hemoglobin 8.3 g/dL (12.0-15.0); Lymphocytes % 17.8 % (15.3-44.8); MCH 29.3 pg (27.0-35.0); MCV 91.6 fL (80-100); MPV 9.1 fL (7.6-11.3); Monocytes % 9.4 % (3.3-12.3); Neutrophils % 65.9 % (41.7-73.7); Platelets 424 thou/uL (152-406); RBC Red Blood Cell Count 2.84 M/uL (3.86-4.86); Red Cell Distribution Width 17.9 % (12.1-15.2)
[2024-10-19 09:25] LABS: Anion Gap 9.1 mEq/L (5.0-15.0); Potassium 4.1 mEq/L (3.5-5.1)
--- NOTE | 2024-10-19 16:54 | P.PN ---
Subjective Date of Service: 10/19/24 Chief Complaint: Sepsis DVT Patient has no new complaint. No issues overnight. Patient denies any pain. Physical Examination - Vital Signs Temperature: 97.5 F Blood Pressure: 144/49 Pulse: 60 Respirations: 18 Pulse Ox (%): 96 Assessment And Plan - Plan Physical examination General: Alert and oriented x 2, NAD. Heart: Heart sounds 1 and 2 normal, regular rhythm, normal rate. No pedal edema. Lungs: Clear to auscultation bilaterally, diminished breath sounds bilaterally, no rhonchi or crackles. Abdomen: Soft, nondistended, clean healing trocar wounds. normal bowel sounds. No tenderness. Right upper quadrant CATARINO drain in place Extremities: No tenderness. Skin: Normal skin turgor, Stage III sacral decubitus ulcer Neuro: No focal motor deficit. Normal speech. Psychiatry: No agitation. Tan catheter. Problem List: Sepsis secondary to Acute gangrenous cholecystitis, s/p lap marzena (10/02) Elevated LFTs secondary to cholecystitis Acute hypoxic respiratory failure Acute DVT (left common femoral) Iron deficiency anemia ROLANDA on CKD4 Bilateral hydronephrosis, resolved Liver mass; incidental finding Stage 3 sacral decubitus pressure ulcer Constipation, resolved UTI POA Candidiasis IDDM2 Uncontrolled hypertension Hyperlipidemia Hypernatremia Sepsis secondary to Acute gangrenous cholecystitis, s/p lap marzena (10/02) Elevated LFTs Acute hypoxic respiratory failure s/p lap marzena 10/[address] Lion; found to have Gangrenous GB, bowel adhesions to abd wall, ventral hernia. LFTs improving. Dr. Lion reports he noted liver cirrhosis intra-op. continue IV merrem (10/04-) and oral doxy (10/07-) Blood cx (09/30): No growth CT abd/pelvis (10/04): 5x3 cm collection in the gallbladder fossa suggestive of hematoma. Dr. Lion suspects this is related to Khalida and fluid collection CT abd/pelvis (10/10): Postoperative enhancing fluid collection along the lower margin of the right hepatic lobe near the subhepatic recess measuring 4.2 x 8.8 x 4.8 cm. Possible Abscess. A postoperative seroma or biloma is also within the differential. Abdominal ultrasound today demonstrated complex fluid collection in the same location suspicious for abscess. US guided IR drainage of fluid collection ordered. Lovenox on hold for aspiration procedure. Continue full liquid diet. continue Protonix. Dr. Lion is following Acute DVT (left common femoral) Iron deficiency anemia venous u/s (10/04): acute thrombus left common femoral vein s/p heparin drip for acute DVT (10/04-10/06) Started on oral eliquis, and plavix dc'd on (10/07) iron studies (10/07): iron 14, tsat% 11.8 continue IV iron (125mg); started (10/09) Status post 1 unit PRBC transfusion for anemia Eliquis transitioned to Lovenox in the event she may need a procedure (10/11). Lovenox held today for IR procedure. ROLANDA on CKD4 Bilateral hydronephrosis Acute urinary retention CT abdomen (09/30): Moderate bilateral hydroureteronephrosis with significantly distended bladder ~1100 ml urine drained with Tan catheter insertion in the ED (09/30) Tan in place Nephrology is following. Serum creatinine is stable Continue to monitor renal function. Follow-up with neurologist as outpatient. Liver mass; incidental finding CT abd/pelvis (09/30): Heterogeneity of the inferior aspect of the right hepatic lobe which may be artifact from the patient's arm. repeat CT (10/04): 6.6 cm heterogeneous low density area right lobe of the liver could represent abscess or benign or malignant neoplasm. It probably does not represent a hematoma as it likely was present on the prior exam. Stage 2 sacral decubitus pressure ulcer wound photos in EMR 10/04 Pressure offloading. Frequent turning. Constipation, resolved resolved PRN glycolax colace BID UTI POA Candidiasis UA with moderate yeast s/p oral diflucan x5 days (09/30-10/05) IDDM2 hypoglycemia accu-cheks, SSI states 10/08 - she takes ~30-40units insulin BID not the TID listed as home med Long-acting insulin is on hold Hypertension Fluctuating BP, high BP over the past 24 hours. Continue current antihypertensives. Hydralazine as needed for BP spikes. Hyperlipidemia Continue home medication. 10/14 Status post IR aspiration of gallbladder fossa yesterday. Aspirated fluid shows no growth. CATARINO Drain in place, draining sanguinous fluid, no cloudiness. Patient has been afebrile, leukocytosis resolved. General surgery Dr. Lion is following and suspect fluid collection in the gallbladder fossa is not an abscess, and likely related to Khalida. Continue antibiotics for now Awaiting 48-hour fluid culture. Increase feeding as tolerated. Nutritional supplementation Continue PT. Titrate nifedipine for severe hypertension. 10/15 Patient is eating more and more interactive. Leukocytosis resolved and stable. Infectious diseases following and managing antibiotics. Meropenem duration per Dr. Oliveros. Continue PT Continue current antihypertensives. Local wound care-frequent turning and offloading for worsening sacral decubitus ulcer. Nutritional supplementation. Disposition to SNF pending insurance authorization. 10/16 Patient is more active today. She was able to sit at the edge of the bed with therapy yesterday. reports her oral intake is improving. Patient denies any pain. Right upper quadrant CATARINO drain with small amount of sanguinous fluid drainage. Gallbladder fossa fluid culture showed no growth. Discontinue antibiotics and monitor. Nutritional supplementation Frequent turning, decubitus ulcer precautions. Add hydralazine for blood pressure control. [id number] review for SNF done awaiting approval. 10/17 Patient continues to improve clinically. She is eating more. She denies any pain Blood pressure improved with addition of hydralazine, vitals are stable. Right upper quadrant CATARINO drain continues to drain small amount of sanguinous fluid. Continue antibiotics as long as the CATARINO drain is simply. IR to remove CATARINO drain on Saturday. Continue PT. Decubitus ulcer precautions discussed with nursing staff. 10/18 Patient continues to clinically improve and she is eating more. Blood pressure readings have improved Decubitus ulcer precautions Continue PT Awaiting insurance authorization for SNF placement. [id number] reviewed done. IR to remove CATARINO drain tomorrow. 10/19 Right upper quadrant CATARINO drain removed today Insurance denied SNF. Family is appealing the insurance decision Patient denies any pain Discontinue antibiotics Decubitus ulcer precautions. Awaiting insurance decision on SNF appeal. Continue PT VTE: Eliquis Code: Full Dispo: SNF pending appeal decision.
[2024-10-20 08:08] LABS: Absolute Basophils 0.1 K/uL (0-0.5); Absolute Eosinophils 0.4 K/uL (0-0.5); Absolute Lymphocytes (CBC) 1.5 K/uL (0.7-4.9); Absolute Monocytes 0.6 K/uL (0.1-1.3); Basophils % 1.1 % (0-1.3); Eosinophils % 5.5 % (0-4.4); Hematocrit 25.6 % (36.0-45.0); Hemoglobin 8.3 g/dL (12.0-15.0); Lymphocytes % 22.9 % (15.3-44.8); MCH 29.6 pg (27.0-35.0); MCHC 32.5 g/dL (32.0-36.0); MCV 91.2 fL (80-100); MPV 9.3 fL (7.6-11.3); Monocytes % 9.7 % (3.3-12.3); Neutrophils % 60.8 % (41.7-73.7); Platelets 423 thou/uL (152-406)
[2024-10-20 08:25] LABS: Anion Gap 8.2 mEq/L (5.0-15.0); Potassium 4.2 mEq/L (3.5-5.1)
--- NOTE | 2024-10-20 11:57 | RAD REPORT ---
EXAMINATION: XR Ankle Left 3 View CLINICAL INDICATION: Female, 79 years old. [facility] reports was fibular fracture, described non-displaced f/u L ?fibula fracture 09/11/24 TECHNIQUE: 3 view radiographs of the left ankle were obtained. COMPARISON: No prior exam. FINDINGS: Oblique mildly comminuted distal fibular metaphysis fracture, with osseous rarefaction and periosteal reaction suggesting early changes of healing. Mild displacement and mild widening of the lateral clear space. Moderate degenerative changes of the midfoot. Mild soft tissue swelling about th e ankle. IMPRESSION: Oblique mildly comminuted distal fibular fracture with mild displacement, and early signs of healing.
--- NOTE | 2024-10-20 12:26 | P.PN ---
Date of Service: 10/20/24 Subjective: no acute events continued improvement, no new/worsening symptoms Physical Exam: GEN: Alert, oriented, NAD CV: Regular rate and rhythm, no edema Pulm: Nonlabored respirations on room air, clear bilaterally Neuro: Normal speech, normal affect Tan (placed 09/30) Problem List: Sepsis secondary to Acute gangrenous cholecystitis, s/p lap marzena (10/02) Elevated LFTs secondary to cholecystitis Acute hypoxic respiratory failure Acute DVT (left common femoral) Iron deficiency anemia ROLANDA on CKD4 Bilateral hydronephrosis, resolved Acute urinary retention Mildly displaced distal fibular fracture Liver mass; incidental finding Stage 1 sacral decubitus pressure ulcer Constipation, resolved UTI POA Candidiasis IDDM2 Hypertension Hyperlipidemia Hypernatremia Sepsis secondary to Acute gangrenous cholecystitis, s/p lap marzena (10/02) Elevated LFTs Acute hypoxic respiratory failure s/p lap marzena 10/[address] Lion; found to have Gangrenous GB, bowel adhesions to abd wall, ventral hernia. LFTs improving. Dr. Lion reports he noted liver cirrhosis intra-op. CT abd/pelvis (10/04): 5x3 cm collection in the gallbladder fossa suggestive of hematoma. CT abd/pelvis (10/10): Postoperative enhancing fluid collection along the lower margin of the right hepatic lobe near the subhepatic recess measuring 4.2 x 8.[address] Lion suspects fluid collection in the gallbladder fossa is not an abscess , and likely related to Khalida. s/p IR aspiration of gallbladder fossa (10/13) s/p 2+ weeks of IV merrem (10/04-10/19) and oral doxy (10/07-10/19) Aspirated fluid shows no growth. Afebrile, leukocytosis resolved. RUQ CATARINO drain removed 10/19 Diet as tolerated. Appetite improving. Denies any pains. oral protonix BID 10/20 continues to improve Acute DVT (left common femoral) Iron deficiency anemia venous u/s (10/04): acute thrombus left common femoral vein s/p heparin drip for acute DVT (10/04-10/06) Started on oral eliquis, and plavix dc'd on (10/07) iron studies (10/07): iron 14, tsat% 11.8 s/p IV iron (125mg) Hgb stable. Eliquis restarted 10/15 ROLANDA on CKD4 Bilateral hydronephrosis, resolved Acute urinary retention CT abdomen (09/30): Moderate bilateral hydroureteronephrosis with significantly distended bladder ~1100 ml urine drained with Tan catheter insertion in the ED (09/30) unclear etiology, possible yeast uti Tan in place (placed 09/30) Nephrology consulted Continue to monitor renal function - stable Mildly displaced distal fibular fracture Ankle xray (10/20): Oblique mildly comminuted distal fibular fracture with mild displacement, and early signs of healing. Mild soft tissue swelling. Patient reports of left fibular fracture that occurred ~Sep 11 2024 - saw Dr. Kelly in office; 10/20 will reach out to see if any change in weightbearing status Pain control Liver mass; incidental finding CT abd/pelvis (09/30): Heterogeneity of the inferior aspect of the right hepatic lobe which may be artifact from the patient's arm. repeat CT (10/04): 6.6 cm heterogeneous low density area right lobe of the liver could represent abscess or benign or malignant neoplasm. It probably does not represent a hematoma as it likely was present on the prior exam. Stage 1 sacral decubitus pressure ulcer wound photos in EMR 10/04 Pressure offloading. Frequent turning. Constipation, resolved resolved PRN glycolax colace BID UTI POA Candidiasis UA with moderate yeast s/p oral diflucan x5 days (09/30-10/05) IDDM2 hypoglycemia accu-cheks, SSI states 10/08 - she takes ~30-40units insulin BID not the TID listed as home med long acting insulin on hold Hypertension Hyperlipidemia Continue home meds VTE: Eliquis Code: Full Dispo: SNF denied; pending SNF appeal Time Spent Managing Pts Care (In Minutes): 40
[2024-10-20] MEDS ORDERED: ALBUTEROL 2.5 MG/3 ML NEB SOL NEB PRN (13:59)
[2024-10-21 06:32] LABS: Hematocrit 23.9 % (36.0-45.0); Hemoglobin 7.6 g/dL (12.0-15.0); MCH 29.3 pg (27.0-35.0); MCHC 31.9 g/dL (32.0-36.0); MPV 9.6 fL (7.6-11.3); Platelets 360 thou/uL (152-406); Red Cell Distribution Width 17.3 % (12.1-15.2)
[2024-10-21 06:55] LABS: Albumin 1.8 g/dL (3.4-5.0); Anion Gap 7.9 mEq/L (5.0-15.0); Magnesium 1.8 mg/dL (1.6-2.4); Potassium 3.9 mEq/L (3.5-5.1)
--- NOTE | 2024-10-21 11:48 | P.PN ---
Date of Service: 10/21/24 Subjective: no acute events continued improvement, no new/worsening symptoms reports some rectal pin with BM, h/o hemorrhoids - uses suppositories at home, pain for last several days Physical Exam: GEN: Alert, oriented, NAD CV: Regular rate and rhythm, no edema Pulm: Nonlabored respirations on room air, clear bilaterally Neuro: Normal speech, normal affect Morgan (placed 09/30) Problem List: Sepsis secondary to Acute gangrenous cholecystitis, s/p lap marzena (10/02) Elevated LFTs secondary to cholecystitis Acute hypoxic respiratory failure Acute DVT (left common femoral) Iron deficiency anemia ROLANDA on CKD4 Bilateral hydronephrosis, resolved Acute urinary retention Mildly displaced distal fibular fracture Liver mass; incidental finding Stage 1 sacral decubitus pressure ulcer Constipation, resolved UTI POA Candidiasis IDDM2 Hypertension Hyperlipidemia Hypernatremia Sepsis secondary to Acute gangrenous cholecystitis, s/p lap marzena (10/02) Elevated LFTs Acute hypoxic respiratory failure s/p lap marzena 10/[address] Lion; found to have Gangrenous GB, bowel adhesions to abd wall, ventral hernia. LFTs improving. Dr. Lion reports he noted liver cirrhosis intra-op. CT abd/pelvis (10/04): 5x3 cm collection in the gallbladder fossa suggestive of hematoma. CT abd/pelvis (10/10): Postoperative enhancing fluid collection along the lower margin of the right hepatic lobe near the subhepatic recess measuring 4.2 x 8.[address] Lion suspects fluid collection in the gallbladder fossa is not an abscess, and likely related to Khalida. s/p IR aspiration of gallbladder fossa (10/13) s/p 2+ weeks of IV merrem (10/04-10/19) and oral doxy (10/07-10/19) Aspirated fluid shows no growth. Afebrile, leukocytosis resolved. RUQ CATARINO drain removed 10/19 Diet as tolerated. Appetite improving. Denies any pains. oral protonix BID 10/20 continues to improve 10/21 stable Acute DVT (left common femoral) Iron deficiency anemia venous u/s (10/04): acute thrombus left common femoral vein s/p heparin drip for acute DVT (10/04-10/06) Started on oral eliquis, and plavix dc'd on (10/07) iron studies (10/07): iron 14, tsat% 11.8 s/p IV iron (125mg) Eliquis restarted 10/15 PO iron ROLANDA on CKD4 Bilateral hydronephrosis, resolved Acute urinary retention CT abdomen (09/30): Moderate bilateral hydroureteronephrosis with significantly distended bladder ~1100 ml urine drained with Morgan catheter insertion in the ED (09/30) 10/21 - Case discussed with nephrology. Possibly some degree on chronic retention. Prior recent outpatient labs with GFR ~15-20 per nephro. Plan to discharge with morgan in place. Patient will need to follow up with Urology for further work up. Continue to monitor renal function - stable Mildly displaced distal fibular fracture Ankle xray (10/20): Oblique mildly comminuted distal fibular fracture with mild displacement, and early signs of healing. Mild soft tissue swelling. Patient reports of left fibular fracture that occurred ~Sep 11 2024 - saw Dr. Kelly in office; 10/20 will reach out to see if any change in weightbearing status Pain control Liver mass; incidental finding CT abd/pelvis (09/30): Heterogeneity of the inferior aspect of the right hepatic lobe which may be artifact from the patient's arm. repeat CT (10/04): 6.6 cm heterogeneous low density area right lobe of the liver could represent abscess or benign or malignant neoplasm. It probably does not represent a hematoma as it likely was present on the prior exam. Stage 1 sacral decubitus pressure ulcer wound photos in EMR 10/04 Pressure offloading. Frequent turning. Constipation, resolved resolved PRN glycolax colace BID UTI POA Candidiasis UA with moderate yeast s/p oral diflucan x5 days (09/30-10/05) IDDM2 hypoglycemia accu-cheks, SSI states 10/08 - she takes ~30-40units insulin BID not the TID listed as home med long acting insulin on hold Hypertension Hyperlipidemia Continue home meds VTE: Eliquis Code: Full Dispo: SNF denied; pending SNF appeal Time Spent Managing Pts Care (In Minutes): 40
--- NOTE | 2024-10-21 11:55 | P.PN ---
-Nephrology note (S) Pt denies abd pain, N/V/D, renal function tests stable, morgan remains in place, draining well, BP range improved. A bit more lethargic this AM per who is at bedside, case discussed in detail (O) vitals reviewed in the EMR General: NAD, Cooperative HEENT: Atraumatic, sclera anicteric, off LFNC Neck: Supple Respiratory: Normal air movement, non tachypnec, Cardiovascular: Regular rate/rhythm mostly, Gastrointestinal: Some distention, obese, NT, no guarding, surgical incisions Musculoskeletal: Lt leg immobilizer removed, prior peripheral edema improved Integumentary: No rashes, Neurological: Sleeping but awakens easily, responds briefly, no tremors Blood work reviewed in the chart. Conclusions/Impression: Stage III ARF episode last mo after prior ROLANDA episode preceding on underlying CKD NOS -ARF in the setting of urinary retention, hydro with Cr levels downward trending to levels better than prior baseline s/p bladder decompression. Urinary Retention, unspecified -In the setting of recent pain meds, constipation, other, but possibly chronic in part with her prior renal function tests/Cr levels sig higher than current. Would maintain morgan for now and as OP would pursue voiding trial then HTN with CKD/ CHF unspecified -BP prev mod elevated at times, last week raised CCB dose back to 60 mg q12h with holding parameters, doing better since, no scheduled diuretics needed currently Anemia in chronic illness, iron deficiency, other -T sat low last mo, will place on low PO iron Leukocytosis, acute cholecystitis, abnormal results of LFTs POA. Abnormality of albumin -Complicated course, management per surgery/IM. Cont protein supplementation
[2024-10-21] MEDS: FERROUS SULFATE 325 MG TAB PO SCH (12:37)
[2024-10-22] MEDS: FORMULATION-R RECTAL 57GM PR PRN (03:17)
[2024-10-22 06:27] LABS: Hematocrit 24.2 % (36.0-45.0); MCH 29.9 pg (27.0-35.0); MCHC 33.2 g/dL (32.0-36.0); MCV 90.1 fL (80-100); MPV 9.9 fL (7.6-11.3); Platelets 334 thou/uL (152-406); RBC Red Blood Cell Count 2.69 M/uL (3.86-4.86); Red Cell Distribution Width 17.9 % (12.1-15.2)
[2024-10-22 06:44] LABS: Albumin 1.9 g/dL (3.4-5.0); Anion Gap 9.8 mEq/L (5.0-15.0); Magnesium 1.9 mg/dL (1.6-2.4); Phosphorus 2.9 mg/dL (2.5-4.9); Potassium 3.8 mEq/L (3.5-5.1)
[2024-10-22] MEDS: HYDROCORTISONE ACETATE 25MG SUPP PR SCH (08:19)
[2024-10-22] MEDS: POTASSIUM 25 MEQ EFFERV TAB PO ONE (08:20)
--- NOTE | 2024-10-22 10:51 | P.PN ---
-Nephrology note (S) Pt denies abd pain, N/V, nathan constipation, encouraged PO intake, renal function tests stable, morgan remains in place, draining well. (O) vitals reviewed in the EMR General: NAD, Cooperative HEENT: Atraumatic, sclera anicteric, off LFNC Neck: Supple Respiratory: Normal air movement, non tachypnec, Cardiovascular: Regular rate/rhythm mostly, Gastrointestinal: Some distention, obese, NT, no guarding, surgical incisions, drain(s) removed Musculoskeletal: Lt leg immobilizer removed, prior peripheral edema improved Integumentary: No rashes, Neurological: Awake, responds briefly, no tremors Blood work reviewed in the chart. Conclusions/Impression: Stage III ARF episode last mo after prior ROLANDA episode preceding on underlying CKD NOS -ARF in the setting of urinary retention, hydro with Cr levels downward trending to levels better than prior baseline s/p bladder decompression. Urinary Retention, unspecified -In the setting of recent pain meds, constipation, other, but possibly chronic in part with her prior renal function tests/Cr levels sig higher than current. Would maintain morgan for now and as OP would pursue voiding trial then HTN with CKD/ CHF unspecified -BP prev mod elevated at times, last week raised CCB dose back to 60 mg q12h with holding parameters, doing better since, no scheduled diuretics needed currently Anemia in chronic illness, iron deficiency, other -T sat low last mo, will place on low PO iron Leukocytosis, acute cholecystitis, abnormal results of LFTs POA. Abnormality of albumin -Complicated course, management per surgery/IM. Cont protein supplementation
--- NOTE | 2024-10-22 11:55 | P.PN ---
Date of Service: 10/22/24 Subjective: no acute events overnight feeling better denies any pains Physical Exam: GEN: Alert, oriented, NAD CV: Regular rate and rhythm, no edema Pulm: Nonlabored respirations on room air, clear bilaterally Neuro: Normal speech, normal affect Morgan (placed 09/30) Problem List: Sepsis secondary to Acute gangrenous cholecystitis, s/p lap marzena (10/02) Elevated LFTs secondary to cholecystitis Acute hypoxic respiratory failure Acute DVT (left common femoral) Iron deficiency anemia ROLANDA on CKD4 Bilateral hydronephrosis, resolved Acute urinary retention Mildly displaced distal fibular fracture Liver mass; incidental finding Stage 1 sacral decubitus pressure ulcer Constipation, resolved UTI POA Candidiasis IDDM2 Hypertension Hyperlipidemia Hypernatremia Sepsis secondary to Acute gangrenous cholecystitis, s/p lap marzena (10/02) Elevated LFTs Acute hypoxic respiratory failure s/p lap marzena 10/[address] Lion; found to have Gangrenous GB, bowel adhesions to abd wall, ventral hernia. LFTs improving. Dr. Lion reports he noted liver cirrhosis intra-op. CT abd/pelvis (10/04): 5x3 cm collection in the gallbladder fossa suggestive of hematoma. CT abd/pelvis (10/10): Postoperative enhancing fluid collection along the lower margin of the right hepatic lobe near the subhepatic recess measuring 4.2 x 8.[address] Lion suspects fluid collection in the gallbladder fossa is not an abscess, and likely related to Khalida. s/p IR aspiration of gallbladder fossa (10/13) s/p 2+ weeks of IV merrem (10/04-10/19) and oral doxy (10/07-10/19) Aspirated fluid shows no growth. Afebrile, leukocytosis resolved. RUQ CATARINO drain removed 10/19 Diet as tolerated. Appetite improving. Denies any pains. oral protonix BID 10/20 continues to improve 10/21 stable 10/22 No acute events. Denies pains. Pending SNF appeal Acute DVT (left common femoral) Iron deficiency anemia venous u/s (10/04): acute thrombus left common femoral vein s/p heparin drip for acute DVT (10/04-10/06) Started on oral eliquis, and plavix dc'd on (10/07) iron studies (10/07): iron 14, tsat% 11.8 s/p IV iron (125mg) Eliquis restarted 10/15 10/21 PO iron started ROLANDA on CKD4 Bilateral hydronephrosis, resolved Acute urinary retention CT abdomen (09/30): Moderate bilateral hydroureteronephrosis with significantly distended bladder ~1100 ml urine drained with Morgan catheter insertion in the ED (09/30) 10/21 - Case discussed with nephrology. Possibly some degree on chronic retention. Prior recent outpatient labs with GFR ~15-20 per nephro. Plan to discharge with morgan in place. Patient will need to follow up with Urology for further work up. Continue to monitor renal function - stable Mildly displaced distal fibular fracture Ankle xray (10/20): Oblique mildly comminuted distal fibular fracture with mild displacement, and early signs of healing. Mild soft tissue swelling. Patient reports of left fibular fracture that occurred ~Sep 11 2024 - saw Dr. Kelly in office; 10/20 will reach out to see if any change in weightbearing status Pain control 10/22 - discussed with Dr. Kelly - reviewed repeat imaging, ok to ambulate with walking boot Liver mass; incidental finding CT abd/pelvis (09/30): Heterogeneity of the inferior aspect of the right hepatic lobe which may be artifact from the patient's arm. repeat CT (10/04): 6.6 cm heterogeneous low density area right lobe of the liver could represent abscess or benign or malignant neoplasm. It probably does not represent a hematoma as it likely was present on the prior exam. Stage 1 sacral decubitus pressure ulcer wound photos in EMR 10/04 Pressure offloading. Frequent turning. Constipation, resolved resolved PRN glycolax colace BID UTI POA Candidiasis UA with moderate yeast s/p oral diflucan x5 days (09/30-10/05) IDDM2 hypoglycemia accu-cheks, SSI states 10/08 - she takes ~30-40units insulin BID not the TID listed as home med long acting insulin on hold Hypertension Hyperlipidemia Continue home meds VTE: Eliquis Code: Full Dispo: SNF denied; pending SNF appeal Time Spent Managing Pts Care (In Minutes): 40
--- NOTE | 2024-10-23 09:04 | P.PN ---
Date of Service: 10/23/24 Subjective: no events overnight pending appeal stable Physical Exam: GEN: Alert, oriented, NAD CV: Regular rate and rhythm, no edema Pulm: Nonlabored respirations on room air, clear bilaterally Neuro: Normal speech, normal affect Morgan (placed 09/30) Problem List: Sepsis secondary to Acute gangrenous cholecystitis, s/p lap marzena (10/02) Elevated LFTs secondary to cholecystitis Acute hypoxic respiratory failure Acute DVT (left common femoral) Iron deficiency anemia ROLANDA on CKD4 Bilateral hydronephrosis, resolved Acute urinary retention Mildly displaced distal fibular fracture Liver mass; incidental finding Stage 1 sacral decubitus pressure ulcer Constipation, resolved UTI POA Candidiasis IDDM2 Hypertension Hyperlipidemia Hypernatremia Sepsis secondary to Acute gangrenous cholecystitis, s/p lap marzena (10/02) Elevated LFTs Acute hypoxic respiratory failure s/p lap marzena 10/[address] Lion; found to have Gangrenous GB, bowel adhesions to abd wall, ventral hernia. LFTs improving. Dr. Lion reports he noted liver cirrhosis intra-op. CT abd/pelvis (10/04): 5x3 cm collection in the gallbladder fossa suggestive of hematoma. CT abd/pelvis (10/10): Postoperative enhancing fluid collection along the lower margin of the right hepatic lobe near the subhepatic recess measuring 4.2 x 8.[address] Lion suspects fluid collection in the gallbladder fossa is not an abscess, and likely related to Khalida. s/p IR aspiration of gallbladder fossa (10/13) s/p 2+ weeks of IV merrem (10/04-10/19) and oral doxy (10/07-10/19) Aspirated fluid shows no growth. Afebrile, leukocytosis resolved. RUQ CATARINO drain removed 10/19 Diet as tolerated. Appetite improving. Denies any pains. oral protonix BID 10/20 continues to improve 10/21 stable 10/22 No acute events. Denies pains. 10/23 Stable. continue PT. Pending SNF appeal Acute DVT (left common femoral) Iron deficiency anemia venous u/s (10/04): acute thrombus left common femoral vein s/p heparin drip for acute DVT (10/04-10/06) Started on oral eliquis, and plavix dc'd on (10/07) iron studies (10/07): iron 14, tsat% 11.8 s/p IV iron (125mg) Eliquis restarted 10/15 10/21 PO iron started ROLANDA on CKD4 Bilateral hydronephrosis, resolved Acute urinary retention CT abdomen (09/30): Moderate bilateral hydroureteronephrosis with significantly distended bladder ~1100 ml urine drained with Morgan catheter insertion in the ED (09/30) 10/21 - Case discussed with nephrology. Possibly some degree on chronic retention. Prior recent outpatient labs with GFR ~15-20 per nephro. Plan to discharge with morgan in place. Patient will need to follow up with Urology for further work up. Continue to monitor renal function - stable Mildly displaced distal fibular fracture Ankle xray (10/20): Oblique mildly comminuted distal fibular fracture with mild displacement, and early signs of healing. Mild soft tissue swelling. Patient reports of left fibular fracture that occurred ~Sep 11 2024 - saw Dr. Kelly in office; Pain control 10/22 - discussed with Dr. Kelly - reviewed repeat imaging, ok to ambulate with walking boot Liver mass; incidental finding CT abd/pelvis (09/30): Heterogeneity of the inferior aspect of the right hepatic lobe which may be artifact from the patient's arm. repeat CT (10/04): 6.6 cm heterogeneous low density area right lobe of the liver could represent abscess or benign or malignant neoplasm. It probably does not represent a hematoma as it likely was present on the prior exam. Stage 1 sacral decubitus pressure ulcer wound photos in EMR 10/04 Pressure offloading. Frequent turning. Constipation, resolved PRN glycolax colace BID h/o hemorrhoids, started suppositories UTI POA Candidiasis UA with moderate yeast s/p oral diflucan x5 days (09/30-10/05) IDDM2 hypoglycemia accu-cheks, SSI states 10/08 - she takes ~30-40units insulin BID not the TID listed as home med long acting insulin on hold Hypertension Hyperlipidemia Continue home meds VTE: Eliquis Code: Full Dispo: pending SNF appeal Time Spent Managing Pts Care (In Minutes): 40
--- NOTE | 2024-10-23 11:13 | P.PN ---
-Nephrology note (S) Pt denies abd pain, N/V, dyspnea, encouraged PO intake, renal function tests stable on last check, vitals stable, morgan remains in place, draining well. (O) vitals reviewed in the EMR General: NAD, Cooperative HEENT: Atraumatic, sclera anicteric, off LFNC Neck: Supple Respiratory: Normal air movement, non tachypnec, Cardiovascular: Regular rate/rhythm mostly, Gastrointestinal: Some distention, obese, NT, no guarding, surgical incisions, drain(s) removed Musculoskeletal: Lt leg immobilizer removed, prior peripheral edema improved Integumentary: No rashes, Neurological: Awake, responds briefly, no tremors Blood work reviewed in the chart. Conclusions/Impression: Stage III ARF episode last mo after prior ROLANDA episode preceding on underlying CKD NOS -ARF in the setting of urinary retention, hydro with Cr levels downward trending to levels better than prior baseline s/p bladder decompression. Urinary Retention, unspecified -In the setting of recent pain meds, constipation, other, but possibly chronic in part with her prior renal function tests/Cr levels sig higher than current. Would maintain morgan for now and as OP would pursue voiding trial then. Cont morgan care, replace morgan catheter every 30 days HTN with CKD/ CHF unspecified -BP prev mod elevated at times, prevraised CCB dose back to 60 mg q12h with holding parameters, doing better since, no scheduled diuretics needed currently. Prior peripheral edema issues resolved. Monitor for any orthostatic symptoms Anemia in chronic illness, iron deficiency, other -T sat low last mo, did place on PO iron Leukocytosis, acute cholecystitis, abnormal results of LFTs POA. Abnormality of albumin -Complicated course, management per surgery/IM. Cont protein supplementation
[2024-10-24 06:42] LABS: Anion Gap 8.8 mEq/L (5.0-15.0); Potassium 3.8 mEq/L (3.5-5.1)
--- NOTE | 2024-10-24 08:37 | P.PN ---
Date of Service: 10/24/24 Subjective: denies any new / worsening problems feels less rectal pressure/pain today waiting to hear back about SNF Physical Exam: GEN: Alert, oriented, NAD CV: Regular rate and rhythm, no edema Pulm: Nonlabored respirations on room air, clear bilaterally Neuro: Normal speech, normal affect Morgan with light sediment (placed 09/30) Problem List: Sepsis secondary to Acute gangrenous cholecystitis, s/p lap marzena (10/02) Elevated LFTs secondary to cholecystitis Acute hypoxic respiratory failure Acute DVT (left common femoral) Iron deficiency anemia ROLANDA on CKD4 Bilateral hydronephrosis, resolved Acute urinary retention Mildly displaced distal fibular fracture Liver mass; incidental finding Stage 1 sacral decubitus pressure ulcer Constipation, resolved UTI POA Candidiasis IDDM2 Hypertension Hyperlipidemia Hypernatremia Sepsis secondary to Acute gangrenous cholecystitis, s/p lap marzena (10/02) Elevated LFTs Acute hypoxic respiratory failure s/p lap marzena 10/[address] Lion; found to have Gangrenous GB, bowel adhesions to abd wall, ventral hernia. LFTs improving. Dr. Lion reports he noted liver cirrhosis intra-op. CT abd/pelvis (10/04): 5x3 cm collection in the gallbladder fossa suggestive of hematoma. CT abd/pelvis (10/10): Postoperative enhancing fluid collection along the lower margin of the right hepatic lobe near the subhepatic recess measuring 4.2 x 8.[address] Lion suspects fluid collection in the gallbladder fossa is not an abscess, and likely related to Khalida. s/p IR aspiration of gallbladder fossa (10/13) s/p 2+ weeks of IV merrem (10/04-10/19) and oral doxy (10/07-10/19) Aspirated fluid shows no growth. Afebrile, leukocytosis resolved. RUQ CATARINO drain removed 10/19 Diet as tolerated. Appetite improving. Denies any pains. oral protonix BID 10/20 continues to improve 10/21 stable 10/22 No acute events. Denies pains. 10/23 Stable. continue PT. 10/24 No new issues. Rectal pressure improving. Pending SNF appeal Acute DVT (left common femoral) Iron deficiency anemia venous u/s (10/04): acute thrombus left common femoral vein s/p heparin drip for acute DVT (10/04-10/06) Started on oral eliquis, and plavix dc'd on (10/07) iron studies (10/07): iron 14, tsat% 11.8 s/p IV iron (125mg) Eliquis restarted 10/15 10/21 PO iron started ROLANDA on CKD4 Bilateral hydronephrosis, resolved Acute urinary retention ROLANDA resolved. Renal function improved/stable. CT abdomen (09/30): Moderate bilateral hydroureteronephrosis with significantly distended bladder 09/30 - ~1100 ml urine drained with Morgan catheter insertion in the ED 10/21 - Case discussed with nephrology. Possibly some degree on chronic retention. Prior recent outpatient labs with GFR ~15-20 per nephro. Plan to discharge with morgan in place. Patient will need to follow up with Urology for further work up. 10/24 - Morgan with light sediment. Will likely need morgan exchanged prior to discharge. almost 1 month Mildly displaced distal fibular fracture Ankle xray (10/20): Oblique mildly comminuted distal fibular fracture with mild displacement, and early signs of healing. Mild soft tissue swelling. Patient reports of left fibular fracture that occurred ~Sep 11 2024 - saw Dr. Kelly in office; Pain control 10/22 - discussed with Dr. Kelly - reviewed repeat imaging, ok to ambulate with walking boot Liver mass; incidental finding CT abd/pelvis (09/30): Heterogeneity of the inferior aspect of the right hepatic lobe which may be artifact from the patient's arm. repeat CT (10/04): 6.6 cm heterogeneous low density area right lobe of the liver could represent abscess or benign or malignant neoplasm. It probably does not represent a hematoma as it likely was present on the prior exam. Stage 1 sacral decubitus pressure ulcer wound photos in EMR 10/04 Pressure offloading. Frequent turning. Constipation, resolved PRN glycolax colace BID h/o hemorrhoids, started suppositories UTI POA Candidiasis UA with moderate yeast s/p oral diflucan x5 days (09/30-10/05) IDDM2 hypoglycemia accu-cheks, SSI states 10/08 - she takes ~30-40units insulin BID not the TID listed as home med long acting insulin on hold Hypertension Hyperlipidemia Continue home meds VTE: Eliquis Code: Full Dispo: pending SNF appeal Time Spent Managing Pts Care (In Minutes): 40
[2024-10-24] MEDS: POTASSIUM CL SA 10 MEQ TAB PO ONE (12:24)
[2024-10-25 09:33] LABS: Anion Gap 10.7 mEq/L (5.0-15.0); Potassium 3.7 mEq/L (3.5-5.1)
--- NOTE | 2024-10-25 11:27 | P.PN ---
Date of Service: 10/25/24 Subjective: Tolerating PT, limited by weakness and R knee pain Stood up for the first time since admission yesterday Physical Exam: GEN: Alert, oriented, NAD CV: Regular rate and rhythm, no edema Pulm: Nonlabored respirations on room air, clear bilaterally Neuro: Normal speech, normal affect Morgan with light sediment (placed 09/30) Problem List: Sepsis secondary to Acute gangrenous cholecystitis, s/p lap marzena (10/02) Elevated LFTs secondary to cholecystitis Acute hypoxic respiratory failure Acute DVT (left common femoral) Iron deficiency anemia ROLANDA on CKD4 Bilateral hydronephrosis, resolved Acute urinary retention Mildly displaced distal fibular fracture Liver mass; incidental finding Stage 2 sacral decubitus pressure ulcer Constipation, resolved UTI POA Candidiasis IDDM2 Hypertension Hyperlipidemia Hypernatremia Sepsis secondary to Acute gangrenous cholecystitis, s/p lap marzena (10/02) Elevated LFTs Acute hypoxic respiratory failure s/p lap marzena 10/[address] Lion; found to have Gangrenous GB, bowel adhesions to abd wall, ventral hernia. LFTs improving. Dr. Lion reports he noted liver cirrhosis intra-op. CT abd/pelvis (10/04): 5x3 cm collection in the gallbladder fossa suggestive of hematoma. CT abd/pelvis (10/10): Postoperative enhancing fluid collection along the lower margin of the right hepatic lobe near the subhepatic recess measuring 4.2 x 8.[address] Lion suspects fluid collection in the gallbladder fossa is not an abscess, and likely related to Khalida. s/p IR aspiration of gallbladder fossa (10/13) s/p 2+ weeks of IV merrem (10/04-10/19) and oral doxy (10/07-10/19) Aspirated fluid shows no growth. Afebrile, leukocytosis resolved. RUQ CATARINO drain removed 10/19 Diet as tolerated. Appetite improving. Denies any pains. oral protonix BID 10/20 - Continues to improve 10/21 - Stable 10/22 - No acute events. Denies pains. 10/23 - Stable. continue PT. 10/24 - No new issues. Rectal pressure improving. Tolerating PT, limited by weakness and R knee pain Stood up for the first time since admission. 10/25 - Denies new problems. Pending SNF Acute DVT (left common femoral) Iron deficiency anemia venous u/s (10/04): acute thrombus left common femoral vein s/p heparin drip for acute DVT (10/04-10/06) Started on oral eliquis, and plavix dc'd on (10/07) iron studies (10/07): iron 14, tsat% 11.8 s/p IV iron (125mg) Eliquis restarted 10/15 10/21 PO iron started 10/25 reports some slight constipation, discussed continue stool softerner and PRN miralax ROLANDA on CKD4 Bilateral hydronephrosis, resolved Acute urinary retention ROLANDA resolved. Renal function improved/stable. CT abdomen (09/30): Moderate bilateral hydroureteronephrosis with significantly distended bladder 09/30 - ~1100 ml urine drained with Morgan catheter insertion in the ED 10/21 - Case discussed with nephrology. Possibly some degree on chronic retention. Prior recent outpatient labs with GFR ~15-20 per nephro. Plan to discharge with morgan in place. Patient will need to follow up with Urology for further work up. 10/24 - Morgan with light sediment. Will likely need morgan exchanged prior to discharge. almost 1 month Mildly displaced distal fibular fracture Ankle xray (10/20): Oblique mildly comminuted distal fibular fracture with mild displacement, and early signs of healing. Mild soft tissue swelling. Patient reports of left fibular fracture that occurred ~Sep 11 2024 - saw Dr. Kelly in office; Pain control 10/22 - discussed with Dr. Kelly - reviewed repeat imaging, ok to ambulate with walking boot Liver mass; incidental finding CT abd/pelvis (09/30): Heterogeneity of the inferior aspect of the right hepatic lobe which may be artifact from the patient's arm. repeat CT (10/04): 6.6 cm heterogeneous low density area right lobe of the liver could represent abscess or benign or malignant neoplasm. It probably does not represent a hematoma as it likely was present on the prior exam. Stage 2 sacral decubitus pressure ulcer wound photos in EMR 10/04 Pressure offloading. Frequent turning. Constipation, resolved PRN glycolax colace BID h/o hemorrhoids, started suppositories UTI POA Candidiasis UA with moderate yeast s/p oral diflucan x5 days (09/30-10/05) IDDM2 hypoglycemia accu-cheks, SSI states 10/08 - she takes ~30-40units insulin BID not the TID listed as home med long acting insulin on hold Hypertension Hyperlipidemia Continue home meds VTE: Eliquis Code: Full Dispo: pending SNF appeal replace eddie Time Spent Managing Pts Care (In Minutes): 40
[2024-10-25] MEDS: HYDRALAZINE HCL 25 MG TABLET PO SCH (21:03)
[2024-10-26 08:04] LABS: Hematocrit 26.5 % (36.0-45.0); Hemoglobin 8.5 g/dL (12.0-15.0); MCH 29.9 pg (27.0-35.0); MCHC 32.3 g/dL (32.0-36.0); MCV 92.7 fL (80-100); MPV 9.2 fL (7.6-11.3); Platelets 307 thou/uL (152-406); RBC Red Blood Cell Count 2.86 M/uL (3.86-4.86)
[2024-10-26 08:18] LABS: Albumin 2.1 g/dL (3.4-5.0); Anion Gap 10.7 mEq/L (5.0-15.0); Magnesium 1.9 mg/dL (1.6-2.4); Phosphorus 2.6 mg/dL (2.5-4.9); Potassium 3.7 mEq/L (3.5-5.1)
[2024-10-26 10:18] VITALS: O2SAT 94
--- NOTE | 2024-10-26 12:16 | P.DS ---
Admission Date: 09/30/24 Discharge Date: 10/26/24 Disposition: TRANSFER TO SNF - REHAB Discharge Condition: GOOD Reason for Admission: Sepsis DVT Consultations: General surgery - Dr. Lion Nephrology - Dr. Nguyễn, Dr. Jones, Dr. Jordan, Dr. Ferreira Pulmonology - Dr. Ingram Brief History of Present Illness: 79yo F, PMH: hypertension, DM2, hyperlipidemia, CKD, gout Patient presents with complaint of shortness of breath, lethargy and generalized weakness. Patient is alert and oriented x 1 and unable to provide any accurate history. Patient's spouse reported that patient has been lethargic and weak for the past couple of days. Patient reported associated signs and symptoms of fatigue, cough, chest congestion, fever, poor appetite, nausea or vomiting. Patient denies any other signs and symptoms. Symptoms are aggravated or relieved by nothing. Patient was brought to the hospital for medical evaluation. Hospital Course: Problem List: Sepsis secondary to Acute gangrenous cholecystitis, s/p lap marzena (10/02) Elevated LFTs secondary to cholecystitis, resolved Acute hypoxic respiratory failure, improved Acute DVT (left common femoral) Iron deficiency anemia ROLANDA on CKD4, resolved Bilateral hydronephrosis, resolved Acute urinary retention Mildly displaced distal fibular fracture Liver mass; incidental finding Stage 2 sacral decubitus pressure ulcer Constipation, resolved UTI POA Candidiasis IDDM2 Hypertension Hyperlipidemia Sepsis secondary to Acute gangrenous cholecystitis, s/p lap marzena (10/02) Acute hypoxic respiratory failure Patient presented with worsening shortness of breath, lethargy, weakness assocaited with fever/nausea/vomiting secondary to acute gangrenous chol ecystitis. CT abdomen on admission noted distended gallbladder with trace pericholecystic edema, +Dependent airspace disease likely reflecting mild pneumonia or pneumonitis. Abdominal ultrasound noted a distended gallbladder with cholelithiasis and gallbladder wall thickening. Patient was evaluated by Dr. Lion and underwent lap marzena in 10/02. He was found to have Gangrenous GB, bowel adhesions to abd wall, ventral hernia during surgery. LFTs were noted to be elevated on admission. Patient's LFTs and leukocytosis were notice to worsen post-operatively. (AST peaked at 825, ALT peak 490 on ) Repeat CT abdomen pelvis 10/04 noted 5x3 cm collection in the gallbladder fossa suggestive of hematoma. Dr. Lion suspects fluid collection in the gallbladder fossa is not an abscess, and likely related to Khalida. Repeat CT 10/10 again noted postoperative enhancing fluid collection along the lower margin of the right hepatic lobe near the subhepatic recess measuring 4.2 x 8.8 x 4.8 cm. Patient underwent IR aspiration of gallbladder fossa (10/13). Aspirated fluid was without no growth. Suspect Elevated LFTs related to liver cirrhosis - Dr. Lion reported liver cirrhosis intra-op. RUQ CATARINO drain was removed on 10/19 without issues. Patient's diet and appetite improved with time. Patient reports being pain free, and has remained afebrile without leukocytosis Patient completed 2 weeks of IV merrem (10/04-10/19) in addition to oral doxycycline (10/07-10/19). acute DVT Iron Deficiency Anemia Patient was found to have acute thrombus of left common femoral vein, seen on venous ultrasound on 10/04. Status post heparin drip for acute DVT (10/04-10/06) Patient was transitioned to oral eliquis on 10/07. 10/12 - Patient's hemoglobin dropped to 6.8 from 7.1. Anticoagulation was placed on hold and patient received 1 blood transfusion. Patient was found to have moderate-severe iron deficiency anemia (iron 14, tsat% 11.8) Patient received multiple bags of IV iron (125mg), eventually transitioned to oral iron. Recommending continuing on oral iron on discharge. Repeat iron studies in 2-3 months. Eliquis was restarted on 10/15 and patient's hemoglobin has been stable in 7-8s since then. ROLANDA/UTI/Urinary Retention CT abdomen on admission noted moderate bilateral hydroureteronephrosis with significantly distended bladder. Morgan placed placed in the ED and returned ~1100 ml urine (09/30). Unclear exact etiology which led to hydro/retention. Case discussed with Dr. Nguyễn, Nephrology. Its possible there is some degree of chronic retention. Prior recent outpatient labs with GFR ~15-20 per nephro. Plan to discharge with morgan in place. Patient will need to follow up with Urology for further work up. Renal function initially 4.49 on admission and stabilized around 1.2-1.4. Renal function between 1.2-1.4 over the last 2 weeks. Patient completed 5 days of oral diflucan (09/30-10/05) to treat UTI/Candidiasis. Morgan catheter was exchanged on day of discharge. Advised to maintain morgan until able to follow up with a urologist, but would be reasonable to attempt supervised voiding trial while at SNF if they are comfortable replacing morgan / eval urinary retention. Mildly displaced distal fibular fracture Patient reports of left fibular fracture that occurred ~Sep 11 2024 - saw Dr. Kelly in office Ankle xray (10/20): Oblique mildly comminuted distal fibular fracture with mild displacement, and early signs of healing. Mild soft tissue swelling. Discussed with Dr. Kelly - reviewed repeat imaging, ok to ambulate with walking boot Follow up with him in the office in near future for further management. Liver mass; incidental finding CT abd/pelvis (09/30): Heterogeneity of the inferior aspect of the right hepatic lobe which may be artifact from the patient's arm. repeat CT (10/04): 6.6 cm heterogeneous low density area right lobe of the liver could represent abscess or benign or malignant neoplasm. It probably does not represent a hematoma as it likely was present on the prior exam. (10/12) MRI abdomen: Heterogeneity of the inferior right hepatic lobe, portions of which have fluid attenuation. Could reflect early abscess versus mass. Recommend hepatic protocol MRI in near future Consider following up with PCP/GI for further work up to rule out neoplasm. Hypertension Patient's antihypertensives were adjusted this hospitalization to attain better control of blood pressure. Nifedipine was increased to 60 mg twice daily from 60 mg daily and patient was started on Hydralazine 25 mg twice daily. Check blood pressure around the same time each day. Keep daily log of readings to take to follow up appointments for further ad justments of medications. New Medications: Atorvastatin 10 mg daily Pantoprazole 40 mg twice daily Eliquis 5 mg twice daily Hydralazine 25 mg twice daily Oral iron tablets (OTC) Okay to take stool softener, laxative as needed for constipation. Medication adjustments: Nifedipine was increased to 60 mg twice daily from 60 mg daily Plavix discontinued by Dr. Ingram when initated Eliquis for DVT Follow up: PCP 3-5 days Nephrology in 1-2 weeks Urology in 2-4 weeks Ortho in 2-4 weeks GI in 2-4 weeks Please call to schedule / confirm appointments Physical Exam: GEN: Alert, oriented, NAD CV: Regular rate and rhythm, no edema Pulm: Nonlabored respirations on room air, clear bilaterally Neuro: Normal speech, normal affect Morgan in place; Exchanged on day of discharge. Vital Signs/Physical Exam: Temp Pulse Resp BP Pulse Ox 98.1 F 70 16 156/55 H 94 10/26/24 09:00 10/26/24 09:00 10/26/24 09:00 10/26/24 09:00 10/26/24 09:00 Laboratory Data at Discharge: WBC 7.60 thou/uL (4.3-10.9) 10/26/24 07:55 Hgb 8.5 g/dL (12.0-15.0) L 10/26/24 07:55 Hct 26.5 % (36.0-45.0) L 10/26/24 07:55 Plt Count 307 thou/uL (152-406) 10/26/24 07:55 PT 18.0 SECONDS (10.0-13.0) H 10/13/24 12:06 INR 1.62 10/13/24 12:06 APTT 39.3 SECONDS (24.3-36.9) H 10/13/24 12:06 Sodium 144 mEq/L (136-145) 10/26/24 07:55 Potassium 3.7 mEq/L (3.5-5.1) 10/26/24 07:55 BUN 28 mg/dL (7-18) H 10/26/24 07:55 Creatinine 1.24 mg/dL (0.55-1.02) H 10/26/24 07:55 Glucose 165 mg/dL (74-106) H 10/26/24 07:55 Uric Acid 8.8 mg/dL (2.6-6.0) H 10/02/24 06:33 Phosphorus 2.6 mg/dL (2.5-4.9) 10/26/24 07:55 Magnesium 1.9 mg/dL (1.6-2.4) 10/26/24 07:55 Total Bilirubin 0.4 mg/dL (0.2-1.0) 10/15/24 04:55 AST 43 U/L (15-37) H 10/15/24 04:55 ALT 37 U/L (13-56) 10/15/24 04:55 Alkaline Phosphatase 134 U/L (45-117) H 10/15/24 04:55 Triglycerides 139 mg/dL (<150) 10/01/24 04:07 Cholesterol 92 mg/dL (<200) 10/01/24 04:07 HDL Cholesterol 22 mg/dL (40-60) L 10/01/24 04:07 Cholesterol/HDL Ratio 4.18 10/01/24 04:07 Home Medications: Pravastatin Sodium [Pravachol] 40 mg PO DAILY 08/07/16 carvediloL [Coreg*] 1 tab PO BID 08/07/16 Apixaban [Eliquis] 5 mg PO BID #0 10/26/24 Docusate [Colace Cap*] 100 mg PO BID #0 cap 10/26/24 Ferrous Sulfate [Ferrous Sulfate*] 325 mg PO BIDWM #0 tab 10/26/24 Hydralazine [Apresoline*] 25 mg PO BID #0 tab 10/26/24 Hydrocort Acetate Suppos [Anucort-Hc Suppository*] 25 mg [place] DAILY supp 10/26/24 Nifedipine Xl [Procardia XL*] 60 mg PO Q12H #0 tab 10/26/24 Pantoprazole [Protonix Tab*] 40 mg PO BIDAC #0 tab 10/26/24 New Medications: Hydralazine [Apresoline*] 25 mg PO BID #0 tab Docusate [Colace Cap*] 100 mg PO BID #0 cap Apixaban [Eliquis] 5 mg PO BID #0 Ferrous Sulfate [Ferrous Sulfate*] 325 mg PO BIDWM #0 tab Nifedipine Xl [Procardia XL*] 60 mg PO Q12H #0 tab Pantoprazole [Protonix Tab*] 40 mg PO BIDAC #0 tab Physician Discharge Instructions: Sepsis secondary to Acute gangrenous cholecystitis, s/p lap marzena (10/02) Acute hypoxic respiratory failure Patient presented with worsening shortness of breath, lethargy, weakness assocaited with fever/nausea/vomiting secondary to acute gangrenous marzena cystitis. CT abdomen on admission noted distended gallbladder with trace pericholecystic edema, +Dependent airspace disease likely reflecting mild pneumonia or pneumonitis. Abdominal ultrasound noted a distended gallbladder with cholelithiasis and gallbladder wall thickening. Patient was evaluated by Dr. Lion and underwent lap marzena in 10/02. He was found to have Gangrenous GB, bowel adhesions to abd wall, ventral hernia during surgery. LFTs were noted to be elevated on admission. Patient's LFTs and leukocytosis were notice to worsen post-operatively. (AST peaked at 825, ALT peak 490 on 09/13) Repeat CT abdomen pelvis 10/04 noted 5x3 cm collection in the gallbladder fossa suggestive of hematoma. Dr. Lion suspects fluid collection in the gallbladder fossa is not an abscess, and likely related to Khalida. Repeat CT 10/10 again noted postoperative enhancing fluid collection along the lower margin of the right hepatic lobe near the subhepatic recess measuring 4.2 x 8.8 x 4.8 cm. Patient underwent IR aspiration of gallbladder fossa (10/13). Aspirated fluid was without no growth. Suspect Elevated LFTs related to liver cirrhosis - Dr. Lion reported liver cirrhosis intra-op. RUQ CATARINO drain was removed on 10/19 without issues. Patient's diet and appetite improved with time. Patient reports being pain free, and has remained afebrile without leukocytosis Patient completed 2 weeks of IV merrem (10/04-10/19) in addition to oral doxycycline (10/07-10/19). acute DVT Iron Deficiency Anemia Patient was found to have acute thrombus of left common femoral vein, seen on venous ultrasound on 10/04. Status post heparin drip for acute DVT (10/04-10/06) Patient was transitioned to oral eliquis on 10/07. 10/12 - Patient's hemoglobin dropped to 6.8 from 7.1. Anticoagulation was placed on hold and patient received 1 blood transfusion. Patient was found to have moderate-severe iron deficiency anemia (iron 14, tsat% 11.8) Patient received multiple bags of IV iron (125mg), eventually transitioned to oral iron. Recommending continuing on oral iron on discharge. Repeat iron studies in 2-3 months. Eliquis was restarted on 10/15 and patient's hemoglobin has been stable in 7-8s since then. ROLANDA/UTI/Urinary Retention CT abdomen on admission noted moderate bilateral hydroureteronephrosis with significantly distended bladder. Morgan placed placed in the ED and returned ~1100 ml urine (09/30). Unclear exact etiology which led to hydro/retention. Case discussed with Dr. Nguyễn, Nephrology. Its possible there is some degree of chronic retention. Prior recent outpatient labs with GFR ~15-20 per nephro. Plan to discharge with morgan in place. Patient will need to follow up with Urology for further work up. Renal function initially 4.49 on admission and stabilized around 1.2-1.4. Renal function between 1.2-1.4 over the last 2 weeks. Patient completed 5 days of oral diflucan (09/30-10/05) to treat UTI/Candidiasis. Morgan catheter was exchanged on day of discharge. Advised to maintain morgan until able to follow up with a urologist, but would be reasonable to attempt supervised voiding trial while at SNF if they are comfortable replacing morgan / eval urinary retention. Mildly displaced distal fibular fracture Patient reports of left fibular fracture that occurred ~Sep 11 2024 - saw Dr. Kelly in office Ankle xray (10/20): Oblique mildly comminuted distal fibular fracture with mild displacement, and early signs of healing. Mild soft tissue swelling. Discussed with Dr. Kelly - reviewed repeat imaging, ok to ambulate with walking boot Follow up with him in the office in near future for further management. Liver mass; incidental finding CT abd/pelvis (09/30): Heterogeneity of the inferior aspect of the right hepatic lobe which may be artifact from the patient's arm. repeat CT (10/04): 6.6 cm heterogeneous low density area right lobe of the liver could represent abscess or benign or malignant neoplasm. It probably does not represent a hematoma as it likely was present on the prior exam. (10/12) MRI abdomen: Heterogeneity of the inferior right hepatic lobe, portions of which have fluid attenuation. Could reflect early abscess versus mass. Recommend hepatic protocol MRI in near future Consider following up with PCP/GI for further work up to rule out neoplasm. Hypertension Patient's antihypertensives were adjusted this hospitalization to attain better control of blood pressure. Nifedipine was increased to 60 mg twice daily from 60 mg daily and patient was started on Hydralazine 25 mg twice daily. Check blood pressure around the same time each day. Keep daily log of readings to take to follow up appointments for further adj ustments of medications. New Medications: Atorvastatin 10 mg daily Pantoprazole 40 mg twice daily Eliquis 5 mg twice daily Hydralazine 25 mg twice daily Oral iron tablets (OTC) Okay to take stool softener, laxative as needed for constipation. Medication adjustments: Nifedipine was increased to 60 mg twice daily from 60 mg daily Plavix discontinued by Dr. Ingram when initated Eliquis for DVT Follow up: PCP 3-5 days Nephrology in 1-2 weeks Urology in 2-4 weeks Ortho in 2-4 weeks GI in 2-4 weeks Please call to schedule / confirm appointments Diet: Renal Activity: No lifting more than 10 lbs Followup: Van Jones DO [Primary Care Provider] - 1-2 Weeks Aditya Lion MD [ACTIVE - CAN ADMIT] - 1-2 Weeks Time spent managing pt's care (in minutes): 45
[2024-10-26 12:23] VITALS: BP 173/62; TEMP 98.3
--- NOTE | 2024-10-26 21:54 | P.PN ---
Date of Service: 10/26/24 Vital Signs Temp Pulse Resp BP Pulse Ox 98.3 F 65 16 173/62 H 96 10/26/24 12:00 10/26/24 12:00 10/26/24 12:00 10/26/24 12:00 10/26/24 12:00 Microbiology Results 09/30/24 10:34 Blood - Blood Aerobic Blood Culture - Final No growth in 5 days. 09/30/24 10:34 Blood - Blood Anaerobic Blood Culture - Final 09/30/24 10:25 Blood - Blood Aerobic Blood Culture - Final No growth in 5 days. 09/30/24 10:25 Blood - Blood Anaerobic Blood Culture - Final No growth in 5 days. Assessment/ Plan: Nephrology Progress Note No dyspnea No chest pain Weakness and fatigue No acute events overnight Vital Signs, Medications, Blood Work, and Imaging reviewed in the chart General: Oriented x3, Cooperative HEENT: Atraumatic. Obese. Neck: Supple Respiratory: Normal air movement/ CTA anteriorly Cardiovascular: Regular rate/rhythm, Edema (Hip) Gastrointestinal: Soft and benign, Non-distended, Tenderness Musculoskeletal: No clubbing, No contractures Integumentary: No rashes, No cyanosis, Neurological: Normal speech Tan light Blood work reviewed in the chart. Imagings Data: EXAM: CT CHEST, ABDOMEN AND PELVIS WITHOUT CONTRAST CLINICAL INDICATION: Female, 79 years old dyspnea, abnormal lfts, renal failure TECHNIQUE: CT chest, abdomen and pelvis was performed, without IV contrast, as per department protocol. Axial, sagittal and coronal reconstructions were obtained. One or more of the following dose reduction techniques were used: Automated exposure control, adjustment of the mA and/or kV according to the patient size, and/or iterative reconstruction. Unless otherwise specified, incidental findings do not require dedicated imaging follow-up. [id number]. COMPARISON: Same-day ultrasound FINDINGS: The lack of intravenous contrast limits the sensitivity of this exam for evaluation of solid visceral organs, vascular structures, and retroperitoneum. Chest: LOWER NECK: Visualized thyroid gland and soft tissues are normal. LUNGS AND AIRWAYS: Dependent opacities which may reflect atelectasis, aspiration, or pneumonia.Motion artifact limits evaluation for pulmonary nodule detection. PLEURA: Small right pleural effusion. MEDIASTINUM AND LYMPH NODES: No mediastinal mass or fluid collection. Normal size mediastinal, hilar, and axillary lymph nodes. Mild distal esophageal thickening. THORACIC AORTA: No thoracic aortic aneurysm. Atherosclerotic changes are present. PULMONARY ARTERIES: Caliber is within normal limits. HEART: Mild cardiomegaly. Multivessel coronary artery disease. No significant pericardial effusion. Aortic valve calcifications. Abdomen/Pelvis UPPER GI: No significant abnormality. LIVER: Hepatic steatosis. Heterogeneity at the inferior aspect of right hepatic lobe which may be due to underlying lesion or artifact from the patient's arms. GALLBLADDER/BILE DUCTS: Distended gallbladder with trace pericholecystic edema.? PANCREAS: Atrophy, but otherwise unremarkable. SPLEEN: Unremarkable. ADRENALS: Left adrenal nodules which have Hounsfield units consistent with adrenal adenomas. The largest measures 17 mm. KIDNEYS AND URETERS: Bilateral hydroureteronephrosis is mild to moderate.Renal cortical thinning is present bilaterally. ABDOMINAL AORTA AND OTHER VESSELS: Moderate atherosclerotic changes without aortic aneurysm. PERITONEUM: No abnormal free fluid. No free air. LYMPH NODES: No pathologic lymphadenopathy. ABDOMINAL WALL: Bowel containing umbilical hernia. SMALL BOWEL/COLON: Fat-containing umbilical hernia without bowel obstruction. No appendicitis. No bowel obstruction. URINARY BLADDER: Significantly distended bladder. REPRODUCTIVE ORGANS: Uterus surgically absent. No adnexal abnormality. MUSCULOSKELETAL: Multilevel degenerative changes in the spine. No acute fracture. ADDITIONAL FINDINGS: None. IMPRESSION: 1. Moderate bilateral hydroureteronephrosis with significantly distended bladder may be secondary to urinary retention. 2. Distended gallbladder with trace pericholecystic edema. Correlate with prior ultrasound. Acute cholecystitis not excluded. 3. Bowel containing umbilical hernia without bowel obstruction or complicating features. 4. Dependent airspace disease likely reflecting atelectasis but mild pneumonia or pneumonitis such as from aspiration not excluded. 5. Heterogeneity of the inferior aspect of the right hepatic lobe which may be artifact from the patient's arm. Consider nonemergent hepatic protocol CT or MRI to exclude underlying lesion. Abdomen Exam Limited: 09/30/2024 11:09 AM CLINICAL HISTORY: fever, abnormal lfts STUDY: Limited right upper quadrant ultrasound of abdomen. COMPARISON: None. FINDINGS: Liver: Coarsened liver echotexture. Bile ducts: Common bile duct measures 7 mm which is within normal limits for age. Gallbladder: Gallbladder wall thickening with debris and pericholecystic fluid. Cholelithiasis is present. No sonographic Nieves sign was reported. Gallbladder is distended. At least mild right-sided hydronephrosis is present. IMPRESSION: 1. Distended gallbladder with cholelithiasis and gallbladder wall thickening could represent acute cholecystitis in the appropriate clinical setting. 2. Common bile duct measures 7 mm which is likely within normal limits for patient's age. 3. Right-sided hydronephrosis. A CT is pending. EXAM: Chest Single View HISTORY: Cough;Dyspnea COMPARISON: None. FINDINGS: LUNGS/PLEURA: The lungs are clear. No pleural effusions or pneumothorax. No pulmonary edema. MEDIASTINUM: The mediastinal silhouette is within normal limits. CARDIAC: Mild cardiomegaly UPPER ABDOMEN: No significant abnormality. BONES: No acute abnormality. LINES/TUBES/OTHER: Shunt tubing noted overlying the right and left hemithorax. IMPRESSION: No evidence of acute cardiopulmonary disease. Conclusions/Impression: Stage III ROLANDA in the setting of urinary obstruction CKD III with Proteinuria -No NSAIDs -Continue Tan Urinary Retention BL Hydroureteronephrosis -Continue Tan Hypernatremia -Encourage more water intake Hypokalemia -Replete prn HTN with CKD/ CHF -Continue Nifedipine XL -Continue Coreg MARIXA -CPAP qhs Diastolic CHF, A/C Peripheral Edema Acute Hypoxic Respiratory Failure -Low sodium diet -Lasix prn -Oxygen prn -Bipap prn DM II with CKD & Polyneuropathy -RISS Hypoalbuminemia -Albumin IV prn -Protein supplementation as tolerated Anemia in chronic illness Iron Deficiency 12% -Monitor H&H -PRBC prn -Retacrit prn CKD MBD Secondary HyperParathyroidism -Renvela prn Sepsis Acute gangrenous cholecystitis sp cholecystectomy Transaminitis Anorexia -Follow up with surgery Acute DVT (left common femoral) -Continue [facility] Hospitalist and Surgery notes reviewed
== END 2024-10-26 13:10 | DRG 853 ==
LOC: ER 09:40 → ERHOLD 14:10 → 2ND 17:36 → 3RD-ICU 10-04 15:55 → 4TH 10-11 18:33
PROVIDERS: ADMIT Internal Medicine; ATTEND Hospitalist
PROC: 02HV33Z Insertion of Infusion Device into Superior Vena Cava, Percutaneous Approach (ICD-10-PCS; 2024-09-30)
PROC: BF52200 Other Imaging of Gallbladder using Fluorescing Agent, Indocyanine Green Dye, Intraoperative (ICD-10-PCS; 2024-10-02)
PROC: 0FT44ZZ Resection of Gallbladder, Percutaneous Endoscopic Approach (ICD-10-PCS; principal; 2024-10-02 11:30)
PROC: 5A09557 Assistance with Respiratory Ventilation, Greater than 96 Consecutive Hours, Continuous Positive Airway Pressure (ICD-10-PCS; 2024-10-03)
PROC: 4A033R1 Measurement of Arterial Saturation, Peripheral, Percutaneous Approach (ICD-10-PCS; 2024-10-04)
PROC: 30233N1 Transfusion of Nonautologous Red Blood Cells into Peripheral Vein, Percutaneous Approach (ICD-10-PCS; 2024-10-11)
PROC: 0T9B70Z Drainage of Bladder with Drainage Device, Via Natural or Artificial Opening (ICD-10-PCS; 2024-10-21)
DX: A41.9 Sepsis, unspecified organism (principal); G92.8 Other toxic encephalopathy; I50.33 Acute on chronic diastolic (congestive) heart failure; J10.00 Influenza due to other identified influenza virus with unspecified type of pneumonia; N17.0 Acute kidney failure with tubular necrosis; J96.01 Acute respiratory failure with hypoxia; K81.0 Acute cholecystitis; N25.81 Secondary hyperparathyroidism of renal origin; N13.6 Pyonephrosis; E87.1 Hypo-osmolality and hyponatremia; E87.0 Hyperosmolality and hypernatremia; E66.2 Morbid (severe) obesity with alveolar hypoventilation; Z68.41 Body mass index [BMI] 40.0-44.9, adult; I82.412 Acute embolism and thrombosis of left femoral vein; N18.4 Chronic kidney disease, stage 4 (severe); I13.0 Hypertensive heart and chronic kidney disease with heart failure and stage 1 through stage 4 chronic kidney disease, or unspecified chronic kidney disease; K82.A1 Gangrene of gallbladder in cholecystitis; E11.22 Type 2 diabetes mellitus with diabetic chronic kidney disease; E11.42 Type 2 diabetes mellitus with diabetic polyneuropathy; E11.649 Type 2 diabetes mellitus with hypoglycemia without coma; D63.1 Anemia in chronic kidney disease; D50.9 Iron deficiency anemia, unspecified; M10.9 Gout, unspecified; E78.5 Hyperlipidemia, unspecified; K43.9 Ventral hernia without obstruction or gangrene; L89.151 Pressure ulcer of sacral region, stage 1; K74.60 Unspecified cirrhosis of liver; K66.0 Peritoneal adhesions (postprocedural) (postinfection); E88.09 Other disorders of plasma-protein metabolism, not elsewhere classified; S82.492D Other fracture of shaft of left fibula, subsequent encounter for closed fracture with routine healing; R33.9 Retention of urine, unspecified; R16.0 Hepatomegaly, not elsewhere classified; R79.89 Other specified abnormal findings of blood chemistry; Z79.4 Long term (current) use of insulin; Z79.84 Long term (current) use of oral hypoglycemic drugs; Z79.02 Long term (current) use of antithrombotics/antiplatelets; Z79.899 Other long term (current) drug therapy
CPT/HCPCS: 10160; 36415; 36600; 51702; 71045; 71250; 74018; 74176; 74177; 74183; 76705; 78582; 80048; 80053; 80061; 80069; 80202; 81001; 82607; 82805; 82947; 83540; 83605; 83735; 83880; 84100; 84466; 84550; 85014; 85018; 85025; 85027; 85044; 85049; 85610; 85730; 86704; 86706; 86803; 86850; 86900; 86901; 86920; 87040; 87070; 87340; 88304; 89050; 93005; 93970; 94640; 94660; 94760; 96365; 96366; 97110; 97161; 97530; 99285; A9540; A9577; J0360; J1171; J1644; J1650; J1815; J2003; J2185; J2250; J2270; J2310; J2405; J2470; J2543; J2704; J2765; J2916; J3010; J3475; J3480; J7030; J7040; J7050; J7613; J7644; J7799; P9016; P9047; Q5106; Q9967